=== PATIENT | male | born 1965 | race Caucasian/White ===

== ENCOUNTER 2016-12-29 09:20 | Emergency (ER) | payer OTHER ==
[2016-12-29] MEDS ORDERED: ONDANSETRON ODT 4 MG TAB PO STA (09:49)
[2016-12-29] MEDS ORDERED: ACETAMINOPHEN TAB 500 MG TAB PO STA (09:49)
--- NOTE | 2016-12-29 10:00 | ED ---
Fever HPI - General Chief Complaint: Fever Stated Complaint: BODY PAIN, FREEZING COLD, RENITA Time Seen by Provider: 12/29/16 09:36 Source: patient Mode of arrival: ambulatory Limitations: no limitations - History of Present Illness Initial Comments: 50-year-old male patient presents to emergency department stay for complaints of chills and general body aches. Patient states that this is been going on since Friday morning. Patient states he has had to wear multiple layers and has tinea pedis house has not helped feeling chilled. Patient states he has taken aspirin without any relief of symptoms. Patient has also been nauseated denies any vomiting. Patient denies abdominal pain on the diarrhea, or constipation. Denies any difficulty urinating. Denies any dysuria, hematuria, urinary urgency, urinary urgency. Denies any cough, sore throat, or nasal congestion. - Related Data Home Medications Medication Instructions Recorded Confirmed Lisinopril [Prinivil] 20 mg PO DAILY 12/22/15 09/24/16 Acetaminophen Tab [Tylenol Tab] 1,000 mg PO Q6HR PRN 09/24/16 09/24/16 [id number] 1 - 2 tab PO Q4HR PRN 09/24/16 09/24/16 [Excedrin] Butalb/Acetaminophen/Caffeine 1 - 2 cap PO Q4HR PRN 09/24/16 09/24/16 [Fioricet 50-300-40 mg Capsule] Ibuprofen [Motrin] 400 mg PO Q6HR PRN 09/24/16 09/24/16 Multivitamins, Thera [Multivitamin] 1 tab PO DAILY 09/24/16 09/24/16 diphenhydrAMINE [Benadryl] 25 - 50 mg PO Q4H PRN 09/24/16 09/24/16 Previous Rx's Medication Instructions Recorded Acetaminophen Tab [Tylenol Tab] 1,000 mg PO Q6HR #30 tablet 12/29/16 Ibuprofen [Motrin] 600 mg PO Q8HR PRN #30 tab 12/29/16 Levofloxacin [Levaquin] 500 mg PO DAILY #10 tab 12/29/16 Allergies Allergy/AdvReac Type Severity Reaction Status Date / Time morphine AdvReac Severe Hallucinati Verified 09/24/16 11:40 ons Review of Systems ROS Statement: Those systems with pertinent positive or pertinent negative responses have been documented in the HPI. ROS Other: All systems not noted in ROS Statement are negative. Past Medical History Past Medical History: Hypertension Additional Past Medical History / Comment(s): kidney stones, knee and leg pain, headache History of Any Multi-Drug Resistant Organisms: None Reported Past Surgical History: No Surgical Hx Reported Additional Past Surgical History / Comment(s): gall bladder pain Past Psychological History: No Psychological Hx Reported Smoking Status: Former smoker Past Alcohol Use History: None Reported Past Drug Use History: None Reported General Exam Limitations: no limitations General appearance: alert, in no apparent distress Eye exam: Present: normal appearance, PERRL, EOMI. Absent: scleral icterus, conjunctival injection, periorbital swelling ENT exam: Present: normal exam, normal oropharynx, mucous membranes moist, TM's normal bilaterally Neck exam: Present: normal inspection, full ROM. Absent: tenderness, meningismus, lymphadenopathy Respiratory exam: Present: rhonchi (Rhonchi left). Absent: normal lung sounds bilaterally, respiratory distress, wheezes, rales, stridor Cardiovascular Exam: Present: normal rhythm, tachycardia, normal heart sounds. Absent: systolic murmur, diastolic murmur, rubs, gallop, clicks GI/Abdominal exam: Present: soft, normal bowel sounds. Absent: distended, tenderness, guarding, rebound, rigid Extremities exam: Present: normal inspection, full ROM, normal capillary refill. Absent: tenderness, pedal edema, joint swelling, calf tenderness Back exam: Present: normal inspection. Absent: CVA tenderness (R), CVA tenderness (L) Neurological exam: Present: alert, oriented X3, CN II-XII intact Psychiatric exam: Present: normal affect, normal mood Skin exam: Present: warm, dry, intact, normal color. Absent: rash Course Vital Signs 12/29/16 12/29/16 12/29/16 09:33 10:44 11:19 Temperature 102.3 F H 102.1 F H 101.9 F H Pulse Rate 129 H 106 H Respiratory 18 20 Rate Blood Pressure 122/68 104/65 O2 Sat by Pulse 97 94 L Oximetry Medical Decision Making - Medical Decision Making 51-year-old male brought to emergency Department chief complaint fever, body aches chills. Patient has no specific complaints. Influenza was negative though he does have a classic influenza symptoms. Patient's chest x-ray was read normal by radiologist though there is congestion, and straight noted in the left lobeand this was discussed with Dr. Hubbard. Patient was started on Levaquin at this time for pneumonia. Patient was also found to have hematuria that he has no flank pain and no dysuria. Urine culture Reform. We discussed that he needs a follow-up in 1 week for repeat urinalysis if but continues that he needs to be seen by urologist to rule out possible kidney cancer with CT. - Lab Data Result diagrams: 12/29/16 10:30 12/29/16 10:30 Lab Results 12/29/16 12/29/16 12/29/16 Range/Units 09:35 10:30 10:30 WBC 4.4 (3.8-10.6) k/uL RBC 4.61 (4.30-5.90) m/uL Hgb 14.6 (13.0-17.5) gm/dL Hct 42.8 (39.0-53.0) % MCV 92.9 (80.0-100.0) fL MCH 31.7 (25.0-35.0) pg MCHC 34.1 (31.0-37.0) g/dL RDW 13.7 (11.5-15.5) % Plt Count 143 L (150-450) k/uL Neutrophils % 90 % Lymphocytes % 6 % Monocytes % 3 % Eosinophils % 1 % Basophils % 0 % Neutrophils # 4.0 (1.3-7.7) k/uL Lymphocytes # 0.3 L (1.0-4.8) k/uL Monocytes # 0.1 (0-1.0) k/uL Eosinophils # 0.0 (0-0.7) k/uL Basophils # 0.0 (0-0.2) k/uL Sodium 132 L (137-145) mmol/L Potassium 3.9 (3.5-5.1) mmol/L Chloride 98 (98-107) mmol/L Carbon Dioxide 25 (22-30) mmol/L Anion Gap 9 mmol/L BUN 19 (9-20) mg/dL Creatinine 0.91 (0.66-1.25) mg/dL Est GFR (MDRD) Af Amer >60 (>60 ml/min/1.73 sqM) Est GFR (MDRD) Non-Af >60 (>60 ml/min/1.73 sqM) Glucose 103 H (74-99) mg/dL Plasma Lactic Acid Krishan (0.7-2.0) mmol/L Calcium 8.5 (8.4-10.2) mg/dL Total Bilirubin 0.6 (0.2-1.3) mg/dL AST 32 (17-59) U/L ALT 32 (21-72) U/L Alkaline Phosphatase 55 (38-126) U/L Total Protein 5.5 L (6.3-8.2) g/dL Albumin 3.2 L (3.5-5.0) g/dL Urine Color Urine Appearance (Clear) Urine pH (5.0-8.0) Ur Specific [place] (1.001-1.035) Urine Protein (Negative) Urine Glucose (UA) (Negative) Urine Ketones (Negative) Urine Blood (Negative) Urine Nitrite (Negative) Urine Bilirubin (Negative) Urine Urobilinogen (<2.0) mg/dL Ur Leukocyte Esterase (Negative) Urine RBC (0-5) /hpf Urine WBC (0-5) /hpf Urine Mucus (None) /hpf Influenza Type A RNA Not Detected (Not Detectd) Influenza Type B (PCR) Not Detected (Not Detectd) 12/29/16 12/29/16 Range/Units 10:30 10:30 WBC (3.8-10.6) k/uL RBC (4.30-5.90) m/uL Hgb (13.0-17.5) gm/dL Hct (39.0-53.0) % MCV (80.0-100.0) fL MCH (25.0-35.0) pg MCHC (31.0-37.0) g/dL RDW (11.5-15.5) % Plt Count (150-450) k/uL Neutrophils % % Lymphocytes % % Monocytes % % Eosinophils % % Basophils % % Neutrophils # (1.3-7.7) k/uL Lymphocytes # (1.0-4.8) k/uL Monocytes # (0-1.0) k/uL Eosinophils # (0-0.7) k/uL Basophils # (0-0.2) k/uL Sodium (137-145) mmol/L Potassium (3.5-5.1) mmol/L Chloride (98-107) mmol/L Carbon Dioxide (22-30) mmol/L Anion Gap mmol/L BUN (9-20) mg/dL Creatinine (0.66-1.25) mg/dL Est GFR (MDRD) Af Amer (>60 ml/min/1.73 sqM) Est GFR (MDRD) Non-Af (>60 ml/min/1.73 sqM) Glucose (74-99) mg/dL Plasma Lactic Acid Krishan 0.9 (0.7-2.0) mmol/L Calcium (8.4-10.2) mg/dL Total Bilirubin (0.2-1.3) mg/dL AST (17-59) U/L ALT (21-72) U/L Alkaline Phosphatase (38-126) U/L Total Protein (6.3-8.2) g/dL Albumin (3.5-5.0) g/dL Urine Color Red Urine Appearance Cloudy (Clear) Urine pH 6.0 (5.0-8.0) Ur Specific [place] 1.026 (1.001-1.035) Urine Protein 1+ H (Negative) Urine Glucose (UA) Negative (Negative) Urine Ketones 1+ H (Negative) Urine Blood Large H (Negative) Urine Nitrite Negative (Negative) Urine Bilirubin Negative (Negative) Urine Urobilinogen <2.0 (<2.0) mg/dL Ur Leukocyte Esterase Negative (Negative) Urine RBC >182 H (0-5) /hpf Urine WBC 7 H (0-5) /hpf Urine Mucus Moderate H (None) /hpf Influenza Type A RNA (Not Detectd) Influenza Type B (PCR) (Not Detectd) Disposition Clinical Impression: Fever, Pneumonia, Myalgia, Hematuria Disposition: HOME SELF-CARE Condition: Stable Instructions: Pneumonia (ED) Additional Instructions: Please return to the Emergency Department if symptoms worsen or any other concerns. Have urine rechecked in 1 week. Prescriptions: Acetaminophen Tab [Tylenol Tab] 1,000 mg PO Q6HR #30 tablet Ibuprofen [Motrin] 600 mg PO Q8HR PRN #30 tab PRN Reason: Pain Levofloxacin [Levaquin] 500 mg PO DAILY #10 tab Time of Disposition: 11:31
[2016-12-29] MEDS ORDERED: SODIUM CHLORIDE 0.9% 1,000 ML IV ONE (10:17)
[2016-12-29 10:58] LABS: Appearance,Urine Cloudy (Clear); Bilirubin,Urine Negative (Negative); Glucose,Urine (UA) Negative (Negative); Ketones,Urine 1+ (Negative); Leukocyte Esterase,Urine Negative (Negative); Mucus,Urine Moderate /hpf; Nitrite,Urine Negative (Negative); Particle Count 9686; Protein,Urine 1+ (Negative); RBC,Urine >182 /hpf (0-5); Specific Gravity,Urine 1.026 (1.001-1.035); UA Billing (MACRO vs. MICRO) MICRO; Urobilinogen,Urine <2.0 mg/dL (<2.0); WBC,Urine 7 /hpf (0-5)
[2016-12-29 10:59] LABS: Basophils % (A) 0 %; CH 31.8; CHCM 34.4; Eosinophils % (A) 1 %; HCT 42.8 % (39.0-53.0); HDW 2.54; HGB 14.6 gm/dL (13.0-17.5); Immature Gran Flag Slight; Luc # (Auto) 0.05; Luc % (Auto) 1; Lymphocytes # (A) 0.3 k/uL (1.0-4.8); Lymphocytes % (A) 6 %; MCH 31.7 pg (25.0-35.0); MCHC 34.1 g/dL (31.0-37.0); MCV 92.9 fL (80.0-100.0); Monocytes # (A) 0.1 k/uL (0-1.0); Monocytes % (A) 3 %; Neutrophils % (A) 90 %; RBC 4.61 m/uL (4.30-5.90); RDW 13.7 % (11.5-15.5); WBC 4.4 k/uL (3.8-10.6); WBC (Perox) 4.55
--- NOTE | 2016-12-29 11:04 | XR ---
EXAMINATION TYPE: XR chest 2V DATE OF EXAM ORDERED: 12/29/2016 10:57 AM HISTORY: Flu symptoms. REFERENCE: None. FINDINGS: The lungs are clear. Pleural spaces are clear. Heart size is normal. IMPRESSION: NORMAL CHEST.
[2016-12-29 11:10] LABS: ALT 32 U/L (21-72); AST 32 U/L (17-59); Alkaline Phosphatase 55 U/L (38-126); Anion Gap 9 mmol/L; Blood Urea Nitrogen 19 mg/dL (9-20); Calcium 8.5 mg/dL (8.4-10.2); Carbon Dioxide 25 mmol/L (22-30); Chloride 98 mmol/L (98-107); Glucose 103 mg/dL (74-99); Non-African American GFR(MDRD) >60 (>60 ml/min/1.73 sqM); Potassium 3.9 mmol/L (3.5-5.1); Sodium 132 mmol/L (137-145); Total Bilirubin 0.6 mg/dL (0.2-1.3); Total Protein 5.5 g/dL (6.3-8.2)
[2016-12-29 11:19] VITALS: RESP 20; TEMP 101.9
[2016-12-29] MEDS ORDERED: LEVOFLOXACIN 500 MG TAB PO STA (11:26)
[2016-12-29] MEDS ORDERED: IBUPROFEN 800 MG TAB PO STA (11:31)
[2016-12-29 11:48] VITALS: BP 110/66; PULSE 80
== END 2016-12-29 11:47 | disposition home or self-care (01) ==
LOC: EC 09:20
DX: J18.9 Pneumonia, unspecified organism (principal); M79.1 Myalgia; R31.9 Hematuria, unspecified; I10 Essential (primary) hypertension; Z88.5 Allergy status to narcotic agent; Z87.891 Personal history of nicotine dependence; Z79.899 Other long term (current) drug therapy
CPT/HCPCS: 36415; 71020; 80053; 81001; 83605; 85025; 87040; 87502; 96360; 99283

== ENCOUNTER 2016-12-30 12:33 | Emergency (ER) | payer OTHER ==
[2016-12-30] MEDS ORDERED: ONDANSETRON 4 MG/2 ML VIAL IVP STA (14:31)
[2016-12-30] MEDS ORDERED: PANTOPRAZOLE 40 MG/10 ML VIAL IVP STA (14:31)
[2016-12-30] MEDS ORDERED: SODIUM CHLORIDE 0.9% 1,000 ML IV STA ×2 (14:31)
[2016-12-30 14:52] LABS: Basophils % (A) 1 %; CH 31.8; CHCM 33.9; Eosinophils % (A) 0 %; HCT 42.1 % (39.0-53.0); HDW 2.59; Luc # (Auto) 0.04; Luc % (Auto) 1; Lymphocytes # (A) 0.2 k/uL (1.0-4.8); Lymphocytes % (A) 7 %; MCH 31.4 pg (25.0-35.0); MCHC 33.3 g/dL (31.0-37.0); MCV 94.3 fL (80.0-100.0); Mean Platelet Volume 8.1; Monocytes # (A) 0.1 k/uL (0-1.0); Monocytes % (A) 2 %; Neutrophils # (A) 3.3 k/uL (1.3-7.7); Neutrophils % (A) 90 %; RBC 4.47 m/uL (4.30-5.90); RDW 13.7 % (11.5-15.5); WBC 3.7 k/uL (3.8-10.6); WBC (Perox) 3.88
[2016-12-30 14:57] LABS: ALT 28 U/L (21-72); AST 35 U/L (17-59); Alkaline Phosphatase 49 U/L (38-126); Anion Gap 14 mmol/L; Blood Urea Nitrogen 26 mg/dL (9-20); Calcium 8.6 mg/dL (8.4-10.2); Carbon Dioxide 22 mmol/L (22-30); Chloride 100 mmol/L (98-107); Glucose 88 mg/dL (74-99); Magnesium 1.8 mg/dL (1.6-2.3); Non-African American GFR(MDRD) 58 (>60 ml/min/1.73 sqM); Potassium 3.7 mmol/L (3.5-5.1); Sodium 136 mmol/L (137-145); Total Bilirubin 0.4 mg/dL (0.2-1.3); Total Protein 5.3 g/dL (6.3-8.2)
--- NOTE | 2016-12-30 14:57 | ED ---
General Adult HPI - General Chief complaint: Nausea/Vomiting/Diarrhea Stated complaint: Vomiting Blood Time Seen by Provider: 12/30/16 14:21 Source: patient, RN notes reviewed, old records reviewed Mode of arrival: ambulatory Limitations: no limitations - History of Present Illness Initial comments: This is a 50-year-old male the ER for evaluation of Toradol pain. Vomiting. Patient was inserted on antibiotics for possible pneumonia, he presented yesterday to the ER with fever. Patient states he is on it 3 times a day with blood in his vomit. He has not felt weak lightheaded or dizzy. He states he's had this problem before secondary to ulcer. Patient has no other complaints. Denies any specific bowel pain, no diarrhea - Related Data Home Medications Medication Instructions Recorded Confirmed Lisinopril [Prinivil] 20 mg PO DAILY 12/22/15 12/30/16 Acetaminophen Tab [Tylenol Tab] 1,000 mg PO Q6HR PRN 09/24/16 12/30/16 Multivitamins, Thera [Multivitamin] 1 tab PO DAILY 09/24/16 12/30/16 Previous Rx's Medication Instructions Recorded Ibuprofen [Motrin] 600 mg PO Q8HR PRN #30 tab 12/29/16 Levofloxacin [Levaquin] 500 mg PO DAILY #10 tab 12/29/16 Azithromycin [Zithromax Z-pack] 0 mg PO DIRECTED #1 pack 12/30/16 Allergies Allergy/AdvReac Type Severity Reaction Status Date / Time aspirin AdvReac Severe STOMACH Verified 12/30/16 13:58 ISSUES morphine AdvReac Severe Hallucinati Verified 12/30/16 13:57 ons Review of Systems ROS Statement: Those systems with pertinent positive or pertinent negative responses have been documented in the HPI. ROS Other: All systems not noted in ROS Statement are negative. Past Medical History Past Medical History: Hypertension, Pneumonia Additional Past Medical History / Comment(s): kidney stones, knee and leg pain, headache History of Any Multi-Drug Resistant Organisms: None Reported Past Surgical History: No Surgical Hx Reported Additional Past Surgical History / Comment(s): gall bladder pain Past Psychological History: No Psychological Hx Reported Smoking Status: Former smoker Past Alcohol Use History: None Reported Past Drug Use History: None Reported General Exam Limitations: no limitations General appearance: alert, in no apparent distress Head exam: Present: atraumatic, normocephalic, normal inspection Eye exam: Present: normal appearance, PERRL, EOMI. Absent: scleral icterus, conjunctival injection, periorbital swelling ENT exam: Present: normal exam, mucous membranes moist Neck exam: Present: normal inspection. Absent: tenderness, meningismus, lymphadenopathy Respiratory exam: Present: normal lung sounds bilaterally. Absent: respiratory distress, wheezes, rales, rhonchi, stridor Cardiovascular Exam: Present: regular rate, normal rhythm, normal heart sounds. Absent: systolic murmur, diastolic murmur, rubs, gallop, clicks GI/Abdominal exam: Present: soft, normal bowel sounds. Absent: distended, tenderness, guarding, rebound, rigid Extremities exam: Present: normal inspection, full ROM, normal capillary refill. Absent: tenderness, pedal edema, joint swelling, calf tenderness Back exam: Present: normal inspection Neurological exam: Present: alert, oriented X3, CN II-XII intact Psychiatric exam: Present: normal affect, normal mood Skin exam: Present: warm, dry, intact, normal color. Absent: rash Course Vital Signs 12/30/16 12/30/16 12:40 14:21 Temperature 97.6 F Pulse Rate 98 77 Respiratory 20 16 Rate Blood Pressure 151/67 105/62 O2 Sat by Pulse 99 99 Oximetry - Reevaluation(s) Reevaluation #1: 12/30/16 14:56 Medical records from x-rays reviewed with Reevaluation #2: 12/30/16 15:42 Patient is without vomiting event here in the emergency room, no blood Medical Decision Making - Medical Decision Making 48 female year for evaluation of vomiting blood, patient states any related to Levaquin, patient we stopped Levaquin seropositive azithromycin for pneumonia, increasing pneumonia left lobe. Patient stressed to vomiting here in the emergency room, Hulin is normal and stable and patient can be discharged home - Lab Data Result diagrams: 12/30/16 14:20 12/30/16 14:20 Lab Results 12/30/16 12/30/16 12/30/16 Range/Units 14:20 14:20 14:20 WBC 3.7 L (3.8-10.6) k/uL RBC 4.47 (4.30-5.90) m/uL Hgb 14.0 (13.0-17.5) gm/dL Hct 42.1 (39.0-53.0) % MCV 94.3 (80.0-100.0) fL MCH 31.4 (25.0-35.0) pg MCHC 33.3 (31.0-37.0) g/dL RDW 13.7 (11.5-15.5) % Plt Count 119 L (150-450) k/uL Neutrophils % 90 % Lymphocytes % 7 % Monocytes % 2 % Eosinophils % 0 % Basophils % 1 % Neutrophils # 3.3 (1.3-7.7) k/uL Lymphocytes # 0.2 L (1.0-4.8) k/uL Monocytes # 0.1 (0-1.0) k/uL Eosinophils # 0.0 (0-0.7) k/uL Basophils # 0.0 (0-0.2) k/uL PT (9.0-12.0) sec INR (<1.1) APTT (22.0-30.0) sec Sodium 136 L (137-145) mmol/L Potassium 3.7 (3.5-5.1) mmol/L Chloride 100 (98-107) mmol/L Carbon Dioxide 22 (22-30) mmol/L Anion Gap 14 mmol/L BUN 26 H (9-20) mg/dL Creatinine 1.30 H (0.66-1.25) mg/dL Est GFR (MDRD) Af Amer >60 (>60 ml/min/1.73 sqM) Est GFR (MDRD) Non-Af 58 (>60 ml/min/1.73 sqM) Glucose 88 (74-99) mg/dL Calcium 8.6 (8.4-10.2) mg/dL Magnesium 1.8 (1.6-2.3) mg/dL Total Bilirubin 0.4 (0.2-1.3) mg/dL AST 35 (17-59) U/L ALT 28 (21-72) U/L Alkaline Phosphatase 49 (38-126) U/L Total Creatine Kinase 79 (55-170) U/L CK-MB (CK-2) 0.3 (0.0-2.4) ng/mL CK-MB (CK-2) Rel Index 0.4 Troponin I <0.012 (0.000-0.034) ng/mL Total Protein 5.3 L (6.3-8.2) g/dL Albumin 3.1 L (3.5-5.0) g/dL Lipase 118 (23-300) U/L 12/30/16 Range/Units 14:20 WBC (3.8-10.6) k/uL RBC (4.30-5.90) m/uL Hgb (13.0-17.5) gm/dL Hct (39.0-53.0) % MCV (80.0-100.0) fL MCH (25.0-35.0) pg MCHC (31.0-37.0) g/dL RDW (11.5-15.5) % Plt Count (150-450) k/uL Neutrophils % % Lymphocytes % % Monocytes % % Eosinophils % % Basophils % % Neutrophils # (1.3-7.7) k/uL Lymphocytes # (1.0-4.8) k/uL Monocytes # (0-1.0) k/uL Eosinophils # (0-0.7) k/uL Basophils # (0-0.2) k/uL PT 10.7 (9.0-12.0) sec INR 1.1 (<1.1) APTT 31.2 H (22.0-30.0) sec Sodium (137-145) mmol/L Potassium (3.5-5.1) mmol/L Chloride (98-107) mmol/L Carbon Dioxide (22-30) mmol/L Anion Gap mmol/L BUN (9-20) mg/dL Creatinine (0.66-1.25) mg/dL Est GFR (MDRD) Af Amer (>60 ml/min/1.73 sqM) Est GFR (MDRD) Non-Af (>60 ml/min/1.73 sqM) Glucose (74-99) mg/dL Calcium (8.4-10.2) mg/dL Magnesium (1.6-2.3) mg/dL Total Bilirubin (0.2-1.3) mg/dL AST (17-59) U/L ALT (21-72) U/L Alkaline Phosphatase (38-126) U/L Total Creatine Kinase (55-170) U/L CK-MB (CK-2) (0.0-2.4) ng/mL CK-MB (CK-2) Rel Index Troponin I (0.000-0.034) ng/mL Total Protein (6.3-8.2) g/dL Albumin (3.5-5.0) g/dL Lipase (23-300) U/L - Radiology Data Radiology results: report reviewed (Chest x-ray is positive for pneumonia), image reviewed Disposition Clinical Impression: Acute vomiting, Community acquired pneumonia, UGIB (upper gastrointestinal bleed) Disposition: HOME SELF-CARE Condition: Good Instructions: Hematemesis (ED), Community Acquired Pneumonia (ED) Prescriptions: Azithromycin [Zithromax Z-pack] 0 mg PO DIRECTED #1 pack Referrals: None,Stated [Primary Care Provider] - 1-2 days
[2016-12-30 15:01] LABS: INR 1.1 (<1.1); Partial Thromboplastin Time 31.2 sec (22.0-30.0); Prothrombin Time 10.7 sec (9.0-12.0)
[2016-12-30 15:06] LABS: Creatine Kinase 79 U/L (55-170)
[2016-12-30 15:20] LABS: Creatine Kinase MB 0.3 ng/mL (0.0-2.4); Troponin I <0.012 ng/mL (0.000-0.034)
[2016-12-30] MEDS ORDERED: AZITHROMYCIN 500 MG TAB PO STA (15:40)
[2016-12-30] MEDS ORDERED: cefTRIAXone 250 MG VIAL IM STA (15:40)
--- NOTE | 2016-12-30 15:45 | XR ---
EXAMINATION TYPE: XR chest 2V DATE OF EXAM ORDERED: 12/30/2016 2:56 PM HISTORY: pain. REFERENCE: Previous study dated 12/29/2016. FINDINGS: The lungs are clear. Pleural spaces are clear. Heart size is normal. IMPRESSION: NORMAL CHEST.
[2016-12-30 16:09] VITALS: BP 107/69; PULSE 87; RESP 18; TEMP 97.7
== END 2016-12-30 16:09 | disposition home or self-care (01) ==
LOC: EC 12:33
DX: J18.9 Pneumonia, unspecified organism (principal); K92.2 Gastrointestinal hemorrhage, unspecified; R11.10 Vomiting, unspecified; I10 Essential (primary) hypertension; Z79.899 Other long term (current) drug therapy; Z87.891 Personal history of nicotine dependence; Z88.6 Allergy status to analgesic agent; Z88.5 Allergy status to narcotic agent
CPT/HCPCS: 99284; 96374; 96375; 96361; 96372; 36415; 86900; 86901; 80053; 82550; 82553; 83690; 83735; 84484; 85025; 85610; 85730; 86850; 71020; J2405; J0696; C9113

== ENCOUNTER 2017-01-08 08:27 | Emergency (ER) | payer OTHER ==
--- NOTE | 2017-01-08 10:20 | ED ---
General Adult HPI - General Chief complaint: Recheck/Abnormal Lab/Rx Stated complaint: kidney infection Time Seen by Provider: 01/08/17 09:58 Source: patient, RN notes reviewed Mode of arrival: ambulatory Limitations: no limitations - History of Present Illness Initial comments: Patient 51-year-old male with significant past medical history for kidney stones , who presents emergency room today with chief complaint of left-sided flank pain. Patient does admit that symptoms have been off and on over the last several weeks. States been here to the hospital diagnosis hematuria. States he was here for pneumonia. States his symptoms of congestion have improved. She states recently finished antibiotic. States began having increased left- sided flank pain yesterday morning. Patient does admit that it seems to come and go. States feels similar to kidney stones that is had in the past. Does admit that he seen some blood in his urine. States been voiding small amounts. Admits to nausea. He denies other complaints or associated symptoms. Patient denies any recent fever, chills, shortness of breath, chest pain, back pain, numbness or tingling, dysuria or hematuria, constipation or diarrhea, headaches or visual changes, or any other complaints. - Related Data Home Medications Medication Instructions Recorded Confirmed Lisinopril [Prinivil] 20 mg PO DAILY 12/22/15 01/08/17 Acetaminophen Tab [Tylenol Tab] 500 - 1,000 mg PO Q6HR PRN 09/24/16 01/08/17 Multivitamins, Thera [Multivitamin] 1 tab PO DAILY 09/24/16 01/08/17 Previous Rx's Medication Instructions Recorded Hydrocodone/Acetaminophen [[place] 1 each PO Q6HR PRN #20 tab 01/08/17 5-325] Ibuprofen [Motrin] 600 mg PO Q6HR PRN #40 day 01/08/17 Lisinopril [Zestril] 20 mg PO DAILY #30 tab 01/08/17 Ondansetron Odt [Zofran ODT] 4 mg PO Q8HR PRN #20 tab 01/08/17 Tamsulosin [Flomax] 0.4 mg PO DAILY #10 cap 01/08/17 Allergies Allergy/AdvReac Type Severity Reaction Status Date / Time aspirin AdvReac Severe STOMACH Verified 01/08/17 09:50 ISSUES morphine AdvReac Severe Hallucinati Verified 01/08/17 09:50 ons Review of Systems ROS Statement: Those systems with pertinent positive or pertinent negative responses have been documented in the HPI. ROS Other: All systems not noted in ROS Statement are negative. Past Medical History Past Medical History: Hypertension, Pneumonia Additional Past Medical History / Comment(s): kidney stones, knee and leg pain, headache History of Any Multi-Drug Resistant Organisms: None Reported Past Surgical History: No Surgical Hx Reported Additional Past Surgical History / Comment(s): gall bladder pain Past Psychological History: No Psychological Hx Reported Smoking Status: Former smoker Past Alcohol Use History: None Reported Past Drug Use History: None Reported General Exam - General Exam Comments Initial Comments: General: The patient is awake and alert, in no distress, and does not appear acutely ill. Eye: Pupils are equal, round and reactive to light, extra-ocular movements are intact. No nystagmus. There is normal conjunctiva bilaterally. No signs of icterus. Ears, nose, mouth and throat: There are moist mucous membranes and no oral lesions. Neck: The neck is supple, there is no tenderness or JVD. Cardiovascular: There is a regular rate and rhythm. No murmur, rub or gallop is appreciated. Respiratory: Lungs are clear to auscultation, respirations are non-labored, breath sounds are equal. No wheezes, stridor, rales, or rhonchi. Gastrointestinal: Normal appearance and Normal bowel sounds. Abdomen soft on palpation. Patient does have tenderness over left flank. Left lower quadrant. Rebound tenderness. No guarding. Musculoskeletal: Normal ROM, no tenderness. Strength 5/5. Sensation intact. Pulses equal bilaterally 2+. Neurological: A&O x 3. CN II-XII intact, There are no obvious motor or sensory deficits. Coordination appears grossly intact. Speech is normal. Skin: Skin is warm and dry and no rashes or lesions are noted. Psychiatric: Cooperative, appropriate mood & affect, normal judgment. Limitations: no limitations Course Vital Signs 01/08/17 08:37 Temperature 97.2 F L Pulse Rate 70 Respiratory 20 Rate Blood Pressure 132/90 O2 Sat by Pulse 99 Oximetry Medical Decision Making - Medical Decision Making Patient's labs been reviewed. No sign of infection. Urinalysis shows large amount of blood. Patient does admit to history of kidney stones. States feels similar. Patient's had multiple CAT scans in the past. States feels comfortable following up with family doctor neurologist. Started on Flomax, pain medication, nausea medication. Advised return to emergency room if any symptoms increase worsen. Patient also states that he needs blood pressure medication refill. He states he currently is does not have family doctor. She states she takes lisinopril 20 mg. - Lab Data Result diagrams: 01/08/17 10:25 01/08/17 10:25 Lab Results 01/08/17 01/08/17 01/08/17 Range/Units 10:25 10:25 10:25 WBC 5.6 (3.8-10.6) k/uL RBC 4.59 (4.30-5.90) m/uL Hgb 14.3 (13.0-17.5) gm/dL Hct 43.2 (39.0-53.0) % MCV 94.1 (80.0-100.0) fL MCH 31.2 (25.0-35.0) pg MCHC 33.2 (31.0-37.0) g/dL RDW 13.5 (11.5-15.5) % Plt Count 569 H D (150-450) k/uL Neutrophils % 68 % Lymphocytes % 19 % Monocytes % 7 % Eosinophils % 1 % Basophils % 1 % Neutrophils # 3.8 (1.3-7.7) k/uL Lymphocytes # 1.1 (1.0-4.8) k/uL Monocytes # 0.4 (0-1.0) k/uL Eosinophils # 0.1 (0-0.7) k/uL Basophils # 0.1 (0-0.2) k/uL PT 10.6 (9.0-12.0) sec INR 1.1 (<1.1) APTT 24.6 (22.0-30.0) sec Sodium 144 (137-145) mmol/L Potassium 4.9 (3.5-5.1) mmol/L Chloride 103 (98-107) mmol/L Carbon Dioxide 33 H (22-30) mmol/L Anion Gap 8 mmol/L BUN 15 (9-20) mg/dL Creatinine 0.95 (0.66-1.25) mg/dL Est GFR (MDRD) Af Amer >60 (>60 ml/min/1.73 sqM) Est GFR (MDRD) Non-Af >60 (>60 ml/min/1.73 sqM) Glucose 102 H (74-99) mg/dL Calcium 9.5 (8.4-10.2) mg/dL Total Bilirubin 0.6 (0.2-1.3) mg/dL AST 38 (17-59) U/L ALT 35 (21-72) U/L Alkaline Phosphatase 71 (38-126) U/L Total Protein 5.9 L (6.3-8.2) g/dL Albumin 3.2 L (3.5-5.0) g/dL Amylase 74 (30-110) U/L Lipase 106 (23-300) U/L Urine Color Urine Appearance (Clear) Urine pH (5.0-8.0) Ur Specific [place] (1.001-1.035) Urine Protein (Negative) Urine Glucose (UA) (Negative) Urine Ketones (Negative) Urine Blood (Negative) Urine Nitrite (Negative) Urine Bilirubin (Negative) Urine Urobilinogen (<2.0) mg/dL Ur Leukocyte Esterase (Negative) Urine RBC (0-5) /hpf Urine Mucus (None) /hpf 01/08/17 Range/Units 10:25 WBC (3.8-10.6) k/uL RBC (4.30-5.90) m/uL Hgb (13.0-17.5) gm/dL Hct (39.0-53.0) % MCV (80.0-100.0) fL MCH (25.0-35.0) pg MCHC (31.0-37.0) g/dL RDW (11.5-15.5) % Plt Count (150-450) k/uL Neutrophils % % Lymphocytes % % Monocytes % % Eosinophils % % Basophils % % Neutrophils # (1.3-7.7) k/uL Lymphocytes # (1.0-4.8) k/uL Monocytes # (0-1.0) k/uL Eosinophils # (0-0.7) k/uL Basophils # (0-0.2) k/uL PT (9.0-12.0) sec INR (<1.1) APTT (22.0-30.0) sec Sodium (137-145) mmol/L Potassium (3.5-5.1) mmol/L Chloride (98-107) mmol/L Carbon Dioxide (22-30) mmol/L Anion Gap mmol/L BUN (9-20) mg/dL Creatinine (0.66-1.25) mg/dL Est GFR (MDRD) Af Amer (>60 ml/min/1.73 sqM) Est GFR (MDRD) Non-Af (>60 ml/min/1.73 sqM) Glucose (74-99) mg/dL Calcium (8.4-10.2) mg/dL Total Bilirubin (0.2-1.3) mg/dL AST (17-59) U/L ALT (21-72) U/L Alkaline Phosphatase (38-126) U/L Total Protein (6.3-8.2) g/dL Albumin (3.5-5.0) g/dL Amylase (30-110) U/L Lipase (23-300) U/L Urine Color Dark Brown Urine Appearance Cloudy (Clear) Urine pH 6.0 (5.0-8.0) Ur Specific [place] 1.026 (1.001-1.035) Urine Protein 2+ H (Negative) Urine Glucose (UA) Negative (Negative) Urine Ketones Trace H (Negative) Urine Blood Large H (Negative) Urine Nitrite Negative (Negative) Urine Bilirubin Negative (Negative) Urine Urobilinogen 3.0 (<2.0) mg/dL Ur Leukocyte Esterase Small H (Negative) Urine RBC >182 H (0-5) /hpf Urine Mucus Moderate H (None) /hpf Disposition Clinical Impression: Kidney stone Disposition: HOME SELF-CARE Condition: Good Instructions: Kidney Stones (ED) Additional Instructions: Please use medication as discussed. Please follow-up with family doctor/ urologist in the next 2 days of symptoms have not improved. Please return to emergency room if the symptoms increase or worsen or for any other concerns. Prescriptions: Hydrocodone/Acetaminophen [[place] 5-325] 1 each PO Q6HR PRN #20 tab PRN Reason: Pain Ibuprofen [Motrin] 600 mg PO Q6HR PRN #40 day PRN Reason: Pain Lisinopril [Zestril] 20 mg PO DAILY #30 tab Ondansetron Odt [Zofran ODT] 4 mg PO Q8HR PRN #20 tab PRN Reason: Nausea Tamsulosin [Flomax] 0.4 mg PO DAILY #10 cap Referrals: Alfred Hunter MD [STAFF PHYSICIAN] - 1-2 days None,Stated [Primary Care Provider] - 1-2 days Tony Pompa MD [REFERRING] - 1-2 days Kelly Baron MD [STAFF PHYSICIAN] - 1-2 days Time of Disposition: 11:33
[2017-01-08] MEDS: ONDANSETRON 4 MG/2 ML VIAL IVP STA (10:21)
[2017-01-08] MEDS: HYDROmorphone 1 MG/ML 1 ML SYRINGE IVP STA (10:22)
[2017-01-08] MEDS: SODIUM CHLORIDE 0.9% 1,000 ML IV STA ×2 (10:22→10:23)
[2017-01-08 10:52] LABS: INR 1.1 (<1.1); Partial Thromboplastin Time 24.6 sec (22.0-30.0); Prothrombin Time 10.6 sec (9.0-12.0)
[2017-01-08 10:55] LABS: Basophils # (A) 0.1 k/uL (0-0.2); Basophils % (A) 1 %; CHCM 33.1; Eosinophils # (A) 0.1 k/uL (0-0.7); Eosinophils % (A) 1 %; HCT 43.2 % (39.0-53.0); HDW 2.85; HGB 14.3 gm/dL (13.0-17.5); Luc # (Auto) 0.19; Luc % (Auto) 3; Lymphocytes # (A) 1.1 k/uL (1.0-4.8); Lymphocytes % (A) 19 %; MCH 31.2 pg (25.0-35.0); MCHC 33.2 g/dL (31.0-37.0); MCV 94.1 fL (80.0-100.0); Mean Platelet Volume 7.4; Monocytes # (A) 0.4 k/uL (0-1.0); Monocytes % (A) 7 %; Neutrophils # (A) 3.8 k/uL (1.3-7.7); Neutrophils % (A) 68 %; RBC 4.59 m/uL (4.30-5.90); RDW 13.5 % (11.5-15.5); WBC 5.6 k/uL (3.8-10.6)
[2017-01-08 11:05] LABS: Appearance,Urine Cloudy (Clear); Bilirubin,Urine Negative (Negative); Glucose,Urine (UA) Negative (Negative); Ketones,Urine Trace (Negative); Leukocyte Esterase,Urine Small (Negative); Mucus,Urine Moderate /hpf; Nitrite,Urine Negative (Negative); Particle Count 11354; Protein,Urine 2+ (Negative); RBC,Urine >182 /hpf (0-5); Specific Gravity,Urine 1.026 (1.001-1.035); UA Billing (MACRO vs. MICRO) MICRO
[2017-01-08 11:06] LABS: ALT 35 U/L (21-72); AST 38 U/L (17-59); Alkaline Phosphatase 71 U/L (38-126); Amylase 74 U/L (30-110); Anion Gap 8 mmol/L; Blood Urea Nitrogen 15 mg/dL (9-20); Calcium 9.5 mg/dL (8.4-10.2); Carbon Dioxide 33 mmol/L (22-30); Chloride 103 mmol/L (98-107); Glucose 102 mg/dL (74-99); Non-African American GFR(MDRD) >60 (>60 ml/min/1.73 sqM); Potassium 4.9 mmol/L (3.5-5.1); Sodium 144 mmol/L (137-145); Total Bilirubin 0.6 mg/dL (0.2-1.3); Total Protein 5.9 g/dL (6.3-8.2)
--- NOTE | 2017-01-08 11:36 | XR ---
EXAMINATION TYPE: XR KUB DATE OF EXAM: 01/08/2017 11:25 AM CLINICAL HISTORY: History of renal calculi presents with left-sided abdominal pain. TECHNIQUE: 2 upright KUB images of the abdomen are obtained. COMPARISON: CT abdomen pelvis April 16, 2016. Most recent abdominal x-ray September 07, 2016.. FINDINGS: 2 renal calculi are redemonstrated scattered throughout the left kidney measuring 4 mm or s maller in size. I also suspect 2-3 similar sized calculi right kidney upper pole level though less we ll-seen but were present on prior CT. There is overall nonobstructive bowel gas pattern. Dextroconvex scoliotic curvature to the thoracolum bar spine is redemonstrated. Lung bases remain clear. No pneumoperitoneum is identified. IMPRESSION: Redemonstration of bilateral small nephrolithiasis . Overall nonobstructive bowel gas pattern.
[2017-01-08 12:26] VITALS: BP 154/87; PULSE 56; RESP 18; TEMP 97.8
== END 2017-01-08 12:25 | disposition home or self-care (01) ==
LOC: EC 08:27
DX: N20.0 Calculus of kidney (principal); R11.0 Nausea; I10 Essential (primary) hypertension; Z87.891 Personal history of nicotine dependence; Z79.899 Other long term (current) drug therapy; Z88.5 Allergy status to narcotic agent; Z88.6 Allergy status to analgesic agent
CPT/HCPCS: 36415; 80053; 82150; 83690; 85025; 85610; 85730; 81001; 74000; 99284; 96374; 96375; 96361 ×2; J2405; J1170

== ENCOUNTER 2017-02-21 11:34 | Emergency (ER) | payer OTHER ==
[2017-02-21 12:46] VITALS: RESP 18; TEMP 97.5
[2017-02-21] MEDS ORDERED: SODIUM CHLORIDE 0.9% 1,000 ML IV STA (14:49)
[2017-02-21] MEDS ORDERED: KETOROLAC 30 MG/ML 1 ML VIAL IVP STA (14:49)
[2017-02-21] MEDS ORDERED: ONDANSETRON 4 MG/2 ML VIAL IVP STA (14:49)
--- NOTE | 2017-02-21 14:56 | ED ---
Abdominal Pain HPI - General Chief Complaint: Abdominal Pain Stated Complaint: POSS KIDNEY STONE Time Seen by Provider: 02/21/17 14:42 Source: patient, RN notes reviewed, old records reviewed Mode of arrival: ambulatory Limitations: no limitations - History of Present Illness Initial Comments: This is a 51-year-old male presents emergency Department chief complaint of 1 day of left flank pain. Patient reports he has history of kidney stones. Patient reports that 3 weeks ago he passed a very large kidney stone. He does drink emergency room to show me. Patient reports that he has had a history of kidney stones within the past 10+ years. Patient states that this pain is similar to all previous ones. He denies any vomiting but feels nauseated. Denies any change in bowel movement. Denies any blood in his urine and states he did urinate earlier today. Patient denies any fever or chills, chest pain, shortness of breath, peripheral paresthesias, extremity injuries or swelling. - Related Data Home Medications Medication Instructions Recorded Confirmed Multivitamins, Thera [Multivitamin] 1 tab PO DAILY 09/24/16 02/21/17 Propranolol HCl 60 mg PO DAILY 02/21/17 02/21/17 Previous Rx's Medication Instructions Recorded HYDROcodone/APAP 10-325MG [[place] 1 tab PO Q6H PRN #15 tab 02/21/17 10-325] Ketorolac [Toradol] 10 mg PO TID #15 tab 02/21/17 Allergies Allergy/AdvReac Type Severity Reaction Status Date / Time aspirin AdvReac Severe STOMACH Verified 02/21/17 15:56 ISSUES morphine AdvReac Severe Hallucinati Verified 02/21/17 15:56 ons Review of Systems ROS Statement: Those systems with pertinent positive or pertinent negative responses have been documented in the HPI. ROS Other: All systems not noted in ROS Statement are negative. Past Medical History Past Medical History: Hypertension, Pneumonia Additional Past Medical History / Comment(s): kidney stones, knee and leg pain, headache History of Any Multi-Drug Resistant Organisms: None Reported Past Surgical History: No Surgical Hx Reported Additional Past Surgical History / Comment(s): gall bladder pain Past Psychological History: No Psychological Hx Reported Smoking Status: Former smoker Past Alcohol Use History: None Reported Past Drug Use History: None Reported General Exam - General Exam Comments Initial Comments: Is a pleasant 51-year-old male. No acute distress. Limitations: no limitations General appearance: alert, in no apparent distress Head exam: Present: atraumatic, normocephalic, normal inspection Eye exam: Present: normal appearance, PERRL, EOMI. Absent: scleral icterus, conjunctival injection, periorbital swelling ENT exam: Present: normal exam, mucous membranes moist Neck exam: Present: normal inspection. Absent: tenderness, meningismus, lymphadenopathy Respiratory exam: Present: normal lung sounds bilaterally. Absent: respiratory distress, wheezes, rales, rhonchi, stridor Cardiovascular Exam: Present: regular rate, normal rhythm, normal heart sounds. Absent: systolic murmur, diastolic murmur, rubs, gallop, clicks GI/Abdominal exam: Present: soft, normal bowel sounds. Absent: distended, tenderness, guarding, rebound, rigid Extremities exam: Present: normal inspection, full ROM, normal capillary refill. Absent: tenderness, pedal edema, joint swelling, calf tenderness Back exam: Present: normal inspection Neurological exam: Present: alert, oriented X3, CN II-XII intact Psychiatric exam: Present: normal affect, normal mood Skin exam: Present: warm, dry, intact, normal color. Absent: rash Course Vital Signs 02/21/17 02/21/17 12:44 15:22 Temperature 97.5 F L Pulse Rate 85 84 Respiratory 18 18 Rate Blood Pressure 130/96 136/91 O2 Sat by Pulse 99 99 Oximetry Medical Decision Making - Medical Decision Making This is a 51-year-old male presents emergency Department chief complaint of 1 day of left flank pain. Patient reports he has history of kidney stones. Patient reports that 3 weeks ago he passed a very large kidney stone. He does drink emergency room to show me. Patient reports that he has had a history of kidney stones within the past 10+ years. Patient states that this pain is similar to all previous ones. He denies any vomiting but feels nauseated. Denies any change in bowel movement. Denies any blood in his urine and states he did urinate earlier today. Patient's KUB x-ray shows evidence of a 2 mm stone. Patient's laboratory been essentially benign. No evidence some blood in the urine. Discussed not necessarily requiring a repeat CT at this time. It is only is a kidney stone. Patient will be discharged with Flomax and pain medication. Discussed close follow-up with primary care provider. Patient also given a referral for urology sees had recurrent kidney stones. Patient understands treatment plan will comply. Return parameters were - Lab Data Result diagrams: 02/21/17 14:50 02/21/17 14:50 Lab Results 02/21/17 02/21/17 02/21/17 Range/Units 14:30 14:50 14:50 WBC 7.3 (3.8-10.6) k/uL RBC 4.68 (4.30-5.90) m/uL Hgb 14.9 (13.0-17.5) gm/dL Hct 43.8 (39.0-53.0) % MCV 93.6 (80.0-100.0) fL MCH 31.9 (25.0-35.0) pg MCHC 34.1 (31.0-37.0) g/dL RDW 13.7 (11.5-15.5) % Plt Count 265 (150-450) k/uL Neutrophils % 67 % Lymphocytes % 23 % Monocytes % 5 % Eosinophils % 3 % Basophils % 1 % Neutrophils # 4.9 (1.3-7.7) k/uL Lymphocytes # 1.7 (1.0-4.8) k/uL Monocytes # 0.4 (0-1.0) k/uL Eosinophils # 0.2 (0-0.7) k/uL Basophils # 0.0 (0-0.2) k/uL Sodium 138 (137-145) mmol/L Potassium 4.5 (3.5-5.1) mmol/L Chloride 105 (98-107) mmol/L Carbon Dioxide 25 (22-30) mmol/L Anion Gap 8 mmol/L BUN 11 (9-20) mg/dL Creatinine 0.86 (0.66-1.25) mg/dL Est GFR (MDRD) Af Amer >60 (>60 ml/min/1.73 sqM) Est GFR (MDRD) Non-Af >60 (>60 ml/min/1.73 sqM) Glucose 89 (74-99) mg/dL Calcium 9.3 (8.4-10.2) mg/dL Total Bilirubin 0.9 (0.2-1.3) mg/dL AST 31 (17-59) U/L ALT 27 (21-72) U/L Alkaline Phosphatase 54 (38-126) U/L Total Protein 6.5 (6.3-8.2) g/dL Albumin 4.1 (3.5-5.0) g/dL Amylase 93 (30-110) U/L Lipase 90 (23-300) U/L Urine Color Yellow Urine Appearance Clear (Clear) Urine pH 6.0 (5.0-8.0) Ur Specific [place] 1.017 (1.001-1.035) Urine Protein Negative (Negative) Urine Glucose (UA) Negative (Negative) Urine Ketones Negative (Negative) Urine Blood Negative (Negative) Urine Nitrite Negative (Negative) Urine Bilirubin Negative (Negative) Urine Urobilinogen <2.0 (<2.0) mg/dL Ur Leukocyte Esterase Negative (Negative) - Radiology Data Radiology results: report reviewed KUB shows 2mm left renal stone. Disposition Clinical Impression: Left flank pain, Renal calculus, left Disposition: HOME SELF-CARE Condition: Good Instructions: Kidney Stones (ED) Additional Instructions: Patient advised to rest, increase fluids. Take medications as prescribed. Return to emergency department if any alarming signs or symptoms occur. Prescriptions: HYDROcodone/APAP 10-325MG [[place] 10-325] 1 tab PO Q6H PRN #15 tab PRN Reason: Pain Ketorolac [Toradol] 10 mg PO TID #15 tab Referrals: None,Stated [Primary Care Provider] - 1-2 days Kelly Baron MD [STAFF PHYSICIAN] - 1-2 days Jarvis Dallas MD [STAFF PHYSICIAN] - 1-2 days Time of Disposition: 15:54
[2017-02-21 15:07] LABS: Basophils % (A) 1 %; CH 31.4; CHCM 33.7; Eosinophils # (A) 0.2 k/uL (0-0.7); Eosinophils % (A) 3 %; HCT 43.8 % (39.0-53.0); HDW 2.63; HGB 14.9 gm/dL (13.0-17.5); Luc # (Auto) 0.12; Luc % (Auto) 2; Lymphocytes # (A) 1.7 k/uL (1.0-4.8); Lymphocytes % (A) 23 %; MCH 31.9 pg (25.0-35.0); MCHC 34.1 g/dL (31.0-37.0); MCV 93.6 fL (80.0-100.0); Mean Platelet Volume 7.2; Monocytes # (A) 0.4 k/uL (0-1.0); Monocytes % (A) 5 %; Neutrophils # (A) 4.9 k/uL (1.3-7.7); Neutrophils % (A) 67 %; RBC 4.68 m/uL (4.30-5.90); RDW 13.7 % (11.5-15.5); WBC 7.3 k/uL (3.8-10.6); WBC (Perox) 7.67
[2017-02-21 15:08] LABS: Appearance,Urine Clear (Clear); Bilirubin,Urine Negative (Negative); Glucose,Urine (UA) Negative (Negative); Ketones,Urine Negative (Negative); Leukocyte Esterase,Urine Negative (Negative); Nitrite,Urine Negative (Negative); Protein,Urine Negative (Negative); Specific Gravity,Urine 1.017 (1.001-1.035); UA Billing (MACRO vs. MICRO) CHEM; Urobilinogen,Urine <2.0 mg/dL (<2.0)
--- NOTE | 2017-02-21 15:14 | XR ---
EXAMINATION TYPE: XR KUB DATE OF EXAM: 02/21/2017 3:04 PM CLINICAL DATA: 51-year-old male with left-sided abdominal pain, H COMPARISON: 01/08/2017 FINDINGS: Lung bases are clear. No evidence for free intraperitoneal air. No dilated small bowel or air-fluid levels. Scattered air and stool seen throughout the colon extendi ng distally into the rectum. Mild scattered stool. Punctate 2 mm calcification in the left mid abdomen. IMPRESSION: 1. A 2 mm left renal calculus. 2.No evidence of bowel obstruction or free intraperitoneal air.
[2017-02-21 15:17] LABS: ALT 27 U/L (21-72); AST 31 U/L (17-59); Alkaline Phosphatase 54 U/L (38-126); Amylase 93 U/L (30-110); Anion Gap 8 mmol/L; Blood Urea Nitrogen 11 mg/dL (9-20); Calcium 9.3 mg/dL (8.4-10.2); Carbon Dioxide 25 mmol/L (22-30); Chloride 105 mmol/L (98-107); Glucose 89 mg/dL (74-99); Non-African American GFR(MDRD) >60 (>60 ml/min/1.73 sqM); Potassium 4.5 mmol/L (3.5-5.1); Sodium 138 mmol/L (137-145); Total Bilirubin 0.9 mg/dL (0.2-1.3); Total Protein 6.5 g/dL (6.3-8.2)
[2017-02-21 15:23] VITALS: BP 136/91; PULSE 84
== END 2017-02-21 16:11 | disposition home or self-care (01) ==
LOC: EC 11:34
DX: N20.0 Calculus of kidney (principal); I10 Essential (primary) hypertension; Z87.442 Personal history of urinary calculi; Z87.891 Personal history of nicotine dependence; Z79.899 Other long term (current) drug therapy; Z88.5 Allergy status to narcotic agent; Z88.6 Allergy status to analgesic agent
CPT/HCPCS: 36415; 80053; 82150; 83690; 85025; 81003; 74000; 99284; 96374; 96375; 96361; J2405; J1885

== ENCOUNTER 2017-03-25 07:58 | Emergency (ER) | payer OTHER ==
[2017-03-25] MEDS ORDERED: KETOROLAC 30 MG/ML 1 ML VIAL IVP STA (08:29)
[2017-03-25] MEDS ORDERED: ONDANSETRON 4 MG/2 ML VIAL IVP STA (08:29)
[2017-03-25] MEDS ORDERED: SODIUM CHLORIDE 0.9% 1,000 ML IV ONE (08:29)
--- NOTE | 2017-03-25 08:32 | ED ---
Abdominal Pain HPI - General Chief Complaint: Abdominal Pain Stated Complaint: Poss Kidney stones Time Seen by Provider: 03/25/17 08:09 Source: patient, RN notes reviewed Mode of arrival: ambulatory Limitations: no limitations - History of Present Illness Initial Comments: Patient is a 51-year-old male presents to the emergency room for evaluation of right lower quadrant pain. Patient states she has a history of kidney stones. Patient states he passed 3 kidney stones within the past 3 months. Patient states pain began around 6:30 this morning when he woke up. Patient states the pain is in his right lower quadrant. Patient states usually passes stones on the left side. Patient states the right side is new for him. Patient states he is having 7 out of 10 constant pain. Patient denies any pain or burning during urination, trouble urinating or blood in urine. Patient states he is nauseous but denies vomiting. Patient denies fevers or chills. Patient denies chest pain or shortness of breath. Patient denies headache or dizziness. Patient denies history of abdominal surgeries. Patient denies constipation or diarrhea. - Related Data Home Medications Medication Instructions Recorded Confirmed Multivitamins, Thera [Multivitamin] 1 tab PO DAILY 09/24/16 03/25/17 Propranolol HCl 60 mg PO DAILY 02/21/17 03/25/17 Previous Rx's Medication Instructions Recorded HYDROcodone/APAP 10-325MG [[place] 1 tab PO Q6H PRN #15 tab 02/21/17 10-325] Ketorolac [Toradol] 10 mg PO TID #15 tab 02/21/17 Amoxicillin/Potassium Clav 1 each PO Q12HR #20 tab 03/25/17 [Augmentin 875-125 Tablet] HYDROcodone/APAP 5-325MG [[place] 1 tab PO Q6HR PRN #12 tab 03/25/17 5-325] Ondansetron Odt [Zofran Odt] 4 mg PO Q8HR PRN #12 tab 03/25/17 Allergies Allergy/AdvReac Type Severity Reaction Status Date / Time aspirin AdvReac Severe STOMACH Verified 03/25/17 08:21 ISSUES morphine AdvReac Severe Hallucinati Verified 03/25/17 08:21 ons Review of Systems ROS Statement: Those systems with pertinent positive or pertinent negative responses have been documented in the HPI. ROS Other: All systems not noted in ROS Statement are negative. Past Medical History Past Medical History: Hypertension, Pneumonia Additional Past Medical History / Comment(s): kidney stones, knee and leg pain, headache History of Any Multi-Drug Resistant Organisms: None Reported Past Surgical History: No Surgical Hx Reported Additional Past Surgical History / Comment(s): gall bladder pain Past Psychological History: No Psychological Hx Reported Smoking Status: Former smoker Past Alcohol Use History: None Reported Past Drug Use History: None Reported General Exam - General Exam Comments Initial Comments: Laying in exam room, no acute distress. Limitations: no limitations General appearance: alert, in no apparent distress Head exam: Present: atraumatic, normocephalic, normal inspection Eye exam: Present: normal appearance ENT exam: Present: normal exam Neck exam: Present: normal inspection Respiratory exam: Present: normal lung sounds bilaterally. Absent: respiratory distress Cardiovascular Exam: Present: normal rhythm, tachycardia, normal heart sounds GI/Abdominal exam: Present: soft, tenderness (RLQ), normal bowel sounds. Absent : distended, guarding, rebound, rigid Extremities exam: Present: normal inspection Back exam: Present: normal inspection. Absent: CVA tenderness (R), CVA tenderness (L) Neurological exam: Present: alert, oriented X3, CN II-XII intact, normal gait Psychiatric exam: Present: normal affect, normal mood Skin exam: Present: warm, dry, intact, normal color. Absent: rash Course Vital Signs 03/25/17 03/25/17 03/25/17 07:59 09:22 10:14 Temperature 98.0 F 97.8 F 97.6 F Pulse Rate 118 H 94 80 Respiratory 20 18 14 Rate Blood Pressure 131/70 118/73 136/87 O2 Sat by Pulse 100 99 99 Oximetry Medical Decision Making - Medical Decision Making Patient is a 51-year-old male presents emergency room for evaluation of abdominal pain. Labs show no acute findings. CT ordered to rule out appendicitis or right ureteral stone. CT abdomen/pelvis without contrast shows evidence for mild diverticulitis on the right side. Patient started on Augmentin. Patient advised to follow-up with primary care provider for reevaluation. Patient is afebrile, WBC within normal limits. Patient states he understands everything that was discussed with him. Return parameters discussed. Case discussed Dr. Heaton. - Lab Data Result diagrams: 03/25/17 08:23 03/25/17 08:23 Lab Results 03/25/17 03/25/17 03/25/17 Range/Units 08:23 08:23 08:24 WBC 8.2 (3.8-10.6) k/uL RBC 5.00 (4.30-5.90) m/uL Hgb 16.0 (13.0-17.5) gm/dL Hct 46.1 (39.0-53.0) % MCV 92.3 (80.0-100.0) fL MCH 32.0 (25.0-35.0) pg MCHC 34.7 (31.0-37.0) g/dL RDW 13.7 (11.5-15.5) % Plt Count 285 (150-450) k/uL Neutrophils % 76 % Lymphocytes % 16 % Monocytes % 4 % Eosinophils % 1 % Basophils % 0 % Neutrophils # 6.2 (1.3-7.7) k/uL Lymphocytes # 1.3 (1.0-4.8) k/uL Monocytes # 0.3 (0-1.0) k/uL Eosinophils # 0.1 (0-0.7) k/uL Basophils # 0.0 (0-0.2) k/uL Sodium 141 (137-145) mmol/L Potassium 4.1 (3.5-5.1) mmol/L Chloride 107 (98-107) mmol/L Carbon Dioxide 23 (22-30) mmol/L Anion Gap 11 mmol/L BUN 16 (9-20) mg/dL Creatinine 0.86 (0.66-1.25) mg/dL Est GFR (MDRD) Af Amer >60 (>60 ml/min/1.73 sqM) Est GFR (MDRD) Non-Af >60 (>60 ml/min/1.73 sqM) Glucose 100 H (74-99) mg/dL Calcium 9.7 (8.4-10.2) mg/dL Total Bilirubin 0.7 (0.2-1.3) mg/dL AST 24 (17-59) U/L ALT 26 (21-72) U/L Alkaline Phosphatase 49 (38-126) U/L Total Protein 6.4 (6.3-8.2) g/dL Albumin 4.1 (3.5-5.0) g/dL Amylase 84 (30-110) U/L Lipase 84 (23-300) U/L Urine Color Yellow Urine Appearance Clear (Clear) Urine pH 6.0 (5.0-8.0) Ur Specific [place] 1.030 (1.001-1.035) Urine Protein Trace H (Negative) Urine Glucose (UA) Negative (Negative) Urine Ketones Trace H (Negative) Urine Blood Negative (Negative) Urine Nitrite Negative (Negative) Urine Bilirubin Negative (Negative) Urine Urobilinogen 2.0 (<2.0) mg/dL Ur Leukocyte Esterase Negative (Negative) - Radiology Data Radiology results: report reviewed, image reviewed Disposition Clinical Impression: Diverticulitis Disposition: HOME SELF-CARE Condition: Good Instructions: Diverticulitis (ED) Additional Instructions: Take antibiotics as directed. Please follow up with primary care provider in 24 -48 hours for reevaluation. If any new symptom arises or symptoms worsen, return to ER as soon as possible. Prescriptions: HYDROcodone/APAP 5-325MG [[place] 5-325] 1 tab PO Q6HR PRN #12 tab PRN Reason: Pain Ondansetron Odt [Zofran Odt] 4 mg PO Q8HR PRN #12 tab PRN Reason: Nausea Amoxicillin/Potassium Clav [Augmentin 875-125 Tablet] 1 each PO Q12HR #20 tab Referrals: Kelly Baron MD [STAFF PHYSICIAN] - 1-2 days Time of Disposition: 10:00
[2017-03-25 08:43] LABS: Appearance,Urine Clear (Clear); Bilirubin,Urine Negative (Negative); Glucose,Urine (UA) Negative (Negative); Ketones,Urine Trace (Negative); Leukocyte Esterase,Urine Negative (Negative); Nitrite,Urine Negative (Negative); Protein,Urine Trace (Negative); UA Billing (MACRO vs. MICRO) CHEM
[2017-03-25 08:45] LABS: Basophils % (A) 0 %; CH 30.6; CHCM 33.3; Eosinophils # (A) 0.1 k/uL (0-0.7); Eosinophils % (A) 1 %; HCT 46.1 % (39.0-53.0); HDW 2.63; Luc # (Auto) 0.15; Luc % (Auto) 2; Lymphocytes # (A) 1.3 k/uL (1.0-4.8); Lymphocytes % (A) 16 %; MCHC 34.7 g/dL (31.0-37.0); MCV 92.3 fL (80.0-100.0); Mean Platelet Volume 7.6; Monocytes # (A) 0.3 k/uL (0-1.0); Monocytes % (A) 4 %; Neutrophils # (A) 6.2 k/uL (1.3-7.7); Neutrophils % (A) 76 %; RDW 13.7 % (11.5-15.5); WBC 8.2 k/uL (3.8-10.6); WBC (Perox) 8.38
[2017-03-25 09:01] LABS: ALT 26 U/L (21-72); AST 24 U/L (17-59); Alkaline Phosphatase 49 U/L (38-126); Amylase 84 U/L (30-110); Anion Gap 11 mmol/L; Blood Urea Nitrogen 16 mg/dL (9-20); Calcium 9.7 mg/dL (8.4-10.2); Carbon Dioxide 23 mmol/L (22-30); Chloride 107 mmol/L (98-107); Glucose 100 mg/dL (74-99); Non-African American GFR(MDRD) >60 (>60 ml/min/1.73 sqM); Potassium 4.1 mmol/L (3.5-5.1); Sodium 141 mmol/L (137-145); Total Bilirubin 0.7 mg/dL (0.2-1.3); Total Protein 6.4 g/dL (6.3-8.2)
--- NOTE | 2017-03-25 09:02 | XR ---
EXAMINATION TYPE: XR KUB DATE OF EXAM ORDERED: 03/25/2017 HISTORY: pain. COMPARISON: Previous study dated 02/21/2017. FINDINGS: 2 mm left renal calculus is again identified. No other unusual calcifications are seen. Th e abdominal gas pattern is normal. There is a mild dextroscoliosis. IMPRESSION: STABLE LEFT-SIDED NEPHROLITHIASIS.
--- NOTE | 2017-03-25 09:52 | CT ---
EXAMINATION TYPE: CT abdomen pelvis wo con DATE OF EXAM: 03/25/2017 COMPARISON: Previous study dated 04/16/2016. HISTORY: Rt mid abd pain CT DLP: 622 mGycm Automated exposure control for dose reduction was used. FINDINGS: Visualized portions of the lungs are clear. There is no pleural or pericardial fluid. The h eart is not enlarged. Within the abdomen, the liver is prominent measuring 19 cm. The spleen and gallbladder are normal. Both adrenal glands are normal. There are multiple nonobstructing calculi present bilaterally. The largest on the left is in the post erior upper pole calyx and measures 4.7 mm. The largest on the right is in the posterior middle pole calyx and measures 1.7 mm. Limited views of the pancreas are normal. There is no significant retroperitoneal, iliac or inguinal adenopathy. There is calcification of the prostate gland. Prostate gland is mildly enlarged. The bladder is unremarkable. There is extensive diverticular change involving the sigmoid colon with scattered diverticula through out the entire remaining colon. There is some questionable inflammatory change surrounding the cecum where there are also diverticula. This is suspicious for right-sided diverticulitis. Small bowel loops are normal. No free fluid and no free air is seen. No bony destructive lesion is seen. IMPRESSION: 1. FINDINGS SUSPICIOUS FOR RIGHT-SIDED DIVERTICULITIS. 2. MILD HEPATOMEGALY. 3. BILATERAL NONOBSTRUCTING NEPHROLITHIASIS.
[2017-03-25] MEDS ORDERED: AMOXIC-POT CLAV 875-125MG 1 EACH TAB PO STA (10:03)
[2017-03-25 10:15] VITALS: BP 136/87; PULSE 80; RESP 14; TEMP 97.6
== END 2017-03-25 10:25 | disposition home or self-care (01) ==
LOC: EC 07:58
DX: K57.92 Diverticulitis of intestine, part unspecified, without perforation or abscess without bleeding (principal); R11.0 Nausea; Z87.891 Personal history of nicotine dependence; Z79.899 Other long term (current) drug therapy; Z88.6 Allergy status to analgesic agent; Z88.5 Allergy status to narcotic agent; Z87.442 Personal history of urinary calculi
CPT/HCPCS: 36415; 80053; 82150; 83690; 85025; 81003; 74000; 74176; 99284; 96374; 96375; 96361; J2405; J1885

== ENCOUNTER 2017-04-19 08:22 | Emergency (ER) | payer OTHER ==
[2017-04-19 08:29] VITALS: BP 154/90; PULSE 92; RESP 18; TEMP 98.4
--- NOTE | 2017-04-19 09:14 | XR ---
EXAMINATION TYPE: XR hand complete RT DATE OF EXAM: 04/19/2017 CLINICAL HISTORY: pain TECHNIQUE: Frontal, lateral and oblique images of the right hand are obtained. COMPARISON: None. FINDINGS: There is no acute fracture/dislocation evident. Healed Chronic fracture right fifth metaca rpal The joint spaces appear within normal limits. The overlying soft tissue appears unremarkable. IMPRESSION: There is no acute fracture or dislocation ICD 10 NO FRACTURE, INITIAL EVALUATION
--- NOTE | 2017-04-19 09:17 | ED ---
Upper Extremity HPI - General Chief Complaint: Extremity Injury, Upper Stated Complaint: CRUSHING INJURY RT HAND Time Seen by Provider: 04/19/17 08:44 Source: patient, RN notes reviewed Mode of arrival: ambulatory Limitations: no limitations - History of Present Illness Initial Comments: 51-year-old male present emergency Department chief complaint right hand injury. Patient states that he was opening a window and states" slid down closing on his hand. Patient went of right hand pain. Patient states she's had similar injury in the past. Denies any paresthesias. Patient did admit to a prior [id number] carpal fracture when he was 16. Patient denies any forearm pain denies any lacerations. Place: home - Related Data Home Medications Medication Instructions Recorded Confirmed Multivitamins, Thera [Multivitamin] 1 tab PO DAILY 09/24/16 03/25/17 Propranolol HCl 60 mg PO DAILY 02/21/17 03/25/17 Previous Rx's Medication Instructions Recorded HYDROcodone/APAP 10-325MG [[place] 1 tab PO Q6H PRN #15 tab 02/21/17 10-325] Ketorolac [Toradol] 10 mg PO TID #15 tab 02/21/17 Amoxicillin/Potassium Clav 1 each PO Q12HR #20 tab 03/25/17 [Augmentin 875-125 Tablet] HYDROcodone/APAP 5-325MG [[place] 1 tab PO Q6HR PRN #12 tab 03/25/17 5-325] Ondansetron Odt [Zofran Odt] 4 mg PO Q8HR PRN #12 tab 03/25/17 Allergies Allergy/AdvReac Type Severity Reaction Status Date / Time aspirin AdvReac Severe STOMACH Verified 04/19/17 08:29 ISSUES morphine AdvReac Severe Hallucinati Verified 04/19/17 08:29 ons Review of Systems ROS Statement: Those systems with pertinent positive or pertinent negative responses have been documented in the HPI. ROS Other: All systems not noted in ROS Statement are negative. Past Medical History Past Medical History: Hypertension, Pneumonia Additional Past Medical History / Comment(s): kidney stones, knee and leg pain, headache History of Any Multi-Drug Resistant Organisms: None Reported Past Surgical History: No Surgical Hx Reported Additional Past Surgical History / Comment(s): gall bladder pain Past Psychological History: No Psychological Hx Reported Smoking Status: Former smoker Past Alcohol Use History: None Reported Past Drug Use History: None Reported General Exam Limitations: no limitations General appearance: alert, in no apparent distress Head exam: Present: atraumatic, normocephalic, normal inspection Neck exam: Present: normal inspection. Absent: tenderness, meningismus, lymphadenopathy Respiratory exam: Present: normal lung sounds bilaterally. Absent: respiratory distress, wheezes, rales, rhonchi, stridor Cardiovascular Exam: Present: regular rate, normal rhythm, normal heart sounds. Absent: systolic murmur, diastolic murmur, rubs, gallop, clicks Extremities exam: Present: other (Right hand there is tenderness across the proximal portion hand primarily on the dorsal aspect there is mild swelling no ecchymosis patient's full range of motion all digits with Refill less than 2 seconds) Neurological exam: Present: alert, oriented X3, CN II-XII intact Skin exam: Present: warm, dry, intact, normal color. Absent: rash Course Vital Signs 04/19/17 08:26 Temperature 98.4 F Pulse Rate 92 Respiratory 18 Rate Blood Pressure 154/90 O2 Sat by Pulse 100 Oximetry Medical Decision Making - Medical Decision Making 51-year-old male presented for right hand injury. There is no obvious acute fracture noted on x-ray. Patient does have good range of motion. Patient is abrasion and contusion. Return parameters were discussed. Disposition Clinical Impression: Contusion of right hand Disposition: HOME SELF-CARE Condition: Stable Instructions: Contusion in Adults (ED) Additional Instructions: Please return to the Emergency Department if symptoms worsen or any other concerns. Referrals: None,Stated [Primary Care Provider] - 1-2 days Time of Disposition: 09:17
== END 2017-04-19 09:26 | disposition home or self-care (01) ==
LOC: EC 08:22
DX: S60.221A Contusion of right hand, initial encounter (principal); I10 Essential (primary) hypertension; Z87.891 Personal history of nicotine dependence; Z79.899 Other long term (current) drug therapy; Z88.5 Allergy status to narcotic agent; Z88.6 Allergy status to analgesic agent; W23.0XXA Caught, crushed, jammed, or pinched between moving objects, initial encounter; Y92.009 Unspecified place in unspecified non-institutional (private) residence as the place of occurrence of the external cause
CPT/HCPCS: 99283

== ENCOUNTER 2017-06-14 07:13 | Emergency (ER) | payer OTHER ==
[2017-06-14 07:19] VITALS: RESP 18
[2017-06-14] MEDS ORDERED: KETOROLAC 30 MG/ML 1 ML VIAL IVP STA ×2 (07:34→08:29)
[2017-06-14] MEDS ORDERED: SODIUM CHLORIDE 0.9% 1,000 ML IV STA (07:34)
--- NOTE | 2017-06-14 07:38 | ED ---
Abdominal Pain HPI - General Chief Complaint: Abdominal Pain Stated Complaint: Lower Abdominal Pain Time Seen by Provider: 06/14/17 07:17 Source: patient, RN notes reviewed Mode of arrival: ambulatory Limitations: no limitations - History of Present Illness Initial Comments: This is a 51-year-old male with a history of multiple kidney stones who states she's had left flank pain for the past 3 days. He states is different than his usual kidney stone pain residence achy in nature 4 and 5/10 severity does get increased however with attempts at walking and being upright. He states that sharp at that time and worse than 5/10. He's had no fevers chills or sweats no nausea no vomiting he did have blood in his urine several days ago that has resolved. He denies any cough or phlegm production difficulty with urination and such as hesitancy or urgency. He also denies any constipation or diarrhea. He does point to the left upper quadrant and left flank area. The pain does not radiate he has no testicular or penile pain. Patient does state he is been told he has diverticulosis. MD Complaint: flank pain - Related Data Home Medications Medication Instructions Recorded Confirmed Multivitamins, Thera [Multivitamin] 1 tab PO DAILY 09/24/16 03/25/17 Propranolol HCl 60 mg PO DAILY 02/21/17 03/25/17 Previous Rx's Medication Instructions Recorded HYDROcodone/APAP 10-325MG [[place] 1 tab PO Q6H PRN #15 tab 02/21/17 10-325] Ketorolac [Toradol] 10 mg PO TID #15 tab 02/21/17 Amoxicillin/Potassium Clav 1 each PO Q12HR #20 tab 03/25/17 [Augmentin 875-125 Tablet] HYDROcodone/APAP 5-325MG [[place] 1 tab PO Q6HR PRN #12 tab 03/25/17 5-325] Ondansetron Odt [Zofran Odt] 4 mg PO Q8HR PRN #12 tab 03/25/17 Acetaminophen-Codeine 300-30mg 1 tab PO Q4H PRN #14 tablet 04/19/17 [Tylenol #3] Ibuprofen [Motrin] 600 mg PO Q8HR PRN #30 tab 04/19/17 Hydrocodone/Acetaminophen [[place] 1 each PO Q6HR PRN #20 tab 06/14/17 5-325] Ibuprofen 800 mg PO Q6HR PRN #20 tablet 06/14/17 Tamsulosin [Flomax] 0.4 mg PO DAILY #7 cap 06/14/17 Allergies Allergy/AdvReac Type Severity Reaction Status Date / Time aspirin AdvReac Severe STOMACH Verified 06/14/17 07:19 ISSUES morphine AdvReac Severe Hallucinati Verified 06/14/17 07:19 ons Review of Systems ROS Statement: Those systems with pertinent positive or pertinent negative responses have been documented in the HPI. ROS Other: All systems not noted in ROS Statement are negative. Past Medical History Past Medical History: Hypertension, Pneumonia Additional Past Medical History / Comment(s): kidney stones, knee and leg pain, headache History of Any Multi-Drug Resistant Organisms: None Reported Past Surgical History: No Surgical Hx Reported Additional Past Surgical History / Comment(s): gall bladder pain Past Psychological History: No Psychological Hx Reported Smoking Status: Former smoker Past Alcohol Use History: None Reported Past Drug Use History: None Reported General Exam - General Exam Comments Initial Comments: This is a well-developed well-nourished awake alert oriented times 3 male Limitations: no limitations General appearance: alert, in no apparent distress Head exam: Present: atraumatic, normocephalic, normal inspection Eye exam: Present: normal appearance, PERRL, EOMI. Absent: scleral icterus, conjunctival injection, periorbital swelling ENT exam: Present: normal exam, mucous membranes moist Neck exam: Present: normal inspection. Absent: tenderness, meningismus, lymphadenopathy Respiratory exam: Present: normal lung sounds bilaterally. Absent: respiratory distress, wheezes, rales, rhonchi, stridor Cardiovascular Exam: Present: regular rate, normal rhythm, normal heart sounds. Absent: systolic murmur, diastolic murmur, rubs, gallop, clicks GI/Abdominal exam: Present: soft, tenderness (Mild left upper quadrant and left flank tenderness palpation), normal bowel sounds. Absent: distended, guarding, rebound, rigid, bruit, pulsatile mass, hernia Rectal exam: Present: deferred exam: Present: other (Nontender) Extremities exam: Present: normal inspection, full ROM, normal capillary refill. Absent: tenderness, pedal edema, joint swelling, calf tenderness Back exam: Present: normal inspection Neurological exam: Present: alert, oriented X3, CN II-XII intact Psychiatric exam: Present: normal affect, normal mood Skin exam: Present: warm, dry, intact, normal color. Absent: rash Course Vital Signs 06/14/17 07:17 Temperature 98.4 F Pulse Rate 81 Respiratory 18 Rate Blood Pressure 135/94 O2 Sat by Pulse 97 Oximetry - Reevaluation(s) Reevaluation #1: 06/14/17 08:30 Patient states she's not gotten much change in his pain thus far. He'll get another dose of Toradol. Medical Decision Making - Medical Decision Making I did a long discussion with patient and the findings patient will be discharged with appropriate medications follow-up with his doctor return when necessary - Lab Data Result diagrams: 06/14/17 07:38 06/14/17 07:38 Lab Results 06/14/17 06/14/17 06/14/17 Range/Units 07:38 07:38 07:38 WBC 4.5 (3.8-10.6) k/uL RBC 4.77 (4.30-5.90) m/uL Hgb 14.8 (13.0-17.5) gm/dL Hct 44.6 (39.0-53.0) % MCV 93.6 (80.0-100.0) fL MCH 31.1 (25.0-35.0) pg MCHC 33.2 (31.0-37.0) g/dL RDW 14.2 (11.5-15.5) % Plt Count 201 (150-450) k/uL Neutrophils % 75 % Lymphocytes % 16 % Monocytes % 5 % Eosinophils % 2 % Basophils % 0 % Neutrophils # 3.4 (1.3-7.7) k/uL Lymphocytes # 0.7 L (1.0-4.8) k/uL Monocytes # 0.2 (0-1.0) k/uL Eosinophils # 0.1 (0-0.7) k/uL Basophils # 0.0 (0-0.2) k/uL Sodium 139 (137-145) mmol/L Potassium 4.1 (3.5-5.1) mmol/L Chloride 103 (98-107) mmol/L Carbon Dioxide 30 (22-30) mmol/L Anion Gap 6 mmol/L BUN 11 (9-20) mg/dL Creatinine 0.80 (0.66-1.25) mg/dL Est GFR (MDRD) Af Amer >60 (>60 ml/min/1.73 sqM) Est GFR (MDRD) Non-Af >60 (>60 ml/min/1.73 sqM) Glucose 93 (74-99) mg/dL Plasma Lactic Acid [place] 1.0 (0.7-2.0) mmol/L Calcium 9.5 (8.4-10.2) mg/dL Total Bilirubin 0.8 (0.2-1.3) mg/dL AST 29 (17-59) U/L ALT 35 (21-72) U/L Alkaline Phosphatase 54 (38-126) U/L Total Protein 5.7 L (6.3-8.2) g/dL Albumin 3.6 (3.5-5.0) g/dL Amylase 70 (30-110) U/L Lipase 67 (23-300) U/L Urine Color Urine Appearance (Clear) Urine pH (5.0-8.0) Ur Specific [place] (1.001-1.035) Urine Protein (Negative) Urine Glucose (UA) (Negative) Urine Ketones (Negative) Urine Blood (Negative) Urine Nitrite (Negative) Urine Bilirubin (Negative) Urine Urobilinogen (<2.0) mg/dL Ur Leukocyte Esterase (Negative) Urine RBC (0-5) /hpf Amorphous Sediment (None) /hpf Urine Mucus (None) /hpf 06/14/17 Range/Units 07:38 WBC (3.8-10.6) k/uL RBC (4.30-5.90) m/uL Hgb (13.0-17.5) gm/dL Hct (39.0-53.0) % MCV (80.0-100.0) fL MCH (25.0-35.0) pg MCHC (31.0-37.0) g/dL RDW (11.5-15.5) % Plt Count (150-450) k/uL Neutrophils % % Lymphocytes % % Monocytes % % Eosinophils % % Basophils % % Neutrophils # (1.3-7.7) k/uL Lymphocytes # (1.0-4.8) k/uL Monocytes # (0-1.0) k/uL Eosinophils # (0-0.7) k/uL Basophils # (0-0.2) k/uL Sodium (137-145) mmol/L Potassium (3.5-5.1) mmol/L Chloride (98-107) mmol/L Carbon Dioxide (22-30) mmol/L Anion Gap mmol/L BUN (9-20) mg/dL Creatinine (0.66-1.25) mg/dL Est GFR (MDRD) Af Amer (>60 ml/min/1.73 sqM) Est GFR (MDRD) Non-Af (>60 ml/min/1.73 sqM) Glucose (74-99) mg/dL Plasma Lactic Acid [place] (0.7-2.0) mmol/L Calcium (8.4-10.2) mg/dL Total Bilirubin (0.2-1.3) mg/dL AST (17-59) U/L ALT (21-72) U/L Alkaline Phosphatase (38-126) U/L Total Protein (6.3-8.2) g/dL Albumin (3.5-5.0) g/dL Amylase (30-110) U/L Lipase (23-300) U/L Urine Color Yellow Urine Appearance Cloudy (Clear) Urine pH 8.0 (5.0-8.0) Ur Specific [place] 1.015 (1.001-1.035) Urine Protein Negative (Negative) Urine Glucose (UA) Negative (Negative) Urine Ketones Negative (Negative) Urine Blood Negative (Negative) Urine Nitrite Negative (Negative) Urine Bilirubin Negative (Negative) Urine Urobilinogen <2.0 (<2.0) mg/dL Ur Leukocyte Esterase Negative (Negative) Urine RBC 1 (0-5) /hpf Amorphous Sediment Few H (None) /hpf Urine Mucus Rare H (None) /hpf - Radiology Data Radiology results: report reviewed (I did review the imaging and reports x-rays are nonspecific CAT scan showed bilateral nonobstructing nephrolithiasis uncomplicated diverticulosis without evidence of inflammation is some hepatomegaly.), image reviewed Disposition Clinical Impression: Renal colic on left side, Kidney stone Disposition: HOME SELF-CARE Condition: Good Instructions: Kidney Stones (ED), Renal Colic (ED) Prescriptions: Hydrocodone/Acetaminophen [[place] 5-325] 1 each PO Q6HR PRN #20 tab PRN Reason: Pain Ibuprofen 800 mg PO Q6HR PRN #20 tablet PRN Reason: Pain Tamsulosin [Flomax] 0.4 mg PO DAILY #7 cap Referrals: Angelica Fletcher MD [Primary Care Provider] - 1-2 days
[2017-06-14 08:10] LABS: Basophils % (A) 0 %; CH 30.5; CHCM 32.7; Eosinophils # (A) 0.1 k/uL (0-0.7); Eosinophils % (A) 2 %; HCT 44.6 % (39.0-53.0); HGB 14.8 gm/dL (13.0-17.5); Luc % (Auto) 2; Lymphocytes # (A) 0.7 k/uL (1.0-4.8); Lymphocytes % (A) 16 %; MCH 31.1 pg (25.0-35.0); MCHC 33.2 g/dL (31.0-37.0); MCV 93.6 fL (80.0-100.0); Mean Platelet Volume 7.3; Monocytes # (A) 0.2 k/uL (0-1.0); Monocytes % (A) 5 %; Neutrophils # (A) 3.4 k/uL (1.3-7.7); Neutrophils % (A) 75 %; RBC 4.77 m/uL (4.30-5.90); RDW 14.2 % (11.5-15.5); WBC 4.5 k/uL (3.8-10.6)
--- NOTE | 2017-06-14 08:10 | XR ---
EXAMINATION TYPE: XR abdomen acute w cxr , 3 VIEWS DATE OF EXAM ORDERED: 06/14/2017 HISTORY: Pain. COMPARISON: None. FINDINGS: The lungs are clear. Pleural spaces are clear. The heart is not enlarged. Within the abdomen, the abdominal gas pattern is normal. There is no evidence of obstruction or free air. No unusual calcifications are seen. IMPRESSION: NO ACUTE THORACIC OR ABDOMINAL ABNORMALITY.
[2017-06-14 08:11] LABS: ALT 35 U/L (21-72); AST 29 U/L (17-59); Alkaline Phosphatase 54 U/L (38-126); Amylase 70 U/L (30-110); Anion Gap 6 mmol/L; Blood Urea Nitrogen 11 mg/dL (9-20); Calcium 9.5 mg/dL (8.4-10.2); Carbon Dioxide 30 mmol/L (22-30); Chloride 103 mmol/L (98-107); Glucose 93 mg/dL (74-99); Non-African American GFR(MDRD) >60 (>60 ml/min/1.73 sqM); Potassium 4.1 mmol/L (3.5-5.1); Sodium 139 mmol/L (137-145); Total Bilirubin 0.8 mg/dL (0.2-1.3); Total Protein 5.7 g/dL (6.3-8.2)
[2017-06-14 08:16] LABS: Amorphous Sediment,Urine Few /hpf; Appearance,Urine Cloudy (Clear); Bilirubin,Urine Negative (Negative); Glucose,Urine (UA) Negative (Negative); Ketones,Urine Negative (Negative); Leukocyte Esterase,Urine Negative (Negative); Mucus,Urine Rare /hpf; Nitrite,Urine Negative (Negative); Particle Count 11906; Protein,Urine Negative (Negative); RBC,Urine 1 /hpf (0-5); Specific Gravity,Urine 1.015 (1.001-1.035); UA Billing (MACRO vs. MICRO) MICRO; Urobilinogen,Urine <2.0 mg/dL (<2.0)
--- NOTE | 2017-06-14 09:18 | CT ---
EXAMINATION TYPE: CT abdomen pelvis wo con DATE OF EXAM: 06/14/2017 COMPARISON: Previous study dated 03/25/2017 HISTORY: Flank pain with history of renal stones, gross hematuria CT DLP: 268.1 mGycm Automated exposure control for dose reduction was used. FINDINGS: Visualized portions of the lungs are clear. There is no pleural or pericardial fluid. The h eart is not enlarged. Within the abdomen, the liver is enlarged measuring 20 cm. The spleen and gallbladder are normal. Both adrenal glands are normal. There are bilateral nonobstructing renal calculi. There is no evidence of hydronephrosis. No definite ureteric calculus is seen. Limited views of the pancreas are normal. There is no significant retroperitoneal, iliac or inguinal adenopathy. There is some calcification of the prostate. The bladder is nearly empty. There are scattered diverticula throughout the colon. There is no evidence of diverticulitis. The j luis endix is not visualized. Small bowel loops are normal. There is no free fluid and no free air. No bony destructive lesion is seen. IMPRESSION: 1. HEPATOMEGALY. 2. BILATERAL NONOBSTRUCTING NEPHROLITHIASIS. 3. UNCOMPLICATED DIVERTICULOSIS OF THE COLON.
[2017-06-14] MEDS ORDERED: HYDROcodone/APAP 7.5-325MG 1 EACH TAB PO ONE ×2 (09:48→09:52)
[2017-06-14 10:14] VITALS: BP 140/86; PULSE 70; TEMP 98
== END 2017-06-14 10:15 | disposition home or self-care (01) ==
LOC: EC 07:13
DX: N20.0 Calculus of kidney (principal); R16.0 Hepatomegaly, not elsewhere classified; K57.90 Diverticulosis of intestine, part unspecified, without perforation or abscess without bleeding; I10 Essential (primary) hypertension; Z87.891 Personal history of nicotine dependence; Z79.899 Other long term (current) drug therapy; Z88.6 Allergy status to analgesic agent; Z88.5 Allergy status to narcotic agent
CPT/HCPCS: 36415; 80053; 82150; 83605; 83690; 85025; 81001; 74022; 74176; 99284; 96374; 96376; 96361 ×2; J1885

== ENCOUNTER 2017-08-22 13:24 | Emergency (ER) | payer OTHER ==
[2017-08-22] MEDS ORDERED: SODIUM CHLORIDE 0.9% 500 ML IV STA (14:41)
[2017-08-22] MEDS ORDERED: HYDROmorphone 0.5 MG/0.5 ML SYRINGE IVP STA (14:41)
[2017-08-22] MEDS ORDERED: METOCLOPRAMIDE 5 MG/ML 2 ML VIAL IVP STA (14:41)
--- NOTE | 2017-08-22 15:38 | ED ---
Headache HPI - General Chief Complaint: Headache Stated Complaint: Headache x4 Time Seen by Provider: 08/22/17 14:34 Mode of arrival: ambulatory Limitations: no limitations - History of Present Illness Initial Comments: 51 years old male has a history of migraines presented with headaches for about a week now and lost 4 days it has been severe. Headache is mostly located on the the frontal sinuses he indicates the foot goes around in circles the whole scalp. Denies any fever no chills no neck stiffness no signs of any meningitis no defects in the field the patient, however does reveal scleral for hypertension and blood pressure has been somewhat elevated he also complained about some postnasal drainage. No chest pain or shortness of breath no abdominal pain no frequency urgency dysuria - Related Data Home Medications Medication Instructions Recorded Confirmed Multivitamins, Thera [Multivitamin] 1 tab PO DAILY 09/24/16 08/22/17 Acetaminophen [Tylenol Extra 2,500 mg PO QID PRN 08/22/17 08/22/17 Strength] Lisinopril [Prinivil] 20 mg PO DAILY 08/22/17 08/22/17 Metoprolol Tartrate [Lopressor] 25 mg PO DAILY 08/22/17 08/22/17 Previous Rx's Medication Instructions Recorded Amoxicillin 500 mg PO Q8H #30 capsule 08/22/17 oxyCODONE-APAP 5-325MG [Percocet 1 tab PO Q6HR PRN #12 tab 08/22/17 5-325 mg] Allergies Allergy/AdvReac Type Severity Reaction Status Date / Time aspirin AdvReac Severe STOMACH Verified 08/22/17 15:22 ISSUES morphine AdvReac Severe Hallucinati Verified 08/22/17 15:22 ons Review of Systems ROS Statement: Those systems with pertinent positive or pertinent negative responses have been documented in the HPI. ROS Other: All systems not noted in ROS Statement are negative. Past Medical History Past Medical History: Hypertension, Pneumonia Additional Past Medical History / Comment(s): kidney stones, knee and leg pain, headache History of Any Multi-Drug Resistant Organisms: None Reported Past Surgical History: No Surgical Hx Reported Additional Past Surgical History / Comment(s): gall bladder pain Past Psychological History: No Psychological Hx Reported Smoking Status: Former smoker Past Alcohol Use History: None Reported Past Drug Use History: None Reported General Exam - General Exam Comments Initial Comments: General: The patient is awake and alert, in no distress, and does not appear acutely ill. She has is 15 Skin: Skin is warm and dry and no rashes or lesions are noted. Eye: Pupils are equal, round and reactive to light, extra-ocular movements are intact; there is normal conjunctiva bilaterally. Ears, nose, mouth and throat: Tender over the frontal sinuses Neck: The neck is supple, there is no tenderness or JVD. Cardiovascular: There is a regular rate and rhythm. No murmur, rub or gallop is appreciated. Respiratory: To auscultation bilateral, no wheezing no rhonchi no distress respiratory kapoor noticed Gastrointestinal: Soft, non-distended, non-tender abdomen without masses or organomegaly noted. There is no rebound or guarding present. Bowel sounds are unremarkable. Back: There is no tenderness to palpation in the midline. There is no obvious deformity. Musculoskeletal: Normal ROM, no tenderness, There is no pedal edema. There is no calf tenderness or swelling. No cords were appreciated. Neurological: CN II-XII intact, Cranial nerves III through XII are intact. There are no obvious motor or sensory deficits. Coordination appears grossly intact. Speech is normal. Psychiatric: Cooperative, appropriate mood & affect, normal judgment. Limitations: no limitations Course Vital Signs 08/22/17 13:54 Temperature 98.3 F Pulse Rate 104 H Respiratory 16 Rate Blood Pressure 165/86 O2 Sat by Pulse 99 Oximetry - Reevaluation(s) Reevaluation #1: Patient is reassessed at [address] is normal, his headache is for her to swallow the and he be going home on antibiotics for sinusitis and couple days worth Percocets he is advised to use Advil as well on as-needed basis 08/22/17 15:54 Disposition Clinical Impression: Headache, Sinusitis Disposition: HOME SELF-CARE Condition: Good Instructions: Acute Headache (ED) Prescriptions: Amoxicillin 500 mg PO Q8H #30 capsule oxyCODONE-APAP 5-325MG [Percocet 5-325 mg] 1 tab PO Q6HR PRN #12 tab PRN Reason: Pain Referrals: Angelica Fletcher MD [Primary Care Provider] - 1-2 days
--- NOTE | 2017-08-22 15:41 | CT ---
EXAMINATION TYPE: CT brain wo con DATE OF EXAM: 08/22/2017 COMPARISON: 07/22/2013 HISTORY: 51-year-old male Headache for 1 week TECHNIQUE: Examination was done in axial plane without intravenous contrast. Coronal and sagittal r econstructions performed. CT DLP: 1090.4 mGycm Automated exposure control for dose reduction was used. FINDINGS: There is no evidence of acute intracranial hemorrhage, acute ischemic changes, mass, mass-effect, or extra-axial fluid collection. There is no effacement of cerebral sulci or basal subarachnoid cister ns. There is no hydrocephalus. There is no midline shift. Kennedy-white matter distinction is preserv ed. Paranasal sinuses and mastoid air cells are well pneumatized. Orbits and globes are intact. IMPRESSION: No acute intracranial abnormality seen.
[2017-08-22 16:12] VITALS: BP 126/74; PULSE 71; RESP 18; TEMP 97.3
== END 2017-08-22 16:12 | disposition home or self-care (01) ==
LOC: EC 13:24
DX: J32.1 Chronic frontal sinusitis (principal); I10 Essential (primary) hypertension; Z87.891 Personal history of nicotine dependence; Z88.6 Allergy status to analgesic agent; Z88.5 Allergy status to narcotic agent; Z79.899 Other long term (current) drug therapy
CPT/HCPCS: 70450; 99283; 96374; 96375; J2765; J1170

== ENCOUNTER 2017-11-07 08:39 | Emergency (ER) | payer OTHER ==
[2017-11-07] MEDS ORDERED: SODIUM CHLORIDE 0.9% 1,000 ML IV STA (09:01)
[2017-11-07] MEDS ORDERED: METOCLOPRAMIDE 5 MG/ML 2 ML VIAL IVP STA (09:01)
[2017-11-07] MEDS ORDERED: diphenhydrAMINE 50 MG/ML 1 ML VIAL IVP STA (09:01)
--- NOTE | 2017-11-07 09:11 | ED ---
General Adult HPI - General Chief complaint: Headache Stated complaint: headache Time Seen by Provider: 11/07/17 08:49 Source: patient, RN notes reviewed Mode of arrival: ambulatory Limitations: no limitations - History of Present Illness Initial comments: Patient 51-year-old male presenting today with chief complaint of headache. He does admit to chronic headaches. He states usually starts with some neck pain. He does admit that this headache today is sharp and "piercing" on the left side. He states this is different than his typical headache that is had in the past. States been present for the last 3 days. Patient also missed some blurry vision coming from the left eye. States feels like he does not have contact him. Patient states that the entire visual field. He denies any other complaints or symptoms. Patient denies any recent fever, chills, shortness of breath, chest pain, back pain, abdominal pain, nausea or vomiting, numbness or tingling, or any other complaints. - Related Data Home Medications Medication Instructions Recorded Confirmed Lisinopril [Prinivil] 20 mg PO DAILY 08/22/17 11/07/17 Previous Rx's Medication Instructions Recorded Metoclopramide HCl [Reglan] 10 mg PO Q6HR PRN #12 day 11/07/17 Allergies Allergy/AdvReac Type Severity Reaction Status Date / Time aspirin AdvReac Severe STOMACH Verified 11/07/17 09:20 ISSUES morphine AdvReac Severe Hallucinati Verified 11/07/17 09:20 ons Review of Systems ROS Statement: Those systems with pertinent positive or pertinent negative responses have been documented in the HPI. ROS Other: All systems not noted in ROS Statement are negative. Past Medical History Past Medical History: Hypertension, Pneumonia Additional Past Medical History / Comment(s): kidney stones, knee and leg pain, headache History of Any Multi-Drug Resistant Organisms: None Reported Past Surgical History: No Surgical Hx Reported Additional Past Surgical History / Comment(s): gall bladder pain Past Psychological History: No Psychological Hx Reported Smoking Status: Former smoker Past Alcohol Use History: None Reported Past Drug Use History: None Reported General Exam - General Exam Comments Initial Comments: General: The patient is awake and alert, in no distress, and does not appear acutely ill. Eye: Pupils are equal, round and reactive to light, extra-ocular movements are intact. No nystagmus. There is normal conjunctiva bilaterally. No signs of icterus. Ears, nose, mouth and throat: There are moist mucous membranes and no oral lesions. No tenderness over the temporal. Neck: The neck is supple, there is no tenderness or JVD. Cardiovascular: Tachycardic at 115 bpm. No murmur, rub or gallop is appreciated. Respiratory: Lungs are clear to auscultation, respirations are non-labored, breath sounds are equal. No wheezes, stridor, rales, or rhonchi. Musculoskeletal: Normal ROM, no tenderness. Strength 5/5. Sensation intact. Pulses equal bilaterally 2+. Neurological: A&O x 3. CN II-XII intact, There are no obvious motor or sensory deficits. Coordination appears grossly intact. Speech is normal. Skin: Skin is warm and dry and no rashes or lesions are noted. Psychiatric: Cooperative, appropriate mood & affect, normal judgment. Limitations: no limitations Course Vital Signs 11/07/17 11/07/17 08:39 09:05 Temperature 97.0 F L Pulse Rate 129 H 101 H Respiratory 18 Rate Blood Pressure 135/83 O2 Sat by Pulse 99 Oximetry Medical Decision Making - Medical Decision Making Patient reexamined at this time shows no signs of distress. Patient does admit to improvement after Reglan Benadryl was given here in emergency room. His CT of the head and neck are negative for any acute abnormalities. His labs are unremarkable. Patient was then given Toradol and he does admit to increased improvement. He states visual changes have gone back to normal. Was discussed with patient about possible atypical migraine. He does admit that seem neurologist in the past for these but has been over a year. Advised that if symptoms continue and should follow-up with the neurologist. He states he's been on Tylenol 3 the past which worked wonders formula past is requesting this. Will be given starter pack to go home with use sparingly. Was discussed with the patient about rebound headaches and possibility of making things worse. Patient states understanding and is in agreement. - Lab Data Result diagrams: 11/07/17 09:16 11/07/17 09:16 Lab Results 11/07/17 11/07/17 Range/Units 09:16 09:16 WBC 6.1 (3.8-10.6) k/uL RBC 4.79 (4.30-5.90) m/uL Hgb 14.9 (13.0-17.5) gm/dL Hct 46.6 (39.0-53.0) % MCV 97.2 (80.0-100.0) fL MCH 31.2 (25.0-35.0) pg MCHC 32.1 (31.0-37.0) g/dL RDW 13.5 (11.5-15.5) % Plt Count 385 (150-450) k/uL Neutrophils % 67 % Lymphocytes % 20 % Monocytes % 8 % Eosinophils % 3 % Basophils % 1 % Neutrophils # 4.1 (1.3-7.7) k/uL Lymphocytes # 1.2 (1.0-4.8) k/uL Monocytes # 0.5 (0-1.0) k/uL Eosinophils # 0.2 (0-0.7) k/uL Basophils # 0.0 (0-0.2) k/uL Sodium 140 (137-145) mmol/L Potassium 4.5 (3.5-5.1) mmol/L Chloride 103 (98-107) mmol/L Carbon Dioxide 28 (22-30) mmol/L Anion Gap 9 mmol/L BUN 17 (9-20) mg/dL Creatinine 0.94 (0.66-1.25) mg/dL Est GFR (MDRD) Af Amer >60 (>60 ml/min/1.73 sqM) Est GFR (MDRD) Non-Af >60 (>60 ml/min/1.73 sqM) Glucose 102 H (74-99) mg/dL Calcium 10.4 H (8.4-10.2) mg/dL Total Bilirubin 0.6 (0.2-1.3) mg/dL AST 23 (17-59) U/L ALT 31 (21-72) U/L Alkaline Phosphatase 54 (38-126) U/L Total Protein 6.6 (6.3-8.2) g/dL Albumin 4.5 (3.5-5.0) g/dL Disposition Clinical Impression: Headache Disposition: HOME SELF-CARE Condition: Good Instructions: Migraine Headache (ED) Additional Instructions: Please use medication as discussed. Please follow-up with neurology / family doctor in the next 2 days of symptoms have not improved. Please return to emergency room if the symptoms increase or worsen or for any other concerns. Prescriptions: Metoclopramide HCl [Reglan] 10 mg PO Q6HR PRN #12 day PRN Reason: Nausea Referrals: Angelica Fletcher MD [Primary Care Provider] - 1-2 days Time of Disposition: 10:43
[2017-11-07 09:26] LABS: Basophils % (A) 1 %; Eosinophils # (A) 0.2 k/uL (0-0.7); Eosinophils % (A) 3 %; HCT 46.6 % (39.0-53.0); HGB 14.9 gm/dL (13.0-17.5); Lymphocytes # (A) 1.2 k/uL (1.0-4.8); Lymphocytes % (A) 20 %; MCH 31.2 pg (25.0-35.0); MCHC 32.1 g/dL (31.0-37.0); MCV 97.2 fL (80.0-100.0); Monocytes # (A) 0.5 k/uL (0-1.0); Monocytes % (A) 8 %; Neutrophils # (A) 4.1 k/uL (1.3-7.7); Neutrophils % (A) 67 %; Platelet Count 385 k/uL (150-450); RBC 4.79 m/uL (4.30-5.90); RDW 13.5 % (11.5-15.5); WBC 6.1 k/uL (3.8-10.6)
[2017-11-07 09:47] LABS: ALT 31 U/L (21-72); AST 23 U/L (17-59); Albumin 4.5 g/dL (3.5-5.0); Alkaline Phosphatase 54 U/L (38-126); Anion Gap 9 mmol/L; Blood Urea Nitrogen 17 mg/dL (9-20); Calcium 10.4 mg/dL (8.4-10.2); Carbon Dioxide 28 mmol/L (22-30); Chloride 103 mmol/L (98-107); Glucose 102 mg/dL (74-99); Potassium 4.5 mmol/L (3.5-5.1); Sodium 140 mmol/L (137-145); Total Bilirubin 0.6 mg/dL (0.2-1.3); Total Protein 6.6 g/dL (6.3-8.2)
--- NOTE | 2017-11-07 09:49 | CT ---
EXAMINATION TYPE: CT brain afua thorne DATE OF EXAM: 11/07/2017 COMPARISON: 08/22/2017 HISTORY: Headache CT DLP: [address] of the brain was performed. The ventricles, basal cisterns and sulci overlying the cerebral convexities demonstrate minimal enlar gement. There is no evidence for intracranial hemorrhage or sulcal effacement. There is decreased attenuatio n about the periventricular white matter and deep white matter of both cerebral hemispheres, compatib le with chronic small vessel ischemia. No mass effects are seen. If symptoms persist consider MRI. Osseous calvarium is intact. IMPRESSION: 1. Age related atrophic and chronic small vessel ischemic change without acute intracranial process seen at this time. CT Cervical Spine: Unenhanced CT of the cervical spine was performed with bone and soft tissue window settings submitted . Coronal and sagittal reconstruction is obtained. There is normal alignment and prevertebral soft tissues. No evidence for acute cervical fracture . Scattered degenerative disc disease and spondylosis. Biapical scarring. IMPRESSION: 1. No evidence for acute fracture or subluxation of the cervical spine.
[2017-11-07] MEDS ORDERED: KETOROLAC 30 MG/ML 1 ML VIAL IVP STA (09:58)
[2017-11-07] MEDS ORDERED: ACET/COD 300 MG/30 MG STARTER PACK 6 TAB BTL PO STA (10:42)
[2017-11-07 10:58] VITALS: BP 118/70; PULSE 82; RESP 16; TEMP 97.9
== END 2017-11-07 10:53 | disposition home or self-care (01) ==
LOC: EC 08:39
DX: R51 Headache (principal); R00.0 Tachycardia, unspecified; M54.2 Cervicalgia; H53.8 Other visual disturbances; I10 Essential (primary) hypertension; Z87.891 Personal history of nicotine dependence; Z79.899 Other long term (current) drug therapy; Z88.5 Allergy status to narcotic agent; Z88.6 Allergy status to analgesic agent
CPT/HCPCS: 99284; 96374; 96375 ×2; 96361; 36415; 80053; 85025; 72125; 70450; J1200; J2765; J1885

== ENCOUNTER 2017-11-24 09:20 | Emergency (ER) | payer OTHER ==
[2017-11-24 09:36] VITALS: BP 115/82; PULSE 97; RESP 17; TEMP 97.9
--- NOTE | 2017-11-24 10:06 | ED ---
ENT HPI - General Chief complaint: Dental/Oral Stated complaint: DENTAL PAIN Time Seen by Provider: 11/24/17 09:44 Source: patient Mode of arrival: ambulatory Limitations: no limitations - History of Present Illness Initial comments: 51 year old male presents with tooth pain in tooth 20 for the past few days. Poor oral hygiene noted in the mouth. Patient states the pain is a constant dull pain in his lower left mandible radiating to his left ear. Patient also states the pain is irritating his left eye, denies any pain or visual changes. Patient notes that both hot and cold liquids irritate the tooth. Patient denies constitutional symptoms and fever. Patient has an appointment with a dental clinic and is on a cancellation list to get in earlier. He has tried Tylenol for pain which helps somewhat. Denies any noticeable swelling in the left side of the face. - Related Data Home Medications Medication Instructions Recorded Confirmed Lisinopril [Prinivil] 20 mg PO DAILY 08/22/17 11/24/17 Metoprolol Tartrate [Lopressor] 25 mg PO DAILY 11/24/17 11/24/17 Previous Rx's Medication Instructions Recorded Ibuprofen 600 mg PO Q6H #30 tablet 11/24/17 Penicillin V Potassium [Pen Vee K] 500 mg PO QID #40 tablet 11/24/17 Allergies Allergy/AdvReac Type Severity Reaction Status Date / Time aspirin AdvReac Severe STOMACH Verified 11/24/17 09:40 ISSUES morphine AdvReac Severe Hallucinati Verified 11/24/17 09:40 ons Review of Systems ROS Statement: Those systems with pertinent positive or pertinent negative responses have been documented in the HPI. ROS Other: All systems not noted in ROS Statement are negative. Past Medical History Past Medical History: Hypertension, Pneumonia Additional Past Medical History / Comment(s): kidney stones, knee and leg pain, headache History of Any Multi-Drug Resistant Organisms: None Reported Past Surgical History: No Surgical Hx Reported Additional Past Surgical History / Comment(s): gall bladder pain Past Psychological History: No Psychological Hx Reported Smoking Status: Former smoker Past Alcohol Use History: None Reported Past Drug Use History: None Reported General Exam Limitations: no limitations General appearance: alert Head exam: Present: atraumatic, normocephalic Eye exam: Present: normal appearance, PERRL, EOMI. Absent: scleral icterus, conjunctival injection, periorbital swelling, periorbital tenderness ENT exam: Present: normal oropharynx, mucous membranes moist, normal external ear exam, other (poor oral hygiene, multiple teeth decayed including tooth 20. ) . Absent: normal exam Neck exam: Present: normal inspection Respiratory exam: Present: normal lung sounds bilaterally. Absent: respiratory distress, wheezes, rales, rhonchi, stridor Course Vital Signs 11/24/17 09:34 Temperature 97.9 F Pulse Rate 97 Respiratory 17 Rate Blood Pressure 115/82 O2 Sat by Pulse 98 Oximetry Medical Decision Making - Medical Decision Making 51-year-old male patient presented for tooth pain in tooth 20. Patient states he has poor oral hygiene and has had similar occurrences before. He does have pain in the left mandible as well as the left ear and irritation in the left eye. Patient has an appointment with a free dental clinic in 3 days. Patient will be given an antibiotic to prevent infection and enable for dental work if necessary by the dentist. Disposition Clinical Impression: Gingivitis, Infected dental carries Disposition: HOME SELF-CARE Instructions: Dental Caries (ED) Additional Instructions: Please return to the ER if symptoms worsen or do not improve. Prescriptions: Ibuprofen 600 mg PO Q6H #30 tablet Penicillin V Potassium [Pen Vee K] 500 mg PO QID #40 tablet Referrals: Angelica Fletcher MD [Primary Care Provider] - 1-2 days Time of Disposition: 10:20
== END 2017-11-24 11:20 | disposition home or self-care (01) ==
LOC: EC 09:20
DX: K05.10 Chronic gingivitis, plaque induced (principal); K02.9 Dental caries, unspecified; I10 Essential (primary) hypertension; Z87.891 Personal history of nicotine dependence; Z79.899 Other long term (current) drug therapy; Z88.5 Allergy status to narcotic agent; Z88.6 Allergy status to analgesic agent
CPT/HCPCS: 99282

== ENCOUNTER 2017-11-26 14:12 | Emergency (ER) | payer OTHER ==
[2017-11-26 14:24] VITALS: BP 135/93; TEMP 98.6
[2017-11-26] MEDS ORDERED: ACET/COD 300 MG/30 MG STARTER PACK 6 TAB BTL PO STA (14:42)
--- NOTE | 2017-11-26 14:45 | ED ---
ENT HPI - General Chief complaint: Dental/Oral Stated complaint: Dental Pain Time Seen by Provider: 11/26/17 14:21 Source: patient, RN notes reviewed Mode of arrival: ambulatory Limitations: no limitations - History of Present Illness Initial comments: This is a 51-year-old male who presents to the emergency department with chief complaint of dental pain and request for pain medication. Patient states he was seen here on Friday and was started on antibiotics and ibuprofen 600. Patient states that yesterday he was pain-free. Today while making lunch, patient states that he felt a sharp shooting pain from his exposed tooth that radiated across his jaw. Patient states that he took 2 ibuprofen 600 which provided minimal relief. Patient states without pain medication he doesn't think he can tolerate it. He states that he has a dentist appointment scheduled for 2:30 tomorrow afternoon. Patient denies any fevers or chills, chest pain or shortness breath, abdominal pain, nausea or vomiting. - Related Data Home Medications Medication Instructions Recorded Confirmed Lisinopril [Prinivil] 20 mg PO DAILY 08/22/17 11/24/17 Metoprolol Tartrate [Lopressor] 25 mg PO DAILY 11/24/17 11/24/17 Previous Rx's Medication Instructions Recorded Ibuprofen 600 mg PO Q6H #30 tablet 11/24/17 Penicillin V Potassium [Pen Vee K] 500 mg PO QID #40 tablet 11/24/17 Allergies Allergy/AdvReac Type Severity Reaction Status Date / Time aspirin AdvReac Severe STOMACH Verified 11/26/17 14:22 ISSUES morphine AdvReac Severe Hallucinati Verified 11/26/17 14:22 ons Review of Systems ROS Statement: Those systems with pertinent positive or pertinent negative responses have been documented in the HPI. ROS Other: All systems not noted in ROS Statement are negative. Past Medical History Past Medical History: Hypertension, Pneumonia Additional Past Medical History / Comment(s): kidney stones, knee and leg pain, headache History of Any Multi-Drug Resistant Organisms: None Reported Past Surgical History: No Surgical Hx Reported Additional Past Surgical History / Comment(s): gall bladder pain Past Psychological History: No Psychological Hx Reported Smoking Status: Former smoker Past Alcohol Use History: None Reported Past Drug Use History: None Reported General Exam - General Exam Comments Initial Comments: General: Awake and alert, well-developed; in no apparent distress. HEENT: Head atraumatic, normocephalic. Pupils are equal, round and reactive to light. Extraocular movements intact. Oropharynx moist without erythema or exudate. Very poor dentition throughout. Tooth #20 is missing crown and is black in appearance. This area is tender on palpation. No masses or areas of fluctuance noted. Neck: Supple. Normal ROM. Cardiovascular: Regular rate and rhythm. No murmurs, rubs or gallops. Chest symmetrical. Respiratory: Lungs clear to auscultation bilaterally. No wheezes, rales or rhonchi. Normal respiratory effort with no use of accessory muscles. Musculoskeletal: Normal ROM, no tenderness bilateral upper and lower extremities. Ambulating normally. Skin: [place], warm and dry without rashes or lesions. Neurological: Alert and oriented x3. CN II-XII grossly intact. Speech is fluent and answers are appropriate. No focal neuro deficits. Psychiatric: Normal mood and affect. No overt signs of depression or anxiety noted. Limitations: no limitations Course Vital Signs 11/26/17 14:22 Temperature 98.6 F Pulse Rate 117 H Respiratory 17 Rate Blood Pressure 135/93 O2 Sat by Pulse 100 Oximetry Medical Decision Making - Medical Decision Making This is a 51-year-old male who presents to the emergency department with chief complaint of dental pain and request for pain medication. Patient is missing crown of tooth #20. He is supposed to be following up with a dentist tomorrow morning for extraction of the tooth. Patient states that he is in excruciating pain and does not think that he can tolerate it without pain medication. He has been taking ibuprofen 600 with minimal relief. He is also taking penicillin VK. Patient will be given a starter pack for Tylenol with Codeine. MAPS was obtained on this patient. He was given 7 [place]-10 tablets on 2017 but has no other narcotic prescriptions in 2018. He is in no acute distress and will be discharged home. He is in agreement with plan and voices understanding. All questions were answered. Disposition Clinical Impression: Dental caries Disposition: HOME SELF-CARE Condition: Good Instructions: Dental Caries (ED), Acetaminophen/Codeine (By mouth) Additional Instructions: Please take medications as prescribed. Please follow up with your dentist tomorrow as scheduled. Please follow up with primary care provider within 1-2 days. Return to emergency department if symptoms should worsen or any concerns arise. Referrals: Viv May FNPBC [Primary Care Provider] - 1-2 days Time of Disposition: 14:45
[2017-11-26 14:47] VITALS: PULSE 89; RESP 18
== END 2017-11-26 14:54 | disposition home or self-care (01) ==
LOC: EC 14:12
DX: K02.9 Dental caries, unspecified (principal); I10 Essential (primary) hypertension; Z87.891 Personal history of nicotine dependence; Z79.899 Other long term (current) drug therapy; Z88.6 Allergy status to analgesic agent; Z88.5 Allergy status to narcotic agent
CPT/HCPCS: 99282

== ENCOUNTER 2018-01-02 07:04 | Emergency (ER) | payer OTHER ==
[2018-01-02 07:09] VITALS: TEMP 97.9
[2018-01-02] MEDS ORDERED: SODIUM CHLORIDE 0.9% 500 ML IV STA (07:31)
--- NOTE | 2018-01-02 07:35 | ED ---
General Adult HPI - General Chief complaint: Abdominal Pain Stated complaint: abd pain Time Seen by Provider: 01/02/18 07:18 Source: patient, RN notes reviewed, old records reviewed Mode of arrival: ambulatory Limitations: no limitations - History of Present Illness Initial comments: 52-year-old male presents with right upper quadrant pain. Patient states that several hours prior to evaluation he developed some abdominal pain localized to the right upper quadrant. States he took some Tylenol for this, symptoms seem to come and go and then beginning at approximately 5 AM patient had steady constant dull pain in his right upper quadrant. He states he has had gallbladder issues in the past. He also has history of kidney stones, denies any dysuria, denies hematuria. Denies flank pain. Denies lower abdominal pain. Denies chest pain or shortness of breath. Denies fever or chills. Denies nausea vomiting. - Related Data Home Medications Medication Instructions Recorded Confirmed Lisinopril [Prinivil] 20 mg PO DAILY 08/22/17 01/02/18 Metoprolol Tartrate [Lopressor] 25 mg PO DAILY 11/24/17 01/02/18 Acetaminophen Tab [Tylenol Tab] 1,000 - 2,000 mg PO Q6HR PRN 01/02/18 01/02/18 Omeprazole 20 mg PO DAILY 01/02/18 01/02/18 Previous Rx's Medication Instructions Recorded Acetaminophen-Codeine 300-30mg 1 tab PO Q6H PRN #12 tablet 01/02/18 [Tylenol #3] Allergies Allergy/AdvReac Type Severity Reaction Status Date / Time aspirin AdvReac Severe STOMACH Verified 01/02/18 07:29 ISSUES morphine AdvReac Severe Hallucinati Verified 01/02/18 07:29 ons Review of Systems ROS Statement: Those systems with pertinent positive or pertinent negative responses have been documented in the HPI. ROS Other: All systems not noted in ROS Statement are negative. Past Medical History Past Medical History: GERD/Reflux, Hypertension, Pneumonia Additional Past Medical History / Comment(s): kidney stones, knee and leg pain, headache History of Any Multi-Drug Resistant Organisms: None Reported Past Surgical History: No Surgical Hx Reported Additional Past Surgical History / Comment(s): gall bladder pain Past Psychological History: No Psychological Hx Reported Smoking Status: Former smoker Past Alcohol Use History: None Reported Past Drug Use History: None Reported General Exam Limitations: no limitations General appearance: alert, in no apparent distress Head exam: Present: atraumatic, normocephalic Eye exam: Present: normal appearance, PERRL, EOMI ENT exam: Present: normal exam Neck exam: Present: normal inspection. Absent: tenderness, meningismus Respiratory exam: Present: normal lung sounds bilaterally. Absent: respiratory distress, wheezes Cardiovascular Exam: Present: regular rate, normal rhythm GI/Abdominal exam: Present: soft, tenderness (Tenderness right upper quadrant). Absent: rebound, rigid Extremities exam: Present: normal inspection, normal capillary refill. Absent: pedal edema Neurological exam: Present: alert, oriented X3, CN II-XII intact. Absent: motor sensory deficit Psychiatric exam: Absent: normal affect, normal mood Skin exam: Present: warm, dry, intact. Absent: cyanosis, diaphoretic Course Vital Signs 01/02/18 07:07 Temperature 97.9 F Pulse Rate 82 Respiratory 18 Rate Blood Pressure 173/104 O2 Sat by Pulse 99 Oximetry Medical Decision Making - Medical Decision Making 52-year-old male presenting with right upper quadrant pain. Patient does have some tenderness in this area, no rebound or guarding. Patient's vital signs are stable, otherwise well-appearing. Ultrasound is obtained, this is negative for stones, normal common bile duct, right kidney appears normal with no hydronephrosis. KUB negative for any acute intra-abdominal process. Laboratory studies reveal normal white blood cell count, stable hemoglobin, AST ALT, alk phos and total bili are all normal. Urine does show 2 RBCs and calcium oxalate crystals, patient has history of kidney stones, he will continue stay hydrated and return with any worsening or changing symptoms. - Lab Data Result diagrams: 01/02/18 07:40 01/02/18 07:40 Lab Results 01/02/18 01/02/18 01/02/18 Range/Units 07:40 07:40 07:40 WBC 6.0 (3.8-10.6) k/uL RBC 4.74 (4.30-5.90) m/uL Hgb 14.6 (13.0-17.5) gm/dL Hct 45.1 (39.0-53.0) % MCV 95.2 (80.0-100.0) fL MCH 30.7 (25.0-35.0) pg MCHC 32.3 (31.0-37.0) g/dL RDW 14.2 (11.5-15.5) % Plt Count 284 (150-450) k/uL Neutrophils % 76 % Lymphocytes % 15 % Monocytes % 5 % Eosinophils % 3 % Basophils % 1 % Neutrophils # 4.5 (1.3-7.7) k/uL Lymphocytes # 0.9 L (1.0-4.8) k/uL Monocytes # 0.3 (0-1.0) k/uL Eosinophils # 0.2 (0-0.7) k/uL Basophils # 0.0 (0-0.2) k/uL Sodium 141 (137-145) mmol/L Potassium 4.3 (3.5-5.1) mmol/L Chloride 106 (98-107) mmol/L Carbon Dioxide 26 (22-30) mmol/L Anion Gap 9 mmol/L BUN 18 (9-20) mg/dL Creatinine 0.80 (0.66-1.25) mg/dL Est GFR (CKD-EPI)AfAm >90 (>60 ml/min/1.73 sqM) Est GFR (CKD-EPI)NonAf >90 (>60 ml/min/1.73 sqM) Glucose 97 (74-99) mg/dL Plasma Lactic Acid Krishan 0.8 (0.7-2.0) mmol/L Calcium 9.4 (8.4-10.2) mg/dL Total Bilirubin 0.6 (0.2-1.3) mg/dL AST 24 (17-59) U/L ALT 30 (21-72) U/L Alkaline Phosphatase 53 (38-126) U/L Total Protein 5.6 L (6.3-8.2) g/dL Albumin 3.6 (3.5-5.0) g/dL Amylase 79 (30-110) U/L Lipase 96 (23-300) U/L Urine Color Urine Appearance (Clear) Urine pH (5.0-8.0) Ur Specific [place] (1.001-1.035) Urine Protein (Negative) Urine Glucose (UA) (Negative) Urine Ketones (Negative) Urine Blood (Negative) Urine Nitrite (Negative) Urine Bilirubin (Negative) Urine Urobilinogen (<2.0) mg/dL Ur Leukocyte Esterase (Negative) Urine RBC (0-5) /hpf Calcium Oxalate Crystal (None) /hpf Urine Mucus (None) /hpf 01/02/18 Range/Units 07:40 WBC (3.8-10.6) k/uL RBC (4.30-5.90) m/uL Hgb (13.0-17.5) gm/dL Hct (39.0-53.0) % MCV (80.0-100.0) fL MCH (25.0-35.0) pg MCHC (31.0-37.0) g/dL RDW (11.5-15.5) % Plt Count (150-450) k/uL Neutrophils % % Lymphocytes % % Monocytes % % Eosinophils % % Basophils % % Neutrophils # (1.3-7.7) k/uL Lymphocytes # (1.0-4.8) k/uL Monocytes # (0-1.0) k/uL Eosinophils # (0-0.7) k/uL Basophils # (0-0.2) k/uL Sodium (137-145) mmol/L Potassium (3.5-5.1) mmol/L Chloride (98-107) mmol/L Carbon Dioxide (22-30) mmol/L Anion Gap mmol/L BUN (9-20) mg/dL Creatinine (0.66-1.25) mg/dL Est GFR (CKD-EPI)AfAm (>60 ml/min/1.73 sqM) Est GFR (CKD-EPI)NonAf (>60 ml/min/1.73 sqM) Glucose (74-99) mg/dL Plasma Lactic Acid Krishan (0.7-2.0) mmol/L Calcium (8.4-10.2) mg/dL Total Bilirubin (0.2-1.3) mg/dL AST (17-59) U/L ALT (21-72) U/L Alkaline Phosphatase (38-126) U/L Total Protein (6.3-8.2) g/dL Albumin (3.5-5.0) g/dL Amylase (30-110) U/L Lipase (23-300) U/L Urine Color Yellow Urine Appearance Clear (Clear) Urine pH 5.5 (5.0-8.0) Ur Specific [place] 1.030 (1.001-1.035) Urine Protein Trace H (Negative) Urine Glucose (UA) Negative (Negative) Urine Ketones Negative (Negative) Urine Blood Trace H (Negative) Urine Nitrite Negative (Negative) Urine Bilirubin Negative (Negative) Urine Urobilinogen 2.0 (<2.0) mg/dL Ur Leukocyte Esterase Negative (Negative) Urine RBC 2 (0-5) /hpf Calcium Oxalate Crystal Occasional H (None) /hpf Urine Mucus Few H (None) /hpf Disposition Clinical Impression: Abdominal pain Disposition: HOME SELF-CARE Condition: Good Instructions: Abdominal Pain (ED) Prescriptions: Acetaminophen-Codeine 300-30mg [Tylenol #3] 1 tab PO Q6H PRN #12 tablet PRN Reason: Pain Referrals: Angelica Fletcher MD [Primary Care Provider] - 1-2 days Time of Disposition: 09:03
[2018-01-02 08:08] LABS: Basophils % (A) 1 %; Eosinophils # (A) 0.2 k/uL (0-0.7); Eosinophils % (A) 3 %; HCT 45.1 % (39.0-53.0); HGB 14.6 gm/dL (13.0-17.5); Lymphocytes # (A) 0.9 k/uL (1.0-4.8); Lymphocytes % (A) 15 %; MCH 30.7 pg (25.0-35.0); MCHC 32.3 g/dL (31.0-37.0); MCV 95.2 fL (80.0-100.0); Mean Platelet Volume 7.4; Monocytes # (A) 0.3 k/uL (0-1.0); Monocytes % (A) 5 %; Neutrophils # (A) 4.5 k/uL (1.3-7.7); Neutrophils % (A) 76 %; Platelet Count 284 k/uL (150-450); RBC 4.74 m/uL (4.30-5.90); RDW 14.2 % (11.5-15.5)
--- NOTE | 2018-01-02 08:15 | XR ---
EXAMINATION TYPE: XR KUB DATE OF EXAM: 01/02/2018 COMPARISON: 03/25/2017 INDICATION: Abdomen pain right lower quadrant pain history of kidney stones TECHNIQUE: Single view abdomen upright view FINDINGS: No renal or ureteral stones are evident. There is nonspecific bowel gas within small bowel loops as well as the colon. Psoas margins are normal. No organomegaly is present. IMPRESSION: 1. Nonspecific abdomen. 2. No suspicious renal or ureteral stones evident.
[2018-01-02 08:17] LABS: Appearance,Urine Clear (Clear); Bilirubin,Urine Negative (Negative); Blood,Urine Trace (Negative); Calcium Oxalate Crystals,Urine Occasional /hpf; Color,Urine Yellow; Glucose,Urine (UA) Negative (Negative); Ketones,Urine Negative (Negative); Leukocyte Esterase,Urine Negative (Negative); Mucus,Urine Few /hpf; Nitrite,Urine Negative (Negative); PH, Urine 5.5 (5.0-8.0); Protein,Urine Trace (Negative); RBC,Urine 2 /hpf (0-5)
[2018-01-02 08:27] LABS: ALT 30 U/L (21-72); AST 24 U/L (17-59); Albumin 3.6 g/dL (3.5-5.0); Alkaline Phosphatase 53 U/L (38-126); Amylase 79 U/L (30-110); Anion Gap 9 mmol/L; Blood Urea Nitrogen 18 mg/dL (9-20); Calcium 9.4 mg/dL (8.4-10.2); Carbon Dioxide 26 mmol/L (22-30); Chloride 106 mmol/L (98-107); Glucose 97 mg/dL (74-99); Lipase 96 U/L (23-300); Potassium 4.3 mmol/L (3.5-5.1); Sodium 141 mmol/L (137-145); Total Bilirubin 0.6 mg/dL (0.2-1.3); Total Protein 5.6 g/dL (6.3-8.2)
--- NOTE | 2018-01-02 08:55 | US ---
EXAMINATION TYPE: US gallbladder DATE OF EXAM: 01/02/2018 COMPARISON: NONE CLINICAL HISTORY: Pain. Dull, steady ache RUQ. History of kidney stones EXAM MEASUREMENTS: Liver Length: 17.9 cm Gallbladder Wall: 0.3 cm CBD: 0.5 cm Right Kidney: 11.9 x 4.3 x 5.2 cm Pancreas: Obscured by overlying bowel gas Liver: upper limits of normal in size Gallbladder: no evidence of stones Evidence for sonographic Dubose's sign: yes CBD: wnl Right Kidney: no evidence of hydronephrosis IMPRESSION: 1. Right upper quadrant appears unremarkable. 2. No renal stones. 3. No cholelithiasis.
[2018-01-02 09:03] VITALS: BP 143/97; PULSE 68; RESP 16
== END 2018-01-02 09:14 | disposition home or self-care (01) ==
LOC: EC 07:04
DX: R10.11 Right upper quadrant pain (principal); K21.9 Gastro-esophageal reflux disease without esophagitis; I10 Essential (primary) hypertension; Z87.442 Personal history of urinary calculi; Z87.891 Personal history of nicotine dependence; Z79.899 Other long term (current) drug therapy; Z88.5 Allergy status to narcotic agent; Z88.6 Allergy status to analgesic agent
CPT/HCPCS: 36415; 74018; 76705; 80053; 81001; 82150; 83605; 83690; 85025; 96360; 99285

== ENCOUNTER 2018-02-25 05:36 | Emergency (ER) | payer OTHER ==
[2018-02-25 05:43] VITALS: RESP 18
[2018-02-25] MEDS ORDERED: KETOROLAC 30 MG/ML 1 ML VIAL IVP STA (06:01)
[2018-02-25] MEDS ORDERED: METOCLOPRAMIDE 5 MG/ML 2 ML VIAL IVP STA (06:01)
[2018-02-25] MEDS ORDERED: SODIUM CHLORIDE 0.9% 500 ML IV STA (06:01)
[2018-02-25] MEDS ORDERED: DEXAMETHASONE SOD PHOSPHATE 10 MG/ML 1 ML VIAL IV STA (06:02)
[2018-02-25 06:50] VITALS: TEMP 97.4
--- NOTE | 2018-02-25 07:02 | CT ---
EXAM: CT Head Without Intravenous Contrast CLINICAL HISTORY: ITS.REASON CT Reason: Headache TECHNIQUE: Axial computed tomography images of the head/brain without intravenous contrast. CTDI is 60.3 mGy and DLP is 1036 mGy-cm. This CT exam was performed using one or more of the following dose reduction techniques: automated exposure control, adjustment of the mA and/or kV according to patient size, and/or use of iterative reconstruction technique. COMPARISON: 11/07/17 FINDINGS: Brain: Unremarkable. No hemorrhage. No significant white matter disease. No edema. Ventricles: Unremarkable. No ventriculomegaly. Bones/joints: Unremarkable. No acute fracture. Soft tissues: Unremarkable. Sinuses: Mild mucosal thickening in the ethmoid sinuses. Mastoid air cells: Unremarkable as visualized. No mastoid effusion. Other findings: No significant change is identified. Mild diffuse atrophy. IMPRESSION: No acute intracranial abnormality. Mild atrophy
--- NOTE | 2018-02-25 07:06 | ED ---
Headache HPI - General Chief Complaint: Headache Stated Complaint: headache Time Seen by Provider: 02/25/18 05:54 Mode of arrival: ambulatory Limitations: no limitations - History of Present Illness Initial Comments: 52 years old gentleman has history of firm long-standing headache for the last 4 years this time around headache started 3 days ago he feels it's a different headache is affecting top of his head he denies any blurred vision any slurred speech denies any stiffness of the neck no chest pain or shortness of breath no pain over the temporal areas no dizziness no unsteady gait - Related Data Home Medications Medication Instructions Recorded Confirmed Lisinopril [Prinivil] 20 mg PO DAILY 08/22/17 02/25/18 Metoprolol Tartrate [Lopressor] 25 mg PO DAILY 11/24/17 02/25/18 Acetaminophen Tab [Tylenol Tab] 1,000 - 2,000 mg PO Q6HR PRN 01/02/18 02/25/18 Omeprazole 20 mg PO DAILY 01/02/18 02/25/18 Previous Rx's Medication Instructions Recorded Acetaminophen-Codeine 300-30mg 1 tab PO Q6H PRN #12 tablet 01/02/18 [Tylenol #3] Acetaminophen-Codeine 300-30mg 1 tab PO Q6H PRN 3 Days #12 tablet 02/25/18 [Tylenol w/codeine #3] Allergies Allergy/AdvReac Type Severity Reaction Status Date / Time aspirin AdvReac Severe STOMACH Verified 01/02/18 07:29 ISSUES morphine AdvReac Severe Hallucinati Verified 01/02/18 07:29 ons Review of Systems ROS Statement: Those systems with pertinent positive or pertinent negative responses have been documented in the HPI. ROS Other: All systems not noted in ROS Statement are negative. Past Medical History Past Medical History: GERD/Reflux, Hypertension, Pneumonia Additional Past Medical History / Comment(s): kidney stones, knee and leg pain, headache History of Any Multi-Drug Resistant Organisms: None Reported Past Surgical History: No Surgical Hx Reported Additional Past Surgical History / Comment(s): gall bladder pain Past Psychological History: No Psychological Hx Reported Smoking Status: Former smoker Past Alcohol Use History: None Reported Past Drug Use History: None Reported General Exam - General Exam Comments Initial Comments: General: The patient is awake and alert, in no distress, and does not appear acutely ill. GCS is 15 Skin: Skin is warm and dry and no rashes or lesions are noted. Eye: Pupils are equal, round and reactive to light, extra-ocular movements are intact; there is normal conjunctiva bilaterally. Ears, nose, mouth and throat: There are moist mucous membranes and no oral lesions. Neck: The neck is supple, there is no tenderness, no signs of any meningitis Cardiovascular: There is a regular rate and rhythm. No murmur, rub or gallop is appreciated. Respiratory: To auscultation bilateral, no wheezing no rhonchi no distress respiratory kapoor noticed Gastrointestinal: Soft, non-distended, non-tender abdomen without masses or organomegaly noted. There is no rebound or guarding present. Bowel sounds are unremarkable. Back: There is no tenderness to palpation in the midline. There is no obvious deformity. Musculoskeletal: Normal ROM, no tenderness, There is no pedal edema. There is no calf tenderness or swelling. No cords were appreciated. Neurological: CN II-XII intact, Cranial nerves III through XII are intact. There are no obvious motor or sensory deficits. Coordination appears grossly intact. Speech is normal. Psychiatric: Cooperative, appropriate mood & affect, normal judgment. Limitations: no limitations Course Vital Signs 02/25/18 02/25/18 05:40 06:48 Temperature 98.4 F 97.4 F L Pulse Rate 90 77 Respiratory 18 18 Rate Blood Pressure 137/96 142/68 O2 Sat by Pulse [address] is normal, his pain is better him a he is requesting Tylenol 3 will follow-up with his family doctor Disposition Clinical Impression: Headache Disposition: HOME SELF-CARE Condition: Good Instructions: Acute Headache (ED) Prescriptions: Acetaminophen-Codeine 300-30mg [Tylenol w/codeine #3] 1 tab PO Q6H PRN 3 Days # 12 tablet PRN Reason: Pain Is patient prescribed a controlled substance at d/c from ED?: Yes When asked, does pt state using other controlled substances?: No If prescribed controlled substance>3 days was MAPS reviewed?: No If opioid is for acute pain is fill amount 7 days or less?: No If Rx opioid, was Start Talking consent form obtained?: No Referrals: Angelica Fletcher MD [Primary Care Provider] - 1-2 days
[2018-02-25 07:50] VITALS: BP 142/84; PULSE 82
== END 2018-02-25 07:43 | disposition home or self-care (01) ==
LOC: EC 05:36
DX: R51 Headache (principal); R40.2412 Glasgow coma scale score 13-15, at arrival to emergency department; I10 Essential (primary) hypertension; K21.9 Gastro-esophageal reflux disease without esophagitis; Z87.891 Personal history of nicotine dependence; Z79.899 Other long term (current) drug therapy; Z88.5 Allergy status to narcotic agent; Z88.6 Allergy status to analgesic agent
CPT/HCPCS: 70450; 99284; 96374; 96375 ×2; J1100; J2765; J1885

== ENCOUNTER 2018-03-10 08:36 | Emergency (ER) | payer OTHER ==
[2018-03-10 08:39] VITALS: RESP 18
[2018-03-10] MEDS ORDERED: KETOROLAC 30 MG/ML 1 ML VIAL IVP STA (08:46)
[2018-03-10] MEDS ORDERED: SODIUM CHLORIDE 0.9% 1,000 ML IV STA (08:46)
[2018-03-10] MEDS ORDERED: ONDANSETRON 4 MG/2 ML VIAL IVP STA (08:46)
--- NOTE | 2018-03-10 08:48 | ED ---
Abdominal Pain HPI - General Chief Complaint: Abdominal Pain Stated Complaint: Poss kidney stones Time Seen by Provider: 03/10/18 08:40 Source: patient, RN notes reviewed, old records reviewed Mode of arrival: ambulatory Limitations: no limitations - History of Present Illness Initial Comments: Patient's 52-year-old male with history of kidney stones presents today with 4 days of left-sided back pain radiating towards Abdomen. Patient states that the pain feels similar to kidney stone but is never had one last this long. Patient states he usually passes on his own. He has no urologist. Patient states that he has had no fevers or chills. A few episodes of nausea but no vomiting.Patient denies any recent fever, chills, shortness of breath, chest pain, back pain, abdominal pain, nausea vomiting, numbness or tingling, dysuria or hematuria, constipation or diarrhea, headaches or visual changes, or any other current symptoms - Related Data Home Medications Medication Instructions Recorded Confirmed Lisinopril [Prinivil] 20 mg PO DAILY 08/22/17 03/10/18 Metoprolol Tartrate [Lopressor] 25 mg PO DAILY 11/24/17 03/10/18 Omeprazole 20 mg PO DAILY 01/02/18 03/10/18 Ergocalciferol [Vitamin D2] 50,000 unit PO TU 03/10/18 03/10/18 Previous Rx's Medication Instructions Recorded Ciprofloxacin HCl [Cipro] 500 mg PO Q12HR #20 tablet 03/10/18 Docusate [Colace] 100 mg PO DAILY #20 capsule 03/10/18 metroNIDAZOLE [Flagyl] 500 mg PO TID #30 tab 03/10/18 Allergies Allergy/AdvReac Type Severity Reaction Status Date / Time aspirin AdvReac Severe STOMACH Verified 03/10/18 08:54 ISSUES morphine AdvReac Severe Hallucinati Verified 03/10/18 08:54 ons Review of Systems ROS Statement: Those systems with pertinent positive or pertinent negative responses have been documented in the HPI. ROS Other: All systems not noted in ROS Statement are negative. Past Medical History Past Medical History: GERD/Reflux, Hypertension, Pneumonia Additional Past Medical History / Comment(s): kidney stones, knee and leg pain, headache History of Any Multi-Drug Resistant Organisms: None Reported Past Surgical History: No Surgical Hx Reported Additional Past Surgical History / Comment(s): gall bladder pain Past Psychological History: No Psychological Hx Reported Smoking Status: Former smoker Past Alcohol Use History: None Reported Past Drug Use History: None Reported General Exam - General Exam Comments Initial Comments: 52-year-old male. Alert and oriented. No significant distress. Limitations: no limitations General appearance: alert, in no apparent distress Head exam: Present: atraumatic, normocephalic, normal inspection Eye exam: Present: normal appearance, PERRL, EOMI. Absent: scleral icterus, conjunctival injection, periorbital swelling ENT exam: Present: normal exam, mucous membranes moist Neck exam: Present: normal inspection. Absent: tenderness, meningismus, lymphadenopathy Respiratory exam: Present: normal lung sounds bilaterally. Absent: respiratory distress, wheezes, rales, rhonchi, stridor Cardiovascular Exam: Present: regular rate, normal rhythm, normal heart sounds. Absent: systolic murmur, diastolic murmur, rubs, gallop, clicks GI/Abdominal exam: Present: soft, tenderness (Left lower quadrant and left CVA tenderness.), normal bowel sounds. Absent: distended, guarding, rebound, rigid Extremities exam: Present: normal inspection, full ROM, normal capillary refill. Absent: tenderness, pedal edema, joint swelling, calf tenderness Back exam: Present: normal inspection Neurological exam: Present: alert, oriented X3, CN II-XII intact Psychiatric exam: Present: normal affect, normal mood Skin exam: Present: warm, dry, intact, normal color. Absent: rash Course Vital Signs 03/10/18 03/10/18 08:36 10:16 Temperature 97.9 F 97.8 F Pulse Rate 88 73 Respiratory 18 18 Rate Blood Pressure 122/83 133/85 O2 Sat by Pulse 100 100 Oximetry Medical Decision Making - Medical Decision Making Patient's 52-year-old male with chief complaint of left flank pain radiating towards his abdomen for 4 days. No fevers or chills. Lab work was obtained. Urinalysis is negative for any signs of infection or hematuria. He states this pain feels somewhat similar to his history of kidney stones. Patient states he had pain lasting this long. White blood cell count was mildly elevated at 12, 000. He reports he's had normal stools. CT and pelvis without contrast was completed. There is evidence of diverticulitis. We'll treat the Patient with Cipro and Flagyl. Also put the Patient on stool softener regimen. Discussed appropriate follow-up with primary care provider. When I did discuss with him that he has diverticulitis he does report that he was eating more nuts frequently. - Lab Data Result diagrams: 03/10/18 08:53 03/10/18 08:53 Lab Results 03/10/18 03/10/18 03/10/18 Range/Units 08:53 08:53 08:53 WBC 12.7 H (3.8-10.6) k/uL RBC 5.11 (4.30-5.90) m/uL Hgb 15.6 (13.0-17.5) gm/dL Hct 48.7 (39.0-53.0) % MCV 95.3 (80.0-100.0) fL MCH 30.5 (25.0-35.0) pg MCHC 32.1 (31.0-37.0) g/dL RDW 13.8 (11.5-15.5) % Plt Count 273 (150-450) k/uL Neutrophils % 85 % Lymphocytes % 9 % Monocytes % 3 % Eosinophils % 2 % Basophils % 0 % Neutrophils # 10.9 H (1.3-7.7) k/uL Lymphocytes # 1.1 (1.0-4.8) k/uL Monocytes # 0.4 (0-1.0) k/uL Eosinophils # 0.2 (0-0.7) k/uL Basophils # 0.0 (0-0.2) k/uL PT 9.4 (9.0-12.0) sec INR 0.9 (<1.2) APTT 23.9 (22.0-30.0) sec Sodium 143 (137-145) mmol/L Potassium 4.3 (3.5-5.1) mmol/L Chloride 107 (98-107) mmol/L Carbon Dioxide 25 (22-30) mmol/L Anion Gap 11 mmol/L BUN 15 (9-20) mg/dL Creatinine 0.80 (0.66-1.25) mg/dL Est GFR (CKD-EPI)AfAm >90 (>60 ml/min/1.73 sqM) Est GFR (CKD-EPI)NonAf >90 (>60 ml/min/1.73 sqM) Glucose 97 (74-99) mg/dL Calcium 9.3 (8.4-10.2) mg/dL Total Bilirubin 0.5 (0.2-1.3) mg/dL AST 25 (17-59) U/L ALT 35 (21-72) U/L Alkaline Phosphatase 49 (38-126) U/L Total Protein 5.7 L (6.3-8.2) g/dL Albumin 3.9 (3.5-5.0) g/dL Amylase 79 (30-110) U/L Lipase 68 (23-300) U/L Urine Color Urine Appearance (Clear) Urine pH (5.0-8.0) Ur Specific [place] (1.001-1.035) Urine Protein (Negative) Urine Glucose (UA) (Negative) Urine Ketones (Negative) Urine Blood (Negative) Urine Nitrite (Negative) Urine Bilirubin (Negative) Urine Urobilinogen (<2.0) mg/dL Ur Leukocyte Esterase (Negative) 03/10/18 Range/Units 08:53 WBC (3.8-10.6) k/uL RBC (4.30-5.90) m/uL Hgb (13.0-17.5) gm/dL Hct (39.0-53.0) % MCV (80.0-100.0) fL MCH (25.0-35.0) pg MCHC (31.0-37.0) g/dL RDW (11.5-15.5) % Plt Count (150-450) k/uL Neutrophils % % Lymphocytes % % Monocytes % % Eosinophils % % Basophils % % Neutrophils # (1.3-7.7) k/uL Lymphocytes # (1.0-4.8) k/uL Monocytes # (0-1.0) k/uL Eosinophils # (0-0.7) k/uL Basophils # (0-0.2) k/uL PT (9.0-12.0) sec INR (<1.2) APTT (22.0-30.0) sec Sodium (137-145) mmol/L Potassium (3.5-5.1) mmol/L Chloride (98-107) mmol/L Carbon Dioxide (22-30) mmol/L Anion Gap mmol/L BUN (9-20) mg/dL Creatinine (0.66-1.25) mg/dL Est GFR (CKD-EPI)AfAm (>60 ml/min/1.73 sqM) Est GFR (CKD-EPI)NonAf (>60 ml/min/1.73 sqM) Glucose (74-99) mg/dL Calcium (8.4-10.2) mg/dL Total Bilirubin (0.2-1.3) mg/dL AST (17-59) U/L ALT (21-72) U/L Alkaline Phosphatase (38-126) U/L Total Protein (6.3-8.2) g/dL Albumin (3.5-5.0) g/dL Amylase (30-110) U/L Lipase (23-300) U/L Urine Color Yellow Urine Appearance Clear (Clear) Urine pH 6.0 (5.0-8.0) Ur Specific [place] 1.025 (1.001-1.035) Urine Protein Trace H (Negative) Urine Glucose (UA) Negative (Negative) Urine Ketones Trace H (Negative) Urine Blood Negative (Negative) Urine Nitrite Negative (Negative) Urine Bilirubin Negative (Negative) Urine Urobilinogen 3.0 (<2.0) mg/dL Ur Leukocyte Esterase Negative (Negative) - Radiology Data Radiology results: report reviewed CT shows bilateral nonobstructing renal colliculi without hydronephrosis. Multiple colonic diverticula with mild inflammatory fat stranding of the descending colon and sigmoid colon indicative of a comp acute diverticulitis. Small hiatal hernia. Disposition Clinical Impression: Diverticulitis Disposition: HOME SELF-CARE Condition: Good Instructions: Diverticulitis (ED) Additional Instructions: Patient advised follow-up with primary care prior. Take the medications as prescribed. Also use a stool softener instructed. Return to the emergency department if any alarming signs or symptoms occur. Motrin Tylenol for pain. Prescriptions: Ciprofloxacin HCl [Cipro] 500 mg PO Q12HR #20 tablet Docusate [Colace] 100 mg PO DAILY #20 capsule metroNIDAZOLE [Flagyl] 500 mg PO TID #30 tab Is patient prescribed a controlled substance at d/c from ED?: No When asked, does pt state using other controlled substances?: No If prescribed controlled substance>3 days was MAPS reviewed?: No If opioid is for acute pain is fill amount 7 days or less?: No If Rx opioid, was Start Talking consent form obtained?: No Referrals: Angelica Fletcher MD [Primary Care Provider] - 1-2 days Time of Disposition: 10:34
--- NOTE | 2018-03-10 09:06 | XR ---
EXAMINATION TYPE: XR KUB DATE OF EXAM: 03/10/2018 COMPARISON: 01/02/2018 HISTORY: Flank pain TECHNIQUE: One view abdominal series FINDINGS: The osseous structures are intact. The bowel gas pattern is nonspecific. Lung bases are clear. Left kidney: There are 2 approximately 2 mm calcification lower pole left kidney. There also is a 2 t o 3 mm central left renal calculus. Right kidney: No suspicious calcifications overlying the right kidney. Curvature the spine noted. Arthropathy of the hips. IMPRESSION: 1. Left-sided nephrolithiasis..
[2018-03-10 09:10] LABS: Basophils % (A) 0 %; Eosinophils # (A) 0.2 k/uL (0-0.7); Eosinophils % (A) 2 %; HCT 48.7 % (39.0-53.0); HGB 15.6 gm/dL (13.0-17.5); Lymphocytes # (A) 1.1 k/uL (1.0-4.8); Lymphocytes % (A) 9 %; MCH 30.5 pg (25.0-35.0); MCHC 32.1 g/dL (31.0-37.0); MCV 95.3 fL (80.0-100.0); Mean Platelet Volume 7.9; Monocytes # (A) 0.4 k/uL (0-1.0); Monocytes % (A) 3 %; Neutrophils # (A) 10.9 k/uL (1.3-7.7); Neutrophils % (A) 85 %; Platelet Count 273 k/uL (150-450); RBC 5.11 m/uL (4.30-5.90); RDW 13.8 % (11.5-15.5); WBC 12.7 k/uL (3.8-10.6)
[2018-03-10 09:11] LABS: Appearance,Urine Clear (Clear); Bilirubin,Urine Negative (Negative); Blood,Urine Negative (Negative); Color,Urine Yellow; Glucose,Urine (UA) Negative (Negative); Ketones,Urine Trace (Negative); Leukocyte Esterase,Urine Negative (Negative); Nitrite,Urine Negative (Negative); Protein,Urine Trace (Negative); Specific Gravity,Urine 1.025 (1.001-1.035)
[2018-03-10 09:22] LABS: ALT 35 U/L (21-72); AST 25 U/L (17-59); Albumin 3.9 g/dL (3.5-5.0); Alkaline Phosphatase 49 U/L (38-126); Amylase 79 U/L (30-110); Anion Gap 11 mmol/L; Blood Urea Nitrogen 15 mg/dL (9-20); Calcium 9.3 mg/dL (8.4-10.2); Carbon Dioxide 25 mmol/L (22-30); Chloride 107 mmol/L (98-107); Glucose 97 mg/dL (74-99); Lipase 68 U/L (23-300); Potassium 4.3 mmol/L (3.5-5.1); Sodium 143 mmol/L (137-145); Total Bilirubin 0.5 mg/dL (0.2-1.3); Total Protein 5.7 g/dL (6.3-8.2)
[2018-03-10 09:23] LABS: INR 0.9 (<1.2); Partial Thromboplastin Time 23.9 sec (22.0-30.0); Prothrombin Time 9.4 sec (9.0-12.0)
[2018-03-10 10:17] VITALS: BP 133/85; PULSE 73; TEMP 97.8
--- NOTE | 2018-03-10 10:26 | CT ---
EXAMINATION TYPE: CT abdomen pelvis wo con DATE OF EXAM: 03/10/2018 COMPARISON: NONE HISTORY: 03/10/2018 abdominal radiograph.. Left flank pain for [address] DLP: 317.50 mGycm Automated exposure control for dose reduction was used. TECHNIQUE: Helical acquisition of images was performed from the lung bases through the pelvis. FINDINGS: LUNG BASES: No significant abnormality is appreciated. LIVER/GB: No significant abnormality is appreciated. No cholelithiasis is seen. PANCREAS: No significant abnormality is seen. No ductal dilatation. SPLEEN: No significant abnormality is seen. No splenomegaly. ADRENALS: No significant abnormality is seen. No nodularity or thickening. KIDNEYS: There are 3 left-sided renal calculi that are nonobstructive. No hydronephrosis or ureteral calculus is seen. The largest left renal calculus measures 4 mm in the mid pole. Additionally there a re three 2 to 3 mm right renal calculi that are also nonobstructing. No hydronephrosis or ureteral ca lculus is seen on the right. Urinary bladder is decompressed and incompletely evaluated. FREE AIR: No free air is visualized ADENOPATHY: No greater than 1 cm short axis lymph node is seen within the abdomen or pelvis. REPRODUCTIVE ORGANS: Prostate gland is heterogenous containing central zone calcifications. OSSEOUS STRUCTURES: No significant abnormality is seen. BOWEL: Colonic diverticula are seen with very mild pericolonic fat stranding of the left descending colon and sigmoid colon with mildly engorged vasa recta. A small hiatal hernia is also identified. IMPRESSION: 1. BILATERAL NONOBSTRUCTING RENAL CALCULI WITHOUT HYDRONEPHROSIS. 2. MULTIPLE COLONIC DIVERTICULA WITH VERY MILD INFLAMMATORY FAT STRANDING OF THE DESCENDING COLON AND SIGMOID COLON INDICATIVE OF MILD UNCOMPLICATED ACUTE DIVERTICULITIS. 3. SMALL HIATAL HERNIA.
[2018-03-10] MEDS ORDERED: CIPROFLOXACIN HCL 500 MG TAB PO STA (10:33)
[2018-03-10] MEDS ORDERED: metroNIDAZOLE 500 MG TAB PO STA (10:33)
[2018-03-10] MEDS ORDERED: ACET/COD 300 MG/30 MG STARTER PACK 6 TAB BTL PO STA (10:44)
== END 2018-03-10 10:53 | disposition home or self-care (01) ==
LOC: EC 08:36
DX: K57.92 Diverticulitis of intestine, part unspecified, without perforation or abscess without bleeding (principal); D72.829 Elevated white blood cell count, unspecified; K21.9 Gastro-esophageal reflux disease without esophagitis; I10 Essential (primary) hypertension; Z87.891 Personal history of nicotine dependence; Z79.899 Other long term (current) drug therapy; Z88.5 Allergy status to narcotic agent; Z88.6 Allergy status to analgesic agent
CPT/HCPCS: 99285; 96374; 96375; 96361; 36415; 80053; 82150; 83690; 85025; 85610; 85730; 81003; 87086; 74018; 74176; J2405; J1885

== ENCOUNTER 2018-03-28 10:51 | Emergency (ER) | payer OTHER ==
[2018-03-28 11:01] VITALS: BP 104/74; PULSE 97; RESP 18; TEMP 98.2
--- NOTE | 2018-03-28 11:19 | ED ---
ENT HPI - General Chief complaint: Dental/Oral Stated complaint: toothpain Time Seen by Provider: 03/28/18 11:04 Source: patient, RN notes reviewed, old records reviewed Mode of arrival: ambulatory Limitations: no limitations - History of Present Illness Initial comments: Patient is a 52-year-old male comes to the emergency today chief complaint of left lower dental pain. His chronic poor dentition. He reports the last night around 11:00 she had pain around tooth #2021. He reports that his teeth are decayed. He states that he's had no facial swelling. Patient reports that he is try to follow-up with dental clinic since he can move however is been unsuccessful. Patient states that he has had no fevers or chills. Denies any neck or headache.Patient denies any recent fever, chills, shortness of breath, chest pain, back pain, abdominal pain, nausea vomiting, numbness or tingling, dysuria or hematuria, constipation or diarrhea, headaches or visual changes, or any other current symptoms - Related Data Home Medications Medication Instructions Recorded Confirmed Metoprolol Tartrate [Lopressor] 25 mg PO DAILY 11/24/17 03/28/18 Previous Rx's Medication Instructions Recorded Acetaminophen-Codeine 300-30mg 1 tab PO Q6H PRN 3 Days #10 tablet 03/28/18 [Tylenol w/codeine #3] Penicillin V Potassium [Pen Vee K] 500 mg PO QID #28 tablet 03/28/18 Allergies Allergy/AdvReac Type Severity Reaction Status Date / Time aspirin AdvReac Severe STOMACH Verified 03/28/18 11:01 ISSUES morphine AdvReac Severe Hallucinati Verified 03/28/18 11:01 ons Review of Systems ROS Statement: Those systems with pertinent positive or pertinent negative responses have been documented in the HPI. ROS Other: All systems not noted in ROS Statement are negative. Past Medical History Past Medical History: GERD/Reflux, Hypertension, Pneumonia Additional Past Medical History / Comment(s): kidney stones, knee and leg pain, headache History of Any Multi-Drug Resistant Organisms: None Reported Past Surgical History: No Surgical Hx Reported Additional Past Surgical History / Comment(s): gall bladder pain Past Psychological History: No Psychological Hx Reported Smoking Status: Former smoker Past Alcohol Use History: None Reported Past Drug Use History: None Reported General Exam - General Exam Comments Initial Comments: 52-year-old male. Alert and oriented. No significant distress. Limitations: no limitations General appearance: alert, in no apparent distress Head exam: Present: atraumatic, normocephalic, normal inspection Eye exam: Present: normal appearance, PERRL, EOMI. Absent: scleral icterus, conjunctival injection, periorbital swelling ENT exam: Present: normal exam, mucous membranes moist. Absent: normal oropharynx (Patient is poor dentition. Dental caries her entire mouth. Decayed tooth #2021 and 19. No evidence of abscess at this time.) Neck exam: Present: normal inspection. Absent: tenderness, meningismus, lymphadenopathy Respiratory exam: Present: normal lung sounds bilaterally. Absent: respiratory distress, wheezes, rales, rhonchi, stridor Cardiovascular Exam: Present: regular rate, normal rhythm, normal heart sounds. Absent: systolic murmur, diastolic murmur, rubs, gallop, clicks GI/Abdominal exam: Present: soft, normal bowel sounds. Absent: distended, tenderness, guarding, rebound, rigid Extremities exam: Present: normal inspection, full ROM, normal capillary refill. Absent: tenderness, pedal edema, joint swelling, calf tenderness Back exam: Present: normal inspection Neurological exam: Present: alert, oriented X3, CN II-XII intact Psychiatric exam: Present: normal affect, normal mood Skin exam: Present: warm, dry, intact, normal color. Absent: rash Course Vital Signs 03/28/18 10:59 Temperature 98.2 F Pulse Rate 97 Respiratory 18 Rate Blood Pressure 104/74 O2 Sat by Pulse 98 Oximetry Medical Decision Making - Medical Decision Making 32-year-old male presents with left lower dental pain. Has decayed tooth 2021 and 19. Dental caries throughout. No abscess that is drainable at this time. Patient from the needs follow-up with dental clinic. I did run a maps report.Patient's last medication was one month ago. We'll give the Patient 6 Tylenol codeine and this time. Discussed follow-up with PCP and dental clinic. All questions answered return parameters were discussed. Disposition Clinical Impression: Pain due to dental caries Disposition: HOME SELF-CARE Condition: Good Instructions: Dental Caries (ED), Dental Abscess (ED) Additional Instructions: Patient has follow-up with primary care physician. Take the medication as prescribed. [facility] [place] [id number], [place] [address] [phone] (existing clients only) For new clients: [phone] 1st consult: $50 (includes Xrays) Usually 30% less then private dentist for visits after. [employer] Have to pay $50 for Xrays anmd rest is covered. [phone] Prescriptions: Acetaminophen-Codeine 300-30mg [Tylenol w/codeine #3] 1 tab PO Q6H PRN 3 Days # 10 tablet PRN Reason: Pain Penicillin V Potassium [Pen Vee K] 500 mg PO QID #28 tablet Is patient prescribed a controlled substance at d/c from ED?: Yes When asked, does pt state using other controlled substances?: No If prescribed controlled substance>3 days was MAPS reviewed?: Prescribed <3 Days If opioid is for acute pain is fill amount 7 days or less?: Yes If Rx opioid, was Start Talking consent form obtained?: Yes Referrals: Angelica Fletcher MD [Primary Care Provider] - 1-2 days Time of Disposition: 11:17
== END 2018-03-28 11:30 | disposition home or self-care (01) ==
LOC: EC 10:51
DX: K02.9 Dental caries, unspecified (principal); I10 Essential (primary) hypertension; Z87.891 Personal history of nicotine dependence; Z79.899 Other long term (current) drug therapy; Z88.5 Allergy status to narcotic agent; Z88.6 Allergy status to analgesic agent
CPT/HCPCS: 99283

== ENCOUNTER 2018-06-15 14:03 | Emergency (ER) | payer OTHER ==
[2018-06-15 14:35] VITALS: TEMP 98.5
[2018-06-15] MEDS ORDERED: Acetaminophen-Codeine 300-30mg TAB PO STA (17:56)
--- NOTE | 2018-06-15 17:56 | ED ---
General Adult HPI - General Chief complaint: Headache Stated complaint: headache Time Seen by Provider: 06/15/18 17:34 Source: patient, RN notes reviewed Mode of arrival: ambulatory Limitations: no limitations - History of Present Illness Initial comments: Patient is a 52-year-old male presented to the emergency room today with chief complaint of a headache. He states his headache started 5 days ago. States it starts approximately radiates to the back. He states is sharp in the back with a constant pain up front. He states his headache is consistent with headaches that is had in the past. He states it is same pain and there is nothing different or new about it today. Patient states that typically in the past she' s needed Tylenol threes to help with the headaches. He states that he has been following her family doctor for a long time but these headaches. States it no longer will prescribe him Tylenol 3. He states that he was referred to a specialist. He states he's been waiting several months to get into the specialist. He states he recently got a phone call and has an appointment on July 20. Patient denies any other complaints or symptoms. Patient denies any recent fever, chills, shortness of breath, chest pain, back pain, abdominal pain, nausea or vomiting, numbness or tingling, visual changes, or any other complaints. - Related Data Home Medications Medication Instructions Recorded Confirmed Metoprolol Tartrate [Lopressor] 25 mg PO DAILY 11/24/17 03/28/18 Previous Rx's Medication Instructions Recorded Acetaminophen-Codeine 300-30mg 1 tab PO Q6H PRN 3 Days #10 tablet 03/28/18 [Tylenol w/codeine #3] Penicillin V Potassium [Pen Vee K] 500 mg PO QID #28 tablet 03/28/18 Allergies Allergy/AdvReac Type Severity Reaction Status Date / Time aspirin AdvReac Severe STOMACH Verified 06/15/18 14:34 ISSUES morphine AdvReac Severe Hallucinati Verified 06/15/18 14:34 ons Review of Systems ROS Statement: Those systems with pertinent positive or pertinent negative responses have been documented in the HPI. ROS Other: All systems not noted in ROS Statement are negative. Past Medical History Past Medical History: GERD/Reflux, Hypertension, Pneumonia Additional Past Medical History / Comment(s): kidney stones, knee and leg pain, headache History of Any Multi-Drug Resistant Organisms: None Reported Past Surgical History: No Surgical Hx Reported Additional Past Surgical History / Comment(s): gall bladder pain Past Psychological History: No Psychological Hx Reported Smoking Status: Former smoker Past Alcohol Use History: None Reported Past Drug Use History: None Reported General Exam - General Exam Comments Initial Comments: General: The patient is awake and alert, in no distress, and does not appear acutely ill. Eye: Pupils are equal, round and reactive to light. Extra-ocular movements are intact. No nystagmus. There is normal conjunctiva bilaterally. No signs of icterus. Ears, nose, mouth and throat: There are moist mucous membranes and no oral lesions. Neck: The neck is supple, there is no tenderness or JVD. Cardiovascular: There is a regular rate and rhythm. No murmur, rub or gallop is appreciated. Respiratory: Lungs are clear to auscultation, respirations are non-labored, breath sounds are equal. No wheezes, stridor, rales, or rhonchi. Musculoskeletal: Normal ROM, no tenderness. Sensation intact. Strength 5/5. Pulses equal bilaterally 2+. Neurological: A&O x 3. CN II-XII intact, There are no obvious motor or sensory deficits. Coordination appears grossly intact. Speech is normal. Skin: Skin is warm and dry and no rashes or lesions are noted. Psychiatric: Cooperative, appropriate mood & affect, normal judgment. Limitations: no limitations Course Vital Signs 06/15/18 14:33 Temperature 98.5 F Pulse Rate 90 Respiratory 20 Rate Blood Pressure 124/84 O2 Sat by Pulse 98 Oximetry Medical Decision Making - Medical Decision Making Patient reexamined here show no signs acute distress. Patient states this headache is consistent with headaches denies anything differently. He states that Tylenol. Patient will be given a dose here in the emergency room one tablet to go home with. He is advised that he should follow-up the family doctor and his specialist. Return for concerns. Disposition Clinical Impression: Headache Disposition: HOME SELF-CARE Condition: Good Instructions: Acute Headache (ED) Additional Instructions: Please use medication as discussed. Please follow-up with family doctor in the next 2 days of symptoms have not improved. Please return to emergency room if the symptoms increase or worsen or for any other concerns. Is patient prescribed a controlled substance at d/c from ED?: No Referrals: Angelica Fletcher MD [Primary Care Provider] - 1-2 days Time of Disposition: 17:56
[2018-06-15 18:09] VITALS: BP 125/81; PULSE 72; RESP 16
== END 2018-06-15 18:07 | disposition home or self-care (01) ==
LOC: EC 14:03
DX: R51 Headache (principal); I10 Essential (primary) hypertension; Z87.891 Personal history of nicotine dependence; Z79.899 Other long term (current) drug therapy; Z88.5 Allergy status to narcotic agent; Z88.6 Allergy status to analgesic agent
CPT/HCPCS: 99283

== ENCOUNTER 2018-11-15 12:51 | Emergency (ER) | payer OTHER ==
[2018-11-15 13:14] VITALS: BP 157/92; PULSE 97; RESP 16; TEMP 98.8
[2018-11-15] MEDS ORDERED: ACET/COD 300 MG/30 MG STARTER PACK 6 TAB BTL PO STA (13:58)
--- NOTE | 2018-11-15 14:00 | ED ---
ENT HPI - General Chief complaint: Dental/Oral Stated complaint: dental pain Time Seen by Provider: 11/15/18 13:47 Source: patient Mode of arrival: ambulatory Limitations: no limitations - History of Present Illness Initial comments: 52-year-old male presenting today for chief complaint of left-sided dental pain. Patient states he has had issues on and off for dental pain and previous extractions. He states he has had a dental abscess in the past. States he has had pain in the left lower tooth for about for 6 months that increases with temperature and pressure. He states the tooth is cracked and has been cracked for years. Patient denies any facial swelling, difficulty swallowing, tongue swelling, fever or chills or night sweats. Patient denies any difficulty breathing. Patient states he took a few doses that he had of left over penicillin VK. Patient states he is currently looking for a new dentist. Patient states he noticed the only cure is an extraction. Patient denies any pain medication prior to arrival. Patient presented for evaluation. Patient denies any recent fever, chills, shortness of breath, chest pain, back pain, abdominal pain, nausea or vomiting, numbness or tingling, dysuria or hematuria, constipation or diarrhea, headaches or visual changes, or any other complaints. - Related Data Home Medications Medication Instructions Recorded Confirmed Metoprolol Tartrate [Lopressor] 25 mg PO DAILY 11/24/17 11/15/18 Acetaminophen [Tylenol Extra 500 - 2,000 mg PO Q2H PRN 11/15/18 11/15/18 Strength] Ibuprofen [Advil] 200 - 800 mg PO Q2H PRN 11/15/18 11/15/18 Lisinopril 20 mg PO DAILY 11/15/18 11/15/18 Previous Rx's Medication Instructions Recorded Penicillin V Potassium [Pen Vee K] 500 mg PO QID 7 Days #28 tablet 11/15/18 Allergies Allergy/AdvReac Type Severity Reaction Status Date / Time aspirin AdvReac Severe STOMACH Verified 11/15/18 13:49 ISSUES morphine AdvReac Severe Hallucinati Verified 11/15/18 13:49 ons Review of Systems ROS Statement: Those systems with pertinent positive or pertinent negative responses have been documented in the HPI. ROS Other: All systems not noted in ROS Statement are negative. Past Medical History Past Medical History: GERD/Reflux, Hypertension, Pneumonia Additional Past Medical History / Comment(s): kidney stones, knee and leg pain, headache History of Any Multi-Drug Resistant Organisms: None Reported Past Surgical History: No Surgical Hx Reported Additional Past Surgical History / Comment(s): gall bladder pain Past Psychological History: No Psychological Hx Reported Smoking Status: Former smoker Past Alcohol Use History: None Reported Past Drug Use History: None Reported General Exam - General Exam Comments Initial Comments: General: The patient is awake and alert, in no distress, and does not appear acutely ill. Eye: Pupils are equal, round and reactive to light, extra-ocular movements are intact. No nystagmus. There is normal conjunctiva bilaterally. No signs of icterus. Ears, nose, mouth and throat: There are moist mucous membranes and no oral lesions. Tooth #20 cracked. Overall very poor dentition, there is no palpable abscess. There is pain to percussion of the tooth. No swelling below the angle of the mandible, no swelling below the tongue or of the face. Neck: The neck is supple, there is no tenderness or JVD. Cardiovascular: There is a regular rate and rhythm. No murmur, rub or gallop is appreciated. Respiratory: Lungs are clear to auscultation, respirations are non-labored, breath sounds are equal. No wheezes, stridor, rales, or rhonchi. Musculoskeletal: Normal ROM, no tenderness. Strength 5/5. Sensation intact. Pulses equal bilaterally 2+. Neurological: A&O x 3. CN II-XII intact, There are no obvious motor or sensory deficits. Coordination appears grossly intact. Speech is normal. Skin: Skin is warm and dry and no rashes or lesions are noted. Psychiatric: Cooperative, appropriate mood & affect, normal judgment. Limitations: no limitations Course Vital Signs 11/15/18 13:12 Temperature 98.8 F Pulse Rate 97 Respiratory 16 Rate Blood Pressure 157/92 O2 Sat by Pulse 98 Oximetry Medical Decision Making - Medical Decision Making D2-year-old male presenting for dental pain, patient does have a few pills of penicillin VK at home. Patient was given additional dosing for full 7 day course. Patient does not have a obvious abscess, there is possibility of periapical abscess given pain to percussion of tooth however there is exposure of tooth pulp with differential diagnosis of pulpitis. At this time there is no signs of Jayden's angina or systemic spread of infection, patient appears well signs distress. The patient for discharge with dental follow-up with either oral surgeon or dentist. Patient is agreeable plan discharge he is aware of the importance of tooth extraction and the risk of spread of infection. Patient discharged stable condition appearing well aware of all return parameters denies questions at this time. Disposition Clinical Impression: Pain, dental Disposition: HOME SELF-CARE Condition: Good Instructions (If sedation given, give patient instructions): Toothache (ED) Additional Instructions: Please use medication as discussed. Please follow-up in the next 2-3 days for tooth extraction. Please return to emergency room if the symptoms increase or worsen or for any other concerns. Prescriptions: Penicillin V Potassium [Pen Vee K] 500 mg PO QID 7 Days #28 tablet Is patient prescribed a controlled substance at d/c from ED?: No Referrals: Angelica Fletcher MD [Primary Care Provider] - 1-2 days Sorin Perdomo DDS [STAFF PHYSICIAN] - 1-2 days Time of Disposition: 14:00
== END 2018-11-15 14:30 | disposition home or self-care (01) ==
LOC: EC 12:51
DX: K08.89 Other specified disorders of teeth and supporting structures (principal); I10 Essential (primary) hypertension; Z79.899 Other long term (current) drug therapy; Z88.5 Allergy status to narcotic agent; Z88.6 Allergy status to analgesic agent; Z87.891 Personal history of nicotine dependence
CPT/HCPCS: 99282

== ENCOUNTER 2018-12-15 12:38 | Emergency (ER) | payer OTHER ==
[2018-12-15 12:45] VITALS: RESP 18
[2018-12-15] MEDS ORDERED: MORPHINE SULFATE 4 MG/ML SYRINGE IM STA (13:27)
[2018-12-15 14:22] LABS: Appearance,Urine Clear (Clear); Bilirubin,Urine Negative (Negative); Blood,Urine Large (Negative); Color,Urine Light Red; Glucose,Urine (UA) Negative (Negative); Ketones,Urine Negative (Negative); Leukocyte Esterase,Urine Trace (Negative); Mucus,Urine Many /hpf; Nitrite,Urine Negative (Negative); Protein,Urine 1+ (Negative); RBC,Urine >182 /hpf (0-5); Specific Gravity,Urine 1.023 (1.001-1.035); WBC,Urine 6 /hpf (0-5)
[2018-12-15 14:28] LABS: Basophils % (A) 0 %; Eosinophils # (A) 0.2 k/uL (0-0.7); Eosinophils % (A) 3 %; HCT 45.1 % (39.0-53.0); HGB 13.9 gm/dL (13.0-17.5); Lymphocytes # (A) 0.8 k/uL (1.0-4.8); Lymphocytes % (A) 13 %; MCH 31.2 pg (25.0-35.0); MCHC 30.8 g/dL (31.0-37.0); MCV 101.4 fL (80.0-100.0); Macrocytosis Slight; Mean Platelet Volume 7.1; Monocytes # (A) 0.3 k/uL (0-1.0); Monocytes % (A) 5 %; Neutrophils % (A) 79 %; Platelet Count 219 k/uL (150-450); RBC 4.45 m/uL (4.30-5.90); RDW 15.4 % (11.5-15.5); WBC 6.3 k/uL (3.8-10.6)
[2018-12-15 14:41] LABS: ALT 53 U/L (21-72); AST 46 U/L (17-59); Albumin 4.1 g/dL (3.5-5.0); Alkaline Phosphatase 59 U/L (38-126); Anion Gap 7 mmol/L; Blood Urea Nitrogen 18 mg/dL (9-20); Calcium 9.5 mg/dL (8.4-10.2); Carbon Dioxide 25 mmol/L (22-30); Chloride 106 mmol/L (98-107); Glucose 82 mg/dL (74-99); Sodium 138 mmol/L (137-145); Total Bilirubin 1.3 mg/dL (0.2-1.3); Total Protein 6.5 g/dL (6.3-8.2)
--- NOTE | 2018-12-15 14:49 | CT ---
EXAMINATION TYPE: CT renal stones wo con DATE OF EXAM: 12/15/2018 COMPARISON: 03/10/2018 HISTORY: 52-year-old male Right flank pain. History of renal stones. Gross hematuria x 2. TECHNIQUE: Contiguous axial scanning of the abdomen and pelvis without IV contrast. Coronal and sagit sheri reconstructions performed. CT DLP: 404.1 mGycm Automated exposure control for dose reduction was used. FINDINGS: Heart normal size without pericardial effusion. Small hiatal hernia. Lung bases clear without pleural effusion. Noncontrast appearance of the liver, gallbladder, adrenal glands, spleen, and pancreas show no gross abnormally. Bilateral nephrolithiasis. There are 2 calculi on the right measuring up to 4 mm and 5 calculi on the left measuring up to 5 mm. There is a 4 mm calculus at the right ureteral orifice with very mild asymmetric fullness of the righ t renal collecting system and ureter. No dilated small bowel, free fluid, or free air. No mesenteric or retroperitoneal lymphadenopathy. Normal appendix. Colonic diverticulosis without pericolonic inflammatory change. Bladder not distended. Central prostatic calcifications. No abnormal fluid collection in the pelvis o r pelvic lymphadenopathy. Bones: Degenerative changes of the hips. No osseous destructive process. IMPRESSION: 1. A 4 MM CALCULUS AT THE RIGHT UVJ WITH VERY MILD OBSTRUCTIVE UROPATHY. 2. ADDITIONAL BILATERAL NONOBSTRUCTING NEPHROLITHIASIS MEASURING UP TO 5 MM. 3. SMALL HIATAL HERNIA AND COLONIC DIVERTICULOSIS.
[2018-12-15 14:50] LABS: Potassium 4.5 mmol/L (3.5-5.1)
--- NOTE | 2018-12-15 16:05 | ED ---
Back Pain HPI - General Chief Complaint: Back Pain/Injury Stated Complaint: Kidney stone Time Seen by Provider: 12/15/18 12:54 Source: patient Mode of arrival: ambulatory Limitations: no limitations - History of Present Illness Initial Comments: The patient is a 52-year-old male who presents to the emergency department with complaints of right-sided flank pain. The patient admits that his symptoms started 2 days ago. He was seen in the [facility] emergency department yesterday. He was provided with Toradol and they performed a CT of his abdomen and pelvis with contrast. States they could not find the etiology of his pain. He went home with a prescription for Toradol. This morning he awoke at 10:00 and his pain became much worse. States it feels typical of his kidney stone pain. He noted bright red blood in his urine. He denies difficulty urinating or increased frequency of urination. He denies any abdominal pain. No melanotic stools, hematochezia, constipation or diarrhea. He denies any blunt trauma. No ecchymosis or vesicular lesions noted to his flank. He denies any fevers or chills. No nausea or vomiting. He is requesting reevaluation of his pain and so presented to our emergency department. There are no additional s ymptoms to include neck pain, headache, unilateral numbness or weakness. There are no other alleviating, precipitating or modifying factors - Related Data Home Medications Medication Instructions Recorded Confirmed Metoprolol Tartrate [Lopressor] 25 mg PO DAILY 11/24/17 12/15/18 Lisinopril 20 mg PO DAILY 11/15/18 12/15/18 Ketorolac [Toradol] 10 mg PO Q6HR PRN 12/15/18 12/15/18 Previous Rx's Medication Instructions Recorded Hydrocodone/Acetaminophen [[place] 1 tab PO Q6HR PRN #12 tab 12/15/18 5-325] Ibuprofen [Motrin] 600 mg PO Q8HR PRN #20 tab 12/15/18 Tamsulosin [Flomax] 0.4 mg PO DAILY #7 cap 12/15/18 Allergies Allergy/AdvReac Type Severity Reaction Status Date / Time aspirin AdvReac Severe STOMACH Verified 12/15/18 13:29 ISSUES morphine AdvReac Severe Hallucinati Verified 12/15/18 13:29 ons Review of Systems ROS Statement: Those systems with pertinent positive or pertinent negative responses have been documented in the HPI. ROS Other: All systems not noted in ROS Statement are negative. Past Medical History Past Medical History: GERD/Reflux, Hypertension, Pneumonia Additional Past Medical History / Comment(s): kidney stones, knee and leg pain, headache History of Any Multi-Drug Resistant Organisms: None Reported Past Surgical History: No Surgical Hx Reported Additional Past Surgical History / Comment(s): gall bladder pain Past Psychological History: No Psychological Hx Reported Smoking Status: Former smoker Past Alcohol Use History: None Reported Past Drug Use History: None Reported General Exam Limitations: no limitations General appearance: alert, in no apparent distress Head exam: Present: atraumatic, normocephalic Eye exam: Present: normal appearance, PERRL, EOMI Pupils: Present: normal accommodation ENT exam: Present: normal exam, mucous membranes moist Neck exam: Present: normal inspection, full ROM. Absent: tenderness Respiratory exam: Present: normal lung sounds bilaterally. Absent: wheezes, rales, rhonchi, stridor Cardiovascular Exam: Present: regular rate, normal rhythm GI/Abdominal exam: Present: soft, normal bowel sounds. Absent: distended, tenderness, guarding, rebound, rigid Rectal exam: Present: deferred exam: Absent: testicular tenderness, urethral discharge, scrotal swelling Extremities exam: Present: normal inspection, full ROM Back exam: Present: full ROM, CVA tenderness (R). Absent: paraspinal tenderness Neurological exam: Present: oriented X3 Psychiatric exam: Present: normal affect, normal mood Skin exam: Present: warm, dry, intact Course Vital Signs 12/15/18 12/15/18 12:41 16:30 Temperature 98.2 F 97.9 F Pulse Rate 116 H 82 Respiratory 18 18 Rate Blood Pressure 146/86 132/88 O2 Sat by Pulse 100 98 Oximetry Medical Decision Making - Medical Decision Making The patient was seen by myself. A thorough history and physical examination was performed. I did recommend repeat laboratory studies, a urinalysis and a CT renal stone protocol. The patient did agree to this. I did discuss radiation exposure from repeat CAT scans. The patient did agree to a CAT scan at this time. IV access established. The patient was given 4 mg of morphine for his pain. Upon return of the results I did discuss them with the patient. His urine does have microscopic blood. The CT of the patient's abdomen and pelvis reveals a right-sided 4 mm calculus at the UVJ. There is mild associated [place]. The patient has preserved kidney function and there are no signs of infection in the urinalysis. I did discuss the diagnosis, differential diagnosis and treatment options with the patient. At this time he'll be discharged home with prescriptions for Motrin, Flomax, and Concrete. I did fill out a opioid start talking form with the patient for which he does sign. He is informed of the risks of taking the medication. He is instructed not to work or drive. I will provide the patient with follow-up information for the on-call urologist. He will be given a strainer. He needs to follow-up with the urologist for further management of his kidney stones. Should the patient have any new or worsening symptoms, he should return to the emergency room. Patient was in agreement with the treatment plan and was discharged home in stable condition. - Lab Data Result diagrams: 12/15/18 14:15 12/15/18 14:15 Lab Results 12/15/18 12/15/18 12/15/18 Range/Units 14:05 14:15 14:15 WBC 6.3 (3.8-10.6) k/uL RBC 4.45 (4.30-5.90) m/uL Hgb 13.9 (13.0-17.5) gm/dL Hct 45.1 (39.0-53.0) % MCV 101.4 H (80.0-100.0) fL MCH 31.2 (25.0-35.0) pg MCHC 30.8 L (31.0-37.0) g/dL RDW 15.4 (11.5-15.5) % Plt Count 219 (150-450) k/uL Neutrophils % 79 % Lymphocytes % 13 % Monocytes % 5 % Eosinophils % 3 % Basophils % 0 % Neutrophils # 5.0 (1.3-7.7) k/uL Lymphocytes # 0.8 L (1.0-4.8) k/uL Monocytes # 0.3 (0-1.0) k/uL Eosinophils # 0.2 (0-0.7) k/uL Basophils # 0.0 (0-0.2) k/uL Macrocytosis Slight Sodium 138 (137-145) mmol/L Potassium 4.5 (3.5-5.1) mmol/L Chloride 106 (98-107) mmol/L Carbon Dioxide 25 (22-30) mmol/L Anion Gap 7 mmol/L BUN 18 (9-20) mg/dL Creatinine 0.92 (0.66-1.25) mg/dL Est GFR (CKD-EPI)AfAm >90 (>60 ml/min/1.73 sqM) Est GFR (CKD-EPI)NonAf >90 (>60 ml/min/1.73 sqM) Glucose 82 (74-99) mg/dL Calcium 9.5 (8.4-10.2) mg/dL Total Bilirubin 1.3 (0.2-1.3) mg/dL AST 46 (17-59) U/L ALT 53 (21-72) U/L Alkaline Phosphatase 59 (38-126) U/L Total Protein 6.5 (6.3-8.2) g/dL Albumin 4.1 (3.5-5.0) g/dL Urine Color Light Red Urine Appearance Clear (Clear) Urine pH 6.0 (5.0-8.0) Ur Specific [place] 1.023 (1.001-1.035) Urine Protein 1+ H (Negative) Urine Glucose (UA) Negative (Negative) Urine Ketones Negative (Negative) Urine Blood Large H (Negative) Urine Nitrite Negative (Negative) Urine Bilirubin Negative (Negative) Urine Urobilinogen 3.0 (<2.0) mg/dL Ur Leukocyte Esterase Trace H (Negative) Urine RBC >182 H (0-5) /hpf Urine WBC 6 H (0-5) /hpf Urine Mucus Many H (None) /hpf - EKG Data -: EKG Interpreted by Ok EKG shows normal: sinus rhythm Rate: normal - Radiology Data Radiology results: report reviewed 4 mm UVJ calculus with mild hydro- Disposition Clinical Impression: Kidney calculus Disposition: HOME SELF-CARE Condition: Good Instructions (If sedation given, give patient instructions): Kidney Stones (ED) Additional Instructions: Please follow up with the urologist. Take the Flomax, Motrin and Concrete as directed. Strain all your urine. Return to the ED if you have any new or worsening symptoms to include difficulty urinating or fevers. Prescriptions: Tamsulosin [Flomax] 0.4 mg PO DAILY #7 cap Ibuprofen [Motrin] 600 mg PO Q8HR PRN #20 tab PRN Reason: Pain Hydrocodone/Acetaminophen [[place]crete 5-325] 1 tab PO Q6HR PRN #12 tab PRN Reason: Pain Is patient prescribed a controlled substance at d/c from ED?: Yes When asked, does pt state using other controlled substances?: No If prescribed controlled substance>3 days was MAPS reviewed?: Prescribed <3 Days If opioid is for acute pain is fill amount 7 days or less?: Yes If Rx opioid, was Start Talking consent form obtained?: Yes Referrals: Angelica Fletcher MD [Primary Care Provider] - 1-2 days Jarvis Dallas MD [STAFF PHYSICIAN] - 1-2 days Time of Disposition: 16:06
[2018-12-15 17:07] VITALS: BP 132/88; PULSE 82; TEMP 97.9
== END 2018-12-15 16:35 | disposition home or self-care (01) ==
LOC: EC 12:38
DX: N31.2 Flaccid neuropathic bladder, not elsewhere classified (principal); I10 Essential (primary) hypertension; Z87.891 Personal history of nicotine dependence; Z88.5 Allergy status to narcotic agent; Z88.6 Allergy status to analgesic agent; Z79.899 Other long term (current) drug therapy; Z98.890 Other specified postprocedural states
CPT/HCPCS: 36415; 93005; 80053; 85025; 81001; 74150; 99284; 96372; J2270

== ENCOUNTER 2019-01-02 13:12 | Emergency (ER) | payer OTHER ==
[2019-01-02 13:17] VITALS: RESP 18; TEMP 98.2
--- NOTE | 2019-01-02 13:42 | ED ---
Headache HPI - General Chief Complaint: Headache Stated Complaint: [place] Time Seen by Provider: 01/02/19 13:22 Mode of arrival: ambulatory Limitations: no limitations - History of Present Illness Initial Comments: 53-year-old male with chronic history of headaches presents to the ER for frontal headache for the last 4 days. Patient states he contact his family physician and they are sending him to another neurologist it's a three-month wait. Patient states the pain is just not getting any better. Patient states usually tylenol with codeine helps. Patient states this isn't any different than his normal headaches. Patient states every time the dentist again or any tests being wrong with him. Patient denies any visual changes. Patient does admit that he needs an eye exam and about 2 years. He denies any dizziness. He denies any trouble speaking or swallowing. He denies any numbness or tingling. Patient states she's tried [id number] Motrin Tylenol without much relief. MD Complaint: headache -: days(s) (4) Location: frontal, temporal Severity: severe Severity scale (1-10): 8 Quality: aching, throbbing Consistency: constant Improves With: nothing Worsens With: none Context: occurred at rest - Related Data Home Medications Medication Instructions Recorded Confirmed Metoprolol Tartrate [Lopressor] 25 mg PO DAILY 11/24/17 12/15/18 Lisinopril 20 mg PO DAILY 11/15/18 12/15/18 Ketorolac [Toradol] 10 mg PO Q6HR PRN 12/15/18 12/15/18 Previous Rx's Medication Instructions Recorded Hydrocodone/Acetaminophen [[place] 1 tab PO Q6HR PRN #12 tab 12/15/18 5-325] Ibuprofen [Motrin] 600 mg PO Q8HR PRN #20 tab 12/15/18 Tamsulosin [Flomax] 0.4 mg PO DAILY #7 cap 12/15/18 Acetaminophen with Codeine 1 tab PO Q6H PRN 3 Days #12 tab 01/02/19 [Tylenol w/codeine #3] Allergies Allergy/AdvReac Type Severity Reaction Status Date / Time aspirin AdvReac Severe STOMACH Verified 01/02/19 13:17 ISSUES morphine AdvReac Severe Hallucinati Verified 01/02/19 13:17 ons Review of Systems ROS Statement: Those systems with pertinent positive or pertinent negative responses have been documented in the HPI. ROS Other: All systems not noted in ROS Statement are negative. Constitutional: Denies: fever, weakness Eyes: Denies: eye pain ENT: Denies: ear pain Respiratory: Denies: cough Endocrine: Denies: fatigue Skin: Denies: rash Neurological: Reports: headache. Denies: weakness, numbness, paresthesias, confusion, vertigo Psychiatric: Denies: anxiety, depression Past Medical History Past Medical History: GERD/Reflux, Hypertension, Pneumonia Additional Past Medical History / Comment(s): kidney stones, knee and leg pain, headaches History of Any Multi-Drug Resistant Organisms: None Reported Past Surgical History: No Surgical Hx Reported Additional Past Surgical History / Comment(s): gall bladder pain Past Psychological History: No Psychological Hx Reported Smoking Status: Former smoker Past Alcohol Use History: None Reported Past Drug Use History: None Reported General Exam Limitations: no limitations General appearance: alert, in no apparent distress Head exam: Present: atraumatic, normocephalic, normal inspection Eye exam: Present: normal appearance, PERRL, EOMI ENT exam: Present: normal exam, mucous membranes moist Neck exam: Present: normal inspection. Absent: tenderness, meningismus, lymphadenopathy Respiratory exam: Present: normal lung sounds bilaterally. Absent: respiratory distress, wheezes, rales, rhonchi, stridor Cardiovascular Exam: Present: regular rate, normal rhythm, normal heart sounds. Absent: systolic murmur, diastolic murmur, rubs, gallop, clicks Neurological exam: Present: alert, oriented X3, CN II-XII intact, reflexes normal Expanded Cranial nerves: EOM's Intact: Normal, Gag Reflex: Normal, Tongue Deviation: Normal, Nystagmus: Normal, Facial Sensation: Normal Upper motor neuron: Pronator Drift: Normal, Babinski Sign: Normal Motor strength exam: RUE: 5, LUE: 5, RLE: 5, LLE: 5 DTR: Patellar (R): 2+, Patellar (L): 2+ Psychiatric exam: Present: normal affect, normal mood Skin exam: Present: warm, dry, intact, normal color. Absent: rash Course Vital Signs 01/02/19 13:15 Temperature 98.2 F Pulse Rate 95 Respiratory 18 Rate Blood Pressure 149/98 O2 Sat by Pulse 98 Oximetry Medical Decision Making - Medical Decision Making Discussed with Dr. Navarro. Review CT shows no acute abnormality. There is a questionable old lacunar infarct. Patient aware of these results patient has follow-up with neurologist in the near future along with his PCP. Patient will use his Tylenol with codeine as needed as directed and follow-up with PCP return if symptoms progress or worsen. Patient arty feeling better 25 minutes post- Tylenol with codeine pain level III out of 10 - Lab Data Result diagrams: 01/02/19 13:25 01/02/19 13:25 Lab Results 01/02/19 01/02/19 Range/Units 13:25 13:25 WBC 7.8 (3.8-10.6) k/uL RBC 4.90 (4.30-5.90) m/uL Hgb 15.3 (13.0-17.5) gm/dL Hct 47.1 (39.0-53.0) % MCV 96.2 D (80.0-100.0) fL MCH 31.3 (25.0-35.0) pg MCHC 32.5 (31.0-37.0) g/dL RDW 14.9 (11.5-15.5) % Plt Count 321 (150-450) k/uL Neutrophils % 62 % Lymphocytes % 24 % Monocytes % 6 % Eosinophils % 6 % Basophils % 1 % Neutrophils # 4.8 (1.3-7.7) k/uL Lymphocytes # 1.9 (1.0-4.8) k/uL Monocytes # 0.5 (0-1.0) k/uL Eosinophils # 0.4 (0-0.7) k/uL Basophils # 0.0 (0-0.2) k/uL Sodium 140 (137-145) mmol/L Potassium 4.2 (3.5-5.1) mmol/L Chloride 107 (98-107) mmol/L Carbon Dioxide 26 (22-30) mmol/L Anion Gap 7 mmol/L BUN 17 (9-20) mg/dL Creatinine 0.71 (0.66-1.25) mg/dL Est GFR (CKD-EPI)AfAm >90 (>60 ml/min/1.73 sqM) Est GFR (CKD-EPI)NonAf >90 (>60 ml/min/1.73 sqM) Glucose 91 (74-99) mg/dL Calcium 9.5 (8.4-10.2) mg/dL Total Bilirubin 0.7 (0.2-1.3) mg/dL AST 29 (17-59) U/L ALT 27 (21-72) U/L Alkaline Phosphatase 62 (38-126) U/L Total Protein 5.9 L (6.3-8.2) g/dL Albumin 3.8 (3.5-5.0) g/dL Disposition Clinical Impression: Headache Disposition: HOME SELF-CARE Condition: Good Instructions (If sedation given, give patient instructions): Acute Headache (ED) Additional Instructions: Patient to follow-up closely with PCP and neurology for further evaluation treatment. Prescriptions: Acetaminophen with Codeine [Tylenol w/codeine #3] 1 tab PO Q6H PRN 3 Days #12 tab PRN Reason: Pain Is patient prescribed a controlled substance at d/c from ED?: Yes When asked, does pt state using other controlled substances?: No If prescribed controlled substance>3 days was MAPS reviewed?: Prescribed <3 Days If opioid is for acute pain is fill amount 7 days or less?: Yes If Rx opioid, was Start Talking consent form obtained?: Yes Referrals: Angelica Fletcher MD [Primary Care Provider] - 1-2 days Time of Disposition: 14:58
--- NOTE | 2019-01-02 13:56 | CT ---
EXAMINATION TYPE: CT brain wo con DATE OF EXAM: 01/02/2019 COMPARISON: Previous study dated 02/25/2018 HISTORY: Severe LONDONO CT DLP: 1107.4 mGycm Automated exposure control for dose reduction was used. FINDINGS: Central structures are midline. There is no evidence of hydrocephalus. No acute focal lesion, mass ef fect or midline shift is seen. I do not see evidence of intracranial blood. There appears to been an old lacunar infarct of the caudate nucleus on the left. Visualized portions of the paranasal sinuses and mastoids are clear. The bony calvarium is intact. IMPRESSION: 1. NO ACUTE INTRACRANIAL ABNORMALITY. 2. 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
[2019-01-02] MEDS ORDERED: Acetaminophen-Codeine 300-30mg TAB PO STA (14:16)
[2019-01-02 14:18] LABS: Basophils % (A) 1 %; Eosinophils # (A) 0.4 k/uL (0-0.7); Eosinophils % (A) 6 %; HCT 47.1 % (39.0-53.0); HGB 15.3 gm/dL (13.0-17.5); Lymphocytes # (A) 1.9 k/uL (1.0-4.8); Lymphocytes % (A) 24 %; MCH 31.3 pg (25.0-35.0); MCHC 32.5 g/dL (31.0-37.0); Mean Platelet Volume 8.2; Monocytes # (A) 0.5 k/uL (0-1.0); Monocytes % (A) 6 %; Neutrophils # (A) 4.8 k/uL (1.3-7.7); Neutrophils % (A) 62 %; Platelet Count 321 k/uL (150-450); RDW 14.9 % (11.5-15.5); WBC 7.8 k/uL (3.8-10.6)
[2019-01-02 14:21] LABS: ALT 27 U/L (21-72); AST 29 U/L (17-59); Albumin 3.8 g/dL (3.5-5.0); Alkaline Phosphatase 62 U/L (38-126); Anion Gap 7 mmol/L; Blood Urea Nitrogen 17 mg/dL (9-20); Calcium 9.5 mg/dL (8.4-10.2); Carbon Dioxide 26 mmol/L (22-30); Chloride 107 mmol/L (98-107); Glucose 91 mg/dL (74-99); Potassium 4.2 mmol/L (3.5-5.1); Sodium 140 mmol/L (137-145); Total Bilirubin 0.7 mg/dL (0.2-1.3); Total Protein 5.9 g/dL (6.3-8.2)
[2019-01-02 14:22] LABS: MCV 96.2 fL (80.0-100.0)
[2019-01-02 15:11] VITALS: BP 132/95; PULSE 67
== END 2019-01-02 15:10 | disposition home or self-care (01) ==
LOC: EC 13:12
DX: R51 Headache (principal); I10 Essential (primary) hypertension; Z87.891 Personal history of nicotine dependence; Z88.5 Allergy status to narcotic agent; Z88.6 Allergy status to analgesic agent; Z79.899 Other long term (current) drug therapy
CPT/HCPCS: 36415; 70450; 80053; 85025; 99284

== ENCOUNTER 2019-01-21 03:56 | Emergency (ER) | payer OTHER ==
[2019-01-21 04:05] VITALS: BP 150/98; PULSE 77; RESP 20; TEMP 98
[2019-01-21] MEDS ORDERED: ACET/COD 300 MG/30 MG STARTER PACK 6 TAB BTL PO STA (04:29)
[2019-01-21] MEDS ORDERED: AMOXICILLIN 500MG STARTER PACK 3 CAP BTL PO STA (04:29)
--- NOTE | 2019-01-21 04:33 | ED ---
General Adult HPI - General Chief complaint: Dental/Oral Stated complaint: Dental Pain Time Seen by Provider: 01/21/19 04:07 Source: patient, RN notes reviewed, old records reviewed Mode of arrival: ambulatory Limitations: no limitations - History of Present Illness Initial comments: 53-year-old male presents with chief complaint toothache. Patient has a scheduled appointment with his dentist tomorrow for tooth extraction. History of poor dentition. He's been doing with intermittent toothache. He has several fractured teeth causing him severe pain. Denies any fever or chills. Denies facial swelling. Denies painful swallowing. No other complaints. No chest pain dyspnea, no fever chills. No abdominal pain. - Related Data Home Medications Medication Instructions Recorded Confirmed Metoprolol Tartrate [Lopressor] 25 mg PO DAILY 11/24/17 01/21/19 Lisinopril 20 mg PO DAILY 11/15/18 01/21/19 Ketorolac [Toradol] 10 mg PO Q6HR PRN 12/15/18 01/21/19 Previous Rx's Medication Instructions Recorded Tamsulosin [Flomax] 0.4 mg PO DAILY #7 cap 12/15/18 Acetaminophen-Codeine 300-30mg 1 tab PO Q6H PRN 3 Days #12 tablet 01/21/19 [Tylenol w/codeine #3] Amoxicillin 500 mg PO Q12HR #14 cap 01/21/19 Allergies Allergy/AdvReac Type Severity Reaction Status Date / Time aspirin AdvReac Severe STOMACH Verified 01/02/19 13:17 ISSUES morphine AdvReac Severe Hallucinati Verified 01/02/19 13:17 ons Review of Systems ROS Statement: Those systems with pertinent positive or pertinent negative responses have been documented in the HPI. ROS Other: All systems not noted in ROS Statement are negative. Past Medical History Past Medical History: GERD/Reflux, Hypertension, Pneumonia Additional Past Medical History / Comment(s): kidney stones, knee and leg pain, headaches History of Any Multi-Drug Resistant Organisms: None Reported Past Surgical History: No Surgical Hx Reported Additional Past Surgical History / Comment(s): gall bladder pain Past Psychological History: No Psychological Hx Reported Smoking Status: Former smoker Past Alcohol Use History: None Reported Past Drug Use History: None Reported General Exam Limitations: no limitations General appearance: alert, in no apparent distress Head exam: Present: atraumatic, normocephalic Eye exam: Present: normal appearance, PERRL ENT exam: Present: other (. Dentition throughout, fractured right lower molars. No signs of infection.) Neck exam: Present: normal inspection. Absent: tenderness, meningismus Respiratory exam: Present: normal lung sounds bilaterally. Absent: respiratory distress Cardiovascular Exam: Present: regular rate, normal rhythm GI/Abdominal exam: Present: soft. Absent: distended, tenderness Course Vital Signs 01/21/19 04:02 Temperature 98.0 F Pulse Rate 77 Respiratory 20 Rate Blood Pressure 150/98 O2 Sat by Pulse 100 Oximetry Medical Decision Making - Medical Decision Making 53-year-old male with toothache, poor dentition. He has follow-up with de ntistry tomorrow. Given Tylenol 3 for pain, amoxicillin. Please maintain that appointment. Disposition Clinical Impression: Toothache Disposition: HOME SELF-CARE Condition: Good Instructions (If sedation given, give patient instructions): Dental Caries (ED), Toothache (ED) Additional Instructions: Please follow up with your dentist as scheduled on Friday. Prescriptions: Amoxicillin 500 mg PO Q12HR #14 cap Acetaminophen-Codeine 300-30mg [Tylenol w/codeine #3] 1 tab PO Q6H PRN 3 Days #12 tablet PRN Reason: Pain Is patient prescribed a controlled substance at d/c from ED?: No Referrals: Angelica Fletcher MD [Primary Care Provider] - 1-2 days Time of Disposition: 04:31
== END 2019-01-21 04:40 | disposition home or self-care (01) ==
LOC: EC 03:56
DX: K08.89 Other specified disorders of teeth and supporting structures (principal); S02.5XXA Fracture of tooth (traumatic), initial encounter for closed fracture; I10 Essential (primary) hypertension; Z79.899 Other long term (current) drug therapy; Z88.5 Allergy status to narcotic agent; Z88.6 Allergy status to analgesic agent; Z87.891 Personal history of nicotine dependence; X58.XXXA Exposure to other specified factors, initial encounter
CPT/HCPCS: 99283

== ENCOUNTER 2019-01-26 09:14 | Emergency (ER) | payer OTHER ==
[2019-01-26 09:19] VITALS: TEMP 98.1
[2019-01-26] MEDS ORDERED: ACETAMINOPHEN TAB 325 MG TAB PO STA (09:44)
--- NOTE | 2019-01-26 09:55 | ED ---
ENT HPI - General Chief complaint: Dental/Oral Stated complaint: dental pain Source: patient Mode of arrival: ambulatory Limitations: no limitations - History of Present Illness Initial comments: Patient is a 53-year-old male presenting to the emergency department with toothache. Patient reports he was previously here on Friday with the same chief complaint and he was prescribed amoxicillin. Patient reports is still taking amoxicillin. Patient states the pain subsided and he went to see his dentist on Friday for tooth extraction but the dentist wouldn't do it due to h igh blood pressure. His next appointment is on the february 11 due to limited transportation. He is experiencing a constant, throbbing pain in his right mandible that is radiating to his ear and eye. Patient reports having difficulty sleeping. Patient denies fever, headaches, nausea or vomiting. - Related Data Home Medications Medication Instructions Recorded Confirmed Metoprolol Tartrate [Lopressor] 25 mg PO DAILY 11/24/17 01/21/19 Lisinopril 20 mg PO DAILY 11/15/18 01/21/19 Ketorolac [Toradol] 10 mg PO Q6HR PRN 12/15/18 01/21/19 Previous Rx's Medication Instructions Recorded Tamsulosin [Flomax] 0.4 mg PO DAILY #7 cap 12/15/18 Acetaminophen-Codeine 300-30mg 1 tab PO Q6H PRN 3 Days #12 tablet 01/21/19 [Tylenol w/codeine #3] Amoxicillin 500 mg PO Q12HR #14 cap 01/21/19 Clindamycin HCl 300 mg PO Q6HR #40 cap 01/26/19 Allergies Allergy/AdvReac Type Severity Reaction Status Date / Time aspirin AdvReac Severe STOMACH Verified 01/02/19 13:17 ISSUES morphine AdvReac Severe Hallucinati Verified 01/02/19 13:17 ons Review of Systems ROS Statement: Those systems with pertinent positive or pertinent negative responses have been documented in the HPI. ROS Other: All systems not noted in ROS Statement are negative. Past Medical History Past Medical History: GERD/Reflux, Hypertension, Pneumonia Additional Past Medical History / Comment(s): kidney stones, knee and leg pain, headaches History of Any Multi-Drug Resistant Organisms: None Reported Past Surgical History: No Surgical Hx Reported Additional Past Surgical History / Comment(s): gall bladder pain Past Psychological History: No Psychological Hx Reported Smoking Status: Former smoker Past Alcohol Use History: None Reported Past Drug Use History: None Reported General Exam Limitations: no limitations General appearance: alert, anxious Head exam: Present: atraumatic, normocephalic, normal inspection Eye exam: Present: normal appearance, PERRL, EOMI. Absent: scleral icterus, conjunctival injection Pupils: Present: normal accommodation ENT exam: Present: normal exam, normal oropharynx, mucous membranes dry, mucous membranes moist Expanded Mouth exam: Absent: drooling, trismus, muffled voice, laceration Teeth exam: Present: dental caries, fractured tooth # (28, 29, 30, 31, 32), dental tenderness # Throat exam: normal inspection. negative: tonsillar erythema Neck exam: Present: normal inspection, full ROM. Absent: tenderness, lymphadenopathy Respiratory exam: Present: normal lung sounds bilaterally. Absent: wheezes, rales, rhonchi, stridor Cardiovascular Exam: Present: regular rate, normal rhythm, normal heart sounds Neurological exam: Present: alert, oriented X3 Psychiatric exam: Present: anxious Skin exam: Present: warm Course Vital Signs 01/26/19 01/26/19 09:16 10:02 Temperature 98.1 F Pulse Rate 104 H 71 Respiratory 18 16 Rate Blood Pressure 154/105 153/103 O2 Sat by Pulse 98 98 Oximetry Medical Decision Making - Medical Decision Making Patient is a 53-year-old male presenting to the emergency department with right- sided dental pain. Patient taken off amoxicillin placed on 300 mg every 4 hours clindamycin for 10 days. Patient advised to follow-up with his dentist. Her patient advised to follow-up and scratched the patient lacerations from emergency department if symptoms worsen. case discussed with physician. Disposition Clinical Impression: Dental caries Disposition: HOME SELF-CARE Condition: Stable Instructions (If sedation given, give patient instructions): Toothache (ED) Additional Instructions: Please take antibiotics as prescribed. Please follow with dentist.Please return to the Emergency Department if symptoms worsen or any other concerns. Prescriptions: Clindamycin HCl 300 mg PO Q6HR #40 cap Is patient prescribed a controlled substance at d/c from ED?: No Referrals: Angelica Fletcher MD [Primary Care Provider] - 1-2 days
[2019-01-26 10:03] VITALS: BP 153/103; PULSE 71; RESP 16
== END 2019-01-26 10:03 | disposition home or self-care (01) ==
LOC: EC 09:14
DX: K02.9 Dental caries, unspecified (principal); I10 Essential (primary) hypertension; Z87.891 Personal history of nicotine dependence; Z79.899 Other long term (current) drug therapy; Z88.5 Allergy status to narcotic agent; Z88.6 Allergy status to analgesic agent
CPT/HCPCS: 99282

== ENCOUNTER 2019-09-25 04:32 | Emergency (ER) | payer OTHER ==
[2019-09-25 04:40] VITALS: RESP 18; TEMP 98
[2019-09-25] MEDS ORDERED: KETOROLAC 30 MG/ML 1 ML VIAL IVP ONE (04:44)
[2019-09-25 05:12] LABS: Basophils % (A) 0 %; Eosinophils # (A) 0.2 k/uL (0-0.7); Eosinophils % (A) 3 %; HCT 40.5 % (39.0-53.0); HGB 13.1 gm/dL (13.0-17.5); Lymphocytes # (A) 0.8 k/uL (1.0-4.8); Lymphocytes % (A) 15 %; MCH 29.6 pg (25.0-35.0); MCHC 32.5 g/dL (31.0-37.0); MCV 91.3 fL (80.0-100.0); Mean Platelet Volume 8.1; Monocytes # (A) 0.3 k/uL (0-1.0); Monocytes % (A) 5 %; Neutrophils # (A) 4.2 k/uL (1.3-7.7); Neutrophils % (A) 74 %; Platelet Count 271 k/uL (150-450); RBC 4.43 m/uL (4.30-5.90); RDW 15.1 % (11.5-15.5); WBC 5.7 k/uL (3.8-10.6)
[2019-09-25] MEDS ORDERED: ONDANSETRON 4 MG/2 ML VIAL IVP STA (05:12)
[2019-09-25] MEDS ORDERED: fentaNYL (PF) 50 MCG/ML 2 ML AMP IVP STA (05:12)
[2019-09-25 05:27] LABS: ALT 19 U/L (4-49); AST 27 U/L (17-59); African American GFR (CKD) >90 (>60 ml/min/1.73 sqM); Albumin 3.7 g/dL (3.5-5.0); Alkaline Phosphatase 62 U/L (38-126); Anion Gap 6 mmol/L; Blood Urea Nitrogen 20 mg/dL (9-20); Calcium 9.5 mg/dL (8.4-10.2); Carbon Dioxide 23 mmol/L (22-30); Chloride 108 mmol/L (98-107); Glucose 109 mg/dL (74-99); Non-African American GFR(CKD) >90 (>60 ml/min/1.73 sqM); Potassium 3.9 mmol/L (3.5-5.1); Sodium 137 mmol/L (137-145); Total Bilirubin 0.7 mg/dL (0.2-1.3); Total Protein 5.9 g/dL (6.3-8.2)
[2019-09-25 05:43] LABS: Appearance,Urine Cloudy (Clear); Bacteria,Urine Rare /hpf; Bilirubin,Urine Negative (Negative); Blood,Urine Large (Negative); Color,Urine Light Red; Glucose,Urine (UA) Negative (Negative); Ketones,Urine Negative (Negative); Leukocyte Esterase,Urine Trace (Negative); Mucus,Urine Many /hpf; Nitrite,Urine Negative (Negative); PH, Urine 5.5 (5.0-8.0); Protein,Urine 1+ (Negative); RBC,Urine >182 /hpf (0-5); Specific Gravity,Urine 1.029 (1.001-1.035); Squamous Epithelial Cell,Urine 1 /hpf (0-4); WBC,Urine 15 /hpf (0-5)
--- NOTE | 2019-09-25 05:44 | XR ---
EXAMINATION TYPE: XR KUB DATE OF EXAM: 09/25/2019 COMPARISON: 03/10/2018 HISTORY: Left flank pain TECHNIQUE: 2 views upright FINDINGS: There is 3 mm calcification over the lower pole left kidney. There is no sign of intestinal obstruction or pneumoperitoneum. Fecal pattern is normal. Lung bases are clear. IMPRESSION: Small left renal calculus unchanged. Nonacute abdomen.
--- NOTE | 2019-09-25 05:54 | ED ---
Abdominal Pain HPI - General Chief Complaint: Abdominal Pain Stated Complaint: Kidney stone Time Seen by Provider: 09/25/19 04:44 Source: patient Mode of arrival: ambulatory Limitations: no limitations - History of Present Illness Initial Comments: Javon is a 53-year-old male with a history of recurrent nephrolithiasis who presents the ER today for evaluation of left-sided flank pain and hematuria. Patient reports pain began around 11 PM at which time he noticed some blood in his urine this is similar to previous episodes of kidney stones. Patient reports the pain resolved temporarily he was able to sleep for a few hours but woke at 3 AM with worsening pain and persisting hematuria which prompted her to come the ER for evaluation. Patient reports she's had multiple stones in the past, never had lithotripsy never had follow with urology. He states he's been told that his stones are due to diet. Last stone was early summer time. - Related Data Home Medications Medication Instructions Recorded Confirmed Metoprolol Tartrate [Lopressor] 25 mg PO DAILY 11/24/17 01/21/19 Lisinopril 20 mg PO DAILY 11/15/18 01/21/19 Ketorolac [Toradol] 10 mg PO Q6HR PRN 12/15/18 01/21/19 Previous Rx's Medication Instructions Recorded Tamsulosin [Flomax] 0.4 mg PO DAILY #7 cap 12/15/18 Acetaminophen-Codeine 300-30mg 1 tab PO Q6H PRN 3 Days #12 tablet 01/21/19 [Tylenol w/codeine #3] Amoxicillin 500 mg PO Q12HR #14 cap 01/21/19 Clindamycin HCl 300 mg PO Q6HR #40 cap 01/26/19 Allergies Allergy/AdvReac Type Severity Reaction Status Date / Time aspirin AdvReac Severe STOMACH Verified 01/02/19 13:17 ISSUES morphine AdvReac Severe Hallucinati Verified 01/02/19 13:17 ons Review of Systems ROS Statement: Those systems with pertinent positive or pertinent negative responses have been documented in the HPI. ROS Other: All systems not noted in ROS Statement are negative. Past Medical History Past Medical History: GERD/Reflux, Hypertension, Pneumonia Additional Past Medical History / Comment(s): kidney stones, knee and leg pain, headaches History of Any Multi-Drug Resistant Organisms: None Reported Past Surgical History: No Surgical Hx Reported Additional Past Surgical History / Comment(s): gall bladder pain Past Psychological History: No Psychological Hx Reported Smoking Status: Former smoker Past Alcohol Use History: None Reported Past Drug Use History: None Reported General Exam - General Exam Comments Initial Comments: Physical Exam GENERAL: Patient is well-developed and well-nourished. Patient is nontoxic and well-hydrated Appears uncomfortable HENT: Normocephalic, Atraumatic. EYES: PERRL, EOMI PULMONARY: Unlabored respirations. No audible rales rhonchi or wheezing was noted. CARDIOVASCULAR: There is a regular rate and rhythm without any murmurs gallops or rubs. ABDOMEN: Tenderness to percussion of left flank SKIN: Skin is clear with no lesions or rashes and otherwise unremarkable. : Deferred NEUROLOGIC: Patient is alert and oriented x3. Moving all extremities spontaneously MUSCULOSKELETAL: Normal extremities with adequate strength and full range of motion. No lower extremity swelling or edema. No calf tenderness. PSYCHIATRIC: Normal psychiatric evaluation. Limitations: no limitations Course Vital Signs 09/25/19 09/25/19 04:37 06:13 Temperature 98.0 F Pulse Rate 72 80 Respiratory 18 18 Rate Blood Pressure 134/90 144/89 O2 Sat by Pulse 100 97 Oximetry Medical Decision Making - Medical Decision Making Patient was seen and evaluated history is obtained from the patient and review of medical records 53-year-old male with a history of kidney stones presenting with left-sided flank pain and hematuria. Urinalysis confirmed hematuria. X- ray confirms stones in the left kidney. Patient was treated with Toradol morphine and Zofran with complete resolution of his symptoms. At this time patient's comfortable with plan for discharge home. Patient was given Tylenol 3 and Zofran starter packs. - Lab Data Result diagrams: 09/25/19 04:50 09/25/19 04:50 Lab Results 09/25/19 09/25/19 09/25/19 Range/Units 04:50 04:50 04:50 WBC 5.7 (3.8-10.6) k/uL RBC 4.43 (4.30-5.90) m/uL Hgb 13.1 (13.0-17.5) gm/dL Hct 40.5 (39.0-53.0) % MCV 91.3 (80.0-100.0) fL MCH 29.6 (25.0-35.0) pg MCHC 32.5 (31.0-37.0) g/dL RDW 15.1 (11.5-15.5) % Plt Count 271 (150-450) k/uL Neutrophils % 74 % Lymphocytes % 15 % Monocytes % 5 % Eosinophils % 3 % Basophils % 0 % Neutrophils # 4.2 (1.3-7.7) k/uL Lymphocytes # 0.8 L (1.0-4.8) k/uL Monocytes # 0.3 (0-1.0) k/uL Eosinophils # 0.2 (0-0.7) k/uL Basophils # 0.0 (0-0.2) k/uL Sodium 137 (137-145) mmol/L Potassium 3.9 (3.5-5.1) mmol/L Chloride 108 H (98-107) mmol/L Carbon Dioxide 23 (22-30) mmol/L Anion Gap 6 mmol/L BUN 20 (9-20) mg/dL Creatinine 0.83 (0.66-1.25) mg/dL Est GFR (CKD-EPI)AfAm >90 (>60 ml/min/1.73 sqM) Est GFR (CKD-EPI)NonAf >90 (>60 ml/min/1.73 sqM) Glucose 109 H (74-99) mg/dL Calcium 9.5 (8.4-10.2) mg/dL Total Bilirubin 0.7 (0.2-1.3) mg/dL AST 27 (17-59) U/L ALT 19 (4-49) U/L Alkaline Phosphatase 62 (38-126) U/L Total Protein 5.9 L (6.3-8.2) g/dL Albumin 3.7 (3.5-5.0) g/dL Urine Color Light Red Urine Appearance Cloudy (Clear) Urine pH 5.5 (5.0-8.0) Ur Specific [place] 1.029 (1.001-1.035) Urine Protein 1+ H (Negative) Urine Glucose (UA) Negative (Negative) Urine Ketones Negative (Negative) Urine Blood Large H (Negative) Urine Nitrite Negative (Negative) Urine Bilirubin Negative (Negative) Urine Urobilinogen 2.0 (<2.0) mg/dL Ur Leukocyte Esterase Trace H (Negative) Urine RBC >182 H (0-5) /hpf Urine WBC 15 H (0-5) /hpf Ur Squamous Epith Cells 1 (0-4) /hpf Urine Bacteria Rare H (None) /hpf Urine Mucus Many H (None) /hpf Disposition Clinical Impression: Renal colic on left side Disposition: HOME SELF-CARE Condition: Stable Instructions (If sedation given, give patient instructions): Kidney Stones (ED) Is patient prescribed a controlled substance at d/c from ED?: No Referrals: Angelica Fletcher MD [Primary Care Provider] - 1-2 days Alfred Hunter MD [STAFF PHYSICIAN] - 1-2 days
[2019-09-25] MEDS ORDERED: ONDANSETRON 4 MG ODT STARTER PACK 2 TAB BTL PO STA (06:01)
[2019-09-25] MEDS ORDERED: ACET/COD 300 MG/30 MG STARTER PACK 6 TAB BTL PO STA (06:01)
[2019-09-25 06:15] VITALS: BP 144/89; PULSE 80
== END 2019-09-25 06:13 | disposition home or self-care (01) ==
LOC: EC 04:32
DX: N23 Unspecified renal colic (principal); N20.0 Calculus of kidney; I10 Essential (primary) hypertension; Z79.899 Other long term (current) drug therapy; Z87.891 Personal history of nicotine dependence; Z88.5 Allergy status to narcotic agent; Z88.6 Allergy status to analgesic agent
CPT/HCPCS: 36415; 80053; 85025; 81001; 87086; 74018; 99284; 96374; 96375 ×2; J2405; J3010; J1885; S0119

== ENCOUNTER 2021-12-26 07:06 | Inpatient (IN) | payer OTHER ==
[2021-12-26] MEDS ORDERED: NITROGLYCERIN SL TABS 0.4 MG TAB SUBLINGUAL STA (07:30)
[2021-12-26] MEDS ORDERED: ASPIRIN 81 MG PO STA (07:30)
--- NOTE | 2021-12-26 07:33 | ED ---
Chest Pain HPI - General Chief Complaint: Chest Pain Stated Complaint: Chest pain, arm pain Time Seen by Provider: 12/26/21 07:16 Source: patient, RN notes reviewed Mode of arrival: ambulatory Limitations: no limitations - History of Present Illness Initial Comments: 56-year-old male with no prior history of heart disease is having history kidney stones and states he had the onset 4 days ago of intermittent episodes of left arm discomfort did seem to radiate to his mid sternum. States the pain in his sternum when it does occur last about 10 minutes is burning in nature he currently does have some which is 89/10 severity. He states the pain is I resistant pain he had some sweating associated with it no nausea no vomiting no overt shortness of breath or other symptoms such as palpitations. MD Complaint: chest pain - Related Data Home Medications Medication Instructions Recorded Confirmed Metoprolol Tartrate [Lopressor] 25 mg PO DAILY 11/24/17 01/21/19 lisinopriL 20 mg PO DAILY 11/15/18 01/21/19 Ketorolac [Toradol] 10 mg PO Q6HR PRN 12/15/18 01/21/19 Previous Rx's Medication Instructions Recorded Tamsulosin [Flomax] 0.4 mg PO DAILY #7 cap 12/15/18 Acetaminophen-Codeine 300-30mg 1 tab PO Q6H PRN 3 Days #12 tablet 01/21/19 [Tylenol w/codeine #3] Amoxicillin 500 mg PO Q12HR #14 cap 01/21/19 Clindamycin HCl 300 mg PO Q6HR #40 cap 01/26/19 Allergies Allergy/AdvReac Type Severity Reaction Status Date / Time aspirin AdvReac Severe STOMACH Verified 12/26/21 07:14 ISSUES morphine AdvReac Severe Hallucinati Verified 12/26/21 07:14 ons Review of Systems ROS Statement: Those systems with pertinent positive or pertinent negative responses have been documented in the HPI. ROS Other: All systems not noted in ROS Statement are negative. EKG Findings - EKG Results: EKG: interpreted by KENA, sinus rhythm (Normal sinus rhythm of 62. Interval 163 QRS 90 QT since QTC 374/380 evidence of indeterminate age anteroseptal changes) Past Medical History Past Medical History: GERD/Reflux, Hypertension, Pneumonia Additional Past Medical History / Comment(s): kidney stones, knee and leg pain, headaches History of Any Multi-Drug Resistant Organisms: None Reported Past Surgical History: No Surgical Hx Reported Additional Past Surgical History / Comment(s): gall bladder pain Past Psychological History: No Psychological Hx Reported Smoking Status: Never smoker Past Alcohol Use History: None Reported Past Drug Use History: None Reported General Exam - General Exam Comments Initial Comments: This is a well-developed nourished awake alert oriented 3 male Limitations: no limitations General appearance: alert, anxious Head exam: Present: atraumatic, normocephalic, normal inspection Eye exam: Present: normal appearance, PERRL, EOMI. Absent: scleral icterus, conjunctival injection, periorbital swelling ENT exam: Present: normal exam, mucous membranes moist Neck exam: Present: full ROM, other (No stridor JVD or bruits) Respiratory exam: Present: normal lung sounds bilaterally. Absent: respiratory distress, wheezes, rales, rhonchi, stridor Cardiovascular Exam: Present: regular rate, normal rhythm, normal heart sounds. Absent: systolic murmur, diastolic murmur, rubs, gallop, clicks GI/Abdominal exam: Present: soft, normal bowel sounds. Absent: distended, tenderness, guarding, rebound, rigid Extremities exam: Present: normal inspection, full ROM, normal capillary refill. Absent: tenderness, pedal edema, joint swelling, calf tenderness Back exam: Present: normal inspection Neurological exam: Present: alert, oriented X3, CN II-XII intact Psychiatric exam: Present: normal affect, normal mood Skin exam: Present: warm, dry, intact, normal color. 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 Reevaluation #2: 12/26/21 09:32 Patient did get relief initially temporarily from the initial medication he did require more pain medication last evaluation revealed the pain was completely gone EKG was negative for obvious acute findings patient does have an elevated troponin however 0.07 he will be admitted Chest Pain MDM - MDM Imaging reviewed no evidence of acute findings. Patient will be admitted I did discuss case with Dr. Novoa. He remains pain-free at this time. Critical Care Time Critical Care Time: Yes Total Critical Care Time: 35 Critical Care Time: Critical care time including initial presentation with history physical labs x- rays multiple reevaluation the patient to responsive therapy appropriate medications for ACS. Discussed with the admitting physician admission orders documentation of the above Disposition Clinical Impression: Acute coronary syndrome with high troponin, Chest pain, Unstable angina pectoris Disposition: ADMITTED IP TO THIS HOSP Condition: Fair Referrals: Jeb Novoa MD [Primary Care Provider] - 1-2 days
[2021-12-26] MEDS ORDERED: fentaNYL (PF) 50 MCG/ML 2 ML AMP IV STA (08:12)
[2021-12-26] MEDS ORDERED: NITROGLYCERIN OINT 1 INCH/GM PACKET TOPICAL STA (08:13)
[2021-12-26 08:31] LABS: ALT 30 U/L (4-49); AST 34 U/L (17-59); African American GFR (CKD) >90 (>60 ml/min/1.73 sqM); Albumin 4.2 g/dL (3.5-5.0); Alkaline Phosphatase 62 U/L (38-126); Anion Gap 9 mmol/L; Blood Urea Nitrogen 23 mg/dL (9-20); Calcium 9.7 mg/dL (8.4-10.2); Carbon Dioxide 23 mmol/L (22-30); Chloride 106 mmol/L (98-107); Glucose 136 mg/dL (74-99); Lipase 104 U/L (23-300); Magnesium 1.7 mg/dL (1.6-2.3); Non-African American GFR(CKD) 79 (>60 ml/min/1.73 sqM); Potassium 4.1 mmol/L (3.5-5.1); Sodium 138 mmol/L (137-145); Total Bilirubin 0.8 mg/dL (0.2-1.3); Total Protein 6.6 g/dL (6.3-8.2)
[2021-12-26 08:32] LABS: Basophils % (A) 0 %; Eosinophils # (A) 0.3 k/uL (0-0.7); Eosinophils % (A) 3 %; HCT 45.3 % (39.0-53.0); Lymphocytes # (A) 0.8 k/uL (1.0-4.8); Lymphocytes % (A) 12 %; MCH 28.9 pg (25.0-35.0); MCV 87.6 fL (80.0-100.0); Mean Platelet Volume 7.9; Monocytes # (A) 0.2 k/uL (0-1.0); Monocytes % (A) 3 %; Neutrophils # (A) 5.8 k/uL (1.3-7.7); Neutrophils % (A) 80 %; Platelet Count 289 k/uL (150-450); RBC 5.17 m/uL (4.30-5.90); RDW 14.1 % (11.5-15.5); WBC 7.3 k/uL (3.8-10.6)
[2021-12-26 08:46] LABS: Partial Thromboplastin Time 26.1 sec (22.0-30.0)
[2021-12-26] MEDS ORDERED: ONDANSETRON 4 MG/2 ML VIAL IVP STA (08:56)
--- NOTE | 2021-12-26 08:57 | XR ---
EXAMINATION TYPE: XR chest 2V DATE OF EXAM: 12/26/2021 COMPARISON: Chest x-ray December 30, 2016 HISTORY: Chest and left arm pain. TECHNIQUE: Frontal and lateral views of the chest are obtained. FINDINGS: There is no suspicious focal air space opacity, pleural effusion, or pneumothorax seen. T he cardiac silhouette size remain within normal limits. The osseous structures are intact. Overlyin g EKG leads. IMPRESSION: No acute process.
[2021-12-26 09:08] VITALS: RESP 18
[2021-12-26] MEDS ORDERED: HEPARIN SODIUM 1,000 UN/ML (10ML VL) IV ONE (09:31)
[2021-12-26] MEDS ORDERED: HEPARIN SODIUM 1,000 UN/ML (10ML VL) IV PRN (09:31)
[2021-12-26] MEDS ORDERED: NITROGLYCERIN SL TABS 0.4 MG TAB SUBLINGUAL PRN ×3 (09:35→19:32)
[2021-12-26] MEDS: HEPARIN SOD,PORK IN 0.45% NACL 25,000 UNIT in 0.45% NACL 1 250ML.BAG IV SCH (10:09)
[2021-12-26] MEDS ORDERED: fentaNYL (PF) 50 MCG/ML 2 ML AMP IVP STA (10:16)
[2021-12-26] MEDS ORDERED: NITROGLYCERIN OINT 1 INCH/GM PACKET TOPICAL SCH (12:00)
[2021-12-26] MEDS ORDERED: ALPRAZolam 0.5 MG TAB PO PRN (12:33)
[2021-12-26] MEDS ORDERED: ATORVASTATIN 80 MG TAB PO STA (12:33)
[2021-12-26] MEDS ORDERED: ALPRAZolam 0.25 MG TAB PO PRN (12:33)
[2021-12-26] MEDS ORDERED: ASPIRIN 325 MG TAB PO STA (12:33)
--- NOTE | 2021-12-26 13:40 | P.CRDCN ---
History of Present Illness Consult date: 12/26/21 History of present illness: HISTORY OF PRESENT ILLNESS: This is a 56-year-old male with a past medical history significant for hypertension. 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 We have been asked to see the patient in consultation for chest pain. Patient examined at the bedside. patient states on Friday he was walking to the store as the weather was nice outside and he began having pain in his left arm. He also reports having a bur roosevelt sensation in the middle of his chest. He states since Friday he has been having chest pain and left arm pain intermittently. Patient reports having 5 episodes of chest discomfort this morning. At time of examination, the patient denies having any chest pain. He denies having any previous cardiac workup. He is a nonsmoker. He does not drink alcohol. He denies any drug use. Both of hi s parents are and he is unsure of the cause. * EKG reveals sinus mechanism with no signs of acute ischemia * Chest xray negative for acute process * Laboratory data: WBC 7.3. Hemoglobin 15.0. Platelet count 289. D-dimer 0.33. Sodium 138. Potassium 4.1. BUN 23. Creatinine 1.04. * Current home cardiac medications include Norvasc 2.5 mg daily, lisinopril 10 mg daily, metoprolol titrate 50 mg twice a day REVIEW OF SYSTEMS: At the time of my exam: CONSTITUTIONAL: Denies fever or chills. HEENT: Denies blurred vision, vision changes, or eye pain. Denies hemoptysis CARDIOVASCULAR: Denies chest pain. Denies orthopnea. Denies PND. Denies palpitations RESPIRATORY: Denies shortness of breath. GASTROINTESTINAL: Denies abdominal pain. Denies nausea or vomiting. HEMATOLOGIC: Denies bleeding disorders. GENITOURINARY: Denies any blood in urine. SKIN: Denies pruitis. Denies rash. PHYSICAL EXAM: VITAL SIGNS: Reviewed. GENERAL: Well-developed in no acute distress. HEENT: Head is normocephalic. Pupils are equal, round. Sclerae anicteric. Mucous membranes of the mouth are moist. Neck supple. No JVD or thyromegaly LUNGS: Respirations even and unlabored. Lungs essentially clear to auscultation bilaterally. HEART: Regular rate and rhythm. S1 and S2 heard. ABDOMEN: Soft. Nondistended. Nontender. EXTREMITIES: Normal range of motion. No clubbing or cyanosis. Peripheral pulses intact. No lower extremity edema NEUROLOGIC: Awake and alert. Oriented x 3. ASSESSMENT: Non-STEMI Hypertension GERD Former nicotine dependence PLAN: Obtain 2D echo to assess cardiac structure and function Resume home cardiac medications Begin aspirin 81 mg daily and atorvastatin 80 mg at night Patient to undergo cardiac catheterization today with Dr. Colin Further recommendations pending patient course Nurse practitioner note has been reviewed by physician. Signing provider agrees with the documented findings, assessment, and plan of care. Past Medical History Past Medical History: GERD/Reflux, GI Bleed, Hypertension, Pneumonia, Renal Disease Additional Past Medical History / Comment(s): L nephrolithiasis, gallbladder issue, slight hiatal hernia, Wei's esophagus, PUD, upper and lower GI bleed s, diverticular disease, chronic anemia per past medical record but pt does not recall. History of Any Multi-Drug Resistant Organisms: None Reported Past Surgical History: No Surgical Hx Reported Additional Past Surgical History / Comment(s): EGD, colonoscopy Past Anesthesia/Blood Transfusion Reactions: No Reported Reaction Smoking Status: Former smoker - Past Family History Father History Unknown: Yes Mother History Unknown: Yes Medications and Allergies Home Medications Medication Instructions Recorded Confirmed Type Acetaminophen-Codeine 300-30mg 1 tab PO Q6H PRN 3 Days #12 tablet 01/21/19 12/26/21 Rx [Tylenol w/codeine #3] Acetaminophen Tab [Tylenol Tab] 2,000 mg PO Q6H PRN 12/26/21 12/26/21 History Ergocalciferol [Vitamin D2 (1250 1,250 mcg PO FR 12/26/21 12/26/21 History Mcg = 94188 Iu)] Ibuprofen [Motrin Ib] 800 mg PO Q6H PRN 12/26/21 12/26/21 History Metoprolol Tartrate [Lopressor] 50 mg PO BID 12/26/21 12/26/21 History Multivitamins, Thera [Multivitamin 1 tab PO DAILY 12/26/21 12/26/21 History (formulary)] Omeprazole 20 mg PO DAILY 12/26/21 12/26/21 History amLODIPine [Norvasc] 2.5 mg PO DAILY 12/26/21 12/26/21 History lisinopriL [Zestril] 10 mg PO DAILY 12/26/21 12/26/21 History Allergies Allergy/AdvReac Type Severity Reaction Status Date / Time aspirin AdvReac Severe Experiences Verified 12/26/21 10:34 abdominal pain after taking for a few days morphine AdvReac Severe Hallucinations Verified 12/26/21 10:34 with tablets, injection is fine per patient. Physical Exam Vitals: Vital Signs Temp Pulse Pulse Resp BP BP Pulse Ox 12/26/21 12:00 97.5 F L 60 18 109/54 100 12/26/21 10:39 62 18 126/87 98 12/26/21 09:07 98.1 F 68 18 130/89 98 12/26/21 08:34 70 24 12/26/21 07:10 96.9 F L 66 18 141/70 100 Intake and Output 12/25/21 12/26/21 12/26/21 22:59 06:59 14:59 Other: Weight 70.307 kg Results 12/26/21 07:23 12/26/21 07:23 Cardiac Enzymes 12/26/21 12/26/21 12/26/21 Range/Units 07:23 07:23 11:03 AST 34 (17-59) U/L Troponin I 0.070 H* 0.234 H* (0.000-0.034) ng/mL Coagulation 12/26/21 Range/Units 07:23 PT 11.0 (9.0-12.0) sec APTT 26.1 (22.0-30.0) sec CBC 12/26/21 Range/Units 07:23 WBC 7.3 (3.8-10.6) k/uL RBC 5.17 (4.30-5.90) m/uL Hgb 15.0 (13.0-17.5) gm/dL Hct 45.3 (39.0-53.0) % Plt Count 289 (150-450) k/uL Comprehensive Metabolic Panel 12/26/21 Range/Units 07:23 Sodium 138 (137-145) mmol/L Potassium 4.1 (3.5-5.1) mmol/L Chloride 106 (98-107) mmol/L Carbon Dioxide 23 (22-30) mmol/L BUN 23 H (9-20) mg/dL Creatinine 1.04 (0.66-1.25) mg/dL Glucose 136 H (74-99) mg/dL Calcium 9.7 (8.4-10.2) mg/dL AST 34 (17-59) U/L ALT 30 (4-49) U/L Alkaline Phosphatase 62 (38-126) U/L Total Protein 6.6 (6.3-8.2) g/dL Albumin 4.2 (3.5-5.0) g/dL Current Medications Generic Name Dose Route Start Last Admin Trade Name Freq PRN Reason Stop Dose Admin Alprazolam 0.25 mg 12/26/21 12:33 Alprazolam 0.25 Mg Tab PO Q6HR PRN Mild Anxiety Alprazolam 0.5 mg 12/26/21 12:33 Alprazolam 0.5 Mg Tab PO Q6HR PRN Moderate Anxiety Aspirin 81 mg 12/27/21 09:00 Aspirin 81 Mg PO DAILY [facility] Aspirin 325 mg 12/26/21 12:33 Aspirin 325 Mg Tab PO 12/26/21 12:34 ONCE STA Atorvastatin Calcium 80 mg 12/26/21 12:33 Atorvastatin 80 Mg Tab PO 12/26/21 12:34 ONCE STA Clopidogrel Bisulfate 75 mg 12/27/21 09:00 Clopidogrel 75 Mg Tab PO DAILY [facility] Heparin Sodium (Porcine) 0 unit 12/26/21 09:31 Heparin Sodium 1,000 Un/Ml (10ml Vl) IV PER PROTOCOL PRN Low PTT Protocol Heparin Sodium/Sodium Chloride 250 mls @ 8.437 mls/hr 12/26/21 10:00 12/26/21 10:09 25,000 unit/ Sodium Chloride IV 12 units/kg/hr .Q24H NITIN 8.437 mls/hr Administration Protocol 12 UNITS/KG/HR Sodium Chloride 1,000 mls @ 20 mls/hr 12/26/21 09:45 Saline 0.9% IV 12/27/21 09:46 .Q24H [facility] Heparin Sodium (Porcine) 10, 1,001 mls @ 999 mls/hr 12/27/21 07:00 000 unit/ Sodium Chloride IRRIGATION 12/27/21 23:00 ONCE PRN INTRA-OP Heparin Sodium (Porcine) 2,500 250.5 mls @ 250 mls/hr 12/27/21 07:00 unit/ Sodium Chloride IRRIGATION 12/27/21 23:00 ONCE PRN INTRA-OP Lisinopril 20 mg 12/27/21 09:00 Lisinopril 20 Mg Tab PO DAILY [facility] Metoprolol Tartrate 25 mg 12/27/21 09:00 Metoprolol Tartrate 25 Mg Tab PO DAILY NITIN Nitroglycerin 0.4 mg 12/26/21 09:35 Nitroglycerin Sl Tabs 0.4 Mg Tab SUBLINGUAL Q5M PRN Chest Pain Nitroglycerin 1 inch 12/26/21 12:00 Nitroglycerin Oint 1 Inch/Gm Packet TOPICAL Q6HR [facility] Nitroglycerin 0.4 mg 12/26/21 12:33 Nitroglycerin Sl Tabs 0.4 Mg Tab SUBLINGUAL Q5M PRN Chest Pain Sodium Chloride 10 ml 12/27/21 21:00 Sodium Chloride 0.9% Flush 10 Ml Syringe IV Q12HR NITIN Sodium Chloride 10 ml 12/27/21 09:44 Sodium Chloride 0.9% Flush 10 Ml Syringe IV DIRECTED PRN FLUSH Tamsulosin HCl 0.4 mg 12/27/21 09:00 Tamsulosin 0.4 Mg Cap.Er.24h PO DAILY [facility] Intake and Output 12/25/21 12/26/21 12/26/21 22:59 06:59 14:59 Other: Weight 70.307 kg Patient Weight 12/27/21 06:59 Weight 70.307 kg 12/26/21 07:23 12/26/21 07:23
[2021-12-26] MEDS ORDERED: IV FLUID CONTINUATION 1,000 ML IV ONE (13:50)
[2021-12-26] MEDS ORDERED: MIDAZOLAM 2 MG/2 ML VIAL IV ONE (14:05)
[2021-12-26] MEDS ORDERED: fentaNYL (PF) 50 MCG/ML 2 ML AMP IV ONE (14:05)
[2021-12-26] MEDS ORDERED: LIDOCAINE 1% INJ 10MG/ML (20 ML MDV) SQ ONE (14:07)
[2021-12-26] MEDS ORDERED: VERAPAMIL SYRINGE (5 MG/10 ML) INTRAARTER ONE (14:10)
[2021-12-26] MEDS: HEPARIN SODIUM 1,000 UN/ML (10ML VL) IV ONE ×2 (14:13→14:25)
[2021-12-26] MEDS ORDERED: TICAGRELOR 90 MG TAB PO ONE (14:22)
[2021-12-26] MEDS: NITROGLYCERIN 1000MCG/10ML SYRINGE INTRACORON ONE ×4 (14:39→14:47)
[2021-12-26] MEDS ORDERED: IOPAMIDOL-370 125ML BTL INJ ONE (14:39)
[2021-12-26] MEDS ORDERED: IOPAMIDOL-370 100ML BTL INJ ONE (14:51)
--- NOTE | 2021-12-26 15:06 | HP ---
HISTORY AND PHYSICAL CHIEF COMPLAINT: Chest pain for 3 or 4 days. HISTORY OF PRESENT ILLNESS: This is another admission for this 56-year-old white male. He presented to the emergency room after 3 or 4-day history of pain in the left upper arm. The pain did not go into the back of the jaw. He did have some chest discomfort. It came and went. On the morning of admission, he got up and it was much worse and was associated with shortness of breath, nausea, and diaphoresis. In the emergency room, his electrocardiogram was unremarkable, but troponin was elevated. The rest of the history is unremarkable. Past medical history, family history, and personal and social histories reveal that he is on: Metoprolol, lisinopril, Toradol, Tylenol No. 3. PHYSICAL EXAMINATION: Blood pressure is 141/70, pulse 66 and regular, respirations 18, he is afebrile. In general, he appeared to be well developed, well nourished, no acute distress. SKIN color is normal. Skin is warm, dry. Lymph nodes are not enlarged. HEAD, ears, eyes, nose, mouth and throat were normal. NECK veins are not distended. Thyroid not enlarged. CHEST: Clear. CARDIAC exam is normal. ABDOMEN is soft and nontender. EXTREMITIES are normal. NEUROLOGICALLY: He is intact. IMPRESSION: Chest pain with diaphoresis, shortness of breath and elevated troponin. PLAN: 1. Bedrest. 2. IV fluids. 3. Consult Cardiology. MMODL / PERRYN: [id number] /
[2021-12-26] MEDS: SODIUM CHLORIDE 0.9% 1,000 ML IV SCH (15:49)
[2021-12-26] MEDS ORDERED: ACETAMINOPHEN TAB 325 MG TAB PO PRN (16:03)
[2021-12-26] MEDS: Acetaminophen-Codeine 300-30mg TAB PO PRN ×2 (16:46→22:30)
[2021-12-26] MEDS ORDERED: RX INFO: IV CONTRAST WAS GIVEN 1 EACH MISC MISCELLANE PRN (19:32)
[2021-12-26] MEDS ORDERED: ZOLPIDEM 5 MG TAB PO PRN (19:32)
[2021-12-26] MEDS ORDERED: ATROPINE SULFATE 0.1 MG/ML 10ML SYRINGE IV PRN (19:32)
[2021-12-26] MEDS ORDERED: MAG HYDROX/AL HYDROX/SIMETH 30 ML CUP PO PRN (19:32)
--- NOTE | 2021-12-26 20:01 | ECHOF ---
Referral Reason:Chest pain, elevated troponin MEASUREMENTS -------- HEIGHT: 177.8 cm WEIGHT: 70.3 kg BP: 130/89 RVIDd: 2.9 cm (< 3.3) IVSd: 1.3 cm (0.6 - 1.1) LVIDd: 4.5 cm (3.9 - 5.3) LVPWd: 1.0 cm (0.6 - 1.1) IVSs: 1.6 cm LVIDs: 3.1 cm LVPWs: 1.9 cm LA Diam: 2.5 cm (2.7 - 3.8) Ao Diam: 3.4 cm (2.0 - 3.7) AV Cusp: 2.2 cm (1.5 - 2.6) MV EXCURSION: 17.484 mm (> 18.000) MV EF SLOPE: 81 mm/s (70 - 150) EPSS: 0.9 cm MV E Stalin: 0.57 m/s MV DecT: 294 ms MV A Stalin: 0.88 m/s MV E/A Ratio: 0.65 FINDINGS -------- Sinus rhythm. This was a technically adequate study. The left ventricular size is normal. There is mild concentric left ventricular hypertrophy. Overa ll left ventricular systolic function is mildly impaired with, an EF between 45 - 50 %. Basal poste rior LV wall motion is hypokinetic. Basal inferior LV wall motion is hypokinetic. The right ventricle is normal in size. Normal LA size by volume 22+/-6 ml/m2. The right atrium is normal in size. Interatrial and interventricular septum intact. Trace amount of aortic regurgitation. Mild mitral regurgitation is present. The tricuspid valve appears structurally normal. Unable to estimate RVSP due to inadequate TR jet s pectral doppler profile. Trace/mild (physiologic) pulmonic regurgitation. The aortic root size is normal. Normal inferior vena cava with normal inspiratory collapse consistent with estimated right atrial pre ssure of 5 mmHg. There is no pericardial effusion. CONCLUSIONS -------- 1. The left ventricular size is normal. 2. There is mild concentric left ventricular hypertrophy. 3. Overall left ventricular systolic function is mildly impaired with, an EF between 45 - 50 %. 4. Basal posterior LV wall motion is hypokinetic. 5. Basal inferior LV wall motion is hypokinetic. 6. Trace amount of aortic regurgitation. 7. Mild mitral regurgitation is present. 8. Trace/mild (physiologic) pulmonic regurgitation. 9. There is no pericardial effusion. SEEING EYE DOG TRAINER: Madonna Hernandez RDCS
[2021-12-26] MEDS: METOPROLOL TARTRATE 25 MG TAB PO SCH (20:51)
[2021-12-26] MEDS: SODIUM CHLORIDE 0.9% 1,000 ML in EMPTY BAG 1 BAG IV SCH (20:52)
[2021-12-26] MEDS: TICAGRELOR 90 MG TAB PO SCH (20:52)
[2021-12-26] MEDS ORDERED: ATORVASTATIN 80 MG TAB PO SCH (21:00)
--- NOTE | 2021-12-26 22:53 | P.PRCINT ---
Percutaneous Coronary Int. - Percutaneous Coronary Intervention Percutaneous Coronary Intervention: PROCEDURES PERFORMED: Left heart catheterization, bilateral coronary angiography, PCI mid RCA with a 2.5 x 18mm Xience RADHA, post dilated with a 3.0 NC balloon INDICATION: NSTEMI HISTORY: Patient is a pleasant 56-year-old male who has been having off and on chest pain over the last day and was found to have NSTEMI. Therefore LHC was recommended. CONSENT:I have discussed the risks, benefits and alternative therapies for the above-mentioned procedure and for both sedation/analgesia as well as necessary blood product administration, if indicated, as they pertain to this patient. The patient has indicated understanding and acceptance of the risks and procedures discussed. PROCEDURE: After the risks, benefits and alternatives of the above mentioned procedure explained in detail with the patient, informed consent was obtained. Patient was taken to the catheterization lab and prepped and draped in usual fashion. 1% lidocaine was used to anesthetize the right radial artery. A 6- Swedish sheath was placed in the right radial artery using modified Seldinger technique. Left coronary angiography was performed with a 5-Swedish FL 3.5 catheter and right coronary angiography was performed with a 5-Swedish JR5 catheter in various views. A 5-Swedish FR5 catheter was inserted into the left ventricle and pressure measurements were obtained. The decision was made to perform PCI of RCA. Heparin was given. A 6Fr AL 1 guide catheter was used to engage the RCA. A 0.014 BMW wire was advanced into the distal RCA. Predilation was performed with a 2.5 x 12 mm balloon. Next a 2.5 x 18 mm Xience RADHA was advanced and deployed in the mid RCA. The mid and distal portion of the stent were post dilated with a 3.0 NC balloon. Preintervention there was 90% stenosis and HUSSAIN 3 flow and postintervention there was HUSSAIN 3 flow with 0% stenosis. The right radial sheath was removed and a TR band was placed with hemostasis achieved. The patient tolerated the procedure well. Patient was transported back to the post catheterization holding area in stable condition. Conscious Sedation: Patient was monitored under the direct supervision of vision of myself for conscious sedation using Versed and fentanyl for a total duration of 43 minutes HEMODYNAMICS: Aorta: 149/75 LV: 128/5, LVEDP 17 SELECTIVE CORONARY ARTERIOGRAPHY: LEFT MAIN: The left main is a large caliber vessel which bifurcates into the LAD and circumflex. There is no significant stenosis. LEFT ANTERIOR DESCENDING CORONARY ARTERY: LAD is a moderate to large caliber vessel which wraps around to the apex. There is a proximal LAD 30-40% stenosis and otherwise appears normal. There is mid LAD bridging noted. LEFT CIRCUMFLEX CORONARY ARTERY: Left circumflex is a small to moderate caliber vessel with a "high" OM1 which is normal and a small caliber OM2. There are mild luminal iregularities. RIGHT CORONARY ARTERY: The right coronary artery is a large caliber vessel which gives off a PDA and PLV branch and is the dominant vessel. There is a shephards crook in the proximal RCA. There is diffuse mild 20-30% stenosis of the proximal to mid RCA and a more focal tandem 90% stenosis and 70% stenosis with what appears to be fresh thrombus. FINAL IMPRESSION: 1. CAD as described above including proximal LAD 30-40% stenosis, mid LAD bridging, RCA tandem 90% and 70% stenoses. 2. Status post successful PCI mid RCA with a 2.5 x 18 mm Xience RADHA, post dilated with a 3.0 NC balloon 3. Elevated left sided filling pressures PLAN: 1. Aggressive risk factor modification per most recent ACC/AHA guidelines. 2. Continue dual antiplatelets for 12 months with aspirin and Brillinta.
[2021-12-27] MEDS ORDERED: HEPARIN SODIUM,PORCINE 2,500 UNIT in SODIUM CHLORIDE 0.9% 250 ML IRRIGATION PRN (07:00)
[2021-12-27] MEDS ORDERED: HEPARIN SODIUM,PORCINE 10,000 UNIT in SODIUM CHLORIDE 0.9% 1,000 ML IRRIGATION PRN (07:00)
[2021-12-27] MEDS: Acetaminophen-Codeine 300-30mg TAB PO PRN ×2 (08:07→14:57)
[2021-12-27] MEDS: TICAGRELOR 90 MG TAB PO SCH (08:09)
[2021-12-27] MEDS: METOPROLOL TARTRATE 25 MG TAB PO SCH (08:09)
[2021-12-27 08:58] LABS: Basophils % (A) 0 %; Eosinophils # (A) 0.1 k/uL (0-0.7); Eosinophils % (A) 2 %; HCT 44.8 % (39.0-53.0); HGB 13.8 gm/dL (13.0-17.5); Lymphocytes # (A) 0.5 k/uL (1.0-4.8); Lymphocytes % (A) 7 %; MCH 27.6 pg (25.0-35.0); MCHC 30.8 g/dL (31.0-37.0); MCV 89.9 fL (80.0-100.0); Mean Platelet Volume 8.3; Monocytes # (A) 0.3 k/uL (0-1.0); Monocytes % (A) 5 %; Neutrophils # (A) 6.2 k/uL (1.3-7.7); Neutrophils % (A) 85 %; Platelet Count 231 k/uL (150-450); RBC 4.99 m/uL (4.30-5.90); RDW 13.9 % (11.5-15.5); WBC 7.3 k/uL (3.8-10.6)
[2021-12-27] MEDS ORDERED: TAMSULOSIN 0.4 MG CAP.ER.24H PO SCH (09:00)
[2021-12-27] MEDS ORDERED: CLOPIDOGREL 75 MG TAB PO SCH (09:00)
[2021-12-27] MEDS ORDERED: lisinopriL 20 MG TAB PO SCH (09:00)
[2021-12-27] MEDS ORDERED: ASPIRIN 81 MG PO SCH (09:00)
[2021-12-27] MEDS ORDERED: METOPROLOL TARTRATE 25 MG TAB PO SCH (09:00)
[2021-12-27] MEDS ORDERED: ASPIRIN 325 MG TAB PO SCH (09:00)
[2021-12-27 09:08] LABS: INR 0.9 (<1.2); Prothrombin Time 10.1 sec (9.0-12.0)
[2021-12-27 10:35] LABS: African American GFR (CKD) >90 (>60 ml/min/1.73 sqM); Non-African American GFR(CKD) >90 (>60 ml/min/1.73 sqM)
[2021-12-27 10:36] VITALS: BMI 22.2
[2021-12-27] MEDS ORDERED: ACETAMINOPHEN TAB 500 MG TAB PO PRN (10:46)
[2021-12-27] MEDS ORDERED: METOPROLOL TARTRATE 50 MG TAB PO SCH (11:00)
[2021-12-27] MEDS: SODIUM CHLORIDE 0.9% 1,000 ML in EMPTY BAG 1 BAG IV SCH (11:14)
[2021-12-27] MEDS: HEPARIN SOD,PORK IN 0.45% NACL 25,000 UNIT in 0.45% NACL 1 250ML.BAG IV SCH (11:16)
[2021-12-27] MEDS: SODIUM CHLORIDE 0.9% 1,000 ML IV SCH (11:18)
--- NOTE | 2021-12-27 13:03 | P.PN ---
Subjective Progress Note Date: 12/27/21 HISTORY OF PRESENT ILLNESS: This is a 56-year-old male with a past medical history significant for hypertension. 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 We have been asked to see the patient in consultation for chest pain. Patient examined at the bedside. patient states on Friday he was walking to the store as the weather was nice outside and he began having pain in his left arm. He also reports having a burning sensation in the middle of his chest. He states since Friday he has been having chest pain and left arm pain intermittently. Patient reports having 5 episodes of chest discomfort this morning. At time of examination, the patient denies having any chest pain. He denies having any previous cardiac workup. He is a nonsmoker. He does not drink alcohol. He denies any drug use. Both of his parents are and he is unsure of the cause. * EKG reveals sinus mechanism with no signs of acute ischemia * Chest xray negative for acute process * Laboratory data: WBC 7.3. Hemoglobin 15.0. Platelet count 289. D-dimer 0.33. Sodium 138. Potassium 4.1. BUN 23. Creatinine 1.04. * Current home cardiac medications include Norvasc 2.5 mg daily, lisinopril 10 mg daily, metoprolol titrate 50 mg twice a day 12/27/2021 Patient is status post cardiac catheterization with PCI to the mid RCA. Patient examined this morning at the bedside. Patient denies chest pain or pressure. He denies shortness of breath. Blood pressures are running with a systolic in the 90s. Echocardiogram completed revealing ejection fraction 45-50%, basal posterior LV wall hypokinesis, basal inferior LV wall hypokinesis, and trace aortic regurgitation. PHYSICAL EXAM: VITAL SIGNS: Reviewed. GENERAL: Well-developed in no acute distress. HEENT: Head is normocephalic. Pupils are equal, round. Sclerae anicteric. Mucous membranes of the mouth are moist. Neck supple. No JVD or thyromegaly LUNGS: Respirations even and unlabored. Lungs essentially clear to auscultation bilaterally. HEART: Regular rate and rhythm. S1 and S2 heard. ABDOMEN: Soft. Nondistended. Nontender. EXTREMITIES: Normal range of motion. No clubbing or cyanosis. Peripheral pulses intact. No lower extremity edema NEUROLOGIC: Awake and alert. Oriented x 3. ASSESSMENT: Non-STEMI, status post cardiac cath with PCI to RCA Hypertension GERD Former nicotine dependence Mild ischemic cardiomyopathy, ejection fraction 45% PLAN: Continue current cardiac medications Continue dual antiplatelet therapy with aspirin and Brilinta Discontinue Norvasc at discharge Decrease lisinopril to 2.5mg daily Continue to monitor blood pressure Anticipate discharge home tomorrow Further recommendations pending patient course Nurse practitioner note has been reviewed by physician. Signing provider agrees with the documented findings, assessment, and plan of care. Objective - Vital Signs Vital signs: Vital Signs Temp 98.7 F 12/27/21 07:59 Pulse 72 12/27/21 12:31 Resp 18 12/27/21 12:31 BP 100/66 12/27/21 12:31 Pulse Ox 99 12/27/21 12:31 Intake & Output 12/26/21 12/27/21 12/27/21 18:59 06:59 18:59 Intake Total 218 320 120 Output Total 100 400 Balance 118 -80 120 Weight 70.307 kg 70.307 kg Intake: IV 100 Oral 118 320 120 Output: Urine 100 400 Other: Voiding Method Toilet Toilet Urinal Urinal # Voids 1 - Labs CBC & Chem 7: 12/27/21 08:38 12/27/21 08:38 Labs: Abnormal Lab Results - Last 24 Hours (Table) 12/26/21 12/27/21 Range/Units 16:55 08:38 MCHC 30.8 L (31.0-37.0) g/dL Lymphocytes # 0.5 L (1.0-4.8) k/uL Troponin I 20.100 H* (0.000-0.034) ng/mL
[2021-12-27 15:27] LABS: Chol/HDL Ratio 3.86 Ratio; LDL Cholesterol,Calculated 141.5 mg/dL (0.0-131.0)
--- NOTE | 2021-12-27 16:03 | PN ---
PROGRESS NOTE DATE OF SERVICE: 12/27/2021 CHIEF COMPLAINT: Status post NSTEMI. HISTORY OF PRESENT ILLNESS: This gentleman is doing fairly well and he is not having any further pain. He has not had any shortness of breath. His blood pressure has been low and we will stop some of his medications. He states it has been low at home as well. He thinks he has hematuria. PHYSICAL EXAMINATION: Chest is clear. Cardiac exam is normal. Abdomen is soft, nontender. IMPRESSION: 1. Status post N-STEMI and stenting of the RCA. 2. Hypotension. 3. Hematuria. PLAN: 1. . 2. Stop some of the medication he has been on for hypertension. MMODL / IJN: [id number] /
[2021-12-27 16:53] VITALS: BP 91/62; PULSE 69; TEMP 98.3
[2021-12-28] MEDS ORDERED: PANTOPRAZOLE 40 MG TABLET PO SCH (07:30)
--- NOTE | 2021-12-29 18:47 | DS ---
DISCHARGE SUMMARY CHIEF COMPLAINT: Chest pain. HISTORY OF PRESENT ILLNESS AND PHYSICAL EXAMINATION: Details of this man's history and physical can be found in the initial workup. LABORATORY STUDIES: While he was in the hospital he had laboratory studies, details of which can be found in the laboratory section of his chart. COURSE IN THE HOSPITAL: After admission he was placed on bedrest, started on intravenous fluids, and he had elevation of his troponin. He was seen by Cardiology. He was taken to the cath laboratory, where he underwent stenting in the RCA. Postoperatively he was doing well. He suddenly started to complain of hematuria. He became angry because the nurses did believe him and he signed himself out AGAINST MEDICAL ADVICE. FINAL DIAGNOSIS: 1. Acute myocardial infarction. 2. Hematuria. 3. ASCVD. OPERATIONS: Cardiac cath and stenting of the RCA. CONSULTATION: Cardiology. He is improved. MMODL / IJN: [id number] /
== END 2021-12-27 18:30 | disposition left against medical advice (07) | DRG 247 ==
LOC: EC 07:06 → 3SCARD 10:01 → OBSVTOIN 12-27 10:58
PROVIDERS: ADMIT Family Medicine; ATTEND Family Medicine
PROC: B2111ZZ Fluoroscopy of Multiple Coronary Arteries using Low Osmolar Contrast (ICD-10-PCS; principal; 2021-12-27)
PROC: 4A023N7 Measurement of Cardiac Sampling and Pressure, Left Heart, Percutaneous Approach (ICD-10-PCS; principal; 2021-12-27)
PROC: 027034Z Dilation of Coronary Artery, One Artery with Drug-eluting Intraluminal Device, Percutaneous Approach (ICD-10-PCS; principal; 2021-12-27)
DX: I21.4 Non-ST elevation (NSTEMI) myocardial infarction (principal); R31.9 Hematuria, unspecified; I10 Essential (primary) hypertension; I25.110 Atherosclerotic heart disease of native coronary artery with unstable angina pectoris; I25.5 Ischemic cardiomyopathy; K21.9 Gastro-esophageal reflux disease without esophagitis; Z87.891 Personal history of nicotine dependence; Z87.442 Personal history of urinary calculi; Z79.899 Other long term (current) drug therapy; Z87.19 Personal history of other diseases of the digestive system; Z87.01 Personal history of pneumonia (recurrent); I95.9 Hypotension, unspecified; Z71.3 Dietary counseling and surveillance
CPT/HCPCS: 36415; 71046; 80053; 80061; 82565; 83690; 83735; 83880; 84484; 85025; 85379; 85610; 85730; 93005; 93306; 93458; 96365; 96375; 96376; 99291

== ENCOUNTER 2023-02-14 10:17 | Observation (INO) | payer OTHER ==
[2023-02-14] MEDS ORDERED: ASPIRIN 81 MG PO STA (10:50)
[2023-02-14] MEDS ORDERED: NITROGLYCERIN OINT 1 INCH/GM PACKET TOPICAL STA (10:50)
[2023-02-14 10:57] LABS: Basophils % (A) 0 %; Eosinophils # (A) 0.2 k/uL (0-0.7); Eosinophils % (A) 4 %; HCT 46.7 % (39.0-53.0); HGB 15.7 gm/dL (13.0-17.5); Lymphocytes # (A) 0.7 k/uL (1.0-4.8); Lymphocytes % (A) 12 %; MCH 31.1 pg (25.0-35.0); MCHC 33.6 g/dL (31.0-37.0); MCV 92.5 fL (80.0-100.0); Monocytes # (A) 0.3 k/uL (0-1.0); Monocytes % (A) 4 %; Neutrophils # (A) 4.4 k/uL (1.3-7.7); Neutrophils % (A) 78 %; Platelet Count 224 k/uL (150-450); RBC 5.05 m/uL (4.30-5.90); RDW 12.3 % (11.5-15.5); WBC 5.6 k/uL (3.8-10.6)
[2023-02-14 11:06] LABS: ALT 47 U/L (4-49); AST 42 U/L (17-59); African American GFR (CKD) >90 (>60 ml/min/1.73 sqM); Albumin 3.7 g/dL (3.5-5.0); Alkaline Phosphatase 58 U/L (38-126); Anion Gap 9 mmol/L; Blood Urea Nitrogen 24 mg/dL (9-20); Carbon Dioxide 25 mmol/L (22-30); Chloride 104 mmol/L (98-107); Glucose 100 mg/dL (74-99); Non-African American GFR(CKD) >90 (>60 ml/min/1.73 sqM); Potassium 4.4 mmol/L (3.5-5.1); Sodium 138 mmol/L (137-145); Total Bilirubin 1.2 mg/dL (0.2-1.3); Total Protein 5.7 g/dL (6.3-8.2)
--- NOTE | 2023-02-14 11:07 | ED ---
General Adult HPI - General Chief complaint: Chest Pain Stated complaint: Chest Pain Sent by Dr Clark Seen by Provider: 02/14/23 10:50 Source: patient, RN notes reviewed, old records reviewed Mode of arrival: ambulatory Limitations: no limitations - History of Present Illness Initial comments: This is a 57-year-old male who has a past medical history significant for coronary artery disease with a stent. Patient states she also has high blood pressure. Patient states since last Friday anytime he exerts himself and walks any distance he feels very short of breath. Patient states on Friday he started having chest discomfort and some pain down his arms. Patient states the pain in his chest is pretty constant occasionally gets a burst of worsening pain and at that point in time he sweats. Patient states he seems to have some relief when he stands occasionally. Patient denies any relief leaning forward. Patient states lying down does seem to make it worse. Patient denies any recent fever chills or cough. Patient denies any injury to the chest or heavy lifting. Patient denies any swelling to the legs or calf tenderness. Patient states he thinks if he goes home tonight he will not make it through the night. - Related Data Home Medications Medication Instructions Recorded Confirmed Acetaminophen Tab [Tylenol Tab] 2,000 mg PO Q6H PRN 12/26/21 12/26/21 Ergocalciferol [Vitamin D2 (1250 1,250 mcg PO FR 12/26/21 12/26/21 Mcg = 22733 Iu)] Ibuprofen [Motrin Ib] 800 mg PO Q6H PRN 12/26/21 12/26/21 Metoprolol Tartrate [Lopressor] 50 mg PO BID 12/26/21 12/26/21 Multivitamins, Thera [Multivitamin 1 tab PO DAILY 12/26/21 12/26/21 (formulary)] Omeprazole 20 mg PO DAILY 12/26/21 12/26/21 amLODIPine [Norvasc] 2.5 mg PO DAILY 12/26/21 12/26/21 lisinopriL [Zestril] 10 mg PO DAILY 12/26/21 12/26/21 Previous Rx's Medication Instructions Recorded Acetaminophen-Codeine 300-30mg 1 tab PO Q6H PRN 3 Days #12 tablet 01/21/19 [Tylenol w/codeine #3] Ticagrelor [Brilinta] 90 mg PO BID #60 tab 12/27/21 Allergies Allergy/AdvReac Type Severity Reaction Status Date / Time No Known Allergies Allergy Verified 02/14/23 10:26 Review of Systems ROS Statement: Those systems with pertinent positive or pertinent negative responses have been documented in the HPI. ROS Other: All systems not noted in ROS Statement are negative. Past Medical History Past Medical History: GERD/Reflux, GI Bleed, Hypertension, Pneumonia, Renal Disease Additional Past Medical History / Comment(s): L nephrolithiasis, gallbladder issue, slight hiatal hernia, Wei's esophagus, PUD, upper and lower GI bleeds, diverticular disease, chronic anemia per past medical record but pt does not recall. History of Any Multi-Drug Resistant Organisms: None Reported Past Surgical History: No Surgical Hx Reported Additional Past Surgical History / Comment(s): EGD, colonoscopy Past Anesthesia/Blood Transfusion Reactions: No Reported Reaction Past Psychological History: No Psychological Hx Reported Smoking Status: Former smoker Past Alcohol Use History: None Reported Past Drug Use History: None Reported - Past Family History Father History Unknown: Yes Mother History Unknown: Yes General Exam - General Exam Comments Initial Comments: GENERAL: Patient is well-developed and well-nourished. Patient is nontoxic and well- hydrated and is in mild distress. ENT: Neck is soft and supple. No significant lymphadenopathy is noted. Oropharynx is clear. Moist mucous membranes. Neck has full range of motion without eliciting any pain. EYES: The sclera were anicteric and conjunctiva were pink and moist. Extraocular movements were intact and pupils were equal round and reactive to light. Eyelids were unremarkable. PULMONARY: Unlabored respirations. Good breath sounds bilaterally. No audible rales rhonchi or wheezing was noted. CARDIOVASCULAR: There is a regular rate and rhythm without any murmurs gallops or rubs. ABDOMEN: Soft and nontender with normal bowel sounds. SKIN: Skin is clear with no lesions or rashes and otherwise unremarkable. NEUROLOGIC: Patient is alert and oriented x3. Cranial nerves II through XII are grossly intact. Motor and sensory are also intact. Normal speech, volume and content. Symmetrical smile. MUSCULOSKELETAL: Normal extremities with adequate strength and full range of motion. LYMPHATICS: No significant lymphadenopathy is noted PSYCHIATRIC: Normal psychiatric evaluation. Limitations: no limitations Course Vital Signs 02/14/23 02/14/23 10:23 11:13 Temperature 98 F Pulse Rate 66 Pulse Rate [ 66 Radial] Respiratory 20 Rate Blood Pressure 110/74 O2 Sat by Pulse 100 Oximetry Medical Decision Making - Medical Decision Making EKG is interpreted by myself shows a sinus bradycardia at 59 bpm OH interval 266 QRS is 86 QT interval 377 QTC is 375 per patient's or depression. Patient does have Q waves in 3 and aVF Was pt. sent in by a medical professional or institution ([facility], [facility], urgent care, hospital, or assisted...) When possible be specific @ -Patient was sent in by cardiology Did you speak to anyone other than the patient for history (EMS, parent, family, police, friend...)? What history was obtained from this source @ -[No] Did you review nursing and triage notes (agree or disagree)? Why? @ -[I reviewed and agree with nursing and triage notes] Were old charts reviewed (outside hosp., previous admission, EMS record, old EKG, old radiological studies, urgent care reports/EKG's, assisted records)? Report findings @ -I reviewed prior lab work on this patient as well as prior EKGs and x-rays. Differential Diagnosis (chest pain, altered mental status, abdominal pain women, abdominal pain men, vaginal bleeding, weakness, fever, dyspnea, syncope, headache, dizziness, GI bleed, back pain, seizure, CVA, palpatations, mental hea lth, musculoskeletal)? @ -Differential Chest Pain: Stable Angina, Unstable Angina, STEMI, NSTEMI Aortic Dissection, Pneumothorax, Musculoskeletal, Esophageal Spasm GERD, Cholecystitis, Pancreatitis, Zoster, this is not meant to be an all-inclusive list. EKG interpreted by me (3pts min.). @ -[As above] X-rays interpreted by me (1pt min.). @ -Chest x-ray was interpreted by myself is in no acute abnormality. CT interpreted by me (1pt min.). @ -[None done] U/S interpreted by me (1pt. min.). @ -[None done] What testing was considered but not performed or refused? (CT, X-rays, U/S, labs)? Why? @ -[None] What meds were considered but not given or refused? Why? @ -[None] Did you discuss the management of the patient with other professionals (professionals i.e. DrSukumar, PA, [facility] ST[facility]ER, lab, RT, psych nurse, administrator social welfare, insurance adjuster, teacher, environmental protection officer, case management associate)? Give summary @ -I spoke with Dr. Jones and he agreed to admit the patient I wrote admitting orders Was smoking cessation discussed for >3mins.? @ -[No] Was critical care preformed (if so, how long)? @ -[No] Were there social determinants of health that impacted care today? How? (Homelessness, low income, unemployed, alcoholism, drug addiction, transportation, low edu. Level, literacy, decrease access to med. care, long-term, rehab)? @ -[No] Was there de-escalation of care discussed even if they declined (Discuss DNR or withdrawal of care, Hospice)? DNR status @ -[No] What co-morbidities impacted this encounter? (DM, HTN, Smoking, COPD, CAD, Cancer, CVA, ARF, Chemo, Hep., AIDS, mental health diagnosis, sleep apnea, morbid obesity)? @ -[None] Was patient admitted / discharged? Hospital course, mention meds given and route , prescriptions, significant lab abnormalities, going to OR and other pertinent info. @ -Patient continued to have chest pain while in the emergency department and have some radiation down the arms. I did lab work or wheezing was initially normal chest x-ray is normal I spoke with Dr. Jones and he wanted the patient admitted he wanted cardiology consulted Undiagnosed new problem with uncertain prognosis? @ -[No] Drug Therapy requiring intensive monitoring for toxicity (Heparin, Nitro, Insulin, Cardizem)? @ -[No] Were any procedures done? @ -[No] Diagnosis/symptom? @ -Chest pain Acute, or Chronic, or Acute on Chronic? @ -Acute Uncomplicated (without systemic symptoms) or Complicated (systemic symptoms)? @ -Complicated Side effects of treatment? @ -[No] Exacerbation, Progression, or Severe Exacerbation? @ -[No] Poses a threat to life or bodily function? How? (Chest pain, USA, ME, pneumonia, PE, COPD, DKA, ARF, appy, cholecystitis, CVA, Diverticulitis, Homicidal, Suicidal, threat to staff... and all critical care pts) @ -Yes this can lead to an ME poor perfusion and end organ dysfunction - Lab Data Result diagrams: 02/14/23 10:49 02/14/23 10:49 Lab Results 02/14/23 02/14/23 02/14/23 Range/Units 10:49 10:49 10:49 WBC 5.6 (3.8-10.6) k/uL RBC 5.05 (4.30-5.90) m/uL Hgb 15.7 (13.0-17.5) gm/dL Hct 46.7 (39.0-53.0) % MCV 92.5 (80.0-100.0) fL MCH 31.1 (25.0-35.0) pg MCHC 33.6 (31.0-37.0) g/dL RDW 12.3 (11.5-15.5) % Plt Count 224 (150-450) k/uL MPV 8.0 Neutrophils % 78 % Lymphocytes % 12 % Monocytes % 4 % Eosinophils % 4 % Basophils % 0 % Neutrophils # 4.4 (1.3-7.7) k/uL Lymphocytes # 0.7 L (1.0-4.8) k/uL Monocytes # 0.3 (0-1.0) k/uL Eosinophils # 0.2 (0-0.7) k/uL Basophils # 0.0 (0-0.2) k/uL PT 10.8 (9.0-12.0) sec INR 1.0 (<1.2) APTT 24.7 (22.0-30.0) sec Sodium 138 (137-145) mmol/L Potassium 4.4 (3.5-5.1) mmol/L Chloride 104 (98-107) mmol/L Carbon Dioxide 25 (22-30) mmol/L Anion Gap 9 mmol/L BUN 24 H (9-20) mg/dL Creatinine 0.86 (0.66-1.25) mg/dL Est GFR (CKD-EPI)AfAm >90 (>60 ml/min/1.73 sqM) Est GFR (CKD-EPI)NonAf >90 (>60 ml/min/1.73 sqM) Glucose 100 H (74-99) mg/dL Calcium 9.0 (8.4-10.2) mg/dL Total Bilirubin 1.2 (0.2-1.3) mg/dL AST 42 (17-59) U/L ALT 47 (4-49) U/L Alkaline Phosphatase 58 (38-126) U/L Troponin I (0.000-0.034) ng/mL Total Protein 5.7 L (6.3-8.2) g/dL Albumin 3.7 (3.5-5.0) g/dL 02/14/23 Range/Units 10:49 WBC (3.8-10.6) k/uL RBC (4.30-5.90) m/uL Hgb (13.0-17.5) gm/dL Hct (39.0-53.0) % MCV (80.0-100.0) fL MCH (25.0-35.0) pg MCHC (31.0-37.0) g/dL RDW (11.5-15.5) % Plt Count (150-450) k/uL MPV Neutrophils % % Lymphocytes % % Monocytes % % Eosinophils % % Basophils % % Neutrophils # (1.3-7.7) k/uL Lymphocytes # (1.0-4.8) k/uL Monocytes # (0-1.0) k/uL Eosinophils # (0-0.7) k/uL Basophils # (0-0.2) k/uL PT (9.0-12.0) sec INR (<1.2) APTT (22.0-30.0) sec Sodium (137-145) mmol/L Potassium (3.5-5.1) mmol/L Chloride (98-107) mmol/L Carbon Dioxide (22-30) mmol/L Anion Gap mmol/L BUN (9-20) mg/dL Creatinine (0.66-1.25) mg/dL Est GFR (CKD-EPI)AfAm (>60 ml/min/1.73 sqM) Est GFR (CKD-EPI)NonAf (>60 ml/min/1.73 sqM) Glucose (74-99) mg/dL Calcium (8.4-10.2) mg/dL Total Bilirubin (0.2-1.3) mg/dL AST (17-59) U/L ALT (4-49) U/L Alkaline Phosphatase (38-126) U/L Troponin I <0.012 (0.000-0.034) ng/mL Total Protein (6.3-8.2) g/dL Albumin (3.5-5.0) g/dL Disposition Clinical Impression: Chest pain Disposition: ADMITTED IP TO THIS HOSP Referrals: Jeb Novoa MD [Primary Care Provider] - 1-2 days Time of Disposition: 11:36
[2023-02-14 11:08] LABS: Partial Thromboplastin Time 24.7 sec (22.0-30.0); Prothrombin Time 10.8 sec (9.0-12.0)
--- NOTE | 2023-02-14 11:30 | XR ---
EXAMINATION TYPE: XR chest 2V DATE OF EXAM: 02/14/2023 COMPARISON: Chest x-ray December 26, 2021 HISTORY: Difficulty in breathing. TECHNIQUE: Frontal and lateral views of the chest are obtained. FINDINGS: There is no focal air space opacity, pleural effusion, or pneumothorax seen. The cardiac silhouette size is stable and within normal limits. The osseous structures are intact. IMPRESSION: No acute cardiopulmonary process. No significant change from prior.
[2023-02-14] MEDS: NITROGLYCERIN OINT 1 INCH/GM PACKET TOPICAL SCH ×4 (12:15→20:34)
[2023-02-14] MEDS ORDERED: ACETAMINOPHEN TAB 500 MG TAB PO STA (14:09)
[2023-02-14] MEDS: HYDROcodone/APAP 5-325MG 1 EACH TAB PO PRN (18:24)
[2023-02-14] MEDS: METOPROLOL TARTRATE 50 MG TAB PO SCH (20:22)
[2023-02-15] MEDS: NITROGLYCERIN OINT 1 INCH/GM PACKET TOPICAL SCH ×3 (00:44→11:53)
[2023-02-15] MEDS: HYDROcodone/APAP 5-325MG 1 EACH TAB PO PRN ×4 (02:34→23:27)
[2023-02-15] MEDS: NITROGLYCERIN SL TABS 0.4 MG TAB SUBLINGUAL PRN ×4 (02:35→23:27)
[2023-02-15] MEDS: PANTOPRAZOLE 40 MG TABLET PO SCH (06:31)
[2023-02-15] MEDS ORDERED: NON FORMULARY DRUG (Aspirin Ec 325 MG Tab) PO SCH (09:00)
[2023-02-15] MEDS: ATORVASTATIN 80 MG TAB PO SCH (09:19)
[2023-02-15] MEDS: FERROUS SULFATE 325 MG TAB PO SCH (09:20)
[2023-02-15] MEDS: ASPIRIN 325 MG TAB PO SCH (09:20)
[2023-02-15] MEDS: CLOPIDOGREL 75 MG TAB PO SCH (09:21)
[2023-02-15] MEDS ORDERED: HEPARIN SODIUM 1,000 UN/ML (10ML VL) IV PRN (10:48)
[2023-02-15] MEDS ORDERED: HEPARIN SODIUM 1,000 UN/ML (10ML VL) IV ONE (10:48)
[2023-02-15 11:03] LABS: Chol/HDL Ratio 2.65 Ratio; LDL Cholesterol,Calculated 72.8 mg/dL (0.0-131.0); VLDL Calculation 17.38 mg/dL (5.00-40.00)
[2023-02-15] MEDS: HEPARIN SOD,PORK IN 0.45% NACL 25,000 UNIT in 0.45% NACL 1 250ML.BAG IV SCH (11:50)
[2023-02-15] MEDS: METOPROLOL TARTRATE 50 MG TAB PO SCH ×2 (11:53→20:31)
[2023-02-15 12:39] LABS: Basophils % (A) 1 %; Eosinophils # (A) 0.1 k/uL (0-0.7); Eosinophils % (A) 3 %; HCT 44.8 % (39.0-53.0); Lymphocytes # (A) 0.8 k/uL (1.0-4.8); Lymphocytes % (A) 16 %; MCH 31.1 pg (25.0-35.0); MCHC 33.5 g/dL (31.0-37.0); MCV 92.9 fL (80.0-100.0); Mean Platelet Volume 8.3; Monocytes # (A) 0.2 k/uL (0-1.0); Monocytes % (A) 4 %; Neutrophils # (A) 3.5 k/uL (1.3-7.7); Neutrophils % (A) 76 %; Platelet Count 176 k/uL (150-450); RBC 4.82 m/uL (4.30-5.90); RDW 12.2 % (11.5-15.5); WBC 4.6 k/uL (3.8-10.6)
--- NOTE | 2023-02-15 12:55 | CONS ---
CONSULTATION CHIEF COMPLAINT: Chest pain. HISTORY OF PRESENT ILLNESS: Javon is a 57-year-old gentleman with history of coronary artery disease, status post angioplasty of mid right coronary artery in November of 2021 following his presentation with non ST-segment elevation [place]. The patient comes in complaining of progressively worsening chest pain. He describes it as a precordial chest pressure that radiated to his left arm. He was seen in the office and was advised to come to the emergency room. At the time of my evaluation, he is chest pain-free and he has had sublingual nitroglycerin to which his pain seemed to be responding. The patient states that after his angioplasty, he has done remarkably well, was walking for miles without any problems and went over a period of time, recently gradually his exercise tolerance had come down until he started having this chest discomfort. His EKG on this admission revealed sinus rhythm without acute ST-T wave changes. Labs showed that the 3 sets of troponins are negative. His LDL cholesterol is 72, platelet count is 220. Hemoglobin is 15.7. The patient's clinical presentation is consistent with unstable angina. I am going to start him on intravenous heparin and he will need a cardiac catheterization which we may do either tomorrow or on Friday. PAST MEDICAL HISTORY: Significant for coronary artery disease status post prior angioplasty, hypertension, dyslipidemia. CURRENT MEDICATIONS: Include, 1. Lopressor 50 b.i.d. 2. Omeprazole 20 daily. 3. Aspirin. 4. Atorvastatin. 5. Plavix. 6. Iron. 7. [place]. ALLERGIES: There are no known drug allergies. FAMILY HISTORY: Negative for premature coronary artery disease. SOCIAL HISTORY: Negative for current smoking issues or drug abuse. REVIEW OF SYSTEMS: A review of systems has been performed. Pertinents are as documented. PHYSICAL EXAMINATION: VITAL SIGNS: On exam, afebrile. Vital signs are stable. NECK: There is no jugular venous distention. Carotid upstroke is normal. There is no bruit. CHEST: Reveals good air entry bilaterally. HEART: Reveals first and second heart sounds. No gallop. No murmur. No rub. ABDOMEN: Soft, nontender. EXTREMITIES: Exam of the extremities did not reveal any edema. Peripheral pulses are felt. LABORATORY DATA: Labs showed a hemoglobin of 15.7, platelet count is 224. Three sets of troponins are negative. Creatinine is normal. Potassium is 4.4. Lipid profile shows that the total cholesterol is 145, LDL is 72 and HDL is 54. ASSESSMENT: Unstable angina. PLAN: We will continue the patient on current medications. Start the patient on heparin per protocol. Obtain a 2D echo. Start him on nitroglycerin paste and consider cardiac catheterization. SHANNAN / PERRYN: [id number] /
[2023-02-15 13:16] LABS: INR 1.1 (<1.2); Prothrombin Time 11.4 sec (9.0-12.0)
[2023-02-15 13:34] LABS: Partial Thromboplastin Time 124.6 sec (22.0-30.0)
[2023-02-16] MEDS: PANTOPRAZOLE 40 MG TABLET PO SCH (06:12)
[2023-02-16] MEDS: NITROGLYCERIN SL TABS 0.4 MG TAB SUBLINGUAL PRN (06:23)
[2023-02-16] MEDS: HYDROcodone/APAP 5-325MG 1 EACH TAB PO PRN ×3 (06:23→18:36)
[2023-02-16] MEDS ORDERED: HEPARIN SODIUM,PORCINE 10,000 UNIT in SODIUM CHLORIDE 0.9% 1,000 ML IRRIGATION PRN (07:00)
[2023-02-16] MEDS ORDERED: HEPARIN SODIUM,PORCINE 2,500 UNIT in SODIUM CHLORIDE 0.9% 250 ML IRRIGATION PRN (07:00)
[2023-02-16] MEDS: FERROUS SULFATE 325 MG TAB PO SCH (09:02)
[2023-02-16] MEDS: ATORVASTATIN 80 MG TAB PO SCH (09:02)
[2023-02-16] MEDS: CLOPIDOGREL 75 MG TAB PO SCH (09:02)
[2023-02-16] MEDS: METOPROLOL TARTRATE 50 MG TAB PO SCH ×2 (09:03→20:27)
[2023-02-16] MEDS: ASPIRIN 325 MG TAB PO SCH (09:03)
[2023-02-16 09:15] LABS: Basophils # (A) 0.03 X 10*3/uL (0.00-0.10); Basophils % (A) 0.6 %; Eosinophils % (A) 4.2 %; HCT 43.6 % (39.6-50.0); Immature Grans, Automated 0.4 %; Lymphocytes # (A) 1.09 X 10*3/uL (0.90-5.00); Lymphocytes % (A) 23.1 %; MCH 30.4 pg (27.0-32.0); MCHC 32.1 g/dL (32.0-37.0); MCV 94.6 fL (80.0-97.0); Mean Platelet Volume 10.9 fL (9.5-12.2); Monocytes # (A) 0.37 X 10*3/uL (0.20-1.00); Monocytes % (A) 7.8 %; NRBC Per 100 WBC 0 /100 WBCS (0.0-0.0); Neutrophils # (A) 3.01 X 10*3/uL (1.80-7.70); Neutrophils % (A) 63.9 %; Platelet Count 188 X 10*3/uL (140-440); RBC 4.61 X 10*6/uL (4.40-5.60); RDW 12.1 % (11.5-14.5); WBC 4.72 X 10*3/uL (4.50-10.00)
--- NOTE | 2023-02-16 09:38 | CA ---
Transthoracic Echo Report Name: Javon Velásquez Age: 57 Gender: M : 1965 Exam Date: 02/15/2023 12:25 Exam Location: [facility] Ht (in): 70 Wt (lb): 156 Ordering Physician: Lianne Jim Attending/Referring Phys: [id number], Diandra Software Intern Madonna Hernandez, GHAZAL Procedure CPT: Indications: LVF Cardiac Hx: Technical Quality: Good Contrast 1: Total Dose (mL): Contrast 2: Total Dose (mL): MEASUREMENTS (Male / Female) Normal Values 2D ECHO LV Diastolic Diameter PLAX 4.2 cm 4.2 - 5.9 / 3.9 - 5.3 cm LV Systolic Diameter PLAX 2.6 cm IVS Diastolic Thickness 1.1 cm 0.6 - 1.0 / 0.6 - 0.9 cm LVPW Diastolic Thickness 1.1 cm 0.6 - 1.0 / 0.6 - 0.9 cm LV Relative Wall Thickness 0.5 RV Internal Dim ED PLAX 3.3 cm LA Systolic Diameter LX 3.1 cm 3.0 - 4.0 / 2.7 - 3.8 cm LA Volume 34.8 cm??? 18 - 58 / 22 - 52 cm??? M-MODE Aortic Root Diameter MM 3.0 cm MV E Point Septal Separation 0.2 cm AV Cusp Separation MM 2.2 cm DOPPLER AV Peak Velocity 141.0 cm/s AV Peak Gradient 8.0 mmHg MV Area PHT 2.9 cm??? Mitral E Point Velocity 63.8 cm/s Mitral A Point Velocity 87.1 cm/s Mitral E to A Ratio 0.7 MV Deceleration Time 263.6 ms MV E' Velocity 8.5 cm/s Mitral E to MV E' Ratio 7.5 FINDINGS Left Ventricle Left ventricular ejection fraction is estimated at 55-60 %. Left ventricular cavity size normal. Mildly increased septal wall thickness. Right Ventricle Mild right ventricular dilatation. Unable to estimate the right ventricular systolic pressure. Right Atrium Normal right atrial size. Left Atrium Normal left atrial size. Mitral Valve Structurally normal mitral valve. No mitral stenosis, regurgitation or prolapse. Aortic Valve Trileaflet aortic valve. No aortic valve stenosis or regurgitation. Tricuspid Valve Structurally normal tricuspid valve. No tricuspid stenosis, regurgitation or prolapse. Pulmonic Valve Structurally normal pulmonic valve. No pulmonic regurgitation. Pericardium Normal pericardium. No pericardial effusion. Aorta Normal size aortic root and proximal ascending aorta. CONCLUSIONS Normal LV systolic function Previewed by: Dr. Stanford Henriquez MD (Electronically Signed) Final Date: 16 Feb 2023 09:37
[2023-02-16 10:00] LABS: INR 0.96 (0.90-1.11); Prothrombin Time 10.9 sec (9.9-11.9)
--- NOTE | 2023-02-16 10:15 | PN ---
PROGRESS NOTE SUBJECTIVE: Known coronary artery disease, status post prior angioplasty, that came to hospital with unstable angina. He has had an episode of chest discomfort and took sublingual nitroglycerin in the early hours of this morning. I am going to put the nitroglycerin paste back on. He is on heparin. I was going to do a cath on him, but unfortunately, he was given his breakfast. The plan at this stage is to have Dr. Colin do a cardiac catheterization on him tomorrow morning. PHYSICAL EXAMINATION: GENERAL: He is comfortable at rest. VITAL SIGNS: Stable. NECK: There is no jugular venous distention. CHEST: Reveals good air entry bilaterally. HEART: Reveals first and second heart sounds. No gallop. No murmur. ABDOMEN: Soft. EXTREMITIES: Did not reveal any edema. Peripheral pulses are felt. ASSESSMENT: Unstable angina. PLAN: The patient will undergo cardiac catheterization tomorrow. MMODL / IJN: [id number] /
--- NOTE | 2023-02-16 10:21 | CONS ---
CONSULTATION CHIEF COMPLAINT: Shortness of breath and chest discomfort. HISTORY OF PRESENT ILLNESS: Javon is a 57-year-old gentleman with history of coronary artery disease, status post prior angioplasty of LAD; hypertension; and dyslipidemia, who works at the [employer]. This morning, he was mopping the floor and developed progressively worsening shortness of breath and chest discomfort, due to which he came to the hospital and is admitted. At the time of my evaluation, he is chest pain-free, but he states that with any activity he is becoming significantly short of breath. The patient had angioplasty of restenosis involving a stent in the LAD in August of 2021 and has done well until recently when he is developing more and more symptoms. The patient had an echocardiogram in August of 2021 that revealed normal LV systolic function. Since being admitted, he is doing well. EKG does not reveal ischemic changes. Three sets of cardiac enzymes have been negative. Hemoglobin is 10.4, creatinine is 0.95. The patient's clinical presentation is consistent with unstable angina and I advised the patient to undergo cardiac catheterization for further evaluation. The patient had been explained of risks, benefits, and alternatives, understood and accepted. PAST MEDICAL HISTORY: Significant for coronary artery disease, status post angioplasty; hypertension; diabetes; dyslipidemia; and hypothyroidism. MEDICATIONS: Include: 1. Aspirin. 2. Lipitor. 3. Plavix. 4. Synthroid. 5. Glucotrol. 6. Zestril. 7. Glucophage. 8. Imdur. 9. Toprol. 10.Insulin. ALLERGIES: No known drug allergies. FAMILY HISTORY: Negative for premature coronary artery disease. SOCIAL HISTORY: Negative for smoking, EtOH abuse, or drug abuse. REVIEW OF SYSTEMS: HEENT: Unremarkable. CARDIAC: As described above. RESPIRATORY: Negative. GI: Negative. GENITOURINARY: Negative. ALLERGY/IMMUNOLOGY: Negative. SKIN: Negative. MUSCULOSKELETAL: Negative. ENDOCRINE: Negative. DERM: Negative. CONSTITUTIONAL: Negative. ONCOLOGICAL: Negative. JIG BORE TOOL MAKER: Negative. Rest of the system review is not relevant. PHYSICAL EXAMINATION: GENERAL: He is comfortable at rest. VITAL SIGNS: Stable. NECK: There is no jugular venous distention. Carotid upstroke is normal. There is no bruit. CHEST: Reveals good air entry bilaterally. HEART: Reveals first and second heart sounds. No gallop. No murmur. ABDOMEN: Soft, nontender. EXTREMITIES: Did not reveal any edema. Peripheral pulses are felt. Assessment ASSESSMENT: Unstable angina. PLAN: I advised the patient to undergo cardiac catheterization for further evaluation. MMODL / IJN: [id number] /
[2023-02-16] MEDS: HEPARIN SOD,PORK IN 0.45% NACL 25,000 UNIT in 0.45% NACL 1 250ML.BAG IV SCH (13:57)
[2023-02-17] MEDS: HYDROcodone/APAP 5-325MG 1 EACH TAB PO PRN ×3 (03:55→16:40)
[2023-02-17] MEDS: PANTOPRAZOLE 40 MG TABLET PO SCH (05:37)
[2023-02-17] MEDS: ATORVASTATIN 80 MG TAB PO SCH (08:24)
[2023-02-17] MEDS: FERROUS SULFATE 325 MG TAB PO SCH (08:24)
[2023-02-17] MEDS: CLOPIDOGREL 75 MG TAB PO SCH (08:24)
[2023-02-17] MEDS: ASPIRIN 325 MG TAB PO SCH (08:24)
[2023-02-17] MEDS: METOPROLOL TARTRATE 50 MG TAB PO SCH ×2 (08:34→19:55)
[2023-02-17 09:11] LABS: African American GFR (CKD) 95.1 (60.0-200.0); Anion Gap 6.6 mmol/L (10.00-18.00); BUN/Creat Ratio 12.9 Ratio (12.00-20.00); Blood Urea Nitrogen 12.9 mg/dL (9.0-27.0); Calcium 9.1 mg/dL (8.7-10.3); Carbon Dioxide 26.4 mmol/L (20.0-27.5); Potassium 4.7 mmol/L (3.5-5.5)
[2023-02-17] MEDS: NITROGLYCERIN SL TABS 0.4 MG TAB SUBLINGUAL PRN ×2 (11:21→11:24)
[2023-02-17] MEDS ORDERED: VERAPAMIL 2.5 MG/ML 2 ML AMP ONE (12:49)
[2023-02-17] MEDS ORDERED: HEPARIN SODIUM 1,000 UN/ML (10ML VL) ONE (12:49)
[2023-02-17] MEDS ORDERED: fentaNYL (PF) 50 MCG/ML 2 ML AMP ONE (12:49)
[2023-02-17] MEDS ORDERED: fentaNYL (PF) 50 MCG/ML 2 ML AMP IV ONE (13:03)
[2023-02-17] MEDS ORDERED: MIDAZOLAM 2 MG/2 ML VIAL IV ONE (13:03)
[2023-02-17] MEDS ORDERED: LIDOCAINE 1% INJ 10MG/ML (5 ML VIAL-PF) SQ ONE (13:05)
[2023-02-17] MEDS ORDERED: VERAPAMIL SYRINGE (5 MG/10 ML) INTRAARTER ONE (13:06)
[2023-02-17] MEDS ORDERED: IV FLUID CONTINUATION 1,000 ML IV ONE (13:07)
[2023-02-17] MEDS: HEPARIN SODIUM 1,000 UN/ML (10ML VL) IV ONE ×2 (13:10→13:35)
[2023-02-17] MEDS ORDERED: IOPAMIDOL-370 100ML BTL INJ ONE ×2 (13:35→13:46)
[2023-02-17] MEDS ORDERED: SODIUM CHLORIDE 0.9% 1,000 ML IV ONE (13:36)
[2023-02-17] MEDS: NITROGLYCERIN 1000MCG/10ML SYRINGE INTRACORON ONE ×2 (13:36→13:40)
--- NOTE | 2023-02-17 13:51 | P.PRCINT ---
Percutaneous Coronary Int. - Percutaneous Coronary Intervention Percutaneous Coronary Intervention: PROCEDURES PERFORMED: Left heart catheterization, bilateral coronary angiography, iFR OM1, PCI OM1 with a 2.5 x 12mm Xience RADHA INDICATION: Chest pain concerning for unstable angina CONSENT:I have discussed the risks, benefits and alternative therapies for the above-mentioned procedure and for both sedation/analgesia as well as necessary blood product administration, if indicated, as they pertain to this patient. The patient has indicated understanding and acceptance of the risks and procedures discussed. PROCEDURE: After the risks, benefits and alternatives of the above mentioned procedure explained in detail with the patient, informed consent was obtained. Patient was taken to the catheterization lab and prepped and draped in usual fashion. 1% lidocaine was used to anesthetize the right radial artery. A 6- Lao sheath was placed in the right radial artery using modified Seldinger technique. Left coronary angiography was performed with a 5-Lao JL 3.5 catheter and right coronary angiography was performed with a 6-Lao AR2 catheter in various views. A 6-Lao AR2 catheter was inserted into the left ventricle and pressure measurements were obtained. The decision was made to perform iFR of the OM1 branch. A 6-Lao CLS 3.5 guide was used to engage the left main. A 0.014 pressure wire was advanced into the left main and normalize. It was then advanced 1 cm distal to the OM1 lesion and iFR measurement was performed and was abnormal at 0.86. Therefore the decision was made to perform PCI of the OM1. Heparin was given for a CT rhythm and 250. A 0.014 BMW wire was advanced in the distal OM1. Predilation was performed with a 2.0 x 8 mm balloon. Next a 2.5 x 12 mm Xience RADHA was advanced and deployed. Final angiograms were performed.. Intervention there was 70% stenosis and HUSSAIN-3 flow and post intervention there was less than 10% stenosis and HUSSAIN-3 flow. The right radial sheath was removed and a TR band was placed with hemostasis achieved. The patient tolerated the procedure well. Patient was transported back to the post catheterization holding area in stable condition. Conscious Sedation: Patient was monitored under the direct supervision of myself for conscious sedation using Versed and fentanyl for a total duration of 43 minutes HEMODYNAMICS: Aorta: 118/66 LV 114/2, LVEDP 11 SELECTIVE CORONARY ARTERIOGRAPHY: LEFT MAIN: The left main is a large caliber vessel which bifurcates into the LAD and circumflex. There is no significant stenosis. LEFT ANTERIOR DESCENDING CORONARY ARTERY: LAD is a large caliber vessel which wraps around to the apex. There is a proximal LAD 30-40% stenosis and otherwise mild luminal irregularities. LEFT CIRCUMFLEX CORONARY ARTERY: Left circumflex is a moderate caliber vessel. There is a "high" OM1 which is small to moderate caliber with a proximal 70% stenosis and otherwise mild luminal irregularities. RIGHT CORONARY ARTERY: The right coronary artery is a large caliber vessel which gives off a PDA and PLV branch and is the dominant vessel. There is a long proximal 30-40% RCA stenosis and a patent mid RCA stent and otherwise mild luminal irregularities.. FINAL IMPRESSION: 1. CAD as described above including 30-40% LAD, proximal OM1 70%, proximal RCA 30-40%, patent mid RCA stent. 2. iFR OM1 abnormal at 0.86 3. Status post PCI proximal OM1 with 2.5 x 12 mm Xience RADHA 4. Normal left sided filling pressures PLAN: 1. Aggressive risk factor modification per most recent ACC/AHA guidelines. 2. Continue dual antiplatelets with aspirin and Plavix for 12 months.
[2023-02-17] MEDS: HEPARIN SOD,PORK IN 0.45% NACL 25,000 UNIT in 0.45% NACL 1 250ML.BAG IV SCH (17:57)
[2023-02-17] MEDS ORDERED: NITROGLYCERIN SL TABS 0.4 MG TAB SUBLINGUAL PRN (20:21)
[2023-02-17] MEDS ORDERED: RX INFO: IV CONTRAST WAS GIVEN 1 EACH MISC MISCELLANE PRN (20:21)
[2023-02-17] MEDS ORDERED: MAG HYDROX/AL HYDROX/SIMETH 30 ML CUP PO PRN (20:21)
[2023-02-17] MEDS ORDERED: ATROPINE SULFATE 0.1 MG/ML 10ML SYRINGE IV PRN (20:21)
[2023-02-17] MEDS ORDERED: ZOLPIDEM 5 MG TAB PO PRN (20:21)
[2023-02-17] MEDS ORDERED: SODIUM CHLORIDE 0.9% 1,000 ML in EMPTY BAG 1 BAG IV SCH (20:30)
[2023-02-17 21:31] VITALS: BP 110/75; PULSE 71; RESP 15; TEMP 97.6
--- NOTE | 2023-02-17 23:08 | HP ---
HISTORY AND PHYSICAL CHIEF COMPLAINT: Chest pain. HISTORY OF PRESENT ILLNESS: This is another admission for this 57-year-old white male. He has a prior history of coronary artery disease and has had a stent placed in the past. He started to have some chest discomfort and came to the emergency room. In the ER, his troponin, EKG, and other labs were normal. He described the pain is radiating into this left arm and was associated with shortness of breath and diaphoresis and some improvement with nitroglycerin. PHYSICAL EXAMINATION: VITAL SIGNS: Blood pressure is 130/85 with a pulse of 71, respirations of 19, and he is afebrile. GENERAL: He appeared to be well developed, well nourished, in no acute distress. SKIN: Color is normal. Skin is warm and dry. LYMPHATICS: Lymph nodes are not enlarged. HEAD, EARS, EYES, NOSE, MOUTH, AND THROAT: Normal. NECK: Neck veins are not distended. Thyroid is not enlarged. CHEST: Clear. CARDIAC: Normal sinus rhythm. No murmurs or extra sounds. ABDOMEN: Soft and nontender. EXTREMITIES: Normal. NEUROLOGIC: Intact. IMPRESSION: He is admitted to the hospital with diagnoses of: 1. Chest pain. 2. History of coronary artery disease with prior stent. PLAN: 1. Bed rest. 2. IV fluids. 3. Serial EKGs and enzymes. 4. Cardiology consult. MMODL / IJN: [id number] /
--- NOTE | 2023-02-17 23:08 | PN ---
PROGRESS NOTE DATE OF SERVICE: 02/15/2023 CHIEF COMPLAINT: Chest pain. HISTORY OF PRESENT ILLNESS: This gentleman is doing well. Chest pain has subsided. He does have a headache from the nitroglycerin. PHYSICAL EXAMINATION: VITAL SIGNS: Normal. CHEST: Clear. CARDIAC: Normal. IMPRESSION: 1. Chest pain. 2. History of coronary artery disease. 3. Headache. 4. History of cardiac stent. PLAN: 1. Stop nitroglycerin paste. 2. Cardiology has further studies planned. MMODL / IJN: [id number] /
--- NOTE | 2023-02-18 04:29 | PN ---
PROGRESS NOTE DATE OF SERVICE: 02/17/2023 CHIEF COMPLAINT: Chest pain. HISTORY OF PRESENT ILLNESS: This gentleman is going down for cardiac cath today. He is still having some chest discomfort. PHYSICAL EXAMINATION: CHEST: Clear. CARDIAC: Normal. IMPRESSION: 1. Chest pain. 2. History of coronary artery disease. PLAN: Cardiac cath today. MMODL / IJN: [id number] /
--- NOTE | 2023-02-18 06:32 | PN ---
PROGRESS NOTE DATE OF SERVICE: 02/16/2023 CHIEF COMPLAINT: Chest pain. HISTORY OF PRESENT ILLNESS: This gentleman is comfortable, doing well. It is believed he is going down for cardiac cath on Friday. PHYSICAL EXAMINATION: CHEST: Clear. CARDIAC: Normal. ABDOMEN: Soft, nontender. IMPRESSION: 1. Chest pain. 2. History of coronary artery disease with previous stents. 3. Nitroglycerin headache. PLAN: 1. Stop nitroglycerin patches. 2. Cardiac cath on Friday. MMODL / IJN: [id number] /
--- NOTE | 2023-02-19 00:35 | DS ---
DISCHARGE SUMMARY CHIEF COMPLAINT: Chest pain. HISTORY OF PRESENT ILLNESS AND PHYSICAL EXAMINATION: Details of this man's history and physical can be found in the initial workup. LABORATORY STUDIES: While he is in the hospital, he had laboratory studies, details of which can be found in the laboratory section of his chart. COURSE IN THE HOSPITAL: After admission, he was placed on bedrest, started on intravenous fluids and seen by Cardiology. He was taken to the labor operator, where he was found to have a narrowed coronary artery and a single stent was placed. He did well. It was felt that by Cardiology he could be discharged that afternoon. He will go home on light activity. I asked him to follow up with us in a day or 2. FINAL DIAGNOSES: 1. Acute coronary syndrome. 2. Coronary artery disease. OPERATIONS: Cardiac cath with stent placement. CONSULTATION: Cardiology. He is improved. MMQASIML / IJN: [id number] /
== END 2023-02-17 21:31 | disposition left against medical advice (07) ==
LOC: EC 10:17 → 6NMEDSUR 11:55
PROVIDERS: ADMIT Family Medicine; ATTEND Family Medicine
DX: I24.9 Acute ischemic heart disease, unspecified (principal); I25.110 Atherosclerotic heart disease of native coronary artery with unstable angina pectoris; G44.40 Drug-induced headache, not elsewhere classified, not intractable; T46.3X5A Adverse effect of coronary vasodilators, initial encounter; I25.2 Old myocardial infarction; I10 Essential (primary) hypertension; E78.5 Hyperlipidemia, unspecified; E03.9 Hypothyroidism, unspecified; K22.70 Barrett's esophagus without dysplasia; K44.9 Diaphragmatic hernia without obstruction or gangrene; K57.90 Diverticulosis of intestine, part unspecified, without perforation or abscess without bleeding; E11.9 Type 2 diabetes mellitus without complications; Z79.02 Long term (current) use of antithrombotics/antiplatelets; Z79.890 Hormone replacement therapy; Z79.84 Long term (current) use of oral hypoglycemic drugs; Z79.4 Long term (current) use of insulin; Z79.82 Long term (current) use of aspirin; Z79.899 Other long term (current) drug therapy; Z95.5 Presence of coronary angioplasty implant and graft; Z87.891 Personal history of nicotine dependence; Z87.442 Personal history of urinary calculi; Z87.11 Personal history of peptic ulcer disease; Z87.19 Personal history of other diseases of the digestive system; Z87.01 Personal history of pneumonia (recurrent); Z98.890 Other specified postprocedural states
CPT/HCPCS: 96376; 96365; 96366 ×3; 99285; 36415; 94760; 93005; 93306; 93458; 93799; 80061; 80053; 80048; 84484; 85025 ×3; 85610 ×3; 85730 ×4; 71046; G0378 ×4; C9600; C1769 ×3; C1887; C1894; C1725; C1874; J2250; J2001; J3010; J1644 ×4; Q9967

== ENCOUNTER 2023-02-20 09:40 | Observation (INO) | payer OTHER ==
[2023-02-20] MEDS ORDERED: NITROGLYCERIN OINT 1 INCH/GM PACKET TOPICAL STA (10:09)
--- NOTE | 2023-02-20 10:14 | ED ---
Chest Pain HPI - General Chief Complaint: Chest Pain Stated Complaint: chest pain,SOB Time Seen by Provider: 02/20/23 10:04 Source: patient, RN notes reviewed Mode of arrival: ambulatory Limitations: no limitations - History of Present Illness Initial Comments: This is a 57-year-old male who presents to the emergency department for chest pain and shortness of breath. Describes this as a tightness and burning sensation in the left side of the chest that started last night. The last time he had chest pain, he required stent placement, which was 3 days ago. This chest pain feels very similar, other than the fact that it is constant, whereas the chest pain he had prior to the stent placement was intermittent. The pain that he had prior to stent placement was also relieved with nitro. However, he states that this time the nitro is only effective for a few minutes before wearing off. When he was here last time he had Nitropaste, which he states was much more effective than the sublingual nitroglycerin. He notes that the chest pain is worse when laying down and improves when standing up. Denies any swelling in the extremities. Denies any fevers, chills, sore throat, cough, palpitations, abdominal pain, nausea, vomiting, diarrhea, back pain, or headaches. MD Complaint: chest pain Onset/Timin -: days(s) - Related Data Home Medications Medication Instructions Recorded Confirmed Metoprolol Tartrate [Lopressor] 50 mg PO BID@0500,1600 12/26/21 02/20/23 Omeprazole 20 mg PO DAILY@0500 12/26/21 02/20/23 Aspirin EC [Ecotrin] 325 mg PO DAILY@49902/14/23 02/20/23 Atorvastatin [Lipitor] 80 mg PO DAILY@49902/14/23 02/20/23 Clopidogrel [Plavix] 75 mg PO DAILY@49902/14/23 02/20/23 Ferrous Sulfate [Feosol] 325 mg PO DAILY@49902/14/23 02/20/23 HYDROcodone/APAP 7.5-325MG [[place] 1 tab PO Q6H PRN 02/20/23 02/20/23 7.5-325] Nitroglycerin Sl Tabs [Nitrostat] 0.4 mg SL Q5M PRN 02/20/23 02/20/23 Allergies Allergy/AdvReac Type Severity Reaction Status Date / Time No Known Allergies Allergy Verified 02/20/23 11:57 Review of Systems ROS Statement: Those systems with pertinent positive or pertinent negative responses have been documented in the HPI. ROS Other: All systems not noted in ROS Statement are negative. Past Medical History Past Medical History: GERD/Reflux, GI Bleed, Hypertension, Pneumonia, Renal Disease Additional Past Medical History / Comment(s): L nephrolithiasis, gallbladder issue, slight hiatal hernia, Wei's esophagus, PUD, upper and lower GI bleeds, diverticular disease, chronic anemia per past medical record but pt does not recall. History of Any Multi-Drug Resistant Organisms: None Reported Past Surgical History: No Surgical Hx Reported Additional Past Surgical History / Comment(s): EGD, colonoscopy Past Anesthesia/Blood Transfusion Reactions: No Reported Reaction Past Psychological History: No Psychological Hx Reported Smoking Status: Former smoker Past Alcohol Use History: None Reported Past Drug Use History: None Reported - Past Family History Father History Unknown: Yes Mother History Unknown: Yes General Exam Limitations: no limitations General appearance: alert, in no apparent distress Head exam: Present: atraumatic, normocephalic, normal inspection Respiratory exam: Present: normal lung sounds bilaterally. Absent: respiratory distress, wheezes, rales, rhonchi, stridor, chest wall tenderness Cardiovascular Exam: Present: regular rate, normal rhythm, normal heart sounds. Absent: systolic murmur, diastolic murmur, rubs, gallop, clicks Neurological exam: Present: alert, oriented X3, CN II-XII intact Psychiatric exam: Present: normal affect, normal mood Skin exam: Present: warm, dry, intact, normal color. Absent: rash Course Vital Signs 02/20/23 09:51 Temperature 98.0 F Pulse Rate 68 Respiratory 20 Rate Blood Pressure 125/83 O2 Sat by Pulse 100 Oximetry Chest Pain MDM - MDM This is a 57-year-old male who presents to the emergency department for chest pain. Was pt. sent in by a medical professional or institution? @ -No Did you speak to anyone other than the patient for history? @ -No Did you review nursing and triage notes? @ -Yes, and I agree, it is accurate with regards to the patient's symptoms. Were old charts reviewed? @ -Yes, admission records from 02/14-02/18, at which time the patient required coronary stent placement. Differential Diagnosis? @ -Differential Chest Pain: Stable Angina, Unstable Angina, STEMI, NSTEMI Aortic Dissection, Pneumothorax, Musculoskeletal, Esophageal Spasm GERD, Cholecystitis, Pancreatitis, Zoster, this is not meant to be an all-inclusive list. EKG interpreted by me (3pts min.)? @ -EKG interpreted by me demonstrating the following: Sinus bradycardia. Ventricular rate 53 beats per minute, MN interval 156 ms, QRS duration 78 ms, QTC 369 ms. X-rays interpreted by me (1pt min.)? @ -Chest x-ray obtained, my interpretation identifies no localized consolidations or infiltrates. CT interpreted by me (1pt min.)? @ -Not obtained U/S interpreted by me (1pt. min.)? @ -Not obtained What testing was considered but not performed? (CT, X-rays, U/S, labs)? Why? @ -None What meds were considered but not given? Why? @ -None Did you discuss the management of the patient with other professionals? @ -Yes, Dr. Novoa, who accepts the patient for admission. Did you reconcile home meds? @ -Yes Was smoking cessation discussed for >3mins.? @ -No Was critical care preformed (if so, how long)? @ -No Were there social determinants of health that impacted care today? How? (Homelessness, low income, unemployed, alcoholism, drug addiction, transportation, low edu. Level, literacy, decrease access to med. care, shelter, rehab)? @ -No Was there de-escalation of care discussed even if they declined? (Discuss DNR or withdrawal of care, Hospice)? @ -No What co-morbidities impacted this encounter? (DM, HTN, Smoking, COPD, CAD, Cancer, CVA, Hep., AIDS, mental health diagnosis, sleep apnea, morbid obesity)? @ -CAD, HTN Was patient admitted / discharged? @ -Admitted. Lab work obtained revealing a minor elevation in liver enzymes. Patient denies any abdominal pain. First troponin is negative. EKG has no notable changes. Nitro paste was applied, which offered significant improvement to the chest pain. He did develop a headache which was managed with Tylenol. Given that the patient had a coronary stent placed 3 days ago and because the chest pain is relieved with nitro, will admit patient to medicine with cardiology consult for further evaluation. Will trend troponins as well. Undiagnosed new problem with uncertain prognosis? @ -None Drug Therapy requiring intensive monitoring for toxicity (Heparin, Nitro, Insulin, Cardizem)? @ -None Were any procedures done? @ -None Diagnosis/symptom? @ -Chest pain Acute, or Chronic, or Acute on Chronic? @ -Acute Uncomplicated (without systemic symptoms) or Complicated (systemic symptoms)? @ -Complicated Side effects of treatment? @ -None Exacerbation, Progression, or Severe Exacerbation] @ -Not applicable Poses a threat to life or bodily function? @ -Yes This case was discussed in detail with the attending ED physician, Dr. Stapleton. Presentation, findings, and treatment plan discussed in detail as well. Disposition Clinical Impression: Chest pain, S/P coronary artery stent placement Disposition: ADMITTED IP TO THIS HOSP
[2023-02-20 10:27] LABS: Basophils % (A) 1 %; Eosinophils # (A) 0.2 k/uL (0-0.7); Eosinophils % (A) 6 %; HCT 43.9 % (39.0-53.0); HGB 14.4 gm/dL (13.0-17.5); Lymphocytes # (A) 0.8 k/uL (1.0-4.8); Lymphocytes % (A) 23 %; MCH 30.6 pg (25.0-35.0); MCHC 32.8 g/dL (31.0-37.0); MCV 93.2 fL (80.0-100.0); Mean Platelet Volume 7.9; Monocytes # (A) 0.2 k/uL (0-1.0); Monocytes % (A) 7 %; Neutrophils # (A) 2.2 k/uL (1.3-7.7); Neutrophils % (A) 62 %; Platelet Count 208 k/uL (150-450); RBC 4.71 m/uL (4.30-5.90); RDW 12.4 % (11.5-15.5); WBC 3.6 k/uL (3.8-10.6)
[2023-02-20 10:36] LABS: Partial Thromboplastin Time 22.3 sec (22.0-30.0); Prothrombin Time 10.7 sec (9.0-12.0)
[2023-02-20 10:42] LABS: ALT 95 U/L (4-49); AST 79 U/L (17-59); African American GFR (CKD) >90 (>60 ml/min/1.73 sqM); Albumin 3.9 g/dL (3.5-5.0); Alkaline Phosphatase 63 U/L (38-126); Anion Gap 7 mmol/L; Blood Urea Nitrogen 14 mg/dL (9-20); Calcium 8.9 mg/dL (8.4-10.2); Carbon Dioxide 27 mmol/L (22-30); Chloride 104 mmol/L (98-107); Glucose 91 mg/dL (74-99); Magnesium 1.8 mg/dL (1.6-2.3); Non-African American GFR(CKD) >90 (>60 ml/min/1.73 sqM); Sodium 138 mmol/L (137-145); Total Bilirubin 1.1 mg/dL (0.2-1.3)
[2023-02-20] MEDS ORDERED: ACETAMINOPHEN TAB 325 MG TAB PO STA (11:30)
--- NOTE | 2023-02-20 11:33 | XR ---
EXAMINATION TYPE: XR chest 2V DATE OF EXAM: 02/20/2023 COMPARISON: 02/14/2023 HISTORY: 57-year-old male with chest pain and shortness of breath TECHNIQUE: PA and lateral views FINDINGS: The cardiomediastinal silhouette, aorta, and pulmonary vasculature are within normal limits. Lungs an d pleural spaces are clear. IMPRESSION: No acute cardiopulmonary process.
[2023-02-20] MEDS ORDERED: NALOXONE 0.4 MG/ML 1 ML VIAL IV PRN (11:35)
[2023-02-20] MEDS ORDERED: ONDANSETRON 4 MG/2 ML VIAL IVP PRN (11:35)
[2023-02-20] MEDS ORDERED: ACETAMINOPHEN TAB 325 MG TAB PO PRN (11:35)
[2023-02-20] MEDS: HYDROcodone/APAP 7.5-325MG 1 EACH TAB PO PRN ×2 (14:03→20:48)
[2023-02-20] MEDS: METOPROLOL TARTRATE 50 MG TAB PO SCH (16:26)
[2023-02-20] MEDS: NITROGLYCERIN OINT 1 INCH/GM PACKET TOPICAL SCH (20:48)
--- NOTE | 2023-02-21 02:08 | HP ---
HISTORY AND PHYSICAL CHIEF COMPLAINT: Chest pain. HISTORY OF PRESENT ILLNESS: This gentleman was just discharged last week after he had cardiac cath with stent placement for unstable angina. Last night he started to notice chest pain again. It seemed to gradually get worse and he came to the emergency room. He did have some diaphoresis and shortness of breath, but no nausea or vomiting. He describes the pain as being typical for his anginal episode and states that this is worst than the pain that he came in with last week. REVIEW OF SYSTEMS: Otherwise normal. Past medical history, family history, and personal and social histories are all otherwise unremarkable or unchanged. These are all otherwise unremarkable or unchanged. PHYSICAL EXAMINATION: SKIN: Warm and dry. HEENT: Head, ears, eyes, nose, throat were normal. CHEST: Clear. CARDIAC: Normal with normal sinus rhythm S3. ABDOMEN: Soft and nontender. EXTREMITIES: Normal. NEUROLOGICAL: He is normal. IMPRESSION: 1. Unstable angina pectoris. 2. Coronary artery disease. 3. Status post recent coronary artery stent. PLAN: 1. Bed rest. 2. Serial EKGs and enzymes. 3. Cardiology consult. MMODL / IJN: [id number] /
[2023-02-21] MEDS: NITROGLYCERIN OINT 1 INCH/GM PACKET TOPICAL SCH (02:41)
[2023-02-21] MEDS: HYDROcodone/APAP 7.5-325MG 1 EACH TAB PO PRN (02:41)
[2023-02-21] MEDS ORDERED: FERROUS SULFATE 325 MG TAB PO SCH (05:00)
[2023-02-21] MEDS ORDERED: PANTOPRAZOLE 40 MG TABLET PO SCH (05:00)
[2023-02-21] MEDS ORDERED: ATORVASTATIN 80 MG TAB PO SCH (05:00)
[2023-02-21] MEDS ORDERED: CLOPIDOGREL 75 MG TAB PO SCH (05:00)
[2023-02-21] MEDS ORDERED: ASPIRIN 325 MG TAB PO SCH (05:00)
[2023-02-21] MEDS: METOPROLOL TARTRATE 50 MG TAB PO SCH (05:06)
[2023-02-21 07:58] VITALS: BP 131/77; RESP 16; TEMP 98.4
[2023-02-21] MEDS: METOPROLOL TARTRATE 25 MG TAB PO SCH ×2 (08:28→09:00)
[2023-02-21] MEDS ORDERED: ISOSORBIDE MONONITRATE ER 30 MG TAB.ER.24H PO SCH (09:00)
[2023-02-21] MEDS ORDERED: EZETIMIBE 10 MG TAB PO SCH (09:00)
[2023-02-21 09:40] VITALS: PULSE 109
--- NOTE | 2023-02-21 10:38 | P.CRDCN ---
History of Present Illness History of present illness: HISTORY OF PRESENT ILLNESS: This is a 57-year-old male with a past medical history significant for coronary artery disease, hypertension, and hyperlipidemia. Patient follows in the office with Dr. Colin. We have been asked to see the patient in consultation for c hest pain. Patient examined at the bedside. Patient states that on Friday afternoon he began to have some burning and tightness in his chest which was similar to his previous heart attack which concerned him. He states he called the cardiology office and he was directed to come to the emergency room. At the time of examination, the patient denies any chest pain or pressure. He denies any shortness of breath. The patient states he is feeling well this morning and is hoping to be discharged home today. The patient ambulated up and down the hallway multiple times this morning with no symptoms. * EKG reveals sinus mechanism with no signs of acute ischemia * Chest xray negative for acute process * Laboratory data: WBC 3.6. Hemoglobin 14.4. Platelet count 208. Sodium 130. Potassium 4.0. B UN 14. Creatinine 0.8. AST 79. ALT 95. Troponin negative 3. * Current home cardiac medications include metoprolol tartrate 50 mg twice a day, Plavix 75 mg daily, Lipitor 80 mg daily, aspirin 325 mg daily * Most recent echocardiogram obtained in January 2023 revealed ejection fraction 55- 60% * Cardiac catheterization history: Patient underwent cardiac catheterization on 02/14/2023 secondary to unstable angina. Patient was found to have 30-40% LAD, proximal OM1 70%, proximal RCA 30-40%, pain mid RCA stent. IFR OM1 was abnormal at 0.86. Patient underwent stenting of the proximal OM1. * Previous cardiac catheterization performed in November 2021 with stenting of the mid RCA. Patient found to have elevated left-sided filling pressures. REVIEW OF SYSTEMS: At the time of my exam: CONSTITUTIONAL: Denies fever or chills. HEENT: Denies blurred vision, vision changes, or eye pain. Denies hemoptysis CARDIOVASCULAR: Denies chest pain. Denies orthopnea. Denies PND. Denies palpitations RESPIRATORY: Denies shortness of breath. GASTROINTESTINAL: Denies abdominal pain. Denies nausea or vomiting. HEMATOLOGIC: Denies bleeding disorders. GENITOURINARY: Denies any blood in urine. SKIN: Denies pruitis. Denies rash. PHYSICAL EXAM: VITAL SIGNS: Reviewed. GENERAL: Well-developed in no acute distress. HEENT: Head is normocephalic. Pupils are equal, round. Sclerae anicteric. Mucous membranes of the mouth are moist. Neck supple. No JVD or thyromegaly LUNGS: Respirations even and unlabored. Lungs essentially clear to auscultation bilaterally. HEART: Regular rate and rhythm. S1 and S2 heard. ABDOMEN: Soft. Nondistended. Nontender. EXTREMITIES: Normal range of motion. No clubbing or cyanosis. Peripheral pulses intact. No lower extremity edema NEUROLOGIC: Awake and alert. Oriented x 3. ASSESSMENT: Chest pain Coronary artery disease with stenting to the mid RCA and OM1 Hypertension Hyperlipidemia PLAN: No need to repeat echocardiogram Resume home cardiac medications Add Imdur 30mg daily and Zetia 10 mg daily Patient may be discharged home today from a cardiac standpoint and follow up in the office with Dr. Colin Nurse practitioner note has been reviewed by physician. Signing provider agrees with the documented findings, assessment, and plan of care. Past Medical History Past Medical History: GERD/Reflux, GI Bleed, Hypertension, Pneumonia, Renal Disease Additional Past Medical History / Comment(s): L nephrolithiasis, gallbladder issue, slight hiatal hernia, Wei's esophagus, PUD, upper and lower GI bleeds, diverticular disease, chronic anemia per past medical record but pt does not recall. History of Any Multi-Drug Resistant Organisms: None Reported Past Surgical History: No Surgical Hx Reported, Heart Catheterization With Stent Additional Past Surgical History / Comment(s): EGD, colonoscopy, heart cath with stent to OM1 02-17-2023 Past Anesthesia/Blood Transfusion Reactions: No Reported Reaction Date of Last Stent Placement:: 02-17-2023 Past Psychological History: No Psychological Hx Reported Additional Psychological History / Comment(s): Pt resides alone in an apartment. He does not drive, he uses the bus system. He is otherwise, independent. Smoking Status: Former smoker Past Alcohol Use History: None Reported Additional Past Alcohol Use History / Comment(s): Pt started smoking in 1989 and quit in 2009 Past Drug Use History: None Reported - Past Family History Father History Unknown: Yes Mother History Unknown: Yes Medications and Allergies Home Medications Medication Instructions Recorded Confirmed Type Metoprolol Tartrate [Lopressor] 50 mg PO BID@0500,1600 12/26/21 02/20/23 History Omeprazole 20 mg PO DAILY@0500 12/26/21 02/20/23 History Aspirin EC [Ecotrin] 325 mg PO DAILY@0500 02/14/23 02/20/23 History Atorvastatin [Lipitor] 80 mg PO DAILY@0500 02/14/23 02/20/23 History Clopidogrel [Plavix] 75 mg PO DAILY@0500 02/14/23 02/20/23 History Ferrous Sulfate [Feosol] 325 mg PO DAILY@0500 02/14/23 02/20/23 History HYDROcodone/APAP 7.5-325MG [[place] 1 tab PO Q6H PRN 02/20/23 02/20/23 History 7.5-325] Nitroglycerin Sl Tabs [Nitrostat] 0.4 mg SL Q5M PRN 02/20/23 02/20/23 History Ezetimibe [Zetia] 10 mg PO DAILY #90 tab 02/21/23 Rx Isosorbide Mononitrate ER [Imdur] 30 mg PO DAILY #90 tab 02/21/23 Rx Allergies Allergy/AdvReac Type Severity Reaction Status Date / Time No Known Allergies Allergy Verified 02/20/23 11:57 Physical Exam Vitals: Vital Signs Temp Pulse Pulse Resp BP BP Pulse Ox 02/21/23 05:05 61 105/69 02/21/23 02:00 97.8 F 52 L 13 113/75 99 02/20/23 20:00 97.9 F 57 L 18 111/67 100 02/20/23 13:43 98.2 F 52 L 16 121/78 96 02/20/23 13:18 50 L 18 115/76 99 02/20/23 12:39 56 L 18 106/73 100 02/20/23 11:30 50 L 18 112/80 100 02/20/23 10:53 98.1 F 56 L 18 102/73 100 02/20/23 09:51 98.0 F 68 20 125/83 100 Intake and Output 02/20/23 02/21/23 02/21/23 22:59 06:59 14:59 Other: # Voids 1 2 Results 02/20/23 10:18 02/20/23 10:18 Cardiac Enzymes 02/20/23 02/20/23 02/20/23 Range/Units 10:18 10:18 14:39 AST 79 H (17-59) U/L Troponin I <0.012 0.015 (0.000-0.034) ng/mL 02/20/23 Range/Units 17:58 AST (17-59) U/L Troponin I 0.013 (0.000-0.034) ng/mL Coagulation 02/20/23 Range/Units 10:18 PT 10.7 (9.0-12.0) sec APTT 22.3 (22.0-30.0) sec CBC 02/20/23 Range/Units 10:18 WBC 3.6 L (3.8-10.6) k/uL RBC 4.71 (4.30-5.90) m/uL Hgb 14.4 (13.0-17.5) gm/dL Hct 43.9 (39.0-53.0) % Plt Count 208 (150-450) k/uL Comprehensive Metabolic Panel 02/20/23 Range/Units 10:18 Sodium 138 (137-145) mmol/L Potassium 4.0 (3.5-5.1) mmol/L Chloride 104 (98-107) mmol/L Carbon Dioxide 27 (22-30) mmol/L BUN 14 (9-20) mg/dL Creatinine 0.88 (0.66-1.25) mg/dL Glucose 91 (74-99) mg/dL Calcium 8.9 (8.4-10.2) mg/dL AST 79 H (17-59) U/L ALT 95 H (4-49) U/L Alkaline Phosphatase 63 (38-126) U/L Total Protein 6.0 L (6.3-8.2) g/dL Albumin 3.9 (3.5-5.0) g/dL Current Medications Generic Name Dose Route Start Last Admin Trade Name Freq PRN Reason Stop Dose Admin Acetaminophen 650 mg 02/20/23 11:35 Acetaminophen Tab 325 Mg Tab PO Q6HR PRN Mild Pain or Fever > 100.5 Hydrocodone Bitart/Acetaminophen 1 each 02/20/23 12:10 02/21/23 02:41 Hydrocodone/Apap 7.5-325mg 1 Each Tab PO 1 each Q6H PRN Administration Pain Aspirin 325 mg 02/21/23 05:00 02/21/23 05:03 Aspirin 325 Mg Tab PO 325 mg DAILY@0500 [facility] Administration Atorvastatin Calcium 80 mg 02/21/23 05:00 02/21/23 05:02 Atorvastatin 80 Mg Tab PO 80 mg DAILY@0500 NITIN Administration Clopidogrel Bisulfate 75 mg 02/21/23 05:00 02/21/23 05:02 Clopidogrel 75 Mg Tab PO 75 mg DAILY@0500 NITIN Administration Ferrous Sulfate 325 mg 02/21/23 05:00 02/21/23 05:02 Ferrous Sulfate 325 Mg Tab PO 325 mg DAILY@0500 [facility] Administration Metoprolol Tartrate 50 mg 02/20/23 16:00 02/21/23 05:06 Metoprolol Tartrate 50 Mg Tab PO Not Given BID@0500,1600 [facility] Naloxone HCl 0.2 mg 02/20/23 11:35 Naloxone 0.4 Mg/Ml 1 Ml Vial IV Q2M PRN Opioid Reversal Nitroglycerin 1 inch 02/20/23 20:30 02/21/23 02:41 Nitroglycerin Oint 1 Inch/Gm Packet TOPICAL 1 inch Q6H [facility] Administration Ondansetron HCl 4 mg 02/20/23 11:35 Ondansetron 4 Mg/2 Ml Vial IVP Q8HR PRN Nausea And Vomiting Pantoprazole Sodium 40 mg 02/21/23 05:00 02/21/23 05:03 Pantoprazole 40 Mg Tablet PO 40 mg DAILY@0500 [facility] Administration Intake and Output 02/20/23 02/21/23 02/21/23 22:59 06:59 14:59 Other: # Voids 1 2 02/20/23 10:18 02/20/23 10:18
[2023-02-22] MEDS ORDERED: ASPIRIN 81 MG PO SCH (05:00)
== END 2023-02-21 11:26 | disposition home or self-care (01) ==
LOC: EC 09:40 → 6NMEDSUR 11:24
PROVIDERS: ADMIT Family Medicine; ATTEND Family Medicine
DX: R07.89 Other chest pain (principal); I25.10 Atherosclerotic heart disease of native coronary artery without angina pectoris; I10 Essential (primary) hypertension; E78.5 Hyperlipidemia, unspecified; R06.02 Shortness of breath; R61 Generalized hyperhidrosis; R00.1 Bradycardia, unspecified; K22.70 Barrett's esophagus without dysplasia; K21.9 Gastro-esophageal reflux disease without esophagitis; K44.9 Diaphragmatic hernia without obstruction or gangrene; K57.90 Diverticulosis of intestine, part unspecified, without perforation or abscess without bleeding; Z79.82 Long term (current) use of aspirin; Z79.02 Long term (current) use of antithrombotics/antiplatelets; Z79.899 Other long term (current) drug therapy; Z87.442 Personal history of urinary calculi; Z87.11 Personal history of peptic ulcer disease; Z87.19 Personal history of other diseases of the digestive system; Z87.891 Personal history of nicotine dependence; Z87.01 Personal history of pneumonia (recurrent); Z98.890 Other specified postprocedural states; Z95.5 Presence of coronary angioplasty implant and graft
CPT/HCPCS: 99285; 36415; 93005; 80053; 83735; 84484; 85025; 85610; 85730; 71046; G0378 ×2

== ENCOUNTER → 2023-02-25 | Outpatient (CLI) | payer OTHER | END | disposition home or self-care (01) | LOC: LABWHC1 14:07 | PROVIDERS: ATTEND Internal Medicine | DX: R07.9 Chest pain, unspecified (principal); R06.02 Shortness of breath | CPT/HCPCS: 36415; 85379 ==

== ENCOUNTER 2023-11-22 11:32 | Emergency (ER) | payer OTHER ==
[2023-11-22] MEDS: ASPIRIN 81 MG PO STA (11:53)
[2023-11-22] MEDS: LORazepam 2 MG/ML INJ IV STA (11:54)
[2023-11-22 11:59] LABS: Basophils % (A) 0 %; Eosinophils # (A) 0.1 k/uL (0-0.7); Eosinophils % (A) 1 %; HCT 37.2 % (39.0-53.0); HGB 12.1 gm/dL (13.0-17.5); Lymphocytes # (A) 0.5 k/uL (1.0-4.8); Lymphocytes % (A) 8 %; MCH 29.1 pg (25.0-35.0); MCHC 32.6 g/dL (31.0-37.0); MCV 89.2 fL (80.0-100.0); Mean Platelet Volume 8.6; Monocytes # (A) 0.2 k/uL (0-1.0); Monocytes % (A) 4 %; Neutrophils # (A) 5.2 k/uL (1.3-7.7); Neutrophils % (A) 85 %; Platelet Count 225 k/uL (150-450); RBC 4.17 m/uL (4.30-5.90); RDW 14.8 % (11.5-15.5); WBC 6.1 k/uL (3.8-10.6)
[2023-11-22 12:04] VITALS: PULSE 65; TEMP 97.9
[2023-11-22 12:19] LABS: ALT 28 U/L (4-49); AST 37 U/L (17-59); African American GFR (CKD) >90 (>60 ml/min/1.73 sqM); Albumin 3.8 g/dL (3.5-5.0); Alkaline Phosphatase 66 U/L (38-126); Anion Gap 6 mmol/L; Blood Urea Nitrogen 17 mg/dL (9-20); Calcium 9.4 mg/dL (8.4-10.2); Carbon Dioxide 20 mmol/L (22-30); Chloride 112 mmol/L (98-107); Glucose 109 mg/dL (74-99); Magnesium 1.8 mg/dL (1.6-2.3); Non-African American GFR(CKD) >90 (>60 ml/min/1.73 sqM); Potassium 4.1 mmol/L (3.5-5.1); Sodium 138 mmol/L (137-145); Total Bilirubin 0.9 mg/dL (0.2-1.3); Total Protein 5.7 g/dL (6.3-8.2)
[2023-11-22 12:25] LABS: Prothrombin Time 10.9 sec (10.0-12.5)
--- NOTE | 2023-11-22 12:27 | XR ---
EXAMINATION TYPE: XR chest 2V DATE OF EXAM: 11/22/2023 12:21 PM CLINICAL INDICATION:Male, 57 years old with history of Chest Pain; [facility] COMPARISON: Chest radiographs from 02/20/2023 TECHNIQUE: XR chest 2V Frontal and lateral views of the chest. FINDINGS: Lungs/Pleura: Left upper lobe 8 mm nodular-like opacity. There is no evidence of pleural effusion, fo vasile consolidation, or pneumothorax. Pulmonary vascularity: Unremarkable. Heart/mediastinum: Cardiomediastinal silhouette is unremarkable. Musculoskeletal: No acute osseous pathology. Other findings: None IMPRESSION: No acute cardiopulmonary disease/process. Left upper lobe 8 mm nodule-like opacity. Finding could represent gown snap versus pulmonary nodule.
[2023-11-22 12:30] LABS: Partial Thromboplastin Time 19.8 sec (22.0-30.0)
--- NOTE | 2023-11-22 12:35 | ED ---
Chest Pain HPI - General Chief Complaint: Chest Pain Stated Complaint: CHEST PAIN Time Seen by Provider: 11/22/23 11:34 Source: patient, EMS, RN notes reviewed Mode of arrival: EMS Limitations: no limitations - History of Present Illness Initial Comments: 57-year-old male presents emergency department chief complaint of chest pain. Patient states that the pain started overnight. Patient states he has had some on and off symptoms. He has left-sided chest discomfort. He does admit that he has significant cardiac history including stents placed last summer. Patient states he used to be on medications for hyperlipidemia and hypertension. Patient denies any fevers chills cough or cold-like symptoms. He does admit that he is trying to wean himself off opiates and states that he stopped and states he has been having withdrawal symptoms. - Related Data Home Medications Medication Instructions Recorded Confirmed Metoprolol Tartrate [Lopressor] 50 mg PO BID@0500,1600 12/26/21 02/20/23 Omeprazole 20 mg PO DAILY@0500 12/26/21 02/20/23 Aspirin EC [Ecotrin] 325 mg PO DAILY@0500 02/14/23 02/20/23 Atorvastatin [Lipitor] 80 mg PO DAILY@0500 02/14/23 02/20/23 Clopidogrel [Plavix] 75 mg PO DAILY@0500 02/14/23 02/20/23 Ferrous Sulfate [Iron (65 MG 325 mg PO DAILY@0500 02/14/23 02/20/23 Elemental)] HYDROcodone/APAP 7.5-325MG [[place] 1 tab PO Q6H PRN 02/20/23 02/20/23 7.5-325] Nitroglycerin Sl Tabs [Nitrostat] 0.4 mg SL Q5M PRN 02/20/23 02/20/23 Previous Rx's Medication Instructions Recorded Ezetimibe [Zetia] 10 mg PO DAILY #90 tab 02/21/23 Isosorbide Mononitrate ER [Imdur] 30 mg PO DAILY #90 tab 02/21/23 Allergies Allergy/AdvReac Type Severity Reaction Status Date / Time No Known Allergies Allergy Verified 11/22/23 11:42 Review of Systems ROS Statement: Those systems with pertinent positive or pertinent negative responses have been documented in the HPI. ROS Other: All systems not noted in ROS Statement are negative. EKG Findings - EKG Comments: EKG Findings:: EKG performed at 11: 42 sinus rhythm rate of 61 AL 156 QRS 83 QT/QTc 384/386 - EKG Results: EKG: interpreted by KENA Past Medical History Past Medical History: GERD/Reflux, GI Bleed, Hypertension, Pneumonia, Renal Disease Additional Past Medical History / Comment(s): L nephrolithiasis, gallbladder issue, slight hiatal hernia, Wei's esophagus, PUD, upper and lower GI bleeds, diverticular disease, chronic anemia per past medical record but pt does not recall. History of Any Multi-Drug Resistant Organisms: None Reported Past Surgical History: No Surgical Hx Reported, Heart Catheterization With Stent Additional Past Surgical History / Comment(s): EGD, colonoscopy, heart cath with stent to OM1 02-17-2023 Past Anesthesia/Blood Transfusion Reactions: No Reported Reaction Date of Last Stent Placement:: 02-17-2023 Past Psychological History: No Psychological Hx Reported Smoking Status: Former smoker Past Alcohol Use History: None Reported Past Drug Use History: None Reported - Past Family History Father History Unknown: Yes Mother History Unknown: Yes General Exam Limitations: no limitations Course Vital Signs 11/22/23 11:34 Temperature 97.9 F Pulse Rate 65 Respiratory 18 Rate Blood Pressure 97/67 O2 Sat by Pulse 99 Oximetry Chest Pain MDM - MDM Was pt. sent in by a medical professional or institution ([facility], [employer]IR, urgent care, hospital, or correction...) When possible be specific @ -No Did you speak to anyone other than the patient for history (EMS, parent, family, police, friend...)? What history was obtained from this source @ -No Did you review nursing and triage notes (agree or disagree)? Why? @ -I reviewed and agree with nursing and triage notes Were old charts reviewed (outside hosp., previous admission, EMS record, old EKG, old radiological studies, urgent care reports/EKG's, correction records)? Report findings @ -No old charts were reviewed Differential Diagnosis (chest pain, altered mental status, abdominal pain women, abdominal pain men, vaginal bleeding, weakness, fever, dyspnea, syncope, headache, dizziness, GI bleed, back pain, seizure, CVA, palpatations, mental health, musculoskeletal)? @ -Differential Chest Pain: Stable Angina, Unstable Angina, STEMI, NSTEMI Aortic Dissection, Pneumothorax, Musculoskeletal, Esophageal Spasm GERD, Cholecystitis, Pancreatitis, Zoster, this is not meant to be an all-inclusive list. EKG interpreted by me (3pts min.). @ -As above X-rays interpreted by me (1pt min.). @ -Chest x-ray shows no acute cardiopulmonary process CT interpreted by me (1pt min.). @ -None done U/S interpreted by me (1pt. min.). @ -None done What testing was considered but not performed or refused? (CT, X-rays, U/S, labs)? Why? @ -None What meds were considered but not given or refused? Why? @ -None Did you discuss the management of the patient with other professionals (professionals i.e. , PA, [employer], lab, RT, psych nurse, nephrology social worker, flotation tender helper, teacher, electronic intelligence officer, protective services case worker)? Give summary @ -No Was smoking cessation discussed for >3mins.? @ -No Was critical care preformed (if so, how long)? @ -No Were there social determinants of health that impacted care today? How? (Homelessness, low income, unemployed, alcoholism, drug addiction, transportation, low edu. Level, literacy, decrease access to med. care, assisted, rehab)? @ -No Was there de-escalation of care discussed even if they declined (Discuss DNR or withdrawal of care, Hospice)? DNR status @ -No What co-morbidities impacted this encounter? (DM, HTN, Smoking, COPD, CAD, Cancer, CVA, ARF, Chemo, Hep., AIDS, mental health diagnosis, sleep apnea, morbid obesity)? @ -CAD hypertension hyperlipidemia Was patient admitted / discharged? Hospital course, mention meds given and route, prescriptions, significant lab abnormalities, going to OR and other pertinent info. @ -Patient left AGAINST MEDICAL ADVICE. Patient recommended to be admitted for cardiac rule out ACS significant cardiac history patient refuses states that he is just withdrawing from his opiates that he wants to leave. Undiagnosed new problem with uncertain prognosis? @ -No Drug Therapy requiring intensive monitoring for toxicity (Heparin, Nitro, Insulin, Cardizem)? @ -No Were any procedures done? @ -No Diagnosis/symptom? @ -Chest pain, opiate withdrawal Acute, or Chronic, or Acute on Chronic? @ -Acute Uncomplicated (without systemic symptoms) or Complicated (systemic symptoms)? @ -Complicated Side effects of treatment? @ -No Exacerbation, Progression, or Severe Exacerbation? @ -No Poses a threat to life or bodily function? How? (Chest pain, [place], [place], pneumonia, PE, COPD, DKA, ARF, appy, cholecystitis, CVA, Diverticulitis, Homicidal, Suicidal, threat to staff... and all critical care pts) @ -Yes possible ACS patient left against medical advice Disposition Clinical Impression: Chest pain, Opiate withdrawal Disposition: LEFT AGAINST MEDICAL ADVICE Referrals: Jeb Novoa MD [Primary Care Provider] - 1-2 days Time of Disposition: 13:10
[2023-11-22 13:29] VITALS: BP 91/65; RESP 16
== END 2023-11-22 13:09 | disposition left against medical advice (07) ==
LOC: EC 11:32
DX: R07.89 Other chest pain (principal); F11.23 Opioid dependence with withdrawal; K21.9 Gastro-esophageal reflux disease without esophagitis; I10 Essential (primary) hypertension; Z87.891 Personal history of nicotine dependence; Z79.899 Other long term (current) drug therapy; Z79.82 Long term (current) use of aspirin; Z53.29 Procedure and treatment not carried out because of patient's decision for other reasons
CPT/HCPCS: 36415; 93005; 80053; 83735; 84484; 85025; 85610; 85730; 71046; 99285; 96374; J2060

== ENCOUNTER 2024-03-17 05:33 | Emergency (ER) | payer OTHER ==
--- NOTE | 2024-03-17 05:51 | ED ---
General Adult HPI <Nakul Hernandez - Last Filed: 03/17/24 07:54> - General Source: EMS, RN notes reviewed, old records reviewed Mode of arrival: EMS Limitations: no limitations <Benjamín Stapleton - Last Filed: 03/18/24 15:02> - General Chief complaint: Abdominal Pain Stated complaint: abd pain Time Seen by Provider: 03/17/24 05:42 - History of Present Illness Initial comments: Patient is a 58-year-old male who presents emergency department complaining of abdominal pain. Has a history of abdominal pain. States this specific pain has been ongoing on and off for the last 2 weeks. States he will get some right flank and right upper quadrant pain but also some lower abdominal pain that appears to extend across the entire lower abdomen. Denies any change in his stooling. Endorses some nausea but no emesis. Denies chest pain or shortness of breath. Does have a past medical history remarkable for kidney stones, hypertension, RI. States his current symptoms feel different than kidney stones. Denies any urinary complaints or dysuria or hematuria. Denies any history of abdominal surgeries. Presents for further evaluation at this time. Was due to have an outpatient gallbladder ultrasound performed however does not think he can wait for that to be completed. No palliative or provocative factors. (Benjamín Stapleton) - Related Data Home Medications Medication Instructions Recorded Confirmed Metoprolol Tartrate [Lopressor] 50 mg PO BID@0500,1600 12/26/21 02/20/23 Omeprazole 20 mg PO DAILY@0500 12/26/21 02/20/23 Aspirin EC [Ecotrin] 325 mg PO DAILY@49902/14/23 02/20/23 Atorvastatin [Lipitor] 80 mg PO DAILY@49902/14/23 02/20/23 Clopidogrel [Plavix] 75 mg PO DAILY@49902/14/23 02/20/23 Ferrous Sulfate [Iron (65 MG 325 mg PO DAILY@49902/14/23 02/20/23 Elemental)] HYDROcodone/APAP 7.5-325MG [[place]anson 1 tab PO Q6H PRN 02/20/23 02/20/23 7.5-325] Nitroglycerin Sl Tabs [Nitrostat] 0.4 mg SL Q5M PRN 02/20/23 02/20/23 Previous Rx's Medication Instructions Recorded Ezetimibe [Zetia] 10 mg PO DAILY #90 tab 02/21/23 Isosorbide Mononitrate ER [Imdur] 30 mg PO DAILY #90 tab 02/21/23 Allergies Allergy/AdvReac Type Severity Reaction Status Date / Time No Known Allergies Allergy Verified 03/17/24 05:41 Review of Systems ROS Other: All systems not noted in ROS Statement are negative. <Nakul Hernandez - Last Filed: 03/17/24 07:54> ROS Other: All systems not noted in ROS Statement are negative. <Benjamín Stapleton - Last Filed: 03/18/24 15:02> ROS Statement: Those systems with pertinent positive or pertinent negative responses have been documented in the HPI. Review of Systems: CONST: Denies fever EYES: Denies blurry vision ENT: Denies nasal congestion C/V: Denies Chest pain RESP: Denies shortness of breath GI: Endorses abdominal pain : Denies dysuria SKIN: Denies rash. MSK: Denies joint pain. NEURO: Denies headache (Benjamín Stapleton) Past Medical History Past Medical History: GERD/Reflux, GI Bleed, Hypertension, Pneumonia, Renal Disease Additional Past Medical History / Comment(s): L nephrolithiasis, gallbladder issue, slight hiatal hernia, Wei's esophagus, PUD, upper and lower GI bleeds, diverticular disease, chronic anemia per past medical record but pt does not recall. History of Any Multi-Drug Resistant Organisms: None Reported Past Surgical History: No Surgical Hx Reported, Heart Catheterization With Stent Additional Past Surgical History / Comment(s): EGD, colonoscopy, heart cath with stent to OM1 02-17-2023 Past Anesthesia/Blood Transfusion Reactions: No Reported Reaction Date of Last Stent Placement:: 02-17-2023 Past Psychological History: No Psychological Hx Reported Smoking Status: Former smoker Past Alcohol Use History: None Reported Past Drug Use History: None Reported - Past Family History Father History Unknown: Yes Mother History Unknown: Yes <Benjamín Stapleton - Last Filed: 03/18/24 15:02> General Exam Limitations: no limitations <Benjamín Stapleton - Last Filed: 03/18/24 15:02> - General Exam Comments Initial Comments: General: Appears in no acute distress. HEAD: Normal with no signs of head trauma. EYES: PERRLA, EOMI, conjunctiva normal, no discharge. ENT: Hearing grossly intact, normal oropharynx. RESPIRATORY: Clear breath sounds bilaterally. No wheezes, rales, or rhonchi. C/V: Regular rate and rhythm. S1 and S2 auscultated, no edema, peripheral pulses 2+ and intact throughout ABD: Abdomen soft, and nondistended. Mild tenderness to palpation in bilateral lower quadrants. No significant right upper quadrant tenderness to palpation. Dubose's point negative. No guarding. No rebound tenderness. No peritoneal signs. EXT: Normal range of motion, no obvious deformity SKIN: No rashes or lesions observed on exposed skin. NEURO: Alert and oriented x 4. (Benjamín Stapleton) Course Vital Signs 03/17/24 03/17/24 03/17/24 05:38 06:12 07:46 Temperature 98 F 97.7 F Pulse Rate 59 L 59 L Respiratory 18 16 Rate Blood Pressure 152/87 137/99 136/88 O2 Sat by Pulse 98 100 Oximetry 03/17/24 08:05 Temperature 97.7 F Pulse Rate 56 L Respiratory 16 Rate Blood Pressure 137/82 O2 Sat by Pulse 100 Oximetry Medical Decision Making - Lab Data Result diagrams: 03/17/24 06:04 03/17/24 06:04 <Nakul Hernandez - Last Filed: 03/17/24 07:54> - Lab Data Result diagrams: 03/17/24 06:04 03/17/24 06:04 - EKG Data -: EKG Interpreted by Vt <Benjamín Stapleton - Last Filed: 03/18/24 15:02> - Medical Decision Making Patient care was signed out at shift change awaiting imaging. Imaging of the right upper quadrant by ultrasound was performed which was negative for acute process. Imaging of the abdomen pelvis by CT was also negative for acute process did show bilateral nephrolithiasis without hydronephrosis. I did reevaluate the patient resting comfortably. Patient reassured and will follow closely with his primary care provider. (Nakul Hernandez) Was pt. sent in by a medical professional or institution (, PA, SHIP PROPELLER FINISHER, urgent care, hospital, or fci...) When possible be specific @ -No Did you speak to anyone other than the patient for history (EMS, parent, family, police, friend...)? What history was obtained from this source @ -No Did you review nursing and triage notes (agree or disagree)? Why? @ -I reviewed and agree with nursing and triage notes Were old charts reviewed (outside hosp., previous admission, EMS record, old EKG, old radiological studies, urgent care reports/EKG's, fci records)? Report findings @ -. Current EKG with EKG from October 2023 and there is no significant change. Differential Diagnosis (chest pain, altered mental status, abdominal pain women, abdominal pain men, vaginal bleeding, weakness, fever, dyspnea, syncope, headache, dizziness, GI bleed, back pain, seizure, CVA, palpatations, mental health, musculoskeletal)? @ -Differential Abdominal Pain Men: Appendicitis, cholecystitis, diverticulosis, ischemic bowel, pancreatitis, hepatitis, UTI, gastroenteritis, AAA, incarcerated hernia, bowel obstruction, constipation, inflammatory bowel, hepatitis, peptic ulcer disease, splenic infarction, perforated viscus, testicular torsion, this is not meant to be an all-inclusive list EKG interpreted by me (3pts min.). @ -As above X-rays interpreted by me (1pt min.). @ -None done CT interpreted by me (1pt min.). @ -Pending U/S interpreted by me (1pt. min.). @ -Pending What testing was considered but not performed or refused? (CT, X-rays, U/S, labs)? Why? @ -None What meds were considered but not given or refused? Why? @ -None Did you discuss the management of the patient with other professionals (professionals i.e. , PA, SHIP PROPELLER FINISHER, lab, RT, psych nurse, mental health social worker, inspector material disposition, teacher, weapons officer naval activity, correctional case records supervisor)? Give summary @ -No Was smoking cessation discussed for >3mins.? @ -No Was critical care preformed (if so, how long)? @ -No Were there social determinants of health that impacted care today? How? (Homelessness, low income, unemployed, alcoholism, drug addiction, transportation, low edu. Level, literacy, decrease access to med. care, retirement, rehab)? @ -No Was there de-escalation of care discussed even if they declined (Discuss DNR or withdrawal of care, Hospice)? DNR status @ -No What co-morbidities impacted this encounter? (DM, HTN, Smoking, COPD, CAD, Cancer, CVA, ARF, Chemo, Hep., AIDS, mental health diagnosis, sleep apnea, morbid obesity)? @ -None Was patient admitted / discharged? Hospital course, mention meds given and route, prescriptions, significant lab abnormalities, going to OR and other pertinent info. @ -Patient presents with abdominal pain. Thinks it may be his gallbladder but he is having lower abdominal pain in addition to right-sided pain. We will obtain abdominal laboratory studies. As it is not yet 7 AM, we will obtain CT imaging of the abdomen pelvis as well as a gallbladder ultrasound as patient is due for this outpatient and would like this completed. I believe this is reasonable. He will be symptomatically treat with IV fluids, Zofran, Protonix, morphine. Vital signs within acceptable limits. Screening EKG will also be obtained. Patient in agreement this plan. EKG showed no signs of acute ischemia. Workup still pending. Signed out to Dr. Hernandez pending results of workup. Undiagnosed new problem with uncertain prognosis? @ -No Drug Therapy requiring intensive monitoring for toxicity (Heparin, Nitro, Insulin, Cardizem)? @ -No Were any procedures done? @ -No Diagnosis/symptom? @ -Abdominal pain Acute, or Chronic, or Acute on Chronic? @ -Acute Uncomplicated (without systemic symptoms) or Complicated (systemic symptoms)? @ -Uncomplicated Side effects of treatment? @ -None Exacerbation, Progression, or Severe Exacerbation] @ -No Poses a threat to life or bodily function? @ -Unlikely (Benjamín Stapleton) - Lab Data Lab Results 03/17/24 03/17/24 03/17/24 Range/Units 06:04 06:04 06:04 WBC 5.7 (3.8-10.6) k/uL RBC 4.30 (4.30-5.90) m/uL Hgb 13.2 (13.0-17.5) gm/dL Hct 40.6 (39.0-53.0) % MCV 94.3 (80.0-100.0) fL MCH 30.7 (25.0-35.0) pg MCHC 32.6 (31.0-37.0) g/dL RDW 14.8 (11.5-15.5) % Plt Count 193 (150-450) k/uL MPV 9.4 Neutrophils % 78 % Lymphocytes % 13 % Monocytes % 4 % Eosinophils % 4 % Basophils % 0 % Neutrophils # 4.4 (1.3-7.7) k/uL Lymphocytes # 0.7 L (1.0-4.8) k/uL Monocytes # 0.2 (0-1.0) k/uL Eosinophils # 0.2 (0-0.7) k/uL Basophils # 0.0 (0-0.2) k/uL PT 10.6 (10.0-12.5) sec INR 1.0 (<1.2) APTT 24.0 (22.0-30.0) sec Sodium 140 (137-145) mmol/L Potassium 4.4 (3.5-5.1) mmol/L Chloride 113 H (98-107) mmol/L Carbon Dioxide 24 (22-30) mmol/L Anion Gap 3 mmol/L BUN 22 H (9-20) mg/dL Creatinine 0.73 (0.66-1.25) mg/dL Est GFR (CKD-EPI)AfAm >90 (>60 ml/min/1.73 sqM) Est GFR (CKD-EPI)NonAf >90 (>60 ml/min/1.73 sqM) Glucose 116 H (74-99) mg/dL Plasma Lactic Acid Krishan (0.7-2.0) mmol/L Calcium 9.1 (8.4-10.2) mg/dL Total Bilirubin 0.8 (0.2-1.3) mg/dL AST 27 (17-59) U/L ALT 20 (4-49) U/L Alkaline Phosphatase 61 (38-126) U/L Total Protein 5.4 L (6.3-8.2) g/dL Albumin 3.6 (3.5-5.0) g/dL Amylase 82 (30-110) U/L Lipase 66 (23-300) U/L Urine Color Urine Appearance (Clear) Urine pH (5.0-8.0) Ur Specific [place] (1.001-1.035) Urine Protein (Negative) Urine Glucose (UA) (Negative) Urine Ketones (Negative) Urine Blood (Negative) Urine Nitrite (Negative) Urine Bilirubin (Negative) Urine Urobilinogen (<2.0) mg/dL Ur Leukocyte Esterase (Negative) Urine RBC (0-5) /hpf Urine WBC (0-5) /hpf Hyaline Casts (0-2) /lpf Urine Mucus (None) /hpf 03/17/24 03/17/24 Range/Units 06:04 06:04 WBC (3.8-10.6) k/uL RBC (4.30-5.90) m/uL Hgb (13.0-17.5) gm/dL Hct (39.0-53.0) % MCV (80.0-100.0) fL MCH (25.0-35.0) pg MCHC (31.0-37.0) g/dL RDW (11.5-15.5) % Plt Count (150-450) k/uL MPV Neutrophils % % Lymphocytes % % Monocytes % % Eosinophils % % Basophils % % Neutrophils # (1.3-7.7) k/uL Lymphocytes # (1.0-4.8) k/uL Monocytes # (0-1.0) k/uL Eosinophils # (0-0.7) k/uL Basophils # (0-0.2) k/uL PT (10.0-12.5) sec INR (<1.2) APTT (22.0-30.0) sec Sodium (137-145) mmol/L Potassium (3.5-5.1) mmol/L Chloride (98-107) mmol/L Carbon Dioxide (22-30) mmol/L Anion Gap mmol/L BUN (9-20) mg/dL Creatinine (0.66-1.25) mg/dL Est GFR (CKD-EPI)AfAm (>60 ml/min/1.73 sqM) Est GFR (CKD-EPI)NonAf (>60 ml/min/1.73 sqM) Glucose (74-99) mg/dL Plasma Lactic Acid Krishan 1.2 (0.7-2.0) mmol/L Calcium (8.4-10.2) mg/dL Total Bilirubin (0.2-1.3) mg/dL AST (17-59) U/L ALT (4-49) U/L Alkaline Phosphatase (38-126) U/L Total Protein (6.3-8.2) g/dL Albumin (3.5-5.0) g/dL Amylase (30-110) U/L Lipase (23-300) U/L Urine Color Light Yellow Urine Appearance Clear (Clear) Urine pH 6.0 (5.0-8.0) Ur Specific [place] 1.027 (1.001-1.035) Urine Protein Negative (Negative) Urine Glucose (UA) Negative (Negative) Urine Ketones Negative (Negative) Urine Blood Moderate H (Negative) Urine Nitrite Negative (Negative) Urine Bilirubin Negative (Negative) Urine Urobilinogen <2.0 (<2.0) mg/dL Ur Leukocyte Esterase Negative (Negative) Urine RBC 5 (0-5) /hpf Urine WBC 2 (0-5) /hpf Hyaline Casts 1 (0-2) /lpf Urine Mucus Rare H (None) /hpf - EKG Data EKG Comments: 12-lead Electrocardiogram Interpretation Note EKG was reviewed and interpreted by myself. 12-lead ECG performed at 0618 is interpreted by me as revealing sinus bradycardia at a rate of 55 beats per minute. [place] is normal. MT interval is 166 ms, QRS duration is 84 ms, QTc is 398 ms.. There were no ST or T wave abnormalities to suggest myocardial ischemia or injury. R wave progression across the precordium was satisfactory. By my interpretation this EKG is non-diagnostic for acute ischemia. (Benjamín Stapleton) Disposition Is patient prescribed a controlled substance at d/c from ED?: No Time of Disposition: 07:54 <Nakul Hernandez - Last Filed: 03/17/24 07:54> <Benjamín Stapleton - Last Filed: 03/18/24 15:02> Clinical Impression: Abdominal pain Disposition: HOME SELF-CARE Condition: Fair Instructions (If sedation given, give patient instructions): Abdominal Pain (ED) Referrals: Jeb Novoa MD [Primary Care Provider] - 1-2 days
[2024-03-17] MEDS: SODIUM CHLORIDE 0.9% 1,000 ML IV STA (06:07)
[2024-03-17] MEDS: PANTOPRAZOLE 40 MG/10 ML VIAL IVP STA (06:09)
[2024-03-17] MEDS: ONDANSETRON 4 MG/2 ML VIAL IVP STA (06:11)
[2024-03-17] MEDS: MORPHINE SULFATE 4 MG/ML SYRINGE IVP STA (06:15)
[2024-03-17 06:29] LABS: ALT 20 U/L (4-49); AST 27 U/L (17-59); African American GFR (CKD) >90 (>60 ml/min/1.73 sqM); Albumin 3.6 g/dL (3.5-5.0); Alkaline Phosphatase 61 U/L (38-126); Amylase 82 U/L (30-110); Anion Gap 3 mmol/L; Blood Urea Nitrogen 22 mg/dL (9-20); Calcium 9.1 mg/dL (8.4-10.2); Carbon Dioxide 24 mmol/L (22-30); Chloride 113 mmol/L (98-107); Glucose 116 mg/dL (74-99); Lipase 66 U/L (23-300); Non-African American GFR(CKD) >90 (>60 ml/min/1.73 sqM); Potassium 4.4 mmol/L (3.5-5.1); Sodium 140 mmol/L (137-145); Total Bilirubin 0.8 mg/dL (0.2-1.3); Total Protein 5.4 g/dL (6.3-8.2)
[2024-03-17 06:39] LABS: Prothrombin Time 10.6 sec (10.0-12.5)
[2024-03-17 06:42] LABS: Basophils % (A) 0 %; Eosinophils # (A) 0.2 k/uL (0-0.7); Eosinophils % (A) 4 %; HCT 40.6 % (39.0-53.0); HGB 13.2 gm/dL (13.0-17.5); Lymphocytes # (A) 0.7 k/uL (1.0-4.8); Lymphocytes % (A) 13 %; MCH 30.7 pg (25.0-35.0); MCHC 32.6 g/dL (31.0-37.0); MCV 94.3 fL (80.0-100.0); Mean Platelet Volume 9.4; Monocytes # (A) 0.2 k/uL (0-1.0); Monocytes % (A) 4 %; Neutrophils # (A) 4.4 k/uL (1.3-7.7); Neutrophils % (A) 78 %; Platelet Count 193 k/uL (150-450); RDW 14.8 % (11.5-15.5); WBC 5.7 k/uL (3.8-10.6)
[2024-03-17 06:58] LABS: Appearance,Urine Clear (Clear); Bilirubin,Urine Negative (Negative); Blood,Urine Moderate (Negative); Color,Urine Light Yellow; Glucose,Urine (UA) Negative (Negative); Hyaline Casts,Urine 1 /lpf (0-2); Ketones,Urine Negative (Negative); Leukocyte Esterase,Urine Negative (Negative); Mucus,Urine Rare /hpf; Nitrite,Urine Negative (Negative); Protein,Urine Negative (Negative); RBC,Urine 5 /hpf (0-5); Specific Gravity,Urine 1.027 (1.001-1.035); Urobilinogen,Urine <2.0 mg/dL (<2.0); WBC,Urine 2 /hpf (0-5)
--- NOTE | 2024-03-17 07:30 | US ---
EXAMINATION TYPE: US gallbladder DATE OF EXAM: 03/17/2024 COMPARISON: NONE CLINICAL INDICATION: Male, 58 years old with history of RUQ pain; RUQ pain x 1.5 weeks TECHNIQUE: Multiple sonographic images of the right upper quadrant are obtained. FINDINGS: EXAM MEASUREMENTS: Liver Length: 16.7 cm Gallbladder Wall: 0.2 cm CBD: 0.8 cm Right Kidney: 10.4 x 4.8 x 5.1 cm Pancreas: wnl Liver: wnl Gallbladder: wnl Evidence for sonographic Dubose's sign: no CBD: wnl Right Kidney: inferior stone 0.9 x 0.7cm IMPRESSION: Nonobstructing right renal calculus noted.
--- NOTE | 2024-03-17 07:46 | CT ---
EXAMINATION TYPE: CT abdomen pelvis w con DATE OF EXAM: 03/17/2024 COMPARISON: 12/15/2018 HISTORY: RUQ pain with nausea and vomiting CT DLP: 661.7 mGycm CONTRAST: CT scan of the abdomen and pelvis is performed without Oral Contrast and with IV Contrast, patient in jected with 100 ml mL of Isovue 300. FINDINGS: LUNG BASES-: No visible nodule. No infiltrate. Small hiatal hernia with thickened distal esophagus c ould reflect esophagitis. LIVER/GB: No calcified gallstones. No space occupying hepatic lesion. Biliary tree is of normal ca liber. PANCREAS: No inflammation. No distinct mass. SPLEEN: No splenic enlargement. No lesion seen. ADRENALS: No nodule. No thickening. KIDNEYS/BLADDER: No hydronephrosis. Bilateral nonobstructing renal calculi with approximately 4 calc [place] on the right measuring up to 7 mm and 4 calculi on the left measuring up to 5 mm. No distinct shania al mass. Urinary bladder grossly unremarkable. BOWEL: Normal appendix. Normal bowel caliber. No inflammation. GENITAL ORGANS: No gross abnormality. LYMPH NODES: No greater than 1cm abdominal or pelvic lymph nodes are appreciated. AORTA: No significant abnormality. OSSEOUS STRUCTURES: No significant abnormality is seen. OTHER: No significant additional abnormality is seen. IMPRESSION: 1. Nonobstructing nephrolithiasis. 2. Small hiatal hernia with thickening of the distal esophagus could reflect esophagitis.
[2024-03-17 07:51] VITALS: RESP 16; TEMP 97.7
[2024-03-17 08:13] VITALS: BP 137/82; PULSE 56
== END 2024-03-17 08:17 | disposition home or self-care (01) ==
LOC: EC 05:33
DX: N20.0 Calculus of kidney (principal); R00.1 Bradycardia, unspecified; Z87.891 Personal history of nicotine dependence
CPT/HCPCS: 36415; 93005; 80053; 82150; 83605; 83690; 85025; 85610; 85730; 81001; 76705; 74177; 99285; 96374; 96375 ×2; 96361 ×2; J2270; J2405; C9113; Q9967

== ENCOUNTER 2024-10-22 10:05 | Observation (INO) | payer OTHER ==
[2024-10-22] MEDS: ASPIRIN 81 MG PO STA (10:27)
[2024-10-22 10:42] LABS: Basophils % (A) 0 %; Eosinophils # (A) 0.2 k/uL (0-0.7); Eosinophils % (A) 3 %; HCT 40.7 % (39.0-53.0); HGB 13.3 gm/dL (13.0-17.5); Lymphocytes # (A) 0.8 k/uL (1.0-4.8); Lymphocytes % (A) 15 %; MCH 30.5 pg (25.0-35.0); MCHC 32.8 g/dL (31.0-37.0); MCV 93.1 fL (80.0-100.0); Mean Platelet Volume 8.2; Monocytes # (A) 0.3 k/uL (0-1.0); Monocytes % (A) 6 %; Neutrophils # (A) 4.2 k/uL (1.3-7.7); Neutrophils % (A) 74 %; Platelet Count 197 k/uL (150-450); RBC 4.37 m/uL (4.30-5.90); RDW 12.9 % (11.5-15.5); WBC 5.6 k/uL (3.8-10.6)
--- NOTE | 2024-10-22 10:42 | XR ---
EXAMINATION TYPE: XR chest 2V DATE OF EXAM: 10/22/2024 10:37 AM COMPARISON: Chest x-ray November 22, 2023 CLINICAL INDICATION: Male, 58 years old with history of Chest Pain, TECHNIQUE: Frontal and lateral views of the chest are obtained. FINDINGS: There is no suspicious focal air space opacity, pleural effusion, or pneumothorax seen. T he cardiac silhouette size is within normal limits. The osseous structures are intact. IMPRESSION: No acute process. [facility], , 10/22/2024 10:39 AM
[2024-10-22 10:57] LABS: ALT 37 U/L (4-49); AST 40 U/L (17-59); African American GFR (CKD) >90 (>60 ml/min/1.73 sqM); Albumin 4.1 g/dL (3.5-5.0); Alkaline Phosphatase 89 U/L (38-126); Anion Gap 10 mmol/L; Blood Urea Nitrogen 18 mg/dL (9-20); Calcium 9.5 mg/dL (8.4-10.2); Carbon Dioxide 25 mmol/L (22-30); Chloride 104 mmol/L (98-107); Glucose 96 mg/dL (74-99); Magnesium 1.9 mg/dL (1.6-2.3); Non-African American GFR(CKD) >90 (>60 ml/min/1.73 sqM); Sodium 139 mmol/L (137-145); Total Protein 6.2 g/dL (6.3-8.2)
[2024-10-22 11:06] LABS: NT-Pro-B-Type Natriuretic Pept 91 pg/mL
--- NOTE | 2024-10-22 11:06 | ED ---
General Adult HPI - General Stated complaint: Chest pain,RENITA Time Seen by Provider: 10/22/24 10:10 Source: patient, RN notes reviewed Mode of arrival: ambulatory Limitations: no limitations - History of Present Illness Initial comments: 58-year-old male presents emerged from complaint of left-sided chest pain. Patient states he had an episode last since morning. Currently symptom-free he did have an GA approximately a year and a half ago with stent placement. Patient denies any nausea vomiting he states he is currently working up for left-sided breast swelling he scheduled for ultrasound and mammogram. Patient denies any fevers chills did have some shortness of breath. - Related Data Home Medications Medication Instructions Recorded Confirmed Metoprolol Tartrate [Lopressor] 50 mg PO BID@0500,1600 12/26/21 10/22/24 Omeprazole 20 mg PO BID@0500,1600 12/26/21 10/22/24 Atorvastatin [Lipitor] 80 mg PO DAILY@0500 02/14/23 10/22/24 Ferrous Sulfate [Iron (65 MG 325 mg PO DAILY@0500 02/14/23 10/22/24 Elemental)] Nitroglycerin Sl Tabs [Nitrostat] 0.4 mg SL Q5M PRN 02/20/23 10/22/24 Aspirin EC [Ecotrin Low Dose] 81 mg PO DAILY 10/22/24 10/22/24 Buprenorphine HCl/Naloxone HCl 0.5 film SL BID@0500,1600 10/22/24 10/22/24 [Suboxone 4 mg-1 mg Sl Film] Ergocalciferol (Vitamin D2) 1,250 mcg PO Q30D 10/22/24 10/22/24 [Drisdol (50,000 Iu)] Ibuprofen [Motrin] 800 mg PO QID PRN 10/22/24 10/22/24 Allergies Allergy/AdvReac Type Severity Reaction Status Date / Time No Known Allergies Allergy Verified 10/22/24 10:55 Review of Systems ROS Statement: Those systems with pertinent positive or pertinent negative responses have been documented in the HPI. ROS Other: All systems not noted in ROS Statement are negative. Past Medical History Past Medical History: GERD/Reflux, GI Bleed, Hypertension, Pneumonia, Renal Disease Additional Past Medical History / Comment(s): L nephrolithiasis, gallbladder issue, slight hiatal hernia, Wei's esophagus, PUD, upper and lower GI bleeds, diverticular disease, chronic anemia per past medical record but pt does not recall. History of Any Multi-Drug Resistant Organisms: None Reported Past Surgical History: No Surgical Hx Reported, Heart Catheterization With Stent Additional Past Surgical History / Comment(s): EGD, colonoscopy, heart cath with stent to OM1 02-17-2023 Past Anesthesia/Blood Transfusion Reactions: No Reported Reaction Date of Last Stent Placement:: 02-17-2023 Past Psychological History: No Psychological Hx Reported Smoking Status: Former smoker Past Alcohol Use History: None Reported Past Drug Use History: None Reported - Past Family History Father History Unknown: Yes Mother History Unknown: Yes General Exam Limitations: no limitations General appearance: alert, in no apparent distress Head exam: Present: atraumatic, normocephalic, normal inspection Eye exam: Present: normal appearance, PERRL, EOMI. Absent: scleral icterus, conjunctival injection, periorbital swelling ENT exam: Present: normal exam, mucous membranes moist Neck exam: Present: normal inspection. Absent: tenderness, meningismus, lymphadenopathy Respiratory exam: Present: normal lung sounds bilaterally. Absent: respiratory distress, wheezes, rales, rhonchi, stridor Cardiovascular Exam: Present: regular rate, normal rhythm, normal heart sounds. Absent: systolic murmur, diastolic murmur, rubs, gallop, clicks GI/Abdominal exam: Present: soft, normal bowel sounds. Absent: distended, tenderness, guarding, rebound, rigid Course Vital Signs 10/22/24 10/22/24 10/22/24 10:19 10:30 11:00 Temperature 98 F Pulse Rate 69 68 64 Respiratory 16 16 14 Rate Blood Pressure 106/71 110/79 113/72 O2 Sat by Pulse 98 99 99 Oximetry 10/22/24 10/22/24 10/22/24 11:49 12:55 13:00 Temperature Pulse Rate 74 75 68 Respiratory 16 18 16 Rate Blood Pressure 115/74 140/94 117/80 O2 Sat by Pulse 98 100 98 Oximetry 10/22/24 14:23 Temperature Pulse Rate 75 Respiratory 16 Rate Blood Pressure 130/68 O2 Sat by Pulse 98 Oximetry EKG Findings - EKG Comments: EKG Findings:: EKG performed at 10: 14 sinus rhythm rate of 69 IN 159 QRS 80 QT/QTc 365/384 - EKG Results: EKG: interpreted by KENA Medical Decision Making - Medical Decision Making Was pt. sent in by a medical professional or institution (, AXEL, DATA INTEGRATION ANALYST, urgent care, hospital, or group home...) When possible be specific @ -No Did you speak to anyone other than the patient for history (EMS, parent, family, police, friend...)? What history was obtained from this source @ -No Did you review nursing and triage notes (agree or disagree)? Why? @ -I reviewed and agree with nursing and triage notes Were old charts reviewed (outside hosp., previous admission, EMS record, old EKG, old radiological studies, urgent care reports/EKG's, group home records)? Report findings @ -No old charts were reviewed Differential Diagnosis (chest pain, altered mental status, abdominal pain women, abdominal pain men, vaginal bleeding, weakness, fever, dyspnea, syncope, headache, dizziness, GI bleed, back pain, seizure, CVA, palpatations, mental health, musculoskeletal)? @ -Differential Chest Pain: Stable Angina, Unstable Angina, STEMI, NSTEMI Aortic Dissection, Pneumothorax, Musculoskeletal, Esophageal Spasm GERD, Cholecystitis, Pancreatitis, Zoster, this is not meant to be an all-inclusive list. EKG interpreted by me (3pts min.). @ -As above X-rays interpreted by me (1pt min.). @ -Chest x-ray shows no acute cardiopulmonary process. CT interpreted by me (1pt min.). @ -None done U/S interpreted by me (1pt. min.). @ -None done What testing was considered but not performed or refused? (CT, X-rays, U/S, labs)? Why? @ -None What meds were considered but not given or refused? Why? @ -None Did you discuss the management of the patient with other professionals (professionals i.e. , AXEL, DATA INTEGRATION ANALYST, lab, RT, psych nurse, social psychologist, coal trimmer machine operator, teacher, budget officer, spring encaser)? Give summary @ -Dr. Aldana for admission Was smoking cessation discussed for >3mins.? @ -No Was critical care preformed (if so, how long)? @ -No Were there social determinants of health that impacted care today? How? (Homelessness, low income, unemployed, alcoholism, drug addiction, transportation, low edu. Level, literacy, decrease access to med. care, fci, rehab)? @ -No Was there de-escalation of care discussed even if they declined (Discuss DNR or withdrawal of care, Hospice)? DNR status @ -No What co-morbidities impacted this encounter? (DM, HTN, Smoking, COPD, CAD, Cancer, CVA, ARF, Chemo, Hep., AIDS, mental health diagnosis, sleep apnea, m orbid obesity)? @ -CAD Was patient admitted / discharged? Hospital course, mention meds given and ro giovanny, prescriptions, significant lab abnormalities, going to OR and other pertinent info. @ -Admit patient mated for chest pain rule out negative for troponin patient does have significant cardiac disease with concern ACS symptoms. Undiagnosed new problem with uncertain prognosis? @ -No Drug Therapy requiring intensive monitoring for toxicity (Heparin, Nitro, Insulin, Cardizem)? @ -No Were any procedures done? @ -No Diagnosis/symptom? @ -Chest pain Acute, or Chronic, or Acute on Chronic? @ -Acute Uncomplicated (without systemic symptoms) or Complicated (systemic symptoms)? @ -Complicated Side effects of treatment? @ -No Exacerbation, Progression, or Severe Exacerbation? @ -No Poses a threat to life or bodily function? How? (Chest pain, USA, GA, pneumonia, PE, COPD, DKA, ARF, appy, cholecystitis, CVA, Diverticulitis, Homicidal, Suicidal, threat to staff... and all critical care pts) @ -Yes possible ACS causing risk to cardiac function - Lab Data Result diagrams: 10/22/24 10:15 10/22/24 10:15 Lab Results 10/22/24 10/22/24 10/22/24 Range/Units 10:15 10:15 10:15 WBC 5.6 (3.8-10.6) k/uL RBC 4.37 (4.30-5.90) m/uL Hgb 13.3 (13.0-17.5) gm/dL Hct 40.7 (39.0-53.0) % MCV 93.1 (80.0-100.0) fL MCH 30.5 (25.0-35.0) pg MCHC 32.8 (31.0-37.0) g/dL RDW 12.9 (11.5-15.5) % Plt Count 197 (150-450) k/uL MPV 8.2 Neutrophils % 74 % Lymphocytes % 15 % Monocytes % 6 % Eosinophils % 3 % Basophils % 0 % Neutrophils # 4.2 (1.3-7.7) k/uL Lymphocytes # 0.8 L (1.0-4.8) k/uL Monocytes # 0.3 (0-1.0) k/uL Eosinophils # 0.2 (0-0.7) k/uL Basophils # 0.0 (0-0.2) k/uL PT 10.9 (10.0-12.5) sec INR 1.0 (<1.2) APTT 22.8 (22.0-30.0) sec Sodium 139 (137-145) mmol/L Potassium 4.0 (3.5-5.1) mmol/L Chloride 104 (98-107) mmol/L Carbon Dioxide 25 (22-30) mmol/L Anion Gap 10 mmol/L BUN 18 (9-20) mg/dL Creatinine 0.76 (0.66-1.25) mg/dL Est GFR (CKD-EPI)AfAm >90 (>60 ml/min/1.73 sqM) Est GFR (CKD-EPI)NonAf >90 (>60 ml/min/1.73 sqM) Glucose 96 (74-99) mg/dL Calcium 9.5 (8.4-10.2) mg/dL Magnesium 1.9 (1.6-2.3) mg/dL Total Bilirubin 1.0 (0.2-1.3) mg/dL AST 40 (17-59) U/L ALT 37 (4-49) U/L Alkaline Phosphatase 89 (38-126) U/L Troponin I (0.000-0.034) ng/mL NT-Pro-B Natriuret Pep 91 pg/mL Total Protein 6.2 L (6.3-8.2) g/dL Albumin 4.1 (3.5-5.0) g/dL 10/22/24 Range/Units 10:15 WBC (3.8-10.6) k/uL RBC (4.30-5.90) m/uL Hgb (13.0-17.5) gm/dL Hct (39.0-53.0) % MCV (80.0-100.0) fL MCH (25.0-35.0) pg MCHC (31.0-37.0) g/dL RDW (11.5-15.5) % Plt Count (150-450) k/uL MPV Neutrophils % % Lymphocytes % % Monocytes % % Eosinophils % % Basophils % % Neutrophils # (1.3-7.7) k/uL Lymphocytes # (1.0-4.8) k/uL Monocytes # (0-1.0) k/uL Eosinophils # (0-0.7) k/uL Basophils # (0-0.2) k/uL PT (10.0-12.5) sec INR (<1.2) APTT (22.0-30.0) sec Sodium (137-145) mmol/L Potassium (3.5-5.1) mmol/L Chloride (98-107) mmol/L Carbon Dioxide (22-30) mmol/L Anion Gap mmol/L BUN (9-20) mg/dL Creatinine (0.66-1.25) mg/dL Est GFR (CKD-EPI)AfAm (>60 ml/min/1.73 sqM) Est GFR (CKD-EPI)NonAf (>60 ml/min/1.73 sqM) Glucose (74-99) mg/dL Calcium (8.4-10.2) mg/dL Magnesium (1.6-2.3) mg/dL Total Bilirubin (0.2-1.3) mg/dL AST (17-59) U/L ALT (4-49) U/L Alkaline Phosphatase (38-126) U/L Troponin I <0.012 (0.000-0.034) ng/mL NT-Pro-B Natriuret Pep pg/mL Total Protein (6.3-8.2) g/dL Albumin (3.5-5.0) g/dL Disposition Clinical Impression: Chest pain Disposition: ADMITTED IP TO THIS HOSP Condition: Fair Time of Disposition: 12:25
[2024-10-22 11:07] LABS: Partial Thromboplastin Time 22.8 sec (22.0-30.0); Prothrombin Time 10.9 sec (10.0-12.5)
[2024-10-22] MEDS ORDERED: NITROGLYCERIN SL TABS 0.4 MG TAB SUBLINGUAL PRN (12:24)
[2024-10-22] MEDS: BUPRENORPHINE-NALOX 8-2 MG TAB 1 EACH TAB.SUBL SL SCH (14:15)
[2024-10-22] MEDS: METOPROLOL TARTRATE 50 MG TAB PO SCH (16:07)
--- NOTE | 2024-10-22 16:34 | CA ---
Transthoracic Echo Report Name: Javon Velásquez Age: 58 Gender: M : 1965 Exam Date: 10/22/2024 14:06 Exam Location: [place] Echo Ht (in): 70 Wt (lb): 155 Ordering Physician: Kelvin Chi Attending/Referring Phys: [id number], Alon Web Content Writer Lynn Chavez, GHAZAL Procedure CPT: Indications: Chest Pain Cardiac Hx: Technical Quality: Good Contrast 1: Total Dose (mL): Contrast 2: Total Dose (mL): MEASUREMENTS (Male / Female) Normal Values 2D ECHO LV Diastolic Diameter PLAX 4.4 cm 4.2 - 5.9 / 3.9 - 5.3 cm LV Systolic Diameter PLAX 2.6 cm IVS Diastolic Thickness 1.2 cm 0.6 - 1.0 / 0.6 - 0.9 cm LVPW Diastolic Thickness 1.1 cm 0.6 - 1.0 / 0.6 - 0.9 cm LV Relative Wall Thickness 0.5 RV Internal Dim ED PLAX 2.9 cm LA Systolic Diameter LX 3.1 cm 3.0 - 4.0 / 2.7 - 3.8 cm LV Diastolic Volume MOD BP 68.7 cm??? 67 - 155 / 56 - 104 cm??? LV Systolic Volume MOD BP 18.3 cm??? 22 - 58 / 19 - 49 cm??? LV Ejection Fraction MOD BP 73.4 % >= 55 % LV Cardiac Index MOD BP 1758.3 cm???/min???m??? LV Diastolic Volume MOD 4C 76.8 cm??? LV Systolic Volume MOD 4C 20.5 cm??? LV Ejection Fraction MOD 4C 73.3 % LV Cardiac Index MOD 4C 1963.8 cm???/min???m??? LV Diastolic Length 4C 6.9 cm LV Systolic Length 4C 5.0 cm LV Diastolic Volume MOD 2C 59.9 cm??? LV Systolic Volume MOD 2C 15.3 cm??? LV Ejection Fraction MOD 2C 74.5 % LV Cardiac Index MOD 2C 1558.1 cm???/min???m??? LV Diastolic Length 2C 6.6 cm LV Systolic Length 2C 5.4 cm LA Volume 41.9 cm??? 18 - 58 / 22 - 52 cm??? LA Volume Index 22.5 cm???/m??? 16 - 28 cm???/m??? M-MODE Aortic Root Diameter MM 3.1 cm LA Systolic Diameter MM 2.9 cm LA Ao Ratio MM 0.9 AV Cusp Separation MM 2.1 cm DOPPLER MV Area PHT 3.0 cm??? Mitral E Point Velocity 77.2 cm/s Mitral A Point Velocity 103.1 cm/s Mitral E to A Ratio 0.7 MV Deceleration Time 255.9 ms TR Peak Velocity 238.3 cm/s TR Peak Gradient 22.7 mmHg FINDINGS Left Ventricle Left ventricular ejection fraction is estimated at 55-60%. Mildly increased septal wall thickness. Normal left ventricular systolic function with no obvious regional wall motion abnormalities. Left ventricular cavity size normal. Right Ventricle Normal right ventricular size and function. Right ventricular systolic pressure within normal limits. Right Atrium Normal right atrial size. Left Atrium Normal left atrial size. Mitral Valve Structurally normal mitral valve. Trace to mild mitral regurgitation. No mitral stenosis. Aortic Valve Trileaflet aortic valve. Trace aortic regurgitation. No aortic stenosis. Tricuspid Valve Structurally normal tricuspid valve. No tricuspid stenosis. Trace tricuspid regurgitation. Pulmonic Valve Structurally normal pulmonic valve. Trace pulmonic regurgitation. No pulmonic stenosis. Pericardium No pericardial or pleural effusion. Aorta Normal size aortic root and proximal ascending aorta. CONCLUSIONS Left ventricular ejection fraction 55-60% Mildly increased left ventricular wall thickness Trace to mild mitral regurgitation Trace tricuspid regurgitation No pericardial effusion Previewed by: Dr. John Colin DO (Electronically Signed) Final Date: 22 October 2024 16:33
[2024-10-23] MEDS: PANTOPRAZOLE 40 MG TABLET PO SCH (07:02)
[2024-10-23] MEDS: FERROUS SULFATE 325 MG TAB PO SCH (07:04)
[2024-10-23] MEDS: ATORVASTATIN 80 MG TAB PO SCH (07:04)
[2024-10-23] MEDS: ASPIRIN 325 MG TAB PO SCH (08:59)
--- NOTE | 2024-10-23 10:01 | P.CRDCN ---
History of Present Illness Consult date: 10/23/24 Consult reason: chest pain History of present illness: This is a 58-year-old male patient of Dr. Colin with past medical history of hypertension, palpitations, hyperlipidemia coronary artery disease status post inferior wall MO in 12/26/2021, mild cardiomyopathy with EF of 45 to 50%, left breast mass. We have been asked to evaluate the patient for chest pain. Patient was last seen in the office on 08/17/2024 and at that time patient was scheduled for stress test in early October. Patient states that he is walking and finding that he is gasping for breath. He states this has been going on for a month or so and continues to get worse. He states it was significantly worse on Friday. Patient also had some shortness of breath with this. No fever or chills. Blood pressure 99/65, heart rate 56, pulse ox 99% on room air. Regarding the breast mass, patient is scheduled for mammogram/ultrasound. -EKG: Sinus rhythm with no acute ST-T wave changes. -Chest x-ray: No acute process -Laboratory studies: CBC INR electrolytes and renal function all within normal limits. proBNP 91, troponins negative x 3. -Home cardiac medications: Aspirin 81 mg daily, atorvastatin 80 mg daily, metoprolol tartrate 50 mg twice daily, Nitrostat as needed. -Cardiac catheterization performed January/2023 revealed CAD with 30 to 40% LAD, proximal OM1 70%, proximal RCA 30 to 40%, patent mid RCA stent, IFR of OM1 was abnormal at 0.86 and underwent PCI of the proximal OM1. -Echocardiogram performed on this admission reveals EF of 55 to 60%, trace to mild mitral regurgitation, trace tricuspid regurgitation, no pericardial effusion. Review Of Systems: At the time of my exam: CONSTITUTIONAL: Denies fever or chills. HEENT: Denies blurred vision, vision changes, or eye pain. Denies hemoptysis CARDIOVASCULAR: Denies chest pain. Denies orthopnea. Denies PND. Denies palpitations RESPIRATORY: Denies shortness of breath. GASTROINTESTINAL: Denies abdominal pain. Denies nausea or vomiting. HEMATOLOGIC: Denies bleeding disorders. GENITOURINARY: Denies any blood in urine. SKIN: Denies puritis. Denies rash. Physical examination: Gen: This is 58-year-old male in no acute distress VS: reviewed HEENT: Head is atraumatic, normocephalic. Pupils equal, round. Sclerae is anicteric. NECK: Supple. No JVD. LUNGS: Clear to auscultation. No wheezes or rhonchi. No intercostal retractions. HEART: Regular rate and rhythm. No murmur. ABDOMEN: Soft No tenderness. EXTREMITIES: No pedal edema. No calf tenderness. NEUROLOGICAL: Patient is awake, alert and oriented x3. Assessment: Dyspnea on exertion Atypical chest pain, acute coronary syndrome ruled out Rule out coronary artery disease with dyspnea on exertion and chest pain Known history of coronary artery disease status post inferior wall MO 11/2021 with previous stenting, most recent PCI of the proximal OM1 01/2023 Hypertension Hyperlipidemia Palpitations Mild ischemic cardiomyopathy with previous EF of 45 to 50% Left breast mass being worked up as an outpatient Plan: Resume patient's home cardiac medications Schedule patient for stress echocardiogram on Friday Further recommendations to follow based upon clinical course Thank you kindly for this consultation. Nurse practitioner note has been reviewed, I agree with documented findings and plan of care. Patient was seen and examined. Past Medical History Past Medical History: GERD/Reflux, GI Bleed, Hypertension, Pneumonia, Renal Disease Additional Past Medical History / Comment(s): L nephrolithiasis, gallbladder issue, slight hiatal hernia, Wei's esophagus, PUD, upper and lower GI bleeds, diverticular disease, chronic anemia per past medical record but pt does not recall. History of Any Multi-Drug Resistant Organisms: None Reported Past Surgical History: No Surgical Hx Reported, Heart Catheterization With Stent Additional Past Surgical History / Comment(s): EGD, colonoscopy, heart cath with stent to OM1 02-17-2023 Past Anesthesia/Blood Transfusion Reactions: No Reported Reaction Date of Last Stent Placement:: 02-17-2023 Past Psychological History: No Psychological Hx Reported Smoking Status: Former smoker Past Alcohol Use History: None Reported Past Drug Use History: None Reported - Past Family History Father History Unknown: Yes Mother History Unknown: Yes Medications and Allergies Home Medications Medication Instructions Recorded Confirmed Type Metoprolol Tartrate [Lopressor] 50 mg PO BID@0500,1600 12/26/21 10/22/24 History Omeprazole 20 mg PO BID@0500,1600 12/26/21 10/22/24 History Atorvastatin [Lipitor] 80 mg PO DAILY@0500 02/14/23 10/22/24 History Ferrous Sulfate [Iron (65 MG 325 mg PO DAILY@0500 02/14/23 10/22/24 History Elemental)] Nitroglycerin Sl Tabs [Nitrostat] 0.4 mg SL Q5M PRN 02/20/23 10/22/24 History Aspirin EC [Ecotrin Low Dose] 81 mg PO DAILY 10/22/24 10/22/24 History Buprenorphine HCl/Naloxone HCl 0.5 film SL BID@0500,1600 10/22/24 10/22/24 History [Suboxone 4 mg-1 mg Sl Film] Ergocalciferol (Vitamin D2) 1,250 mcg PO Q30D 10/22/24 10/22/24 History [Drisdol (50,000 Iu)] Ibuprofen [Motrin] 800 mg PO QID PRN 10/22/24 10/22/24 History Allergies Allergy/AdvReac Type Severity Reaction Status Date / Time No Known Allergies Allergy Verified 10/22/24 10:55 Physical Exam Vitals: Vital Signs Temp Pulse Pulse Resp BP BP Pulse Ox 10/23/24 02:09 97.5 F L 56 L 16 99/65 99 10/22/24 19:33 98.1 F 69 17 105/69 98 10/22/24 15:00 98.9 F 99 16 123/74 99 10/22/24 14:23 75 16 130/68 98 10/22/24 13:00 68 16 117/80 98 10/22/24 12:55 75 18 140/94 100 10/22/24 11:49 74 16 115/74 98 10/22/24 11:00 64 14 113/72 99 10/22/24 10:30 68 16 110/79 99 10/22/24 10:19 98 F 69 16 106/71 98 Intake and Output 10/22/24 10/23/24 10/23/24 22:59 06:59 14:59 Other: Voiding Method Toilet Toilet Toilet # Voids 1 3 Weight 70.307 kg Results 10/22/24 10:15 10/22/24 10:15 Cardiac Enzymes 10/22/24 10/22/24 10/22/24 Range/Units 10:15 10:15 12:37 AST 40 (17-59) U/L Troponin I <0.012 <0.012 (0.000-0.034) ng/mL 10/22/24 Range/Units 14:56 AST (17-59) U/L Troponin I <0.012 (0.000-0.034) ng/mL Coagulation 10/22/24 Range/Units 10:15 PT 10.9 (10.0-12.5) sec APTT 22.8 (22.0-30.0) sec CBC 10/22/24 Range/Units 10:15 WBC 5.6 (3.8-10.6) k/uL RBC 4.37 (4.30-5.90) m/uL Hgb 13.3 (13.0-17.5) gm/dL Hct 40.7 (39.0-53.0) % Plt Count 197 (150-450) k/uL Comprehensive Metabolic Panel 10/22/24 Range/Units 10:15 Sodium 139 (137-145) mmol/L Potassium 4.0 (3.5-5.1) mmol/L Chloride 104 (98-107) mmol/L Carbon Dioxide 25 (22-30) mmol/L BUN 18 (9-20) mg/dL Creatinine 0.76 (0.66-1.25) mg/dL Glucose 96 (74-99) mg/dL Calcium 9.5 (8.4-10.2) mg/dL AST 40 (17-59) U/L ALT 37 (4-49) U/L Alkaline Phosphatase 89 (38-126) U/L Total Protein 6.2 L (6.3-8.2) g/dL Albumin 4.1 (3.5-5.0) g/dL Current Medications Generic Name Dose Route Start Last Admin Trade Name Freq PRN Reason Stop Dose Admin Aspirin 325 mg 10/23/24 09:00 10/23/24 08:59 Aspirin 325 Mg Tab PO 325 mg DAILY NITIN Administration Atorvastatin Calcium 80 mg 10/23/24 05:00 10/23/24 07:04 Atorvastatin 80 Mg Tab PO 80 mg DAILY@0500 NITIN Administration Buprenorphine/Naloxone 0.25 each 10/22/24 16:00 10/23/24 07:12 Buprenorphine-Nalox 8-2 Mg Tab 1 Each Tab.Subl SL 0.25 each BID@0500,1600 NITIN Administration Ergocalciferol 1,250 mcg 10/30/24 06:00 Ergocalciferol 1,250 Mcg (50,000 Iu) Capsule PO Q30D [facility] Ferrous Sulfate 325 mg 10/23/24 05:00 10/23/24 07:04 Ferrous Sulfate 325 Mg Tab PO 325 mg DAILY@0500 [facility] Administration Metoprolol Tartrate 50 mg 10/22/24 16:00 10/23/24 07:03 Metoprolol Tartrate 50 Mg Tab PO 50 mg BID@0500,1600 [facility] Administration Nitroglycerin 0.4 mg 10/22/24 12:24 Nitroglycerin Sl Tabs 0.4 Mg Tab SUBLINGUAL Q5M PRN Chest Pain Pantoprazole Sodium 40 mg 10/23/24 07:30 10/23/24 07:02 Pantoprazole 40 Mg Tablet PO 40 mg [id number] [facility] Administration Intake and Output 10/22/24 10/23/24 10/23/24 22:59 06:59 14:59 Other: Voiding Method Toilet Toilet Toilet # Voids 1 3 Weight 70.307 kg 10/22/24 10:15 10/22/24 10:15
[2024-10-23 10:18] LABS: Chol/HDL Ratio 2.11 Ratio; LDL Cholesterol,Calculated 49.7 mg/dL (0.0-131.0); VLDL Calculation 6.74 mg/dL (5.00-40.00)
--- NOTE | 2024-10-23 14:03 | P.HPIM ---
History of Present Illness H&P Date: 10/23/24 History of present illness: IN and PCI of the proximal OM1 in January 2023, ischemic cardiomyopathy with EF 30 to 40% who presented to ER with a complaint of left-sided chest pain and shortness of breath. Patient stated that chest pain is worse with laying flat, was radiating to left shoulder or arm, was concerned that it was attributed to his left breast mass for which patient is following outpatient. Patient also reported that he is having progressive shortness of breath for more than a week. Vital stable EKG showed sinus rhythm with no acute ST to T wave changes. Chest x-ray negative for acute process Troponin negative X.3. Labs unremarkable. Echocardiogram showed EF 50 to 60%, trace to mild mitral regurg, trace TR, no pericardial effusion. Assessment and plan: Dyspnea on exertion: Atypical chest pain: History of coronary artery disease/PCI in January 2023 Hypertension Hyperlipidemia Palpitations Mild ischemic cardiomyopathy with a EF 45 to 50% Left breast massfollowing with outpatient, scheduled for ultrasound and mammogram as outpatient Continue home meds Aspirin, statin, Lopressor, sublingual nitroglycerin Monitor labs and vitals Repeat echocardiogram done/reviewed Cardiology consultedplan for stress test on Friday DVT prophylaxis Subcutaneous Lovenox Monitor vital signs and labs Labs and medication were reviewed. Continue same treatment. Further recommendations as per clinical course of the patient PHYSICAL EXAMINATION: GENERAL: The patient is A&O x3, NAD HEENT: EOMI, Sclerae anicteric, Moist Mucous membranes Neck: Supple, Non tender, No JVD PULMONARY: Equal breath souds B/L, No wheezing, No crackles. CARDIOVASCULAR: S1, S2 present. No murmurs, rubs, or gallops. ABDOMEN: Soft, nontender, nondistended, normoactive bowel sounds. No guarding or rebound tenderness. MUSCULOSKELETAL: No edema, No cyanosis. No clubbing. Normal ROM. Intact peripheral pulses. NEUROLOGICAL: CN 2-12 grossly intact. No FND REVIEW OF SYSTEMS: CONSTITUTIONAL: No fever, no malaise, no fatigue. HEENT: No recent visual problems or hearing problems. Denied any sore throat. CARDIOVASCULAR: No chest pain, orthopnea, PND, no palpitations, no syncope. PULMONARY: No shortness of breath, no cough, no hemoptysis. GASTROINTESTINAL: No diarrhea, no nausea, no vomiting, no abdominal pain. NEUROLOGICAL: No headaches, no weakness, no numbness. HEMATOLOGICAL: Denies any bleeding or petechiae. GENITOURINARY: Denies any burning micturition, frequency, or urgency. MUSCULOSKELETAL/RHEUMATOLOGICAL: Denies any joint pain, swelling, or any muscle pain. ENDOCRINE: Denies any polyuria or polydipsia. The rest of the 14-point review of systems is negative. Dictation was produced using [employer] dictation software. please excuse any grammatical, word or spelling errors. Past Medical History Past Medical History: GERD/Reflux, GI Bleed, Hypertension, Pneumonia, Renal Disease Additional Past Medical History / Comment(s): L nephrolithiasis, gallbladder issue, slight hiatal hernia, Wei's esophagus, PUD, upper and lower GI bleeds, diverticular disease, chronic anemia per past medical record but pt does not recall. History of Any Multi-Drug Resistant Organisms: None Reported Past Surgical History: No Surgical Hx Reported, Heart Catheterization With Stent Additional Past Surgical History / Comment(s): EGD, colonoscopy, heart cath with stent to OM1 02-17-2023 Past Anesthesia/Blood Transfusion Reactions: No Reported Reaction Date of Last Stent Placement:: 02-17-2023 Past Psychological History: No Psychological Hx Reported Smoking Status: Former smoker Past Alcohol Use History: None Reported Past Drug Use History: None Reported - Past Family History Father History Unknown: Yes Mother History Unknown: Yes Medications and Allergies Home Medications Medication Instructions Recorded Confirmed Type Metoprolol Tartrate [Lopressor] 50 mg PO BID@0500,1600 12/26/21 10/22/24 History Omeprazole 20 mg PO BID@0500,1600 12/26/21 10/22/24 History Atorvastatin [Lipitor] 80 mg PO DAILY@0500 02/14/23 10/22/24 History Ferrous Sulfate [Iron (65 MG 325 mg PO DAILY@0500 02/14/23 10/22/24 History Elemental)] Nitroglycerin Sl Tabs [Nitrostat] 0.4 mg SL Q5M PRN 02/20/23 10/22/24 History Aspirin EC [Ecotrin Low Dose] 81 mg PO DAILY 10/22/24 10/22/24 History Buprenorphine HCl/Naloxone HCl 0.5 film SL BID@0500,1600 10/22/24 10/22/24 History [Suboxone 4 mg-1 mg Sl Film] Ergocalciferol (Vitamin D2) 1,250 mcg PO Q30D 10/22/24 10/22/24 History [Drisdol (50,000 Iu)] Ibuprofen [Motrin] 800 mg PO QID PRN 10/22/24 10/22/24 History Allergies Allergy/AdvReac Type Severity Reaction Status Date / Time No Known Allergies Allergy Verified 10/22/24 10:55 Physical Exam Vitals: Vital Signs Temp Pulse Pulse Resp BP BP BP 10/23/24 12:24 10/23/24 07:40 98.1 F 62 17 115/65 10/23/24 02:09 97.5 F L 56 L 16 99/65 10/22/24 19:33 98.1 F 69 17 105/69 10/22/24 15:00 98.9 F 99 16 123/74 10/22/24 14:23 75 16 130/68 Pulse Ox 10/23/24 12:24 98 10/23/24 07:40 98 10/23/24 02:09 99 10/22/24 19:33 98 10/22/24 15:00 99 10/22/24 14:23 98 Intake and Output 10/22/24 10/23/24 10/23/24 22:59 06:59 14:59 Other: Voiding Method Toilet Toilet Toilet # Voids 1 3 Weight 70.307 kg Results CBC & Chem 7: 10/22/24 10:15 10/22/24 10:15 Thrombosis Risk Factor Assmnt - Choose All That Apply Each Risk Factor Represents 2 Points: Age 61-74 years Thrombosis Risk Factor Assessment Total Risk Factor Score: 2 Thrombosis Risk Factor Assessment Level: Low Risk
[2024-10-24] MEDS: ENOXAPARIN 40 MG/0.4 ML SYRINGE SQ SCH (08:36)
[2024-10-24] MEDS: ASPIRIN 81 MG PO SCH (08:36)
[2024-10-24 09:36] LABS: Basophils # (A) 0.02 X 10*3/uL (0.00-0.10); Basophils % (A) 0.4 %; Eosinophils # (A) 0.21 X 10*3/uL (0.04-0.35); Eosinophils % (A) 4.1 %; HCT 41.9 % (39.6-50.0); HGB 13.6 g/dL (13.0-17.0); Lymphocytes # (A) 0.76 X 10*3/uL (0.90-5.00); Lymphocytes % (A) 14.8 %; MCH 30.7 pg (27.0-32.0); MCHC 32.5 g/dL (32.0-37.0); MCV 94.6 FL (80.0-97.0); Mean Platelet Volume 10.8 FL (9.5-12.2); Monocytes # (A) 0.39 X 10*3/uL (0.20-1.00); Monocytes % (A) 7.6 %; NRBC Per 100 WBC 0 X 10*3/uL (0.00-0.01); Neutrophils # (A) 3.74 X 10*3/uL (1.80-7.70); Neutrophils % (A) 72.9 %; Platelet Count 219 X 10*3/uL (140-440); RBC 4.43 X 10*6/uL (4.40-5.60); RDW 12.7 % (11.5-14.5); WBC 5.13 X 10*3/uL (4.50-10.00)
[2024-10-24 09:59] LABS: Blood Urea Nitrogen 20.2 mg/dL (9.0-27.0); Calcium 9.3 mg/dL (8.7-10.3); Carbon Dioxide 26.2 mmol/L (21.6-31.8); Chloride 107 mmol/L (96-109); Glucose 100 mg/dL (70-110); Sodium 141 mmol/L (135-145)
--- NOTE | 2024-10-24 12:00 | P.PN ---
Subjective Progress Note Date: 10/24/24 Consult reason: chest pain History of present illness: This is a 58-year-old male patient of Dr. Colin with past medical history of hypertension, palpitations, hyperlipidemia coronary artery disease status post inferior wall [place] in 12/26/2021, mild cardiomyopathy with EF of 45 to 50%, left breast mass. We have been asked to evaluate the patient for chest pain. Patient was last seen in the office on 08/17/2024 and at that time patient was scheduled for stress test in early October. Patient states that he is walking and finding that he is gasping for breath. He states this has been going on for a month or so and continues to get worse. He states it was significantly worse on Friday. Patient also had some shortness of breath with this. No fever or chills. Blood pressure 99/65, heart rate 56, pulse ox 99% on room air. Regarding the breast mass, patient is scheduled for mammogram/ultrasound. -EKG: Sinus rhythm with no acute ST-T wave changes. -Chest x-ray: No acute process -Laboratory studies: CBC INR electrolytes and renal function all within normal limits. proBNP 91, troponins negative x 3. -Home cardiac medications: Aspirin 81 mg daily, atorvastatin 80 mg daily, metoprolol tartrate 50 mg twice daily, Nitrostat as needed. -Cardiac catheterization performed January/2023 revealed CAD with 30 to 40% LAD, proximal OM1 70%, proximal RCA 30 to 40%, patent mid RCA stent, IFR of OM1 was abnormal at 0.86 and underwent PCI of the proximal OM1. -Echocardiogram performed on this admission reveals EF of 55 to 60%, trace to mild mitral regurgitation, trace tricuspid regurgitation, no pericardial effusion. 10/24 Patient seen and examined. Patient has been scheduled for stress echocardiogram for tomorrow morning. Patient is to be n.p.o. after midnight. Patient denies having any chest pain at this time. Blood pressure 107/70, heart rate 62, pulse ox 99% on room air. Repeat blood work reveals a normal CBC. Electrolytes and renal function are normal. Triglycerides 33, cholesterol 107, LDL 49, HDL 50. Physical examination: Gen: This is 58-year-old male in no acute distress VS: reviewed HEENT: Head is atraumatic, normocephalic. Pupils equal, round. Sclerae is anicteric. NECK: Supple. No JVD. LUNGS: Clear to auscultation. No wheezes or rhonchi. No intercostal retractions. HEART: Regular rate and rhythm. No murmur. ABDOMEN: Soft No tenderness. EXTREMITIES: No pedal edema. No calf tenderness. NEUROLOGICAL: Patient is awake, alert and oriented x3. Assessment: Dyspnea on exertion Atypical chest pain, acute coronary syndrome ruled out Rule out coronary artery disease with dyspnea on exertion and chest pain Known history of coronary artery disease status post inferior wall [place] 11/2021 with previous stenting, most recent PCI of the proximal OM1 01/2023 Hypertension Hyperlipidemia Palpitations Mild ischemic cardiomyopathy with previous EF of 45 to 50% Left breast mass being worked up as an outpatient Plan: Continue patient's home cardiac medications Schedule patient for stress echocardiogram on Friday N.p.o. after midnight Further recommendations to follow based upon clinical course Nurse practitioner note has been reviewed, I agree with documented findings and plan of care. Patient was seen and examined. Objective - Vital Signs Vital signs: Vital Signs Temp 98.1 F 10/24/24 07:00 Pulse 62 10/24/24 07:00 Resp 15 10/24/24 07:00 BP 107/70 10/24/24 07:00 Pulse Ox 99 10/24/24 07:00 FiO2 Intake & Output 10/23/24 10/24/24 10/24/24 18:59 06:59 18:59 Other: Voiding Method Toilet Toilet Toilet # Voids 4 2 # Bowel Movements 0 - Labs CBC & Chem 7: 10/24/24 06:43 10/24/24 06:43 Labs: Abnormal Lab Results - Last 24 Hours (Table) 10/24/24 10/24/24 Range/Units 06:43 06:43 Lymphocytes # 0.76 L (0.90-5.00) X 10*3/uL BUN/Creatinine Ratio 20.20 H (12.00-20.00) Ratio
--- NOTE | 2024-10-24 15:26 | P.PN ---
Subjective Progress Note Date: 10/24/24 Interval History: 58-year-old male patient with past medical history significant for CAD and PCI of the proximal OM1 in January 2023, ischemic cardiomyopathy with EF 30 to 40% who presented to ER with a complaint of left-sided chest pain and shortness of breath. Patient stated that chest pain is worse with laying flat, was radiating to left shoulder or arm, was concerned that it was attributed to his left breast mass for which patient is following outpatient. Patient also reported that he is having progressive shortness of breath for more than a week. Vital stable EKG showed sinus rhythm with no acute ST to T wave changes. Chest x-ray negative for acute process Troponin negative X.3. Labs unremarkable. Echocardiogram showed EF 55 to 60%, trace to mild mitral regurg, trace TR, no pericardial effusion. 10/24--- patient was seen and examined today. Patient feeling better as compared to yesterday, denied any chest pain, shortness of breath comparatively better today. Vitals remained stable, remains 99% on room air. CBC unremarkable. BMP unremarkable. Cardiology following, plan for stress echocardiogram tomorrow. Assessment and plan: Dyspnea on exertion: Atypical chest pain: History of coronary artery disease/PCI in January 2023 Hypertension Hyperlipidemia Palpitations Mild ischemic cardiomyopathy with a EF 45 to 50% Left breast massfollowing with outpatient, scheduled for ultrasound and mammogram as outpatient Continue home meds Aspirin, statin, Lopressor, sublingual nitroglycerin Monitor labs and vitals Repeat echocardiogram done/reviewed--EF 55 to 60%, trace to mild MR, trace TR, no pericardial effusion. Cardiology consultedplan for stress cardiogram on Friday DVT prophylaxis Subcutaneous Lovenox Monitor vital signs and labs Labs and medication were reviewed. Continue same treatment. Further recommendations as per clinical course of the patient PHYSICAL EXAMINATION: GENERAL: The patient is A&O x3, NAD HEENT: EOMI, Sclerae anicteric, Moist Mucous membranes Neck: Supple, Non tender, No JVD PULMONARY: Equal breath souds B/L, No wheezing, No crackles. CARDIOVASCULAR: S1, S2 present. No murmurs, rubs, or gallops. ABDOMEN: Soft, nontender, nondistended, normoactive bowel sounds. No guarding or rebound tenderness. MUSCULOSKELETAL: No edema, No cyanosis. No clubbing. Normal ROM. Intact peripheral pulses. NEUROLOGICAL: CN 2-12 grossly intact. No FND REVIEW OF SYSTEMS: CONSTITUTIONAL: No fever, no malaise, no fatigue. HEENT: No recent visual problems or hearing problems. Denied any sore throat. CARDIOVASCULAR: No chest pain, orthopnea, PND, no palpitations, no syncope. PULMONARY: No shortness of breath, no cough, no hemoptysis. GASTROINTESTINAL: No diarrhea, no nausea, no vomiting, no abdominal pain. NEUROLOGICAL: No headaches, no weakness, no numbness. HEMATOLOGICAL: Denies any bleeding or petechiae. GENITOURINARY: Denies any burning micturition, frequency, or urgency. MUSCULOSKELETAL/RHEUMATOLOGICAL: Denies any joint pain, swelling, or any muscle pain. ENDOCRINE: Denies any polyuria or polydipsia. The rest of the 14-point review of systems is negative. Assessment and plan: DVT prophylaxis: Monitor vital signs and labs Labs and medication were reviewed. Continue same treatment. Further recommendations as per clinical course of the patient PHYSICAL EXAMINATION: GENERAL: The patient is A&O x3, NAD HEENT: EOMI, Sclerae anicteric, Moist Mucous membranes Neck: Supple, Non tender, No JVD PULMONARY: Equal breath souds B/L, No wheezing, No crackles. CARDIOVASCULAR: S1, S2 present. No murmurs, rubs, or gallops. ABDOMEN: Soft, nontender, nondistended, normoactive bowel sounds. No guarding or rebound tenderness. MUSCULOSKELETAL: No edema, No cyanosis. No clubbing. Normal ROM. Intact peripheral pulses. NEUROLOGICAL: CN 2-12 grossly intact. No FND Skin: No Rash REVIEW OF SYSTEMS: CONSTITUTIONAL: No fever or chills. CARDIOVASCULAR: No chest pain, palpitations or syncope. PULMONARY: No shortness of breath, no cough, sore throat. GASTROINTESTINAL: No nausea, vomiting, diarrhea, abdominal pain. : No Dysuria, urgency, frequency. Extremities: No edema. NEUROLOGICAL: No headaches, no weakness, or numbness Dictation was produced using [employer] dictation software. please excuse any grammatical, word or spelling errors. Objective - Vital Signs Vital signs: Vital Signs Temp 97.5 F L 10/24/24 14:35 Pulse 56 L 10/24/24 14:35 Resp 16 10/24/24 14:35 BP 102/70 10/24/24 14:35 Pulse Ox 99 10/24/24 14:35 FiO2 Intake & Output 10/23/24 10/24/24 10/24/24 18:59 06:59 18:59 Other: Voiding Method Toilet Toilet Toilet # Voids 4 2 3 # Bowel Movements 0 - Labs CBC & Chem 7: 10/24/24 06:43 10/24/24 06:43 Labs: Abnormal Lab Results - Last 24 Hours (Table) 10/24/24 10/24/24 Range/Units 06:43 06:43 Lymphocytes # 0.76 L (0.90-5.00) X 10*3/uL BUN/Creatinine Ratio 20.20 H (12.00-20.00) Ratio
--- NOTE | 2024-10-25 10:59 | P.PN ---
Subjective This is a 58-year-old male patient of Dr. Colin with past medical history of hypertension, palpitations, hyperlipidemia coronary artery disease status post inferior wall [place] in 12/26/2021, mild cardiomyopathy with EF of 45 to 50%, left breast mass. We have been asked to evaluate the patient for chest pain. Patient was last seen in the office on 08/17/2024 and at that time patient was scheduled for stress test in early October. Patient states that he is walking and finding that he is gasping for breath. He states this has been going on for a month or so and continues to get worse. He states it was significantly worse on Friday. Patient also had some shortness of breath with this. No fever or chills. Blood pressure 99/65, heart rate 56, pulse ox 99% on room air. Regarding the breast mass, patient is scheduled for mammogram/ultrasound. -EKG: Sinus rhythm with no acute ST-T wave changes. -Chest x-ray: No acute process -Laboratory studies: CBC INR electrolytes and renal function all within normal limits. proBNP 91, troponins negative x 3. -Home cardiac medications: Aspirin 81 mg daily, atorvastatin 80 mg daily, metoprolol tartrate 50 mg twice daily, Nitrostat as needed. -Cardiac catheterization performed January/2023 revealed CAD with 30 to 40% LAD, proximal OM1 70%, proximal RCA 30 to 40%, patent mid RCA stent, IFR of OM1 was abnormal at 0.86 and underwent PCI of the proximal OM1. -Echocardiogram performed on this admission reveals EF of 55 to 60%, trace to mild mitral regurgitation, trace tricuspid regurgitation, no pericardial effusion. 10/24 Patient seen and examined. Patient has been scheduled for stress echocardiogram for tomorrow morning. Patient is to be n.p.o. after midnight. Patient denies having any chest pain at this time. Blood pressure 107/70, heart rate 62, pulse ox 99% on room air. Repeat blood work reveals a normal CBC. Electrolytes and renal function are normal. Triglycerides 33, cholesterol 107, LDL 49, HDL 50. 10/25/2024 Patient seen and examined resting comfortably in no acute distress. He has had no further symptoms of chest discomfort. Blood pressure 97/69 heart rate 67 afebrile maintaining oxygen saturation on room air. Laboratory data reviewed, CBC unremarkable, sodium 141, potassium 5, creatinine 1.0. Physical examination: Gen: This is 58-year-old male in no acute distress HEENT: Head is atraumatic, normocephalic. Pupils equal, round. Sclerae is anicteric. NECK: Supple. No JVD. LUNGS: Clear to auscultation. No wheezes or rhonchi. No intercostal retractions. HEART: Regular rate and rhythm. No murmur. ABDOMEN: Soft No tenderness. EXTREMITIES: No pedal edema. No calf tenderness. NEUROLOGICAL: Patient is awake, alert and oriented x3. Assessment: Dyspnea on exertion Atypical chest pain, acute coronary syndrome ruled out Rule out coronary artery disease with dyspnea on exertion and chest pain Known history of coronary artery disease status post inferior wall [place] 11/2021 with previous stenting, most recent PCI of the proximal OM1 01/2023 Hypertension Hyperlipidemia Palpitations Mild ischemic cardiomyopathy with previous EF of 45 to 50% Left breast mass being worked up as an outpatient Plan: Stress test and echocardiogram to be performed today. If normal he is stable for discharge from a cardiac perspective. Follow-up with Dr. Colin in 1 to 2 weeks. Nurse practitioner note has been reviewed, I agree with documented findings and plan of care. Patient was seen and examined. Objective - Vital Signs Vital signs: Vital Signs Temp 98.6 F 10/25/24 07:00 Pulse 67 10/25/24 10:33 Resp 17 10/25/24 07:00 BP 97/69 10/25/24 07:00 Pulse Ox 100 10/25/24 10:33 FiO2 Intake & Output 10/24/24 10/25/24 10/25/24 18:59 06:59 18:59 Other: Voiding Method Toilet Toilet Toilet # Voids 3 1 - Labs CBC & Chem 7: 10/24/24 06:43 10/24/24 06:43
--- NOTE | 2024-10-25 13:17 | CA ---
Stress Echo Report Javon Velásquez Age: 58 Gender: M : 1965 Exam Date: 10/25/2024 09:35 Exam Location: [facility] Ht (in): 70 Wt (lb): 155 Ordering Physician: Lianne Jim Referring Physician: [id number] Survey Research Associate: CHRISTAL Technologist Procedure CPT: Indication: chest pain, VOSS ICD-9 Codes: Rhythm: Patient History: RENITA, CHOL, family hx, [place], ASCAD Cardiac Medications: Medications in past 24 hours: Contrast: Stress Results Protocol: You Total dose(mL): Exercise Duration (min:sec): 4:[address] Depression (mm): Angina Score: Limon Score: METS: 6.4 Resting HR: 68 Resting BP: 112 / 71 Peak HR: 143 Peak BP: 179 / 80 Max Predicted HR: 160 89 % Max Predicted HR Target HR: 136 Double Product: [id number] Stress Summary: BP Response: Reason for Termination: MAX EXERTION/TARGET HR Cardiac Symptoms: DIFFICULTY IN BREATHING,LIGHTHEADEDNESS,FATIGUE ECG Analysis Resting ECG: Stress ECG: Arrhythmia: Echo Analysis Resting Echo: Peak Echo Analysis: MEASUREMENTS (Male/Female) Normal Values CONCLUSIONS Baseline EKG revealed normal sinus rhythm without significant ST and T wave changes. Patient walked on a standard You protocol for 4 minutes 40 seconds and achieved a maximal heart rate of 143 bpm which is more than 85%. Patient had shortness of breath and slightly lightheaded feeling no anginal symptoms no significant arrhythmia. EKG did not reveal any ST segment changes to indicate ischemia. By EKG criteria this is a negative stress test with limited exercise capacity Baseline echo images revealed normal wall motion and wall thickening of all segments. At peak exercise there was good augmentation of left ventricular wall motion and wall thickening of all segments suggesting that there is no evidence of stress- induced ischemia on the study. Final impression: #1 Limited exercise capacity negative stress test by EKG criteria. #2 normal stress echocardiogram without evidence of ischemia Dr. Seth Hancock MD (Electronically Signed) Final Date: 25 October 2024 13:16
[2024-10-26 02:20] VITALS: RESP 16
[2024-10-26 06:42] VITALS: BP 113/69; PULSE 65; TEMP 98.6
--- NOTE | 2024-10-26 13:01 | P.PN ---
Subjective HISTORY OF PRESENT ILLNESS: This is a 58-year-old male patient of Dr. Colin with past medical history of hypertension, palpitations, hyperlipidemia coronary artery disease status post inferior wall DE in 12/26/2021, mild cardiomyopathy with EF of 45 to 50%, left breast mass. We have been asked to evaluate the patient for chest pain. Suma soni was last seen in the office on 08/17/2024 and at that time patient was scheduled for stress test in early October. Patient states that he is walking and finding that he is gasping for breath. He states this has been going on for a month or so and continues to get worse. He states it was significantly worse on Friday. Patient also had some shortness of breath with this. No fever or chills. Blood pressure 99/65, heart rate 56, pulse ox 99% on room air. Regarding the breast mass, patient is scheduled for mammogram/ultrasound. -EKG: Sinus rhythm with no acute ST-T wave changes. -Chest x-ray: No acute process -Laboratory studies: CBC INR electrolytes and renal function all within normal limits. proBNP 91, troponins negative x 3. -Home cardiac medications: Aspirin 81 mg daily, atorvastatin 80 mg daily, metoprolol tartrate 50 mg twice daily, Nitrostat as needed. -Cardiac catheterization performed January/2023 revealed CAD with 30 to 40% LAD, proximal OM1 70%, proximal RCA 30 to 40%, patent mid RCA stent, IFR of OM1 was abnormal at 0.86 and underwent PCI of the proximal OM1. -Echocardiogram performed on this admission reveals EF of 55 to 60%, trace to mild mitral regurgitation, trace tricuspid regurgitation, no pericardial effusion. 10/24 Patient seen and examined. Patient has been scheduled for stress echocardiogram for tomorrow morning. Patient is to be n.p.o. after midnight. Patient denies having any chest pain at this time. Blood pressure 107/70, heart rate 62, pulse ox 99% on room air. Repeat blood work reveals a normal CBC. Electrolytes and renal function are normal. Triglycerides 33, cholesterol 107, LDL 49, HDL 50. 10/25/2024 Patient seen and examined resting comfortably in no acute distress. He has had no further symptoms of chest discomfort. Blood pressure 97/69 heart rate 67 afebrile maintaining oxygen saturation on room air. Laboratory data reviewed, CBC unremarkable, sodium 141, potassium 5, creatinine 1.0. 10/26/2024 Patient examined this morning the bedside. Patient currently denies any chest pain or pressure. He denies any shortness of breath. He underwent stress echocardiogram yesterday which was negative for ischemia. Vital signs remained stable this morning. PHYSICAL EXAM: VITAL SIGNS: Reviewed. GENERAL: Well-developed in no acute distress. NECK: Supple. No JVD or thyromegaly LUNGS: Respirations even and unlabored. Lungs essentially clear to auscultation bilaterally. HEART: Regular rate and rhythm. S1 and S2 heard. EXTREMITIES: Normal range of motion. No clubbing or cyanosis. Peripheral pulses intact. No lower extremity edema ASSESSMENT: Dyspnea on exertion Atypical chest pain, acute coronary syndrome ruled out, status post stress echo with no evidence of ischemia Rule out coronary artery disease with dyspnea on exertion and chest pain Known history of coronary artery disease status post inferior wall DE 11/2021 with previous stenting, most recent PCI of the proximal OM1 01/2023 Hypertension Hyperlipidemia Palpitations Mild ischemic cardiomyopathy with previous EF of 45 to 50% Left breast mass being worked up as an outpatient PLAN: Continue current cardiac medications Patient cleared for discharge from a cardiac standpoint Patient to follow-up postdischarge with Dr. Colin Nurse practitioner note has been reviewed by physician. Signing provider agrees with the documented findings, assessment, and plan of care documented by TOOL [employer]RIER as a scribe. Objective - Vital Signs Vital signs: Vital Signs Temp 98.6 F 10/26/24 06:41 Pulse 65 10/26/24 06:41 Resp 16 10/26/24 06:41 BP 113/69 10/26/24 06:41 Pulse Ox 95 10/26/24 06:41 FiO2 Intake & Output 10/25/24 10/26/24 10/26/24 18:59 06:59 18:59 Intake Total 236 118 Balance 236 118 Intake: Oral 236 118 Other: Voiding Method Toilet Toilet Toilet # Voids 4 2 - Labs CBC & Chem 7: 10/24/24 06:43 10/24/24 06:43
--- NOTE | 2024-10-27 03:42 | DS ---
DISCHARGE SUMMARY CHIEF COMPLAINT: Chest pain. HISTORY OF PRESENT ILLNESS AND PHYSICAL EXAM: Details of this man's history and physical can be found in the initial workup. LABORATORY STUDIES: While he was in the hospital, he had laboratory studies, details of which can be found in the laboratory section of his chart. COURSE IN THE HOSPITAL: After admission, placed on bedrest and placed on telemetry. He had serial EKGs and enzymes, they were normal. He was seen by Cardiology and taken for a stress test on the morning of the . He passed the test and it was felt that he could be discharged to outpatient followup. FINAL DIAGNOSIS: Chest pain, noncardiac. OPERATIONS: None. CONSULTATION: Cardiology. He is improved. MMODL / IJN: [id number] /
--- NOTE | 2024-10-27 06:42 | PN ---
PROGRESS NOTE DATE OF SERVICE: 10/25/2024 CHIEF COMPLAINT: Chest pain. HISTORY OF PRESENT ILLNESS: This gentleman is doing fairly well. He is going down for a stress test today. PHYSICAL EXAMINATION: CHEST: Clear. CARDIAC: Normal. ABDOMEN: Soft, nontender. IMPRESSION: 1. Chest pain. 2. Coronary artery disease. 3. Status post stent placement 2 years ago as well as 1 year ago. PLAN: If the stress test goes well, he will be able to be discharged. MMODL / IJN: [id number] /
[2024-10-30] MEDS ORDERED: ERGOCALCIFEROL 1,250 MCG (50,000 IU) CAPSULE PO SCH (06:00)
== END 2024-10-26 11:17 | disposition home or self-care (01) ==
LOC: EC 10:05 → 6NMEDSUR 12:08
PROVIDERS: ADMIT Family Medicine; ATTEND Family Medicine
DX: R07.89 Other chest pain (principal); R06.09 Other forms of dyspnea; K21.9 Gastro-esophageal reflux disease without esophagitis; R00.2 Palpitations; N63.20 Unspecified lump in the left breast, unspecified quadrant; E78.5 Hyperlipidemia, unspecified; I25.5 Ischemic cardiomyopathy; I25.2 Old myocardial infarction; I25.10 Atherosclerotic heart disease of native coronary artery without angina pectoris; I10 Essential (primary) hypertension; Z95.5 Presence of coronary angioplasty implant and graft; Z79.82 Long term (current) use of aspirin; Z79.899 Other long term (current) drug therapy; Z87.442 Personal history of urinary calculi; Z87.891 Personal history of nicotine dependence
CPT/HCPCS: 96372 ×3; 99285; 36415; 93005 ×2; 93306; 93351; 83880; 80061; 80053; 80048; 83735; 84484; 85025 ×2; 85610; 85730; 71046; G0378 ×5; J1650 ×3